=== PATIENT | male | born 1955 | race American Indian/Alaskan Native ===

== ENCOUNTER 2016-10-17 07:55 | Outpatient (CLI) | payer MEDICARE ==
[2016-10-17] MEDS ORDERED: XYLOCAINE TOPICAL 4% TP ONE ×2 (11:38→11:44)
== END 2016-10-17 07:56 | disposition home or self-care (01) ==
LOC: WOUND 07:55
PROVIDERS: ATTEND Orthopaedic Surgery
DX: E11.621 Type 2 diabetes mellitus with foot ulcer (principal); L97.521 Non-pressure chronic ulcer of other part of left foot limited to breakdown of skin; L97.511 Non-pressure chronic ulcer of other part of right foot limited to breakdown of skin; E11.52 Type 2 diabetes mellitus with diabetic peripheral angiopathy with gangrene; T81.31XS Disruption of external operation (surgical) wound, not elsewhere classified, sequela; T86.821 Skin graft (allograft) (autograft) failure; Z89.432 Acquired absence of left foot; Z99.2 Dependence on renal dialysis; I10 Essential (primary) hypertension; Z87.891 Personal history of nicotine dependence; Y83.2 Surgical operation with anastomosis, bypass or graft as the cause of abnormal reaction of the patient, or of later complication, without mention of misadventure at the time of the procedure
CPT/HCPCS: 11042; 82962; G0277; 99183

== ENCOUNTER 2016-10-18 07:41 | Outpatient (CLI) | payer MEDICARE | END 2016-10-18 07:42 | disposition home or self-care (01) | LOC: WOUND 07:41 | PROVIDERS: ATTEND Orthopaedic Surgery | DX: T86.821 Skin graft (allograft) (autograft) failure (principal); T81.31XS Disruption of external operation (surgical) wound, not elsewhere classified, sequela; E11.52 Type 2 diabetes mellitus with diabetic peripheral angiopathy with gangrene; I10 Essential (primary) hypertension; Z87.891 Personal history of nicotine dependence; Y83.2 Surgical operation with anastomosis, bypass or graft as the cause of abnormal reaction of the patient, or of later complication, without mention of misadventure at the time of the procedure | CPT/HCPCS: 82962; G0277; 99183 ==

== ENCOUNTER 2016-10-24 07:46 | Outpatient (CLI) | payer MEDICARE | END 2016-10-24 07:47 | disposition home or self-care (01) | LOC: WOUND 07:46 | PROVIDERS: ATTEND Orthopaedic Surgery | DX: E11.621 Type 2 diabetes mellitus with foot ulcer (principal); L97.521 Non-pressure chronic ulcer of other part of left foot limited to breakdown of skin; L97.511 Non-pressure chronic ulcer of other part of right foot limited to breakdown of skin; I10 Essential (primary) hypertension; Z87.891 Personal history of nicotine dependence | CPT/HCPCS: 11042; 82962; G0277; 99183 ==

== ENCOUNTER 2016-10-25 07:45 | Outpatient (CLI) | payer MEDICARE | END 2016-10-25 07:46 | disposition home or self-care (01) | LOC: WOUND 07:45 | PROVIDERS: ATTEND Orthopaedic Surgery | DX: T86.821 Skin graft (allograft) (autograft) failure (principal); T81.31XD Disruption of external operation (surgical) wound, not elsewhere classified, subsequent encounter; E11.52 Type 2 diabetes mellitus with diabetic peripheral angiopathy with gangrene; I10 Essential (primary) hypertension; Z87.891 Personal history of nicotine dependence; Y83.2 Surgical operation with anastomosis, bypass or graft as the cause of abnormal reaction of the patient, or of later complication, without mention of misadventure at the time of the procedure | CPT/HCPCS: 82962; G0277; 99183 ==

== ENCOUNTER 2016-10-30 07:48 | Outpatient (CLI) | payer MEDICARE | END 2016-10-30 07:49 | disposition home or self-care (01) | LOC: WOUND 07:48 | PROVIDERS: ATTEND Podiatrist | DX: T86.821 Skin graft (allograft) (autograft) failure (principal); T81.31XD Disruption of external operation (surgical) wound, not elsewhere classified, subsequent encounter; E11.52 Type 2 diabetes mellitus with diabetic peripheral angiopathy with gangrene; I10 Essential (primary) hypertension; E11.9 Type 2 diabetes mellitus without complications; Z87.891 Personal history of nicotine dependence; Y83.2 Surgical operation with anastomosis, bypass or graft as the cause of abnormal reaction of the patient, or of later complication, without mention of misadventure at the time of the procedure | CPT/HCPCS: 82962; G0277; 99183 ==

== ENCOUNTER 2016-10-31 07:57 | Outpatient (CLI) | payer MEDICARE | END 2016-10-31 07:58 | disposition home or self-care (01) | LOC: WOUND 07:57 | PROVIDERS: ATTEND Orthopaedic Surgery | DX: T86.821 Skin graft (allograft) (autograft) failure (principal); T81.31XD Disruption of external operation (surgical) wound, not elsewhere classified, subsequent encounter; E11.52 Type 2 diabetes mellitus with diabetic peripheral angiopathy with gangrene; E11.9 Type 2 diabetes mellitus without complications; I10 Essential (primary) hypertension; Z87.891 Personal history of nicotine dependence | CPT/HCPCS: 82962; G0277; 99183 ==

== ENCOUNTER 2016-11-01 08:06 | Outpatient (CLI) | payer MEDICARE | END 2016-11-01 08:07 | disposition home or self-care (01) | LOC: WOUND 08:06 | PROVIDERS: ATTEND Orthopaedic Surgery | DX: T86.821 Skin graft (allograft) (autograft) failure (principal); T81.31XD Disruption of external operation (surgical) wound, not elsewhere classified, subsequent encounter; E11.52 Type 2 diabetes mellitus with diabetic peripheral angiopathy with gangrene; I10 Essential (primary) hypertension; Z87.891 Personal history of nicotine dependence; Y83.2 Surgical operation with anastomosis, bypass or graft as the cause of abnormal reaction of the patient, or of later complication, without mention of misadventure at the time of the procedure | CPT/HCPCS: 82962; G0277; 99183 ==

== ENCOUNTER 2016-11-02 09:13 | Outpatient (CLI) | payer MEDICARE ==
[2016-11-02] MEDS ORDERED: XYLOCAINE TOPICAL 2% TP ONE ×2 (09:23→14:34)
== END 2016-11-02 09:14 | disposition home or self-care (01) ==
LOC: WOUND 09:13
PROVIDERS: ATTEND Podiatrist
DX: T86.821 Skin graft (allograft) (autograft) failure (principal); T81.31XD Disruption of external operation (surgical) wound, not elsewhere classified, subsequent encounter; E11.52 Type 2 diabetes mellitus with diabetic peripheral angiopathy with gangrene; I10 Essential (primary) hypertension; Z87.891 Personal history of nicotine dependence; Y83.2 Surgical operation with anastomosis, bypass or graft as the cause of abnormal reaction of the patient, or of later complication, without mention of misadventure at the time of the procedure

== ENCOUNTER 2016-11-07 08:33 | Outpatient (CLI) | payer MEDICARE ==
[2016-11-07] MEDS ORDERED: XYLOCAINE TOPICAL 2% TP ONE ×3 (08:36→13:27)
[2016-11-07] MEDS ORDERED: ePHEDrine SULFATE ONE (13:12)
[2016-11-07] MEDS ORDERED: NEO SYNEPHRINE ONE (13:30)
--- NOTE | 2016-11-08 03:07 | Physician Progress Note ---
DIAGNOSIS: Diabetic foot ulcers Howard 4. ASSESSMENT OF WOUNDS: Wound #2, left plantar wound measurements 3.3 x 3.3 x 1.2, an area of 10.89 sq cm. This wound has necrotic tissue and leading down to the plantar aspect of the metatarsal with the necrotic bone. Under 4% lidocaine solution topical analgesia using a sterile curette, excisional debridement down to the third metatarsal head was performed sequestered bony spicules removed. The wound packed after thorough excisional debridement at bony level and dressed with alginate rope. Total area of 10.89 sq cm. Wound #3, right lateral fifth toe, necrotic tissue noted in the wound. Under 4% lidocaine solution topical analgesia using forceps and scissors, necrotic tissue was cut out and removed. The subcutaneous level necrotic tissue was curetted out with sterile curette. Wound dressed with Alginate silver. Wound #7 and #8 were similarly treated over the right great toe. Wound #8 was lateral border of the left leg. These are at subcutaneous level. Excisional debridement of the slough. So, 3, 7 and 8 wounds together 8.73 sq cm. These were dressed with Alginate silver. Well tolerated. The patient had appointment with his doctor at [facility]. He was planning to have surgical debridement in November. He will continue his wound care here as scheduled on weekly debridements. Because of necrotic bone, I would ask for approval for continuation of HBO for another 40 Dives. JOB# [id number] ARI/TOMASA ELIAS
== END 2016-11-07 08:34 | disposition home or self-care (01) ==
LOC: WOUND 08:33
PROVIDERS: ATTEND Orthopaedic Surgery
DX: E11.621 Type 2 diabetes mellitus with foot ulcer (principal); L97.521 Non-pressure chronic ulcer of other part of left foot limited to breakdown of skin; L97.511 Non-pressure chronic ulcer of other part of right foot limited to breakdown of skin; S90.424D Blister (nonthermal), right lesser toe(s), subsequent encounter; T81.31XS Disruption of external operation (surgical) wound, not elsewhere classified, sequela; T86.821 Skin graft (allograft) (autograft) failure; E11.52 Type 2 diabetes mellitus with diabetic peripheral angiopathy with gangrene; I10 Essential (primary) hypertension; Z99.2 Dependence on renal dialysis; Z87.891 Personal history of nicotine dependence; X58.XXXD Exposure to other specified factors, subsequent encounter; Y83.2 Surgical operation with anastomosis, bypass or graft as the cause of abnormal reaction of the patient, or of later complication, without mention of misadventure at the time of the procedure
CPT/HCPCS: 11044; J2370

== ENCOUNTER 2016-11-09 10:52 | Outpatient (CLI) | payer MEDICARE | END 2016-11-09 10:53 | disposition home or self-care (01) | LOC: WOUND 10:52 | PROVIDERS: ATTEND Podiatrist | DX: T86.821 Skin graft (allograft) (autograft) failure (principal); T81.31XS Disruption of external operation (surgical) wound, not elsewhere classified, sequela; E11.52 Type 2 diabetes mellitus with diabetic peripheral angiopathy with gangrene; I10 Essential (primary) hypertension; Z87.891 Personal history of nicotine dependence; Y83.2 Surgical operation with anastomosis, bypass or graft as the cause of abnormal reaction of the patient, or of later complication, without mention of misadventure at the time of the procedure | CPT/HCPCS: 99212; G0463 ==

== ENCOUNTER 2016-11-09 12:57 | Emergency (ER) | payer MEDICARE ==
--- NOTE | 2016-11-09 14:43 | Emergency Department Report ---
Chief Complaint: Wound/Laceration Stated Complaint: WOUND CARE Time Seen by Provider: 11/09/16 15:05 - HPI History of Present Illness: Patient is a 61-year-old male who was sent from the wound care center stating he was sent over to be admitted to today's Wound infection on his left foot. Patient states he was seen at the wound care center today when he was supposed to come to the ED to be evaluated and possibly admitted due to wound infection of the left foot. Patient denies fevers/chills/nausea/vomiting/abdominal pain/chest pain or any other problems. Patient's states his leg was assessed today at the wound care was wrapped up until to come to ED. - ROS Review of Systems: As noted in HPI - Exam Vital Signs: Vital Signs 11/09/16 13:02 Temperature 99.1 F Pulse Rate 103 H Respiratory 20 Rate Blood Pressure 146/70 O2 Sat by Pulse 100 Oximetry Physical Exam: GENERAL: Alert and oriented x3, no apparent distress, Normal Gait, atraumatic. NECK: Supple. Non edematous, No carotid bruits. No lymphadenopathy or thyromegaly. LUNGS: Symetrical with respiration, No wheezing, no rales or crackles, CTAB. HEART: S1, S2 present, regular rate and rhythm without murmur, no rubs, no gallops. EXTREMITIES/MUSCULOSKELETAL: No cyanosis, clubbing, rash. Full ROM bilaterally. SKIN: Warm and dry, No lesions, No ulceration or induration present. lower leg warm and edematous 2+ pitting edema, no calf tenderness MSE screening note: Focused history and physical exam performed. Due to findings the following was ordered: ED Medical Decision Making - Medical Decision Making Basic labs ordered. Patient to be given IV antibiotics and possibly vancomycin and be admitted on the floor. Patient's to be seen by Ed physician. ED Disposition for MSE Condition: Stable
[2016-11-09 16:48] LABS: BUN/Creatinine Ratio 3.58; Calcium 8.7 mg/dL (8.4-10.2); Chloride 94.7 mmol/L (98-107); Potassium 4.7 mmol/L (3.6-5.0)
[2016-11-09 17:04] LABS: Basophils % (Auto) 0.9 % (0.0-1.8); Eosinophils % (Auto) 10.4 % (0.0-4.3); Hematocrit 33.4 % (35.5-45.6); Hemoglobin 10.7 gm/dl (11.8-15.2); Mean Corpuscular HGB Conc 32 % (32-34); Mean Corpuscular Hemoglobin 28 pg (28-32); Mean Corpuscular Volume 88 fl (84-94); Platelet Count 228 K/mm3 (140-440); Red Blood Count 3.81 M/mm3 (3.65-5.03); Red Cell Distribution Width 16.9 % (13.2-15.2); White Blood Count 10.5 K/mm3 (4.5-11.0)
--- NOTE | 2016-11-09 19:55 | Emergency Department Report ---
ED General Adult HPI - General Chief complaint: Wound/Laceration Stated complaint: WOUND CARE Time Seen by Provider: 11/09/16 19:39 Source: patient, RN notes reviewed Mode of arrival: Ambulatory Limitations: No Limitations - History of Present Illness Initial comments: This is a 61-year-old male, previously unknown to me. Has a past medical history of diabetes, diabetic ulcers, chronic wounds, end-stage renal disease on dialysis. Last dialysis session was yesterday, and it was of normal length and duration. Patient follows up with wound care here. He reports that he is sent here by the wound care nurse for evaluation. The patient denies fever, chills, chest pain, shortness of breath, abdominal pain. Denies discharge. He reports that he had a low-grade temperature of 99. Doesn't think he has any discharge. He is remaining compliant with his wound care therapy. No exacerbating or relieving factors. -: Gradual Severity scale (0 -10): 2 Improves with: none Worsens with: none Associated Symptoms: denies: confusion, chest pain, cough, diaphoresis, fever/ chills, headaches, loss of appetite, malaise, nausea/vomiting, rash, seizure, shortness of breath, syncope, weakness - Related Data Home Medications Medication Instructions Recorded Confirmed Last Taken Calcium Acetate 2 tab PO TIDWM 10/30/13 11/14/15 12/14/13 Metoprolol [Lopressor TAB] 50 mg PO BID 10/30/13 11/14/15 12/14/13 Omeprazole [PriLOSEC] 40 mg PO DAILY PRN 10/30/13 11/14/15 12/14/13 amLODIPine [Norvasc] 10 mg PO DAILY 10/30/13 11/14/15 12/14/13 Brimonidine Tartrate [Brimonidine 1 drop OU BID 12/12/14 11/14/15 Unknown Tartrate 0.2%] Dorzolamide HCl/Timolol Maleat 10 ml OP BID 12/12/14 11/14/15 Unknown [Dorzolamide-Timolol Eye Drops] Latanoprost 0.005% [Xalatan 0.005%] 1 drop OP QPM 12/12/14 11/14/15 Unknown Previous Rx's Medication Instructions Recorded Last Taken Type Brimonidine Tartrate [Brimonidine 1 drop OU BID 11/17/15 Unknown Rx Tartrate 0.2%] Calcium Acetate [Phoslo] 1,334 mg PO TIDWM capsule 11/17/15 Unknown Rx Dorzolamide/Timolol(Nf) 2-0.5% 1 drops OU BID bottle 11/17/15 Unknown Rx [Cosopt (Nf)] Insulin NPH/Regular [NovoLIN 70/30] 5 unit SUB-Q BIDDIAB units 11/17/15 Unknown Rx Latanoprost 0.005% [Xalatan 0.005%] 1 drops OU QPM bottle 11/17/15 Unknown Rx Pantoprazole [Protonix TAB] 40 mg PO DAILY tablet 11/17/15 Unknown Rx amLODIPine [Norvasc] 10 mg PO DAILY tablet 11/17/15 Unknown Rx Levofloxacin [Levaquin TAB] 500 mg PO Q48H #7 dose 03/10/16 Unknown Rx SILVER sulfADIAZINE 50 GRAM 1 applic TP QDAY #1 tube 03/10/16 Unknown Rx [Thermazene 50 Gram] Allergies Allergy/AdvReac Type Severity Reaction Status Date / Time IV CONTRAST DYE AdvReac Nausea Uncoded 03/05/16 12:34 ED Review of Systems ROS: Stated complaint: WOUND CARE Other details as noted in HPI Constitutional: no symptoms reported ENT: as per HPI Respiratory: no symptoms reported Cardiovascular: as per HPI Endocrine: no symptoms reported Gastrointestinal: as per HPI Genitourinary: as per HPI Musculoskeletal: as per HPI Skin: as per HPI Neurological: as per HPI Psychiatric: as per HPI Hematological/Lymphatic: as per HPI ED Past Medical Hx - Past Medical History Hx Hypertension: Yes Hx CVA: No Hx Heart Attack/AMI: No Hx Congestive Heart Failure: No Hx Diabetes: Yes Hx Deep Vein Thrombosis: No Hx Pulmonary Embolism: No Hx GERD: No Hx Liver Disease: No Hx Renal Disease: Yes Hx Sickle Cell Disease: No Hx Arthritis: No Hx Headaches / Migraines: No Hx Seizures: No Hx Kidney Stones: No Hx Psychiatric Treatment: No Hx Asthma: No Hx COPD: No Hx Tuberculosis: No Hx Dementia: No Hx HIV: No Additional medical history: diaylsis- tues, thurs, sat - Surgical History Hx Coronary Stent: No Hx Open Heart Surgery: No Hx Pacemaker: No Hx Internal Defibrillator: No Hx Cholecystectomy: No Hx Appendectomy: No Hx Breast Surgery: No Additional Surgical History: graft in right arm - Social History Smoking Status: Former Smoker Substance Use Type: None - Medications Home Medications: Home Medications Medication Instructions Recorded Confirmed Last Taken Type Calcium Acetate 2 tab PO TIDWM 10/30/13 11/14/15 12/14/13 History Metoprolol [Lopressor TAB] 50 mg PO BID 10/30/13 11/14/15 12/14/13 History Omeprazole [PriLOSEC] 40 mg PO DAILY PRN 10/30/13 11/14/15 12/14/13 History amLODIPine [Norvasc] 10 mg PO DAILY 10/30/13 11/14/15 12/14/13 History Brimonidine Tartrate [Brimonidine 1 drop OU BID 12/12/14 11/14/15 Unknown History Tartrate 0.2%] Dorzolamide HCl/Timolol Maleat 10 ml OP BID 12/12/14 11/14/15 Unknown History [Dorzolamide-Timolol Eye Drops] Latanoprost 0.005% [Xalatan 0.005%] 1 drop OP QPM 12/12/14 11/14/15 Unknown History Brimonidine Tartrate [Brimonidine 1 drop OU BID 11/17/15 Unknown Rx Tartrate 0.2%] Calcium Acetate [Phoslo] 1,334 mg PO TIDWM capsule 11/17/15 Unknown Rx Dorzolamide/Timolol(Nf) 2-0.5% 1 drops OU BID bottle 11/17/15 Unknown Rx [Cosopt (Nf)] Insulin NPH/Regular [NovoLIN 70/30] 5 unit SUB-Q BIDDIAB units 11/17/15 Unknown Rx Latanoprost 0.005% [Xalatan 0.005%] 1 drops OU QPM bottle 11/17/15 Unknown Rx Pantoprazole [Protonix TAB] 40 mg PO DAILY tablet 11/17/15 Unknown Rx amLODIPine [Norvasc] 10 mg PO DAILY tablet 11/17/15 Unknown Rx Levofloxacin [Levaquin TAB] 500 mg PO Q48H #7 dose 03/10/16 Unknown Rx SILVER sulfADIAZINE 50 GRAM 1 applic TP QDAY #1 tube 03/10/16 Unknown Rx [Thermazene 50 Gram] ED Physical Exam - General Limitations: No Limitations General appearance: alert, in no apparent distress - Head Head exam: Present: atraumatic, normocephalic - Eye Eye exam: Present: normal appearance, EOMI. Absent: nystagmus - ENT ENT exam: Present: normal exam, normal orophraynx, mucous membranes moist, normal external ear exam - Neck Neck exam: Present: normal inspection, full ROM. Absent: tenderness, meningismus - Respiratory Respiratory exam: Present: normal lung sounds bilaterally. Absent: respiratory distress, wheezes, rales, rhonchi, stridor, chest wall tenderness - Cardiovascular Cardiovascular Exam: Present: regular rate, normal rhythm, normal heart sounds. Absent: bradycardia, tachycardia, irregular rhythm, systolic murmur, diastolic murmur, rubs, gallop - GI/Abdominal GI/Abdominal exam: Present: soft, normal bowel sounds. Absent: distended, tenderness, guarding, rebound, rigid, pulsatile mass - Rectal Rectal exam: Present: deferred - Extremities Exam Extremities exam: Present: full ROM, normal capillary refill, other (there is a right upper extremity AV fistula with an appropriate throat. Numerous chronic wounds are noted in the bilateral lower extremities. In the left lower extremity, on the plantar aspect, there is a 3 x 4 cm chronic wound, with good granulation tissue, which is healing well, slightly discolored surrounding skin , with no redness, pus, streaking, or crepitus. There are 2+ pulses in the bilateral upper and lower extremities. There is a small chronic wound as well on the left superior/lateral aspect of the foot, which is also not appearing to be acutely infected. On the right lateral aspect of the fifth toe, there is a chronic healing wound with approximately 1 x 1 cm, which does not appear to be acutely infected.). Absent: tenderness, pedal edema, joint swelling, calf tenderness - Back Exam Back exam: Present: normal inspection, full ROM. Absent: tenderness, CVA tenderness (R), CVA tenderness (L), muscle spasm, paraspinal tenderness, vertebral tenderness - Neurological Exam Neurological exam: Present: alert, oriented X3, normal gait, other (Extraocular movements intact. Tongue midline. No facial droop. Facial sensation intact to light touch in the V1, V2, V3 distribution bilaterally. 5 and 5 strength in 4 extremities.. Sensation is intact to light touch in 4 extremities.). Absent : motor sensory deficit - Psychiatric Psychiatric exam: Present: normal affect, normal mood - Skin Skin exam: Present: warm, dry, intact, normal color. Absent: rash ED Course Vital Signs 11/09/16 11/09/16 11/09/16 13:02 19:53 21:23 Temperature 99.1 F 99.8 F H Pulse Rate 103 H 97 H 84 Respiratory 20 20 20 Rate Blood Pressure 146/70 Blood Pressure 124/84 [Left] O2 Sat by Pulse 100 97 98 Oximetry - Reevaluation(s) Reevaluation #1: 11/09/16 20:35 Differential diagnosis: Chronic wound, chronic renal insufficiency Assessment and plan: 61-year-old male with chronic wound. No fever by rectal temperature, wound appears to be healing well, laboratory studies demonstrate chronic renal insufficiency. He has good pulses, there is no evidence of obvious cellulitis or discharge, his compartments are soft, and he has appropriate strength and sensation. I do not believe he requires oral antibiotic therapy, and I certainly believe he does not require admission to the hospital at this time. He can continue his current outpatient medications, and follow up with his technical sales support specialist. ED Medical Decision Making - Lab Data Result diagrams: 11/09/16 16:15 11/09/16 16:15 Critical care attestation.: If time is entered above; I have spent that time in minutes in the direct care of this critically ill patient, excluding procedure time. ED Disposition Clinical Impression: Chronic wound of extremity Disposition: DISCHARGED TO HOME OR SELFCARE Is pt being admited?: No Does the pt Need Aspirin: No Condition: Stable Instructions: Wound Healing and Your Diet (ED), Pressure Ulcer (ED) Additional Instructions: Continue current outpatient medications. Follow-up with your technical sales support specialist within the next week. Return to the ER right away with fevers, chills, chest pain, shortness of breath, pain, redness, pus, streaking, intractable nausea or vomiting, inability to tolerate liquids. Referrals: GEORGES NOVA MD [Primary Care Provider] - 3-5 Days COLT VARGHESE MD [Staff Physician] - 3-5 Days
[2016-11-09 21:23] VITALS: BP 124/84
== END 2016-11-09 21:23 | disposition home or self-care (01) ==
LOC: ED 12:57
DX: S81.802D Unspecified open wound, left lower leg, subsequent encounter (principal); S81.801D Unspecified open wound, right lower leg, subsequent encounter; G89.29 Other chronic pain; R50.9 Fever, unspecified; I10 Essential (primary) hypertension; E11.9 Type 2 diabetes mellitus without complications; N28.9 Disorder of kidney and ureter, unspecified; Z79.4 Long term (current) use of insulin; Z87.891 Personal history of nicotine dependence; Z88.8 Allergy status to other drugs, medicaments and biological substances; X58.XXXD Exposure to other specified factors, subsequent encounter
CPT/HCPCS: 36415; 80048; 85025; 99212; 99283; G0463

== ENCOUNTER 2016-11-18 00:58 | Emergency (ER) | payer OTHER, MEDICARE ==
[2016-11-18] MEDS ORDERED: TYLENOL PO ONE (04:49)
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
[2016-11-18 06:47] VITALS: BP 111/66
== END 2016-11-18 06:31 | disposition home or self-care (01) ==
LOC: ED 00:58
DX: S39.012A Strain of muscle, fascia and tendon of lower back, initial encounter (principal); S00.03XA Contusion of scalp, initial encounter; I12.0 Hypertensive chronic kidney disease with stage 5 chronic kidney disease or end stage renal disease; N18.6 End stage renal disease; Z99.2 Dependence on renal dialysis; Z79.4 Long term (current) use of insulin; E11.9 Type 2 diabetes mellitus without complications; Z87.891 Personal history of nicotine dependence; Z91.041 Radiographic dye allergy status; V89.2XXA Person injured in unspecified motor-vehicle accident, traffic, initial encounter; Y93.89 Activity, other specified; Y99.8 Other external cause status; Y92.89 Other specified places as the place of occurrence of the external cause
CPT/HCPCS: 70450; 72125

== ENCOUNTER 2016-11-25 14:55 | Inpatient (IN) | payer MEDICARE, OTHER ==
[2016-11-25 16:10] LABS: Basophils % (Auto) 0.4 % (0.0-1.8); Eosinophils % (Auto) 0.9 % (0.0-4.3); Hematocrit 30.5 % (35.5-45.6); Hemoglobin 9.5 gm/dl (11.8-15.2); Mean Corpuscular HGB Conc 31 % (32-34); Mean Corpuscular Hemoglobin 27 pg (28-32); Mean Corpuscular Volume 86 fl (84-94); Platelet Count 259 K/mm3 (140-440); Red Blood Count 3.53 M/mm3 (3.65-5.03); Red Cell Distribution Width 17.1 % (13.2-15.2); White Blood Count 15.9 K/mm3 (4.5-11.0)
[2016-11-25 16:34] LABS: BUN/Creatinine Ratio 3.56; Calcium 9.5 mg/dL (8.4-10.2); Chloride 91.8 mmol/L (98-107)
[2016-11-25 20:18] LABS: INR 1.31 (0.87-1.13)
[2016-11-25] MEDS ORDERED: ZOFRAN IV ONE (23:17)
[2016-11-25] MEDS ORDERED: ZOSYN/NS 2.25 GM/50ML 2.25 GM/50 ML BAG IV ONE (23:17)
[2016-11-25] MEDS ORDERED: VANCOMYCIN/NS 1 GM/250 ML 1 GM/250 ML BAG IV ONE (23:17)
[2016-11-25] MEDS ORDERED: SUBLIMAZE IV ONE (23:17)
--- NOTE | 2016-11-25 23:23 | Emergency Department Report ---
HPI - General Chief Complaint: Chest Pain Time Seen by Provider: 11/25/16 23:05 - HPI HPI: Room 26 The patient is a 61-year-old male presenting with a chief complaint of nausea and vomiting. The patient states for the past 3 days he's had nausea and vomiting with occasional diarrhea. Patient states this prompted him to come to the emergency department. Patient denies any history of fever. The patient denies chest pain but states that he has occasional "heartburn." The patient has a very malodorous left foot and he states that has been that way for several months but worsening over the last month. Patient has a history of the left foot wound with an ulcer on the bottom since July 2016. Location: [see above] Duration: [see above] Quality: Vomiting Severity: Moderate Modifying factors: [see above] Context: [see above] Mode of transportation: [not driving] ED Past Medical Hx - Past Medical History Previous Medical History?: Yes Hx Hypertension: Yes Hx Diabetes: Yes Hx Renal Disease: Yes Additional medical history: diaylsis- tues, thurs, sat - Surgical History Past Surgical History?: Yes Additional Surgical History: 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 - Family History Family history: no significant - Social History Smoking Status: Former Smoker Substance Use Type: None - Medications Home Medications: Home Medications Medication Instructions Recorded Confirmed Last Taken Type Calcium Acetate 2 tab PO TIDWM 10/30/13 11/14/15 12/14/13 History Metoprolol [Lopressor TAB] 50 mg PO BID 10/30/13 11/14/15 12/14/13 History Omeprazole [PriLOSEC] 40 mg PO DAILY PRN 10/30/13 11/14/15 12/14/13 History amLODIPine [Norvasc] 10 mg PO DAILY 10/30/13 11/14/15 12/14/13 History Brimonidine Tartrate [Brimonidine 1 drop OU BID 12/12/14 11/14/15 Unknown History Tartrate 0.2%] Dorzolamide HCl/Timolol Maleat 10 ml OP BID 12/12/14 11/14/15 Unknown History [Dorzolamide-Timolol Eye Drops] Latanoprost 0.005% [Xalatan 0.005%] 1 drop OP QPM 12/12/14 11/14/15 Unknown History Brimonidine Tartrate [Brimonidine 1 drop OU BID 11/17/15 Unknown Rx Tartrate 0.2%] Calcium Acetate [Phoslo] 1,334 mg PO TIDWM capsule 11/17/15 Unknown Rx Dorzolamide/Timolol(Nf) 2-0.5% 1 drops OU BID bottle 11/17/15 Unknown Rx [Cosopt (Nf)] Insulin NPH/Regular [NovoLIN 70/30] 5 unit SUB-Q BIDDIAB units 11/17/15 Unknown Rx Latanoprost 0.005% [Xalatan 0.005%] 1 drops OU QPM bottle 11/17/15 Unknown Rx Pantoprazole [Protonix TAB] 40 mg PO DAILY tablet 11/17/15 Unknown Rx amLODIPine [Norvasc] 10 mg PO DAILY tablet 11/17/15 Unknown Rx Levofloxacin [Levaquin TAB] 500 mg PO Q48H #7 dose 03/10/16 Unknown Rx SILVER sulfADIAZINE 50 GRAM 1 applic TP QDAY #1 tube 03/10/16 Unknown Rx [Thermazene 50 Gram] Acetaminophen [Acetaminophen TAB] 500 mg PO Q6HR PRN #25 tablet 11/18/16 Unknown Rx ED Review of Systems ROS: Stated complaint: N/V HEARTBURN Other details as noted in HPI Comment: All other systems reviewed and negative Constitutional: denies: chills, fever Eyes: denies: eye pain, eye discharge, vision change ENT: denies: ear pain, throat pain Respiratory: denies: cough, shortness of breath, wheezing Cardiovascular: denies: chest pain, palpitations Endocrine: no symptoms reported Gastrointestinal: nausea, vomiting Genitourinary: denies: urgency, dysuria Musculoskeletal: myalgia Skin: lesions Neurological: denies: headache, weakness, paresthesias Psychiatric: denies: anxiety, depression Hematological/Lymphatic: denies: easy bleeding, easy bruising Physical Exam - Physical Exam Vital Signs: Vital Signs 11/25/16 11/25/16 11/25/16 15:21 20:32 20:36 Temperature 99.7 F H Pulse Rate 117 H 114 H Respiratory 18 18 18 Rate Blood Pressure 142/69 Blood Pressure 145/71 [Left] O2 Sat by Pulse 100 99 99 Oximetry Physical Exam: GENERAL: The patient is well-developed well-nourished male lying on stretcher not appearing to be in acute distress.. There is a very foul odor filling the room, apparently emanating from the patient's left foot HEENT: Normocephalic. Atraumatic. Extraocular motions are intact. Patient has moist mucous membranes. NECK: Supple. No meningitic signs are noted. There is no adenopathy noted. CHEST/LUNGS: Clear to auscultation. There is no respiratory distress noted. HEART/CARDIOVASCULAR: Regular. There is tachycardia. There is no gallop rub or murmur. ABDOMEN: Abdomen is soft, nontender. Patient has normal bowel sounds. There is no abdominal distention. SKIN: There is erythema and warmth of the entire left lower extremity below the knee. Ulcers present the sole of left foot. Evidence of greenish discharge present in the dressing. Foot is very foul smelling NEURO: The patient is awake, alert, and oriented. The patient is cooperative. The patient has normal speech MUSCULOSKELETAL: There is no evidence of acute injury. ED Course Vital Signs 11/25/16 11/25/16 11/25/16 15:21 20:32 20:36 Temperature 99.7 F H Pulse Rate 117 H 114 H Respiratory 18 18 18 Rate Blood Pressure 142/69 Blood Pressure 145/71 [Left] O2 Sat by Pulse 100 99 99 Oximetry - Consultations Consultation #1: 11/25/16 23:[address] Stallings. She requests a lipase be added and an abdominal x-ray be performed. These studies have been ordered by myself to be followed up by Dr. Stallings 11/25/16 23:51 ED Medical Decision Making - Lab Data Result diagrams: 11/25/16 15:45 11/25/16 15:45 Laboratory Tests 11/25/16 11/25/16 11/25/16 15:15 15:45 15:45 WBC 15.9 H RBC 3.53 L Hgb 9.5 L Hct 30.5 L MCV 86 MCH 27 L MCHC 31 L RDW 17.1 H Plt Count 259 Lymph % (Auto) 5.4 L Centre % (Auto) 8.4 H Eos % (Auto) 0.9 Baso % (Auto) 0.4 Lymph # 0.9 L Centre # 1.3 H Eos # 0.1 Baso # 0.1 Seg Neutrophils % 84.9 H Seg Neutrophils # 13.5 H PT INR VBG pH Sodium 134 L Potassium 4.0 Chloride 91.8 L Carbon Dioxide 22 Anion Gap 24 BUN 26 H Creatinine 7.3 H Estimated GFR 9 BUN/Creatinine Ratio 3.56 Glucose 214 H POC Glucose 237 H Lactic Acid Calcium 9.5 Troponin T 0.169 H* Triglycerides 87 Cholesterol 96 LDL Cholesterol Direct 59 HDL Cholesterol 20 L Cholesterol/HDL Ratio 4.80 11/25/16 11/25/16 11/25/16 19:50 19:50 19:50 WBC RBC Hgb Hct MCV MCH MCHC RDW Plt Count Lymph % (Auto) Centre % (Auto) Eos % (Auto) Baso % (Auto) Lymph # Centre # Eos # Baso # Seg Neutrophils % Seg Neutrophils # PT 16.2 H INR 1.31 H VBG pH Sodium Potassium Chloride Carbon Dioxide Anion Gap BUN Creatinine Estimated GFR BUN/Creatinine Ratio Glucose POC Glucose Lactic Acid 2.0 Calcium Troponin T 0.175 H* Triglycerides Cholesterol LDL Cholesterol Direct HDL Cholesterol Cholesterol/HDL Ratio 11/25/16 11/25/16 11/25/16 19:50 21:11 22:46 WBC RBC Hgb Hct MCV MCH MCHC RDW Plt Count Lymph % (Auto) Centre % (Auto) Eos % (Auto) Baso % (Auto) Lymph # Centre # Eos # Baso # Seg Neutrophils % Seg Neutrophils # PT INR VBG pH 7.353 Sodium Potassium Chloride Carbon Dioxide Anion Gap BUN Creatinine Estimated GFR BUN/Creatinine Ratio Glucose POC Glucose Lactic Acid 1.2 Calcium Troponin T 0.160 H* Triglycerides Cholesterol LDL Cholesterol Direct HDL Cholesterol Cholesterol/HDL Ratio - EKG Data -: EKG Interpreted by Co EKG shows normal: sinus rhythm Rate: tachycardia - EKG Data When compared to previous EKG there are: no significant change, previous EKG unavailable Interpretation: unchanged when compared t (01/10/2016 (except for tachycardia)) - Differential Diagnosis diabetic foot infection, osteomyelitis, Critical care attestation.: If time is entered above; I have spent that time in minutes in the direct care of this critically ill patient, excluding procedure time. ED Disposition Clinical Impression: Diabetic infection of left foot, ESRD (end stage renal disease), Leukocytosis, Tachycardia Disposition: OP ADMITTED IP TO THIS HOSP Is pt being admited?: Yes Does the pt Need Aspirin: Yes Condition: Fair Instructions: Diabetes Mellitus Type 2 in Adults (ED) Referrals: GEORGES NOVA MD [Primary Care Provider] - 3-5 Days Time of Disposition: 23:29 (hospitalist paged)
[2016-11-26] MEDS ORDERED: VANCOMYCIN VIAL IV ONE (01:01)
--- NOTE | 2016-11-26 01:08 | History and Physical Report ---
History of Present Illness Date of examination: 11/26/16 Date of admission: 11/25/16 23:52 Chief complaint: Nausea vomiting History of present illness: The patient is a 61-year-old male presenting with a chief complaint of nausea and vomiting for the past 3 days with occasional diarrhea. Patient denies any history of fever. The patient denies chest pain but states that he has occasional "heartburn." In the ER The noted to have a very malodorous left foot and he states that he had the left foot wound with an ulcer on the bottom since July 2016 but getting worse since last month. He also noted to have elevated white count, abdominal xry was normal. Left foot xry showed possible osteomyelitis, he is getting admitted for further management. Past medical History: h/o end-stage renal disease on dialysis, diabetes mellitus type 2, hypertension, chronic left foot ulcer Past surgical History: s/p left toes amputation on April 2016 at [place], right AV graft placement for dialysis Social History: Lives with family, denies any smoking, drinking and elicit drug abuse. Family History: Significant for diabetes in brother Review of System: Constitutional: no fever, no chills, no weight loss Ears, eyes, nose, mouth and throat: no nasal congestion, no nasal discharge, no sinus pressure, no vision change, no red eye. Neck: No neck pain or rigidity. Cardiovascular: No chest pain, no orthopnea, no palpitations, no leg swelling Respiratory: No shortness of breath, no cough, no congestion, no wheezing Gastrointestinal: + abdominal pain, + nausea, + vomiting Genitourinary : no dysuria, no hematuria Musculoskeletal: no joint swelling or muscle ache Integumentary: no rash, no pruritis, positive foot ulcers bilaterally Neurological: no parathesias, no numbness, no tingling Endocrine: no cold or heat intolerance, no polyuria or polydipsia Hematologic/Lymphatic: no easy bruising, no easy bleeding, no gland swelling Allergic/Immunologic: no urticaria, no angioedema. Medications and Allergies Allergies Allergy/AdvReac Type Severity Reaction Status Date / Time IV CONTRAST DYE AdvReac Nausea Uncoded 03/05/16 12:34 Home Medications Medication Instructions Recorded Confirmed Last Taken Type Calcium Acetate 2 tab PO TIDWM 10/30/13 11/26/16 12/14/13 History Metoprolol [Lopressor TAB] 50 mg PO BID 10/30/13 11/14/15 12/14/13 History Omeprazole [PriLOSEC] 40 mg PO DAILY PRN 10/30/13 11/14/15 12/14/13 History amLODIPine [Norvasc] 10 mg PO DAILY 10/30/13 11/14/15 12/14/13 History Brimonidine Tartrate [Brimonidine 1 drop OU BID 12/12/14 11/14/15 Unknown History Tartrate 0.2%] Dorzolamide HCl/Timolol Maleat 10 ml OP BID 12/12/14 11/26/16 Unknown History [Dorzolamide-Timolol Eye Drops] Latanoprost 0.005% [Xalatan 0.005%] 1 drop OP QPM 12/12/14 11/26/16 Unknown History Brimonidine Tartrate [Brimonidine 1 drop OU BID 11/17/15 Unknown Rx Tartrate 0.2%] Calcium Acetate [Phoslo] 1,334 mg PO TIDWM capsule 11/17/15 11/26/16 Unknown Rx Dorzolamide/Timolol(Nf) 2-0.5% 1 drops OU BID bottle 11/17/15 Unknown Rx [Cosopt (Nf)] Insulin NPH/Regular [NovoLIN 70/30] 5 unit SUB-Q BIDDIAB units 11/17/15 Unknown Rx Latanoprost 0.005% [Xalatan 0.005%] 1 drops OU QPM bottle 11/17/15 Unknown Rx Pantoprazole [Protonix TAB] 40 mg PO DAILY tablet 11/17/15 Unknown Rx amLODIPine [Norvasc] 10 mg PO DAILY tablet 11/17/15 11/26/16 Unknown Rx Levofloxacin [Levaquin TAB] 500 mg PO Q48H #7 dose 03/10/16 Unknown Rx SILVER sulfADIAZINE 50 GRAM 1 applic TP QDAY #1 tube 03/10/16 Unknown Rx [Thermazene 50 Gram] Acetaminophen [Acetaminophen TAB] 500 mg PO Q6HR PRN #25 tablet 11/18/16 Unknown Rx Active Meds: Active Medications Piperacillin Sod/Tazobactam Sod (Zosyn/Ns 4.5gm/100ml) 100 mls @ 200 mls/hr IV Q8HR LEE ANN PRN Reason: Protocol Vancomycin HCl (Vancomycin Pharmacy To Dose) 1 each IV PKCONSULT LEE ANN PRN Reason: Protocol Vancomycin HCl (Vancomycin Vial) 0 mg IV DAILY ONE PRN Reason: Protocol Stop: 11/26/16 01:02 Exam - Physical Exam Narrative exam: GENERAL: This is an elderly male lying on bed appeared to be in no discomfort. HEENT: Normocephalic. Atraumatic. Extraocular motions are intact. No conjunctival congestion or icterus. Patient has moist mucous membranes. External auditory canal and nares patent bilaterally. NECK: Supple. Trachea midline. No JVD, thyromagaly or lymphadenopathy. CHEST/LUNGS: Clear to auscultated bilaterally. There is no respiratory distress noted, breathing nonlabored. No wheezes crackles or rhonchi. HEART/CARDIOVASCULAR: Regular in rate and rhythm. PMI at the apex. There is no gallop rub or murmur. ABDOMEN: Abdomen is soft, nontender. Patient has normal bowel sounds. There is no abdominal distention. No organomagaly or rigidity. SKIN: There is no rash, no erythrema. There is no diaphoresis. Warm and dry. NEUROLOGY: The patient is awake, alert, and oriented. The patient is cooperative. The patient has normal speech. No focal motor deficit. MUSCULOSKELETAL: No joint effusion or tenderness. Muscle strength equal bilaterally. No muscle wasting. EXTRIMITY: There is erythema and warmth of the entire left lower extremity below the knee. Ulcers present the sole of left foot. Evidence of greenish discharge present in the dressing. Foot is very foul smelling. PSYCH: No depression or anxiety noted. Cooperative. - Constitutional Vitals: Temp Pulse Resp BP Pulse Ox 99.7 F H 114 H 18 145/71 99 11/25/16 15:21 11/25/16 20:36 11/25/16 20:36 11/25/16 20:36 11/25/16 20:36 Results - Labs CBC & Chem 7: 12/02/16 08:09 12/02/16 08:09 Labs: Laboratory Last Values WBC 15.9 K/mm3 (4.5-11.0) H 11/25/16 15:45 RBC 3.53 M/mm3 (3.65-5.03) L 11/25/16 15:45 Hgb 9.5 gm/dl (11.8-15.2) L 11/25/16 15:45 Hct 30.5 % (35.5-45.6) L 11/25/16 15:45 MCV 86 fl (84-94) 11/25/16 15:45 MCH 27 pg (28-32) L 11/25/16 15:45 MCHC 31 % (32-34) L 11/25/16 15:45 RDW 17.1 % (13.2-15.2) H 11/25/16 15:45 Plt Count 259 K/mm3 (140-440) 11/25/16 15:45 Lymph % (Auto) 5.4 % (13.4-35.0) L 11/25/16 15:45 Richardson % (Auto) 8.4 % (0.0-7.3) H 11/25/16 15:45 Eos % (Auto) 0.9 % (0.0-4.3) 11/25/16 15:45 Baso % (Auto) 0.4 % (0.0-1.8) 11/25/16 15:45 Lymph # 0.9 K/mm3 (1.2-5.4) L 11/25/16 15:45 Richardson # 1.3 K/mm3 (0.0-0.8) H 11/25/16 15:45 Eos # 0.1 K/mm3 (0.0-0.4) 11/25/16 15:45 Baso # 0.1 K/mm3 (0.0-0.1) 11/25/16 15:45 Seg Neutrophils % 84.9 % (40.0-70.0) H 11/25/16 15:45 Seg Neutrophils # 13.5 K/mm3 (1.8-7.7) H 11/25/16 15:45 ESR 90 mm/Hr (0-20) 11/25/16 23:00 PT 16.2 Sec. (12.2-14.9) H 11/25/16 19:50 INR 1.31 (0.87-1.13) H 11/25/16 19:50 VBG pH 7.353 (7.320-7.420) 11/25/16 19:50 Sodium 134 mmol/L (137-145) L 11/25/16 15:45 Potassium 4.0 mmol/L (3.6-5.0) 11/25/16 15:45 Chloride 91.8 mmol/L (98-107) L 11/25/16 15:45 Carbon Dioxide 22 mmol/L (22-30) 11/25/16 15:45 Anion Gap 24 mmol/L 11/25/16 15:45 BUN 26 mg/dL (9-20) H 11/25/16 15:45 Creatinine 7.3 mg/dL (0.8-1.5) H 11/25/16 15:45 Estimated GFR 9 ml/min 11/25/16 15:45 BUN/Creatinine Ratio 3.56 % 11/25/16 15:45 Glucose 214 mg/dL (75-100) H 11/25/16 15:45 POC Glucose 237 (70-105) H 11/25/16 15:15 Lactic Acid 1.2 mmol/L (0.7-2.0) 11/25/16 22:46 Calcium 9.5 mg/dL (8.4-10.2) 11/25/16 15:45 Troponin T 0.160 ng/mL (0.00-0.029) H* 11/25/16 21:11 C-Reactive Protein 31.70 mg/dL (0.00-1.30) H 11/25/16 21:11 Triglycerides 87 mg/dL (2-149) 11/25/16 15:45 Cholesterol 96 mg/dL (50-199) 11/25/16 15:45 LDL Cholesterol Direct 59 mg/dL (50-130) 11/25/16 15:45 HDL Cholesterol 20 mg/dL (40-59) L 11/25/16 15:45 Cholesterol/HDL Ratio 4.80 % 11/25/16 15:45 Lipase 22 units/L (13-60) 11/25/16 23:56 - Imaging and Cardiology Chest x-ray: report reviewed Abdominal x-ray: report reviewed Assessment and Plan Assessment and plan: Sepsis likely due to left foot cellulitis Left foot cellulitis with infected pressure sores, possible osteomyelitis Nausea vomiting likely due to gastroenteritis or due to sepsis Diabetes mellitus type 2 End stage renal disease on dialysis Hypertension, benign essential Plan: Admit to medicine Place on empiric antibiotics Wound Care consult, wound culture blood culture Patient might need MRI of the foot, will wait for wound care eval Nephrology consult for dialysis Resume home meds, renal diet, SSI Supportive care GI and DVT prophylaxis Advance Directives: Yes VTE prophylaxis?: Chemical Plan of care discussed with patient/family: Yes
[2016-11-26] MEDS ORDERED: VANCOMYCIN PHARMACY TO DOSE IV SCH (02:00)
[2016-11-26] MEDS ORDERED: VANCOMYCIN VIAL 1,500 MG in NACL 0.9% 500 ML 500 ML IV ONE (02:00)
[2016-11-26] MEDS ORDERED: ZOSYN/NS 4.5GM/100ML 100 ML IV SCH (06:00)
[2016-11-26] MEDS ORDERED: TYLENOL PO PRN (06:01)
--- NOTE | 2016-11-26 07:23 | XRay Report ---
ABDOMEN TWO VIEWS: History: Nausea and vomiting. There is no evidence of free air beneath the diaphragms. The gas pattern within the abdomen is unremarkable. There is no evidence of bowel dilatation, significant air-fluid levels, or masses. The psoas margins are adequately visualized. IMPRESSION: Unremarkable abdomen.
[2016-11-26] MEDS: ZOSYN/NS 2.25 GM/50ML 2.25 GM/50 ML BAG IV SCH ×3 (07:26→22:55)
--- NOTE | 2016-11-26 07:27 | Admit Criteria Form ---
Admission Criteria Documentation: SEPSIS and OTHER FEBRILE ILLNESS, W/O FOCAL INFECTION Clinical Indications for Admission to Inpatient Care ( Place 'X' for any and all applicable criteria): Admission is indicated for ANY ONE of the following (1)(2)(3)(4): [X] I. Bacteremia [X]II. Suspected or identified specific infection requiring hospitalization (eg, meningitis, endocarditis) [ ]III. Hemodynamic instability [ ]IV. Altered mental status [X]V. Failure or unavailability of outpatient antimicrobial treatment [ ]. Hypoxemia [ ]VII. Seizures [ ]VIII. High-risk febrile neutropenia [ ]IX. Need for parenteral antibiotic in patient who is likely to abuse vascular access device (eg, injection drug user) [A](7) [ ]X. Temperature greater than 104.9 degrees F (40.5 degrees C) (oral) [X]XI. Inpatient admission required rather than observation care because of ANY ONE of the following: [X]1) Specific infection identified that is too severe for outpatient treatment or observation care trial [X]2) Metabolic disorder (eg, hypoglycemia, hyperglycemia, metabolic acidosis) that is severe or persistent [ ]3) Temperature greater than 103.1 degrees F (39.5 degrees C) ( oral) that is not responsive to observation care treatment [ ]4) IV fluid to replace significant ongoing (eg, for over 24 hours) losses (> 3 L/m2 per day) [ ]5) Supplemental oxygen or respiratory treatments for over 24 hours that is performable only in acute inpatient setting [ ]6) Parenteral nutrition regimen need that must be implemented on inpatient basis [ ]7) Strict or protective (eg, laminar flow) isolation [X]8) Other condition, treatment or monitoring requiring inpatient admission Extended stay beyond goal length of stay may be needed for(1)(3) [ ]a) Sepsis or septic shock(22) [ ]b) Positive blood cultures [ ]c) Insufficient oral intake [ ]d) High-risk febrile neutropenia(29)(30) [ ]e) Continued fever and clinical instability [ ]f) Clinically active comorbid illness (e.g,heart failure, renal failure , diabetes) The original [facility] content created by Stephanie Holcomb has been revised. The portions of the content which have been revised are identified through the use of italic text or in bold, and [facility] has neither reviewed nor approved the modified material. All other unmodified content is copyright [facility]. Please see references footnoted in the original [facility] edition 2016 Admission Criteria Met: Yes
--- NOTE | 2016-11-26 08:12 | XRay Report ---
Chest 2 views. Findings: The heart and pulmonary vessels are normal. The lungs are clear. There is mild elevation of the right hemidiaphragm. There is no pleural fluid. The bony thorax is normal. Impression: No acute findings.
--- NOTE | 2016-11-26 08:46 | XRay Report ---
LEFT FOOT, 2 VIEWS: HISTORY: Left foot pain, diabetic foot infection. FINDINGS: Compared to 03/05/16. Amputation of the distal foot at the level of the mid metatarsals has been performed since 03/05/16. There is diffuse soft tissue swelling distally with areas of soft tissue gas and ulceration. Large ulcerations are suspected distal to the remaining first metatarsal. There is chronic heterotopic bone calcifications in the distal soft tissues which confuses this exam; however, there appears to be bone demineralization in the remaining first metatarsal. I cannot exclude an osteomyelitis. This could be best evaluated with MRI left foot with and without contrast if renal functional allows. Noncontrast MR or triple phase bone scan may also prove useful. Please correlate with the patient's clinical presentation. IMPRESSION: Cellulitis and possible osteomyelitis of the distal left foot, as outlined above.
[2016-11-26] MEDS: PHOSLO PO SCH ×3 (09:52→18:11)
[2016-11-26] MEDS: PROTONIX PO SCH (09:53)
[2016-11-26] MEDS ORDERED: NORVASC PO SCH (10:00)
--- NOTE | 2016-11-26 11:40 | Progress Note ---
Assessment and Plan 1. Left lower extremity cellulitis: On IV Vanc and zosyn and local wound care. F /u with wound culture result 2. DM-II: SSI, accuchek qac/hs. 3. ESRD on dialysis: Continue with dialysis. Shorts Sifter following. 4. HTN: Continue with antihypertensive meds. 5. DVT prophylaxis: Heparin 5000 units q8h. 6. GI prophylaxis: Protonix 40 mg qd. Subjective Date of service: 11/26/16 Principal diagnosis: Cellulitis left lower extremity Interval history: No overnight events. Objective - Constitutional Vitals: Vital Signs - 12hr 11/26/16 11/26/16 07:30 07:58 Temperature 98.0 F Pulse Rate [ 90 From Monitor] Respiratory 20 Rate Blood Pressure 101/50 [Left Arm] O2 Sat by Pulse 100 95 Oximetry General appearance: Present: no acute distress, well-nourished - EENT Eyes: PERRL, EOM intact ENT: hearing intact, clear oral mucosa Ears: bilateral: normal - Neck Neck: supple, normal ROM - Respiratory Respiratory effort: normal Respiratory: bilateral: CTA - Breasts Breasts: normal - Cardiovascular Rhythm: regular Heart Sounds: Present: S1 & S2. Absent: gallop, rub Extremities: pulses intact, No edema, normal color, Full ROM Extremity abnormal: other (wound dress left lower extremity) - Gastrointestinal General gastrointestinal: Present: soft, non-tender, non-distended, normal bowel sounds - Genitourinary Male genitourinary: normal - Integumentary Integumentary: clear, warm, dry - Musculoskeletal Musculoskeletal: 1, strength equal bilaterally - Neurologic Neurologic: moves all extremities - Psychiatric Psychiatric: memory intact, appropriate mood/affect, intact judgment & insight - Labs CBC & Chem 7: 11/25/16 15:45 11/25/16 15:45 Labs: Abnormal lab results 11/26/16 Range/Units 08:27 POC Glucose 150 H (70-105)
[2016-11-26] MEDS ORDERED: PNEUMOVAX 23 IM ONE (12:00)
[2016-11-26] MEDS ORDERED: FLUARIX QUAD 2016-2017(36 MOS+) IM ONE (12:00)
[2016-11-26] MEDS: THERMAZENE 50 GRAM TP SCH (13:00)
--- NOTE | 2016-11-26 13:18 | Consultation ---
History of Present Illness - History of Present Illness Thank you for consultation Patient was evaluated today Assessment and plan End-stage renal disease currently on maintenance hemodialysis patient is currently being dialyze on Saturday schedule no acute emergent indication for renal replacement therapy today we'll order dialysis related labs and continue to monitor while on hemodialysis. current dialysis time is about 4.15 hours every treatment,we'll increase it to 4-1/2 hours due to large BMI and patient with foot infection Discontinue Norvasc due to borderline low blood pressure and follow clinically Hypertension goal systolic blood pressure for dialysis patient in general predialysis under 160 normal days 140 or less Anemia in end-stage renal disease to monitor erythropoietin as needed goal hemoglobin between 10 and 12 Malnutrition risk is high in dialysis patient in general please consider high protein diet Secondary hyperparathyroidism to monitor phosphorus as well as PTH level Comorbidity discussion with patient was done at length will recommend that patient should be seen and followed by vascular surgery as well Foot once with foul smell, likely patient may require amputation pending other consultants input We'll continue to follow and make recommendations from renal standpoint Medications and Allergies Allergies Allergy/AdvReac Type Severity Reaction Status Date / Time IV CONTRAST DYE AdvReac Nausea Uncoded 03/05/16 12:34 Home Medications Medication Instructions Recorded Confirmed Last Taken Type Calcium Acetate 2 tab PO TIDWM 10/30/13 11/26/16 12/14/13 History Metoprolol [Lopressor TAB] 50 mg PO BID 10/30/13 11/14/15 12/14/13 History Omeprazole [PriLOSEC] 40 mg PO DAILY PRN 10/30/13 11/14/15 12/14/13 History amLODIPine [Norvasc] 10 mg PO DAILY 10/30/13 11/14/15 12/14/13 History Brimonidine Tartrate [Brimonidine 1 drop OU BID 12/12/14 11/14/15 Unknown History Tartrate 0.2%] Dorzolamide HCl/Timolol Maleat 10 ml OP BID 12/12/14 11/26/16 Unknown History [Dorzolamide-Timolol Eye Drops] Latanoprost 0.005% [Xalatan 0.005%] 1 drop OP QPM 12/12/14 11/26/16 Unknown History Brimonidine Tartrate [Brimonidine 1 drop OU BID 11/17/15 Unknown Rx Tartrate 0.2%] Calcium Acetate [Phoslo] 1,334 mg PO TIDWM capsule 11/17/15 11/26/16 Unknown Rx Dorzolamide/Timolol(Nf) 2-0.5% 1 drops OU BID bottle 11/17/15 Unknown Rx [Cosopt (Nf)] Insulin NPH/Regular [NovoLIN 70/30] 5 unit SUB-Q BIDDIAB units 11/17/15 Unknown Rx Latanoprost 0.005% [Xalatan 0.005%] 1 drops OU QPM bottle 11/17/15 Unknown Rx Pantoprazole [Protonix TAB] 40 mg PO DAILY tablet 11/17/15 Unknown Rx amLODIPine [Norvasc] 10 mg PO DAILY tablet 11/17/15 11/26/16 Unknown Rx Levofloxacin [Levaquin TAB] 500 mg PO Q48H #7 dose 03/10/16 Unknown Rx SILVER sulfADIAZINE 50 GRAM 1 applic TP QDAY #1 tube 03/10/16 Unknown Rx [Thermazene 50 Gram] Acetaminophen [Acetaminophen TAB] 500 mg PO Q6HR PRN #25 tablet 11/18/16 Unknown Rx Active Meds: Active Medications Acetaminophen (Tylenol) 500 mg PO Q6H PRN PRN Reason: Pain Amlodipine Besylate (Norvasc) 10 mg PO DAILY [facility] Calcium Acetate (Phoslo) 1,334 mg PO TIDWM [facility] Last Admin: 11/26/16 09:52 Dose: 1,334 mg Heparin Sodium (Porcine) (Heparin) 5,000 unit SUB-Q Q8HR [facility] Piperacillin Sod/Tazobactam Sod (Zosyn/Ns 2.25 Gm/50ml) 2.25 gm in 50 mls @ 100 mls/hr IV Q8HR [facility] Last Admin: 11/26/16 07:26 Dose: 100 mls/hr Insulin Human Isoph/Insulin Regular (Novolin 70/30) 5 unit SUB-Q BIDDIAB [facility] Last Admin: 11/26/16 09:49 Dose: 5 unit Insulin Human Regular (Novolin R) 0 units SUB-Q ACHS [facility] PRN Reason: Protocol Last Admin: 11/26/16 09:49 Dose: 2 units Metoprolol Tartrate (Lopressor) 50 mg PO BID [facility] Pantoprazole Sodium (Protonix) 40 mg PO DAILY [facility] Last Admin: 11/26/16 09:53 Dose: 40 mg Silver Sulfadiazine (Thermazene 50 Gram) 1 applic TP QDAY LEE ANN Vancomycin HCl (Vancomycin Pharmacy To Dose) 1 each IV PKCONSULT [facility] PRN Reason: Protocol Exam - Vital Signs Vital signs: Vital Signs Temp Pulse Resp BP Pulse Ox 99.7 F H 117 H 18 142/69 100 11/25/16 15:21 11/25/16 15:21 11/25/16 15:21 11/25/16 15:21 11/25/16 15:21 Results - Lab Results 11/25/16 15:45 11/25/16 15:45 Most recent lab results Calcium 9.5 mg/dL (8.4-10.2) 11/25/16 15:45
[2016-11-26] MEDS: HEPARIN SUB-Q SCH ×2 (14:10→23:00)
[2016-11-26] MEDS: LOPRESSOR PO SCH ×2 (18:08→23:00)
[2016-11-26] MEDS ORDERED: NACL 0.9% 1000 ML 100 ML IV PRN (18:38)
[2016-11-27] MEDS: ZOSYN/NS 2.25 GM/50ML 2.25 GM/50 ML BAG IV SCH ×4 (03:28→22:39)
[2016-11-27 06:35] LABS: BUN/Creatinine Ratio 4.15; Chloride 93.6 mmol/L (98-107); Potassium 4.4 mmol/L (3.6-5.0)
[2016-11-27] MEDS: HEPARIN SUB-Q SCH ×3 (06:44→22:41)
--- NOTE | 2016-11-27 08:38 | Progress Note ---
Assessment and Plan End-stage renal disease patient is currently on maintenance hemodialysis on Saturday schedule patient tolerated dialysis well yesterday and no issues Anemia and end-stage renal disease with current infection would not give any iron but patient will need to continue with erythropoietin therapy Infected foot patient has foul-smelling wound please consider vascular as well as infectious disease evaluation patient may require amputation depending on consultants input, patient still continues to have leukocytosis gram-negative gabo noted in blood culture; monitor for sepsis Diabetes mellitus type 2 Secondary hyperparathyroidism will continue to monitor phosphorus as well as PTH level periodically Overall prognosis guarded at this time,due to multiple comorbidities counseling education has been done at length Subjective Principal diagnosis: Cellulitis left lower extremity Interval history: Patient was seen today for follow-up on multiple renal related issues Events of 24 hours vitals labs intake output medications were reviewed Interdisciplinary Notes were also reviewed Patient denies any complaints of chest pain pressure or shortness of breath Objective - Vital Signs Vital signs: Vital Signs - 12hr 11/26/16 11/26/16 11/27/16 22:00 23:00 00:00 Temperature 99.1 F Pulse Rate 89 Pulse Rate [ 78 93 H From Monitor] Respiratory 18 Rate Blood Pressure 142/64 Blood Pressure 140/65 [Left Arm] O2 Sat by Pulse 98 100 Oximetry - General Appearance General appearance: appears stated age EENT: mucous membranes moist Neck: no JVD Respiratory: Present: Clear to Ascultation Cardiology: regular Gastrointestinal: normal (soft nontender) Integumentary: other (wound in both lower extremity foul-smelling) Neurologic: other (alert awake follows commands) - Lab 11/27/16 10:15 11/27/16 05:53 Most recent lab results Calcium 9.0 mg/dL (8.4-10.2) 11/27/16 05:53
[2016-11-27 10:29] LABS: Basophils % (Auto) 0.4 % (0.0-1.8); Eosinophils % (Auto) 2.5 % (0.0-4.3); Hemoglobin 10.1 gm/dl (11.8-15.2); Mean Corpuscular HGB Conc 32 % (32-34); Mean Corpuscular Hemoglobin 27 pg (28-32); Mean Corpuscular Volume 86 fl (84-94); Platelet Count 321 K/mm3 (140-440); Red Blood Count 3.74 M/mm3 (3.65-5.03); White Blood Count 17.4 K/mm3 (4.5-11.0)
[2016-11-27] MEDS: PHOSLO PO SCH ×3 (11:35→17:00)
[2016-11-27] MEDS: PROTONIX PO SCH (11:35)
[2016-11-27] MEDS: LOPRESSOR PO SCH ×2 (11:36→22:40)
[2016-11-27] MEDS: THERMAZENE 50 GRAM TP SCH (11:40)
--- NOTE | 2016-11-27 15:39 | Progress Note ---
Assessment and Plan Assessment and plan: Diabetic foot ulcers left foot,infected. Ulcer right toe. Continue Zosyn and Vancomycin. Patient has had chronic ulcer and has been going to the wound clinic. has had polymicrobial growth from previous wound cultures. Consult ID physician. Peripheral vascular disease lower ext. He has a history of angioplasty by vascular surgeon. Consult Dr. Shankar. End-stage renal disease on hemodialysis. Managed by Nephrology. Diabetes Mellitus type II Hypertension. On Metoprolol Leukocytosis due to infected ulcers. Hyponatremia. Sodium 130 today. Nausea and vomiting subsiding. History Interval history: nausea, vomiting, left foot ulcer, foul smelling Hospitalist Physical - Physical exam Narrative exam: Gen. appearance: not in acute distress HEENT: Normocephalic atraumatic Neck: supple no JVD Lungs: Clear to auscultation bilaterally, no crackles, or wheezes Heart: S1-S2 regular, no murmurs, rubs or gallop Abdomen:soft, non-tender, non-distended, normal bowel sounds Extremity: ulcers both feet, left worse than right, no cyanosis Neuro : Awake alert oriented 3, no focal neurologic signs Psychiatry: normal mood - Constitutional Vitals: Temp Pulse Resp BP Pulse Ox 98.6 F 80 16 163/67 96 11/27/16 14:00 11/27/16 15:15 11/27/16 14:00 11/27/16 15:15 11/27/16 08:00 General appearance: Present: no acute distress, well-nourished Results - Labs CBC & Chem 7: 11/27/16 10:15 11/27/16 05:53 Labs: Laboratory Last Values WBC 17.4 K/mm3 (4.5-11.0) H 11/27/16 10:15 RBC 3.74 M/mm3 (3.65-5.03) 11/27/16 10:15 Hgb 10.1 gm/dl (11.8-15.2) L 11/27/16 10:15 Hct 32.0 % (35.5-45.6) L 11/27/16 10:15 MCV 86 fl (84-94) 11/27/16 10:15 MCH 27 pg (28-32) L 11/27/16 10:15 MCHC 32 % (32-34) 11/27/16 10:15 RDW 18.0 % (13.2-15.2) H 11/27/16 10:15 Plt Count 321 K/mm3 (140-440) 11/27/16 10:15 Lymph % (Auto) 6.8 % (13.4-35.0) L 11/27/16 10:15 [place] % (Auto) 7.2 % (0.0-7.3) 11/27/16 10:15 Eos % (Auto) 2.5 % (0.0-4.3) 11/27/16 10:15 Baso % (Auto) 0.4 % (0.0-1.8) 11/27/16 10:15 Lymph # 1.2 K/mm3 (1.2-5.4) 11/27/16 10:15 [place] # 1.2 K/mm3 (0.0-0.8) H 11/27/16 10:15 Eos # 0.4 K/mm3 (0.0-0.4) 11/27/16 10:15 Baso # 0.1 K/mm3 (0.0-0.1) 11/27/16 10:15 Seg Neutrophils % 83.1 % (40.0-70.0) H 11/27/16 10:15 Seg Neutrophils # 14.4 K/mm3 (1.8-7.7) H 11/27/16 10:15 ESR 90 mm/Hr (0-20) 11/25/16 23:00 PT 16.2 Sec. (12.2-14.9) H 11/25/16 19:50 INR 1.31 (0.87-1.13) H 11/25/16 19:50 VBG pH 7.353 (7.320-7.420) 11/25/16 19:50 Sodium 130 mmol/L (137-145) L 11/27/16 05:53 Potassium 4.4 mmol/L (3.6-5.0) 11/27/16 05:53 Chloride 93.6 mmol/L (98-107) L 11/27/16 05:53 Carbon Dioxide 21 mmol/L (22-30) L 11/27/16 05:53 Anion Gap 20 mmol/L 11/27/16 05:53 BUN 47 mg/dL (9-20) H 11/27/16 05:53 Creatinine 11.3 mg/dL (0.8-1.5) H D 11/27/16 05:53 Estimated GFR 6 ml/min 11/27/16 05:53 BUN/Creatinine Ratio 4.15 % 11/27/16 05:53 Glucose 138 mg/dL (75-100) H 11/27/16 05:53 POC Glucose 296 (70-105) H 11/27/16 13:10 Lactic Acid 1.2 mmol/L (0.7-2.0) 11/25/16 22:46 Calcium 9.0 mg/dL (8.4-10.2) 11/27/16 05:53 Troponin T 0.160 ng/mL (0.00-0.029) H* 11/25/16 21:11 C-Reactive Protein 31.70 mg/dL (0.00-1.30) H 11/25/16 21:11 Triglycerides 87 mg/dL (2-149) 11/25/16 15:45 Cholesterol 96 mg/dL (50-199) 11/25/16 15:45 LDL Cholesterol Direct 59 mg/dL (50-130) 11/25/16 15:45 HDL Cholesterol 20 mg/dL (40-59) L 11/25/16 15:45 Cholesterol/HDL Ratio 4.80 % 11/25/16 15:45 Lipase 22 units/L (13-60) 11/26/16 06:40
[2016-11-27] MEDS ORDERED: VANCOMYCIN/NS 1 GM/250 ML 1 GM/250 ML BAG IV ONE (18:00)
[2016-11-28] MEDS: ZOSYN/NS 2.25 GM/50ML 2.25 GM/50 ML BAG IV SCH ×3 (06:37→22:11)
[2016-11-28] MEDS: HEPARIN SUB-Q SCH ×3 (06:38→22:12)
[2016-11-28 06:50] LABS: Hematocrit 30.6 % (35.5-45.6); Hemoglobin 9.7 gm/dl (11.8-15.2); Mean Corpuscular HGB Conc 32 % (32-34); Mean Corpuscular Hemoglobin 27 pg (28-32); Mean Corpuscular Volume 84 fl (84-94); Platelet Count 312 K/mm3 (140-440); Red Blood Count 3.65 M/mm3 (3.65-5.03); Red Cell Distribution Width 17.7 % (13.2-15.2); White Blood Count 17.8 K/mm3 (4.5-11.0)
[2016-11-28 06:54] LABS: BUN/Creatinine Ratio 3.88; Calcium 8.6 mg/dL (8.4-10.2); Chloride 88.6 mmol/L (98-107); Potassium 3.5 mmol/L (3.6-5.0)
[2016-11-28] MEDS: PROTONIX PO SCH (09:29)
[2016-11-28] MEDS: PHOSLO PO SCH ×3 (09:29→18:16)
[2016-11-28] MEDS: LOPRESSOR PO SCH ×2 (10:00→22:06)
--- NOTE | 2016-11-28 10:00 | Progress Note ---
Subjective Principal diagnosis: Cellulitis left lower extremity Objective - Vital Signs Vital signs: Vital Signs - 12hr 11/27/16 11/28/16 22:40 08:00 Temperature 98.7 F Pulse Rate [ 92 H From Monitor] Respiratory 20 Rate Blood Pressure 90/60 Blood Pressure 90/46 [Left Arm] O2 Sat by Pulse 98 Oximetry - Lab 11/28/16 05:25 11/28/16 05:25 Most recent lab results Calcium 8.6 mg/dL (8.4-10.2) 11/28/16 05:25
--- NOTE | 2016-11-28 10:10 | Progress Note ---
Assessment and Plan Assessment and plan: Diabetic foot ulcers left foot,infected. Continue Zosyn and Vancomycin. Blood cultures growing Luiza singletonii. Patient has had chronic ulcer and has been going to the wound clinic. has had polymicrobial growth from previous wound cultures. Discussed patient with ID physician. For MRI of the foot to rule out osteomyelitis. Sepsis with positive blood cultures for Luiza King. He is on Zosyn and vancomycin. Peripheral vascular disease lower ext. He has a history of angioplasty by vascular surgeon. Consulted Dr. Shankar. Discussed with him today End-stage renal disease on hemodialysis. Managed by Nephrology. Diabetes Mellitus type II. Fingerstick glucose before every meal and at bedtime Hypertension. On Metoprolol Leukocytosis due to infected ulcers. Hyponatremia. Sodium 129 today. Nausea and vomiting subsiding. History Interval history: nausea, vomiting, left foot ulcer, foul smelling Hospitalist Physical - Physical exam Narrative exam: Gen. appearance: not in acute distress HEENT: Normocephalic atraumatic Neck: supple no JVD Lungs: Clear to auscultation bilaterally, no crackles, or wheezes Heart: S1-S2 regular, no murmurs, rubs or gallop Abdomen:soft, non-tender, non-distended, normal bowel sounds Extremity: ulcers both feet, left worse than right, no cyanosis Neuro : Awake alert oriented 3, no focal neurologic signs Psychiatry: normal mood - Constitutional Vitals: Temp Pulse Resp BP Pulse Ox 98.7 F 92 H 20 90/46 98 11/28/16 08:00 11/28/16 08:00 11/28/16 08:00 11/28/16 08:00 11/28/16 08:00 General appearance: Present: no acute distress, well-nourished Results - Labs CBC & Chem 7: 11/28/16 05:25 11/28/16 05:25 Labs: Laboratory Last Values WBC 17.8 K/mm3 (4.5-11.0) H 11/28/16 05:25 RBC 3.65 M/mm3 (3.65-5.03) 11/28/16 05:25 Hgb 9.7 gm/dl (11.8-15.2) L 11/28/16 05:25 Hct 30.6 % (35.5-45.6) L 11/28/16 05:25 MCV 84 fl (84-94) 11/28/16 05:25 MCH 27 pg (28-32) L 11/28/16 05:25 MCHC 32 % (32-34) 11/28/16 05:25 RDW 17.7 % (13.2-15.2) H 11/28/16 05:25 Plt Count 312 K/mm3 (140-440) 11/28/16 05:25 Lymph % (Auto) 6.8 % (13.4-35.0) L 11/27/16 10:15 Carlton % (Auto) 7.2 % (0.0-7.3) 11/27/16 10:15 Eos % (Auto) 2.5 % (0.0-4.3) 11/27/16 10:15 Baso % (Auto) 0.4 % (0.0-1.8) 11/27/16 10:15 Lymph # 1.2 K/mm3 (1.2-5.4) 11/27/16 10:15 Carlton # 1.2 K/mm3 (0.0-0.8) H 11/27/16 10:15 Eos # 0.4 K/mm3 (0.0-0.4) 11/27/16 10:15 Baso # 0.1 K/mm3 (0.0-0.1) 11/27/16 10:15 Seg Neutrophils % 83.1 % (40.0-70.0) H 11/27/16 10:15 Seg Neutrophils # 14.4 K/mm3 (1.8-7.7) H 11/27/16 10:15 ESR 90 mm/Hr (0-20) 11/25/16 23:00 PT 16.2 Sec. (12.2-14.9) H 11/25/16 19:50 INR 1.31 (0.87-1.13) H 11/25/16 19:50 VBG pH 7.353 (7.320-7.420) 11/25/16 19:50 Sodium 129 mmol/L (137-145) L 11/28/16 05:25 Potassium 3.5 mmol/L (3.6-5.0) L D 11/28/16 05:25 Chloride 88.6 mmol/L (98-107) L 11/28/16 05:25 Carbon Dioxide 25 mmol/L (22-30) 11/28/16 05:25 Anion Gap 19 mmol/L 11/28/16 05:25 BUN 26 mg/dL (9-20) H 11/28/16 05:25 Creatinine 6.7 mg/dL (0.8-1.5) H 11/28/16 05:25 Estimated GFR 10 ml/min 11/28/16 05:25 BUN/Creatinine Ratio 3.88 % 11/28/16 05:25 Glucose 222 mg/dL (75-100) H 11/28/16 05:25 POC Glucose 296 (70-105) H 11/27/16 13:10 Lactic Acid 1.2 mmol/L (0.7-2.0) 11/25/16 22:46 Calcium 8.6 mg/dL (8.4-10.2) 11/28/16 05:25 Troponin T 0.160 ng/mL (0.00-0.029) H* 11/25/16 21:11 C-Reactive Protein 31.70 mg/dL (0.00-1.30) H 11/25/16 21:11 Triglycerides 87 mg/dL (2-149) 11/25/16 15:45 Cholesterol 96 mg/dL (50-199) 11/25/16 15:45 LDL Cholesterol Direct 59 mg/dL (50-130) 11/25/16 15:45 HDL Cholesterol 20 mg/dL (40-59) L 11/25/16 15:45 Cholesterol/HDL Ratio 4.80 % 11/25/16 15:45 Lipase 22 units/L (13-60) 11/26/16 06:40
[2016-11-28] MEDS ORDERED: NACL 0.9% 1000 ML 100 ML IV PRN (11:45)
--- NOTE | 2016-11-28 11:45 | Consultation ---
History of Present Illness - Reason for Consult Consult date: 11/28/16 Diabetic foot infection Requesting physician: WESLY TAMAYO - History of Present Illness Jomar Osman is a 61 y/o male with type 2 diabetes mellitus with peripheral neuropathy and end-stage renal failure on maintenance hemodialysis who was admitted to [facility] on 11/26/16 with nausea, vomiting and occasional diarrhea. He is status post transmetatarsal amputation of the left foot at [facility] on 05/09/16 and has developed some new ulcerations of the left foot over the last month or so. He was put on oral Bactrim at the wound care center and it seems as though the nausea and vomiting started after he began that antibiotic. He is unaware of any fever or chills. He states that his blood sugars have been "good." Otherwise he has no other complaints at present. Nausea and vomiting have abated. Review of systems General: No fevers or chills, no change in appetite, no weight change HEENT: no odynophagia, no dysphagia, no oral lesions, no vision changes CV: no chest pain, no palpitations Chest: no dyspnea, no cough GI: HPI : no change in urinary frequency, no dysuria, no hematuria. Some minimal urine. Skin: See HPI Ext: HPI Neuro: no headaches, no tremors. Decreased sensation of the lower extremities with diabetic neuropathy. Endocrine: Diabetes as per HPI. Psych: no anxiety, no depression Infectious diseases: No HIV risk factors, No history of STDs, No significant travel or animal contact history. Medications and Allergies Allergies Allergy/AdvReac Type Severity Reaction Status Date / Time IV CONTRAST DYE AdvReac Nausea Uncoded 03/05/16 12:34 Home Medications Medication Instructions Recorded Confirmed Last Taken Type Calcium Acetate 2 tab PO TIDWM 10/30/13 11/26/16 12/14/13 History Metoprolol [Lopressor TAB] 50 mg PO BID 10/30/13 11/14/15 12/14/13 History Omeprazole [PriLOSEC] 40 mg PO DAILY PRN 10/30/13 11/14/15 12/14/13 History amLODIPine [Norvasc] 10 mg PO DAILY 10/30/13 11/14/15 12/14/13 History Brimonidine Tartrate [Brimonidine 1 drop OU BID 12/12/14 11/14/15 Unknown History Tartrate 0.2%] Dorzolamide HCl/Timolol Maleat 10 ml OP BID 12/12/14 11/26/16 Unknown History [Dorzolamide-Timolol Eye Drops] Latanoprost 0.005% [Xalatan 0.005%] 1 drop OP QPM 12/12/14 11/26/16 Unknown History Brimonidine Tartrate [Brimonidine 1 drop OU BID 11/17/15 Unknown Rx Tartrate 0.2%] Calcium Acetate [Phoslo] 1,334 mg PO TIDWM capsule 11/17/15 11/26/16 Unknown Rx Dorzolamide/Timolol(Nf) 2-0.5% 1 drops OU BID bottle 11/17/15 Unknown Rx [Cosopt (Nf)] Insulin NPH/Regular [NovoLIN 70/30] 5 unit SUB-Q BIDDIAB units 11/17/15 Unknown Rx Latanoprost 0.005% [Xalatan 0.005%] 1 drops OU QPM bottle 11/17/15 Unknown Rx Pantoprazole [Protonix TAB] 40 mg PO DAILY tablet 11/17/15 Unknown Rx amLODIPine [Norvasc] 10 mg PO DAILY tablet 11/17/15 11/26/16 Unknown Rx Levofloxacin [Levaquin TAB] 500 mg PO Q48H #7 dose 03/10/16 Unknown Rx SILVER sulfADIAZINE 50 GRAM 1 applic TP QDAY #1 tube 03/10/16 Unknown Rx [Thermazene 50 Gram] Acetaminophen [Acetaminophen TAB] 500 mg PO Q6HR PRN #25 tablet 11/18/16 Unknown Rx Active Meds: Active Medications Acetaminophen (Tylenol) 500 mg PO Q6H PRN PRN Reason: Pain Calcium Acetate (Phoslo) 1,334 mg PO TIDWM [facility] Last Admin: 11/28/16 09:29 Dose: 1,334 mg Heparin Sodium (Porcine) (Heparin) 5,000 unit SUB-Q Q8HR [facility] Last Admin: 11/28/16 06:38 Dose: Not Given Piperacillin Sod/Tazobactam Sod (Zosyn/Ns 2.25 Gm/50ml) 2.25 gm in 50 mls @ 100 mls/hr IV Q8HR [facility] Last Admin: 11/28/16 06:37 Dose: 100 mls/hr Sodium Chloride (Nacl 0.9% 1000 Ml) 100 mls @ 999 mls/hr IV OBED PRN PRN Reason: Hypotension Insulin Human Isoph/Insulin Regular (Novolin 70/30) 5 unit SUB-Q BIDDIAB [facility] Last Admin: 11/28/16 09:28 Dose: 5 unit Insulin Human Regular (Novolin R) 0 units SUB-Q ACHS LEE ANN PRN Reason: Protocol Last Admin: 11/28/16 09:25 Dose: 3 units Metoprolol Tartrate (Lopressor) 50 mg PO BID [facility] Last Admin: 11/27/16 22:40 Dose: Not Given Pantoprazole Sodium (Protonix) 40 mg PO DAILY [facility] Last Admin: 11/28/16 09:29 Dose: 40 mg Vancomycin HCl (Vancomycin Pharmacy To Dose) 1 each IV PKCONSULT LEE ANN PRN Reason: Protocol Physical Examination - Physical Exam Narrative exam: General Appearance: Well-developed, obese male who is A&Ox3 and in no distress Head: Normocephalic, without obvious abnormality, atraumatic Neck: Supple. No jugular venous distention at 30. Eyes: PERRL, conjunctiva/corneas clear, EOMI Throat: Lips, mucosa, and tongue normal; teeth with gold caps present; oropharynx clear Lungs: CTA bilaterally in anterior and posterior reyes, no egophany, no rales nor rhonchi Heart: Regular rate, S1, S2 normal, 3/6 systolic murmur heard throughout but loudest at the left upper sternal border. Abdomen: Soft, nontender, nondistended, normoactive bowel sounds throughout Extremities: RUE AV graft site c/d/i with no tenderness to palpation and with palpable thrill present; L foot with previous transmetatarsal amputation with the stump well healed with no signs of ischemia or infection. There is a plantar ulcer at the level of the first metatarsal that is draining a purulosanguinous material that is somewhat malodorous. There are 2 superficial ulcers on the plantar surface: 1 laterally just proximal to the left heel and another at the level of the fourth metatarsal neither of which appear to be secondarily infected at this point. Peripheral pulses are somewhat decreased but palpable. Skin: No rashes; L foot wounds as noted above; R foot with no signs of infection. 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 Decreased sensation to pinprick in a stocking distribution. Psych: normal affect - Constitutional Vitals: Vital Signs Temp Pulse Resp BP Pulse Ox 98.7 F 92 H 20 90/46 98 11/28/16 08:00 11/28/16 08:00 11/28/16 08:00 11/28/16 08:00 11/28/16 08:00 Temperature -Last 24 Hours Temperature 98.7 F Temperature 98.1 F Temperature 98.6 F Results - Labs CBC & Chem 7: 11/28/16 05:25 11/28/16 05:25 Labs: Laboratory Tests 11/25/16 11/25/16 21:11 23:00 ESR 90 C-Reactive Protein 31.70 H Microbiology 11/25/16 19:58 Peripheral/Venous Blood Culture - 1/2 bottles with GPC in pairs 11/25/16 20:00 Peripheral/Venous Blood Culture - Preliminary Morganella Morganii in both bottles 1 bottle also with GPC in pairs 03/05/16 Unknown Foot - Left Wound Culture - Final Morganella Morganii Pseudomonas Aeruginosa Proteus Vulgaris Imagin11/25/16: Left foot x-ray: Diffuse soft tissue swelling distally with area of soft tissue gas and ulceration. 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 He is status post transmetatarsal amputation of the left foot at [facility] on 05/09/16 and has developed some new ulcerations of the left foot over the last month or so. Admitting blood cultures are positive. Problem list: 1. Polymicrobial bacteremia -Blood cultures 11/25 with 3/4 bottles growing GPC in pairs (ID pending) and 2/4 bottles growing Morganella morganii. -Left foot source 2. Left foot diabetic ulcer -Suspect underlying abscess +/- osteomyelitis -Likely polymicrobial pathogens including both aerobes and anaerobes 3. Type 2 diabetes mellitus -Peripheral neuropathy 4. End-stage renal failure -Maintenance hemodialysis 5. Leukocytosis -Secondary to #1 and #2 6. Peripheral vascular disease -Status post left transmetatarsal amputation 05/09/16 PLAN: 1. Will continue Zosyn and vancomycin pending further microbiologic data 2. Will obtain MRI of the foot to look for evidence of abscess and/or osteomyelitis 3. Depending upon MRI findings patient may require surgical debridement 4. Repeat blood cultures to document clearance of the bacteremia 5. Baseline liver tests 6. Glycemic control as per the hospitalist team 7. Local wound care Thank you for this consultation. We will follow with you. Dave Michaels MD [facility] Office: [phone]
[2016-11-28] MEDS ORDERED: PROCRIT IV PRN (12:30)
--- NOTE | 2016-11-28 13:50 | Consultation ---
History of Present Illness - Reason for Consult Consult date: 11/28/16 Left foot wound Requesting physician: WESLY TAMAYO - History of Present Illness This patient is a 61-year-old male that was admitted on 11/25/2016 due to nausea and vomiting. These symptoms apparently had been going on for approximately 3 days. During his exam he was noted to have a malodorous left foot wound. With concerns of underlying vascular disease, a vascular surgery consult has been requested to further evaluate. The Patient is known to us from previous hospitalizations. He was treated for SVC syndrome with venous angioplasty. He subsequently was taken for an arteriogram due to a nonhealing wound to the left lower extremity. This revealed scattered areas of 30% non-flow limiting stenosis within the anterior tibial artery which was not felt to warrant intervention at that point. He's been followed by podiatry as well as the outpatient wound care clinic at [facility]. He complains of cloudy drainage emanating from his wound since August, but increasing drainage over the last few days. Past History Past Medical History: diabetes ( Type 2), dialysis, ESRD, hypertension Past Surgical History: Other (left transmetatarsal amputation in April 2016 at [facility], right upper arm elevated basilic AV fistula with multiple subsequent fistulograms, right eye laser cataract surgery, Central venous venography with angioplasty of the right brachiocephalic vein, superior vena cava with a 6 mm cutting balloon and subsequently a 12 mm balloon, venous angioplasty of the left brachial cephalic vein with a 4 mm and subsequently an 8 mm balloon) Social history: lives with family. denies: smoking, alcohol abuse, IV drug use Family history: diabetes, hypertension Medications and Allergies Allergies Allergy/AdvReac Type Severity Reaction Status Date / Time IV CONTRAST DYE AdvReac Nausea Uncoded 03/05/16 12:34 Home Medications Medication Instructions Recorded Confirmed Last Taken Type Calcium Acetate 2 tab PO TIDWM 10/30/13 11/26/16 12/14/13 History Metoprolol [Lopressor TAB] 50 mg PO BID 10/30/13 11/14/15 12/14/13 History Omeprazole [PriLOSEC] 40 mg PO DAILY PRN 10/30/13 11/14/15 12/14/13 History amLODIPine [Norvasc] 10 mg PO DAILY 10/30/13 11/14/15 12/14/13 History Brimonidine Tartrate [Brimonidine 1 drop OU BID 12/12/14 11/14/15 Unknown History Tartrate 0.2%] Dorzolamide HCl/Timolol Maleat 10 ml OP BID 12/12/14 11/26/16 Unknown History [Dorzolamide-Timolol Eye Drops] Latanoprost 0.005% [Xalatan 0.005%] 1 drop OP QPM 12/12/14 11/26/16 Unknown History Brimonidine Tartrate [Brimonidine 1 drop OU BID 11/17/15 Unknown Rx Tartrate 0.2%] Calcium Acetate [Phoslo] 1,334 mg PO TIDWM capsule 11/17/15 11/26/16 Unknown Rx Dorzolamide/Timolol(Nf) 2-0.5% 1 drops OU BID bottle 11/17/15 Unknown Rx [Cosopt (Nf)] Insulin NPH/Regular [NovoLIN 70/30] 5 unit SUB-Q BIDDIAB units 11/17/15 Unknown Rx Latanoprost 0.005% [Xalatan 0.005%] 1 drops OU QPM bottle 11/17/15 Unknown Rx Pantoprazole [Protonix TAB] 40 mg PO DAILY tablet 11/17/15 Unknown Rx amLODIPine [Norvasc] 10 mg PO DAILY tablet 11/17/15 11/26/16 Unknown Rx Levofloxacin [Levaquin TAB] 500 mg PO Q48H #7 dose 03/10/16 Unknown Rx SILVER sulfADIAZINE 50 GRAM 1 applic TP QDAY #1 tube 03/10/16 Unknown Rx [Thermazene 50 Gram] Acetaminophen [Acetaminophen TAB] 500 mg PO Q6HR PRN #25 tablet 11/18/16 Unknown Rx Active Meds: Active Medications Acetaminophen (Tylenol) 500 mg PO Q6H PRN PRN Reason: Pain Calcium Acetate (Phoslo) 1,334 mg PO TIDWM [facility] Last Admin: 11/28/16 09:29 Dose: 1,334 mg Epoetin Shadi (Procrit) 10,000 unit IV OBED PRN PRN Reason: hemodialysis Heparin Sodium (Porcine) (Heparin) 5,000 unit SUB-Q Q8HR [facility] Last Admin: 11/28/16 06:38 Dose: Not Given Piperacillin Sod/Tazobactam Sod (Zosyn/Ns 2.25 Gm/50ml) 2.25 gm in 50 mls @ 100 mls/hr IV Q8HR [facility] Last Admin: 11/28/16 06:37 Dose: 100 mls/hr Sodium Chloride (Nacl 0.9% 1000 Ml) 100 mls @ 999 mls/hr IV OBED PRN PRN Reason: Hypotension Insulin Human Isoph/Insulin Regular (Novolin 70/30) 5 unit SUB-Q BIDDIAB [facility] Last Admin: 11/28/16 09:28 Dose: 5 unit Insulin Human Regular (Novolin R) 0 units SUB-Q ACHS [facility] PRN Reason: Protocol Last Admin: 11/28/16 09:25 Dose: 3 units Metoprolol Tartrate (Lopressor) 50 mg PO BID [facility] Last Admin: 11/27/16 22:40 Dose: Not Given Pantoprazole Sodium (Protonix) 40 mg PO DAILY [facility] Last Admin: 11/28/16 09:29 Dose: 40 mg Vancomycin HCl (Vancomycin Pharmacy To Dose) 1 each IV PKCONSULT [facility] PRN Reason: Protocol Review of Systems All systems: negative Exam - Constitutional Vitals: Temp Pulse Resp BP Pulse Ox 98.7 F 92 H 20 90/46 98 11/28/16 08:00 11/28/16 08:00 11/28/16 08:00 11/28/16 08:00 11/28/16 08:00 General appearance: Present: no acute distress - EENT Eyes: Present: EOM intact ENT: hearing intact - Neck Neck: Present: supple - Respiratory Respiratory effort: normal - Extremities Extremities: normal temperature, abnormal (functioning right upper arm AV fistula) Extremity abnormal: ulceration (the left transmetatarsal amputation with a half dollar sized ulceration to the distal dorsal first metatarsal region, this is full-thickness with a wound that tracks up through the mid foot. The wound was packed with Iodosorb gauze. This was removed purulence was expressed. ( Pictures taken). He has a dry ulceration right first and fifth toes) - Psychiatric Psychiatric: appropriate mood/affect, cooperative - Neurologic Neurologic: no focal deficits Results - Labs CBC & Chem 7: 11/28/16 05:25 11/28/16 05:25 Labs: Abnormal lab results 11/28/16 11/28/16 11/28/16 Range/Units 05:25 05:25 08:27 WBC 17.8 H (4.5-11.0) K/mm3 Hgb 9.7 L (11.8-15.2) gm/dl Hct 30.6 L (35.5-45.6) % MCH 27 L (28-32) pg RDW 17.7 H (13.2-15.2) % Sodium 129 L (137-145) mmol/L Potassium 3.5 L D (3.6-5.0) mmol/L Chloride 88.6 L (98-107) mmol/L BUN 26 H (9-20) mg/dL Creatinine 6.7 H (0.8-1.5) mg/dL Glucose 222 H (75-100) mg/dL POC Glucose 234 H (70-105) 11/28/16 Range/Units 12:12 WBC (4.5-11.0) K/mm3 Hgb (11.8-15.2) gm/dl Hct (35.5-45.6) % MCH (28-32) pg RDW (13.2-15.2) % Sodium (137-145) mmol/L Potassium (3.6-5.0) mmol/L Chloride (98-107) mmol/L BUN (9-20) mg/dL Creatinine (0.8-1.5) mg/dL Glucose (75-100) mg/dL POC Glucose 288 H (70-105) Assessment and Plan Noninvasive arterial duplex examinations including ankle-brachial indices have been ordered to evaluate for deterioration of the blood flow to his left leg ( which may compromise his ability to heal distal wounds). Based upon these results, he may require repeat angiography. - Patient Problems (1) Diabetic infection of left foot Current Visit: Yes Status: Acute (2) ESRD (end stage renal disease) Current Visit: Yes Status: Chronic (3) Hypertension Current Visit: No Status: Chronic Qualifiers: Qualified Code(s): I10 - Essential (primary) hypertension (4) Type 2 diabetes mellitus Current Visit: No Status: Chronic
[2016-11-28 14:40] LABS: Albumin 2.6 g/dL (3.9-5); Albumin/Globulin Ratio 0.5 %; Bilirubin,Direct 0.4 mg/dL (0-0.2); Bilirubin,Indirect 0.4 mg/dL; Bilirubin,Total 0.8 mg/dL (0.1-1.2); Total Protein 7.6 g/dL (6.3-8.2)
--- NOTE | 2016-11-28 18:32 | Magnetic Resonance Report ---
FINAL REPORT PROCEDURE: MR LE JOINT LT WO CON TECHNIQUE: Magnetic resonance imaging of the LEFT foot was performed using standard pulse sequences. CPT 05557 HISTORY: L foot ulcer; rule out abscess osteomyelitis COMPARISON: No prior studies are available for comparison. FINDINGS: There has been prior transmetatarsal amputation. There is limited evaluation for abscess due to lack of IV contrast. However at the medial distal plantar foot there is somewhat circumscribed high T2 and low T1 signal with internal focus of rounded low signal, which is low signal on all sequences, compatible with air. Findings are compatible with a fluid collection, measuring 1.7 centimeters craniocaudal x 1.8 centimeters AP x 1.7 centimeters transverse. There is a similar collection at the dorsal aspect of the distal medial foot, which measures 1.5 centimeters AP x 1.7 centimeters transverse x 1.1 centimeters craniocaudal. Findings are compatible with loculated fluid collections, which may be related to infected abscesses. There is diffuse high T2 and low T1 signal involving of the proximal metatarsals as well as the medial, middle, and lateral cuneiform. There is also mild abnormal signal in the plantar aspect of the cuboid as well as the lateral aspect of the navicular bone. Findings are compatible with marrow edema, which can be seen with osteomyelitis. No evidence of tibiotalar joint effusion. IMPRESSION: Circumscribed areas in the medial soft tissues as described above are likely related to loculated fluid collections, which may be infected abscesses. This would be better assessed with post IV contrast images if clinically indicated. There is also marrow edema involving the bases of the metatarsals and the tarsal bones as described above, which can be seen with osteomyelitis.
[2016-11-29] MEDS: ZOSYN/NS 2.25 GM/50ML 2.25 GM/50 ML BAG IV SCH ×3 (07:20→22:55)
--- NOTE | 2016-11-29 07:45 | Progress Note ---
Assessment and Plan End-stage renal disease patient is currently on maintenance hemodialysis on Saturday schedule, we'll continue the current dialysis schedule Current dialysis access has been working well patient has been tolerating dialysis treatment well patient tolerated dialysis well yesterday and no issues blood pressure is stable and well-controlled Nutrition consultation for high-protein diet Anemia and end-stage renal disease with current infection would not give any iron but patient will need to continue with erythropoietin therapy foot wound infectious disease and vascular surgery currently following, gram-negative gabo noted in blood culture; monitor for sepsis clinically stable at this time Diabetes mellitus type 2 appropriate glycemic controls will help Secondary hyperparathyroidism will continue to monitor phosphorus as well as PTH level periodically Overall prognosis guarded at this time,due to multiple comorbidities counseling education has been done at length Subjective Principal diagnosis: Cellulitis left lower extremity Interval history: Patient was seen today for follow-up Denies any complaints of chest pain pressure or shortness of breath Interdisciplinary notes are also reviewed, status post vascular and infectious disease consultation Vitals labs intake output medications were reviewed Objective - Vital Signs Vital signs: Vital Signs - 12hr 11/28/16 11/28/16 11/29/16 22:06 22:52 03:00 Temperature 98.8 F Pulse Rate 89 Pulse Rate [ 89 From Monitor] Respiratory 20 18 Rate Blood Pressure 100/52 Blood Pressure 112/53 [Left Arm] O2 Sat by Pulse 94 Oximetry - General Appearance General appearance: appears stated age EENT: mucous membranes moist Neck: no JVD Respiratory: Present: Clear to Ascultation Cardiology: regular Gastrointestinal: normal Integumentary: no rash Neurologic: no focal deficit - Lab 11/28/16 05:25 11/28/16 05:25 Most recent lab results Calcium 8.6 mg/dL (8.4-10.2) 11/28/16 05:25
[2016-11-29] MEDS: PHOSLO PO SCH ×3 (08:00→18:54)
[2016-11-29 08:26] LABS: Hematocrit 29.6 % (35.5-45.6); Hemoglobin 9.4 gm/dl (11.8-15.2); Mean Corpuscular HGB Conc 32 % (32-34); Mean Corpuscular Hemoglobin 27 pg (28-32); Mean Corpuscular Volume 85 fl (84-94); Platelet Count 319 K/mm3 (140-440); Red Cell Distribution Width 17.4 % (13.2-15.2); White Blood Count 19.1 K/mm3 (4.5-11.0)
[2016-11-29] MEDS: HEPARIN SUB-Q SCH ×3 (08:30→22:58)
[2016-11-29 08:33] LABS: BUN/Creatinine Ratio 4.57; Calcium 8.7 mg/dL (8.4-10.2); Chloride 93.3 mmol/L (98-107); Potassium 3.6 mmol/L (3.6-5.0)
[2016-11-29] MEDS: LOPRESSOR PO SCH ×2 (10:00→22:58)
[2016-11-29] MEDS: PROTONIX PO SCH (10:00)
--- NOTE | 2016-11-29 10:38 | Progress Note ---
Assessment and Plan Current antibiotics: Vancomycin (pulse dosed) 11/25 --> Zosyn 2.25 grams IV q8h 11/25 --> Previous antibiotics: PO Bactrim [place] ATTENDANT ASSESSMENT: Jomar Osman is a 61 y/o male with type 2 diabetes mellitus with peripheral neuropathy and end-stage renal failure on maintenance hemodialysis who was admitted to [facility] on 11/26/16 with nausea, vomiting and occasional diarrhea. He is status post transmetatarsal amputation of the left foot at [facility] on 05/09/16 and has developed some new ulcerations of the left foot over the last month or so. Admitting blood cultures are positive. Problem list: 1. Polymicrobial bacteremia -Blood cultures 11/25 with 3/4 bottles growing GPC in pairs (ID pending) and 2/4 bottles growing Morganella morganii. -Left foot source 2. Left foot diabetic ulcer -MRI suggestive of abscesses +/- osteomyelitis -Likely polymicrobial pathogens including both aerobes and anaerobes 3. Type 2 diabetes mellitus -Peripheral neuropathy 4. End-stage renal failure -Maintenance hemodialysis 5. Leukocytosis -Secondary to #1 and #2 6. Peripheral vascular disease -Status post left transmetatarsal amputation 05/09/16 PLAN: 1. Continue Zosyn and vancomycin pending further microbiologic data 2. Will discuss with vascular. Patient will require at least debridement and possibly amputation 4. Follow up on repeat blood cultures to document clearance of the bacteremia 5. Glycemic control as per the hospitalist team 6. Local wound care Dave Michaels MD [facility] Office: [phone] Subjective Date of service: 11/29/16 Principal diagnosis: Cellulitis left lower extremity Interval history: No complaints at present. No subjective fever or chills. No foot pain. Tolerating antibiotics well to date. Objective - Exam Narrative Exam: General Appearance: Well-developed, obese male who is A&Ox3 and in no distress Head: Normocephalic, without obvious abnormality, atraumatic Neck: Supple. No jugular venous distention at 30. Eyes: PERRL, conjunctiva/corneas clear, EOMI Throat: Lips, mucosa, and tongue normal; teeth with gold caps present; oropharynx clear Lungs: CTA bilaterally in anterior and posterior reyes, no egophany, no rales nor rhonchi Heart: Regular rate, S1, S2 normal, 3/6 systolic murmur heard throughout but loudest at the left upper sternal border. Abdomen: Soft, nontender, nondistended, normoactive bowel sounds throughout Extremities: RUE AV graft site c/d/i with no tenderness to palpation and with palpable thrill present; L foot with previous transmetatarsal amputation with the stump well healed with no signs of ischemia or infection. There is a plantar ulcer at the level of the first metatarsal that is draining a purulosanguinous material that is somewhat malodorous. There are 2 superficial ulcers on the plantar surface: 1 laterally just proximal to the left heel and another at the level of the fourth metatarsal neither of which appear to be secondarily infected at this point. Peripheral pulses are somewhat decreased but palpable. Skin: No rashes; L foot wounds as noted above; R foot with no signs of infection. Neurologic: supervisor buffing and pasting 2-12 grossly intact. Decreased sensation to pinprick in a stocking distribution. Psych: normal affect - Constitutional Vitals: Vital Signs Temp Pulse Resp BP Pulse Ox 98.8 F 89 18 112/53 94 11/28/16 22:52 11/28/16 22:52 11/29/16 03:00 11/28/16 22:52 11/28/16 22:52 Temperature -Last 24 Hours Temperature 98.8 F Temperature 98.5 F - Labs CBC & Chem 7: 11/29/16 07:57 11/29/16 07:57 Labs: Abnormal lab results Laboratory Tests 11/25/16 11/25/16 21:11 23:00 ESR 90 C-Reactive Protein 31.70 H Microbiology 11/28/16 13:54 Peripheral/Venous Blood Culture - Preliminary Culture in Progress 11/28/16 13:36 Peripheral/Venous Blood Culture - Preliminary Culture in Progress 11/25/16 19:58 Peripheral/Venous Blood Culture - 1/2 bottles with GPC in pairs 11/25/16 20:00 Peripheral/Venous Blood Culture - Preliminary Morganella Morganii in both bottles 1 bottle also with GPC in pairs 03/05/16 Unknown Foot - Left Wound Culture - Final Morganella Morganii Pseudomonas Aeruginosa Proteus Vulgaris Imagin/15: MRI left foot: Circumscribed areas in the medial soft tissues just a of abscesses in also probable osteomyelitis with changes compatible with marrow edema. 11/25/16: Left foot x-ray: Diffuse soft tissue swelling distally with area of soft tissue gas and ulceration.
--- NOTE | 2016-11-29 11:24 | Consultation ---
REQUESTING PHYSICIAN: Nicholas Hawkins MD. REASON FOR CONSULTATION: Management of end stage renal disease in a patient who has been admitted with possible cellulitis of his lower extremity. HISTORY OF PRESENT ILLNESS: The patient is a pleasant 61-year-old -[place] gentleman who has been known to us due to his end-stage renal disease. The patient is currently doing dialysis 3 times a week, approximately 4.15 hours and for the last 3-4 days prior to admission, he was having spells of nausea, vomiting, and occasional diarrhea. The patient came to the ER. The patient also states that he does have some heartburn, but also has been having very foul smelling discharge from his left foot. The patient states that he has seen a needle loom tender and has also been known to have ulcer in the foot since 07/2016. The patient denies any complaints of shortness of breath or chest pain. He is in no acute distress today. PAST MEDICAL HISTORY: Significant for; 1. End-stage renal disease. 2. Anemia in end-stage renal disease. 3. Secondary hyperparathyroidism. 4. Diabetes mellitus type 2. 5. Hypertension. 6. Chronic foot ulcer. PAST SURGICAL HISTORY: Significant for left toe amputation in [place] 04/2016, AV graft placement. ALLERGIES: IV contrast. HOME MEDICATION: Included PhosLo, metoprolol, omeprazole, amlodipine, brimonidine eyedrops, dorzolamide eyedrops, latanoprost eyedrops, insulin, levofloxacin, silver sulfadiazine, and Tylenol. SOCIAL HISTORY: The patient lives with his family. No history of alcohol, drug, or tobacco abuse. FAMILY HISTORY: Essentially positive for diabetes in brother. REVIEW OF SYSTEMS: Positive for nausea, vomiting, abdominal pain, poor appetite with foul smelling discharge coming from the left foot. No history of any spiking fever or chills. Review of other systems essentially negative. PHYSICAL EXAMINATION: GENERAL: The patient is a pleasant 61-year-old -[place] gentleman who is lying comfortably in bed, does not appear in acute distress. He is very pleasant. VITAL SIGNS: Reviewed from this admission. Upon arrival, the patient was mildly tachycardic with a pulse rate around 117, blood pressure was 142/69, and temperature was around 99.7 degree. HEENT: Normocephalic, atraumatic. Extraocular movements are intact. NECK: Supple. No thyromegaly or JVD. CHEST: Essentially clear to auscultation anteriorly and posteriorly. HEART: Regular rate. Normal S1, S2. No . ABDOMEN: Soft, obese, nontender. No voluntary guarding, rebound, organomegaly, or masses. EXTREMITIES: Reveal the patient does have less than 1+ pretibial ankle edema. Peripheral pulses palpable. No acute discoloration or cyanosis. ENDOCRINE: Thyroid not enlarged. PSYCHIATRIC: The patient is very pleasant. FOOT EXAMINATION: The left foot is dressed, but does have some foul smelling drainage. Dressings are somewhat soaked. The patient does not want me to open the dressing. LABORATORY DATA: Labs and x-rays were reviewed from this admission. Upon arrival, he was noted to have a white cell count of 15,900, hemoglobin 9.5, hematocrit 30.5, platelet count is around 259,000. His INR is 1.31. Sodium 134, potassium 4.0, chloride 91, bicarbonate 22, BUN 26, creatinine 7.6. Troponin is 0.160. ASSESSMENT AND PLAN: 1. End-stage renal disease. The patient is currently on maintenance hemodialysis. The patient will need to continue to dialyze 3 times a week. There is no acute emergent renal placement therapy today. 2. Anemia in end-stage renal disease. We will continue to monitor. Current hemoglobin is around 9.5. He will require erythropoietin. Given that he has active foot infection, we would not give him any form of iron therapy at this time. 3. Mild hyponatremia, to follow. 4. Metabolic acidosis, to follow. 5. Foot infection. The patient with diabetic, renal failure, likely. He will require Vascular Surgery evaluation as well as Infectious Disease consultation, may require further imaging of the foot to make sure he does not have any osteomyelitis. Depending on Vascular Surgery's input, further recommendations can be made. Plan of care discussed with the patient. We will arrange for dialysis. Monitor dialysis related medication. Please consider dietitian evaluation, high protein diet. Please consider Vascular Surgery as well as Infectious Disease evaluation. The patient may require amputation, which is not clear at this time. He does have a history of prior peripheral artery disease and amputation done in the past. Leukocytosis is quite significant, so please consider blood culture, urine culture, wound care. Plan of care discussed with the patient. All questions were answered. JOB# [id number] [place]
[2016-11-29] MEDS ORDERED: BENADRYL ONE (13:16)
[2016-11-29] MEDS ORDERED: NACL 0.9% 500 ML 500 ML ONE (13:36)
[2016-11-29] MEDS: VERSED ONE ×3 (13:41→14:35)
[2016-11-29] MEDS: SUBLIMAZE ONE ×3 (13:41→14:33)
[2016-11-29] MEDS: XYLOCAINE 1%/ EPI 1:100,000 INFILTRATI ONE ×2 (13:42→14:21)
[2016-11-29] MEDS: HEPARIN 10,000 UNITS/10 ML ONE ×2 (13:43→14:40)
[2016-11-29] MEDS: ANCEF/STERILE WATER 2 GM/20 ML 2 GM/20 ML SYRINGE IV ONE ×2 (13:43→14:05)
[2016-11-29] MEDS: HEPARIN/NS 5000 UNIT/500ML(CATH LAB) 1,000 ML IR ONE ×2 (13:44→14:00)
[2016-11-29] MEDS: NACL 0.9% 500 ML 500 ML ONE ×2 (13:44→14:00)
--- NOTE | 2016-11-29 14:16 | Progress Note ---
Assessment and Plan Assessment and plan: Diabetic foot ulcers left foot,infected. Continue Zosyn and Vancomycin. Blood cultures growing Morganelli morganii. Patient has had chronic ulcer and has been going to the wound clinic. has had polymicrobial growth from previous wound cultures. MRI of the foot shows abscess and possible osteomyeltis. Sepsis with positive blood cultures for Luiza Gainesni. He is on Zosyn and vancomycin. Peripheral vascular disease lower ext. He has a history of angioplasty by vascular surgeon. Consulted Dr. Shankar. Arteriogram today. End-stage renal disease on hemodialysis. Managed by Nephrology. Diabetes Mellitus type II. Fingerstick glucose before every meal and at bedtime Hypertension. On Metoprolol Leukocytosis due to infected ulcers. Hyponatremia. Now resolved. Sodium 139 today Nausea and vomiting subsiding. History Interval history: nausea, vomiting, left foot ulcer, foul smelling patient seen in [facility] Hospitalist Physical - Physical exam Narrative exam: Gen: appearance: not in acute distress HEENT: Normocephalic, atraumatic Neck: supple no JVD Lungs: Clear to auscultation bilaterally, no crackles, or wheezes Heart: S1-S2 regular, no murmurs, rubs or gallop Abdomen:soft, non-tender, non-distended, normal bowel sounds Extremity: ulcers both feet, left worse than right, no cyanosis Neuro : Awake alert oriented 3, no focal neurologic signs Psychiatry: normal mood - Constitutional Vitals: Temp Pulse Resp BP Pulse Ox 98.1 F 80 20 130/52 97 11/29/16 12:40 11/29/16 12:40 11/29/16 12:40 11/29/16 12:40 11/29/16 07:30 General appearance: Present: no acute distress, well-nourished Results - Labs CBC & Chem 7: 11/29/16 07:57 11/29/16 07:57 Labs: Laboratory Last Values WBC 19.1 K/mm3 (4.5-11.0) H 11/29/16 07:57 RBC 3.50 M/mm3 (3.65-5.03) L 11/29/16 07:57 Hgb 9.4 gm/dl (11.8-15.2) L 11/29/16 07:57 Hct 29.6 % (35.5-45.6) L 11/29/16 07:57 MCV 85 fl (84-94) 11/29/16 07:57 MCH 27 pg (28-32) L 11/29/16 07:57 MCHC 32 % (32-34) 11/29/16 07:57 RDW 17.4 % (13.2-15.2) H 11/29/16 07:57 Plt Count 319 K/mm3 (140-440) 11/29/16 07:57 Lymph % (Auto) 6.8 % (13.4-35.0) L 11/27/16 10:15 [place] % (Auto) 7.2 % (0.0-7.3) 11/27/16 10:15 Eos % (Auto) 2.5 % (0.0-4.3) 11/27/16 10:15 Baso % (Auto) 0.4 % (0.0-1.8) 11/27/16 10:15 Lymph # 1.2 K/mm3 (1.2-5.4) 11/27/16 10:15 [place] # 1.2 K/mm3 (0.0-0.8) H 11/27/16 10:15 Eos # 0.4 K/mm3 (0.0-0.4) 11/27/16 10:15 Baso # 0.1 K/mm3 (0.0-0.1) 11/27/16 10:15 Seg Neutrophils % 83.1 % (40.0-70.0) H 11/27/16 10:15 Seg Neutrophils # 14.4 K/mm3 (1.8-7.7) H 11/27/16 10:15 ESR 90 mm/Hr (0-20) 11/25/16 23:00 PT 16.2 Sec. (12.2-14.9) H 11/25/16 19:50 INR 1.31 (0.87-1.13) H 11/25/16 19:50 VBG pH 7.353 (7.320-7.420) 11/25/16 19:50 Sodium 139 mmol/L (137-145) D 11/29/16 07:57 Potassium 3.6 mmol/L (3.6-5.0) 11/29/16 07:57 Chloride 93.3 mmol/L (98-107) L 11/29/16 07:57 Carbon Dioxide 28 mmol/L (22-30) 11/29/16 07:57 Anion Gap 21 mmol/L 11/29/16 07:57 BUN 43 mg/dL (9-20) H 11/29/16 07:57 Creatinine 9.4 mg/dL (0.8-1.5) H 11/29/16 07:57 Estimated GFR 7 ml/min 11/29/16 07:57 BUN/Creatinine Ratio 4.57 % 11/29/16 07:57 Glucose 145 mg/dL (75-100) H 11/29/16 07:57 POC Glucose 172 (70-105) H 11/29/16 08:34 Lactic Acid 1.2 mmol/L (0.7-2.0) 11/25/16 22:46 Calcium 8.7 mg/dL (8.4-10.2) 11/29/16 07:57 Total Bilirubin 0.8 mg/dL (0.1-1.2) 11/28/16 13:36 Direct Bilirubin 0.4 mg/dL (0-0.2) H 11/28/16 13:36 Indirect Bilirubin 0.4 mg/dL 11/28/16 13:36 AST 31 units/L (5-40) 11/28/16 13:36 ALT 21 units/L (7-56) 11/28/16 13:36 Alkaline Phosphatase 121 units/L (35-129) 11/28/16 13:36 Troponin T 0.160 ng/mL (0.00-0.029) H* 11/25/16 21:11 C-Reactive Protein 31.70 mg/dL (0.00-1.30) H 11/25/16 21:11 Total Protein 7.6 g/dL (6.3-8.2) 11/28/16 13:36 Albumin 2.6 g/dL (3.9-5) L 11/28/16 13:36 Albumin/Globulin Ratio 0.5 % 11/28/16 13:36 Triglycerides 87 mg/dL (2-149) 11/25/16 15:45 Cholesterol 96 mg/dL (50-199) 11/25/16 15:45 LDL Cholesterol Direct 59 mg/dL (50-130) 11/25/16 15:45 HDL Cholesterol 20 mg/dL (40-59) L 11/25/16 15:45 Cholesterol/HDL Ratio 4.80 % 11/25/16 15:45 Lipase 22 units/L (13-60) 11/26/16 06:40
[2016-11-29] MEDS ORDERED: TRIDIL DRIP 50MG/250ML 50 MG/250 ML BOTTLE ONE (14:40)
[2016-11-29] MEDS ORDERED: NACL 0.9% 1000 ML 1,000 ML ONE (14:40)
[2016-11-29] MEDS ORDERED: CALAN ONE (14:40)
[2016-11-29] MEDS ORDERED: SUBLIMAZE ONE (14:52)
[2016-11-29] MEDS ORDERED: VERSED ONE (14:52)
[2016-11-29] MEDS ORDERED: HEPARIN/NS 5000 UNIT/500ML(CATH LAB) 500 ML IR ONE (15:11)
--- NOTE | 2016-11-29 15:57 | Operative Report ---
Operative Report Operative Report: EXAM: 1. Ultrasound-guided access of the right common femoral artery 2. Angiography of the right lower extremity (clinical change) 3. Selection of the abdominal aorta with angiography (clinical change) 4. Selection of the left external iliac with angiography (clinical change) 5. Selection of the left superficial femoral artery and popliteal artery with angiography of the left lower extremity (clinical change) 6. Selection of the left anterior tibial artery with angiography (clinical change) 7. Injection of 1000 micrograms of nitroglycerin into the left anterior tibial artery 8. 1.25 micro CSI atherectomy of the left anterior tibial artery 9. 3 mm angioplasty of the left anterior tibial artery 10. 3.5 mm angioplasty of the mid left anterior tibial artery 11. Closure of the arteriotomy of the 6 Fr angioseal device DATE: 11/29/16 CARDIOPULMONARY TECHNICIAN AND EEG TECH: TOM CALLES MD INDICATION: ESRD with left foot infection and abnormal arterial ultrasound and small eschars on the right foot. MEDICATIONS: Please see nursing report for full details. DEVICES: 1.25 micro CSI atherectomy device 3 mm angioplasty balloon 3.5 mm angioplasty balloon CONTRAST: Please see laborer cement gun placing report for full details. PROCEDURE: The risks, benefits, and alternatives were discussed with the patient; written informed consent was obtained. Right common femoral artery is visualized under ultrasound was patent. Under direct ultrasound guidance, the right common femoral artery was accessed with a 21-gauge micropuncture needle. 0.018 inch wire was passed into the aorta. It was exchanged for transitional dilator. Wire was exchanged for 0.035 inch Triplett wire. Transitional dilator was exchanged for a 5 Italian sheath. Digital subtraction angiography was performed demonstrating an appropriate puncture, below the inferior epigastric artery and above the bifurcation. The right common femoral artery, external iliac artery, proximal superficial femoral artery, and profunda femoral artery were patent. Omni flush catheter was advanced over the wire and position in the infrarenal abdominal aorta. Digital subtraction angiography was performed and ensuring patency of the bilateral common iliac arteries and abdominal aorta. The bilateral external iliac arteries were patent. Catheter was then advanced into the left external iliac artery and digital subtraction angiography was performed demonstrating patency of the left external iliac artery, common femoral artery, proximal superficial femoral artery, and the left profunda femoral artery. Catheter was exchanged for vertebral catheter positioned in the proximal superficial femoral artery. Digital subtraction angiography was performed and ensuring patency of the left superficial femoral artery and popliteal artery. Catheter was then positioned in the left popliteal artery and digital subtraction angiography was performed demonstrating patency of the tibioperoneal trunk, and posterior tibial artery which was the dominant flow into the foot, and the peroneal artery. The anterior tibial artery had multifocal areas of moderate and severe narrowing in the midportion of the vessel. The left dorsalis pedis was small in size, likely partially secondary to postsurgical changes from prior TMA. Patient was fully heparinized. Sheath was exchanged for 6 Italian 90 cm [place] destination positioned in the left popliteal artery. Catheter was advanced into the left anterior tibial artery and the the V18 wire was then passed into the anterior tibial artery. Catheter was exchanged for a 0.018 inch Trailblazer. Digital subtraction angiography was performed after crossing the lesion confirming intraluminal positioning and the dorsal pedis was visualized. I then attempted with the use of the V18 and a choice PT floppy to cannulate the dorsalis pedis. I was successful cannulating the dorsalis pedis with the choice PT, but then was unable to aspirate blood. I slowly withdrew the catheter and was able to aspirate blood once I exited the dorsalis pedis. Digital subtraction angiography demonstrated severe spasm of the vessel. 1000 units of nitroglycerin was slowly administered with intermittent digital subtraction angiography until the spasm partially resolved. I decided to not treat the dorsalis pedis due to the spastic nature of the vessel. Viperwire was passed into the distal left anterior tibial artery. 1.25 micro CSI atherectomy device was used to perform atherectomy of the left anterior tibial artery. 3 mm angioplasty balloon was advanced over the wire and use to perform angioplasty throughout the anterior tibial artery. Digital subtraction angiography was performed demonstrating mild residual narrowing at the midportion of the anterior tibial artery. 3.5 mm angioplasty balloon was advanced over the wire and used to perform angioplasty of the midportion of the anterior tibial artery. Digital subtraction angiography was performed demonstrating excellent caliber throughout the length of the anterior tibial artery with resolution of the prior spasm within the the dorsalis pedis which was small. This was unchanged from the pre-intervention angiogram. Sheath was then retracted to the right external iliac artery and digital suspect angiography was performed in order to visualize the entirety of the right lower extremity. The right superficial femoral artery, profunda femoral artery, and popliteal artery were patent. Posterior tibial artery and the peroneal artery were patent. The anterior tibial artery appeared to have some multifocal narrowing although the exact severity is difficult to determine. The sheath was then removed over wire and a 6 Italian Angio-Seal was successfully deployed with near immediate hemostasis was achieved. The patient tolerated the procedure well. No immediate post procedural complication. FINDINGS: Please see procedure note above IMPRESSION: Successful revascularization of the left anterior tibial artery of the left lower extremity
[2016-11-29] MEDS ORDERED: VANCOMYCIN/NS 1 GM/250 ML 1 GM/250 ML BAG IV ONE (16:00)
[2016-11-29] MEDS ORDERED: PLAVIX PO ONE (17:40)
[2016-11-30] MEDS: ZOSYN/NS 2.25 GM/50ML 2.25 GM/50 ML BAG IV SCH ×3 (06:43→22:00)
[2016-11-30] MEDS: HEPARIN SUB-Q SCH ×2 (06:44→14:00)
--- NOTE | 2016-11-30 07:59 | Vascular Lab Report ---
LOWER EXTREMITY ARTERIAL PHYSIOLOGIC STUDY: REASON FOR EXAM: Peripheral arterial disease. COMMENTS ON THE RIGHT: Ankle brachial index is 1.16. This value is normal. Toe brachial index is not obtained due to calcified vessels. This value is abnormal. Wound healing is inconclusive. Pulse volume recording at the level of the ankle is normal. Exercise testing was not done. COMMENTS ON THE LEFT: Ankle brachial index is 1.16. This value is normal. Toe brachial index is not obtained due to calcified vessels. This value is abnormal. Wound healing is inconclusive. Pulse volume recording at the level of the ankle is normal. Exercise testing was not done. IMPRESSION: RIGHT: No hemodynamically significant arterial disease. Possible small vessel disease in the foot LEFT:No hemodynamically significant arterial disease. Possible small vessel disease in the foot Clinical correlation recommended.
[2016-11-30] MEDS: PHOSLO PO SCH ×3 (08:00→18:00)
--- NOTE | 2016-11-30 08:01 | Vascular Lab Report ---
LOWER EXTREMITY ARTERIAL DUPLEX: REASON FOR EXAM: Peripheral arterial disease. COMMENTS ON THE RIGHT: Triphasic waveforms are seen proximally. Triphasic waveforms are seen distally. No significant velocity gradients are identified. No focal significant plaque is identified. Findings are consistent with a. Findings are consistent with the ability to heal distal wounds. COMMENTS ON THE LEFT: Triphasic waveforms are seen proximally. Monophasic waveforms are seen distally. No significant velocity gradients are identified. No focal significant plaque is identified. Findings are consistent with abnormal perfusion. Findings are inconsistent with the ability to heal distal wounds. IMPRESSION: RIGHT: Essentially normal arterial flow. LEFT:Abnormal waveforms distally without identifiable stenosis. Clinical correlation is recommended.
--- NOTE | 2016-11-30 08:08 | Vascular Lab Report ---
MISCELLANEOUS VESSEL IDENTIFICATION: COMMENTS ON THE SCAN: The right common femoral artery was identified and under real-time ultrasound guidance was cannulated. IMPRESSION: Successful ultrasound guided arterial cannulation.
[2016-11-30] MEDS: LOPRESSOR PO SCH ×2 (10:00→22:00)
--- NOTE | 2016-11-30 10:20 | Progress Note ---
Assessment and Plan Current antibiotics: Vancomycin (pulse dosed) 11/25 --> Zosyn 2.25 grams IV q8h 11/25 --> Previous antibiotics: PO Bactrim TECHNICAL ADVISOR ASSESSMENT: Jomar Osman is a 61 y/o male with type 2 diabetes mellitus with peripheral neuropathy and end-stage renal failure on maintenance hemodialysis who was admitted to [facility] on 11/26/16 with nausea, vomiting and occasional diarrhea. He is status post transmetatarsal amputation of the left foot at [facility] on 05/09/16 and has developed some new ulcerations of the left foot over the last month or so. Admitting blood cultures are positive. Problem list: 1. Polymicrobial bacteremia -Blood cultures 11/25 with 3/4 bottles growing GPC in pairs (ID pending but likely an anaerobe) and 2/4 bottles growing Morganella morganii. -Left foot source 2. Left foot diabetic ulcer -MRI suggestive of abscesses +/- osteomyelitis -Likely polymicrobial pathogens including both aerobes and anaerobes 3. Type 2 diabetes mellitus -Peripheral neuropathy 4. End-stage renal failure -Maintenance hemodialysis 5. Leukocytosis -Secondary to #1 and #2 6. Peripheral vascular disease -Status post left transmetatarsal amputation 05/09/16 -Status post revascularization of the left anterior tibial artery of the left lower extremity 11/29 PLAN: 1. Continue Zosyn and vancomycin pending further microbiologic data 2. Will discuss with vascular. Patient will require at least debridement and possibly amputation 4. Follow up on repeat blood which are NGTD to document clearance of the bacteremia 5. Glycemic control as per the hospitalist team 6. Local wound care Dave Michaels MD [facility] Office: [phone] Subjective Date of service: 11/30/16 Principal diagnosis: Cellulitis left lower extremity Interval history: Seen in dialysis. No complaints at present except he felt "something pop" over the dorsum of his left foot earlier today. No subjective fever or chills. No foot pain. Tolerating antibiotics well to date. Status post revascularization of the left anterior tibial artery of the left lower extremity 11/29. Objective - Exam Narrative Exam: General Appearance: Well-developed, obese male who is A&Ox3 and in no distress on HD. Head: Normocephalic, without obvious abnormality, atraumatic Neck: Supple. No jugular venous distention at 30. Eyes: PERRL, conjunctiva/corneas clear, EOMI Throat: Lips, mucosa, and tongue normal; teeth with gold caps present; oropharynx clear Lungs: CTA bilaterally in anterior and posterior reyes, no egophany, no rales nor rhonchi Heart: Regular rate, S1, S2 normal, 3/6 systolic murmur heard throughout but loudest at the left upper sternal border. Abdomen: Soft, nontender, nondistended, normoactive bowel sounds throughout Extremities: RUE AV graft site c/d/i with no tenderness to palpation and with palpable thrill present; L foot with previous transmetatarsal amputation with the stump well healed with no signs of ischemia or infection. The plantar ulcer at the level of the first metatarsal is still draining a purulosanguinous material that is malodorous. There are 2 superficial ulcers on the plantar surface: 1 laterally just proximal to the left heel and another at the level of the fourth metatarsal neither of which appear to be secondarily infected at this point. Peripheral pulses are somewhat decreased but palpable. There are no objective abnormalities seen in the area where he felt a "pop." Left foot is warm. Skin: No rashes; L foot wounds as noted above; R foot with no signs of infection. Neurologic: diplomatic courier 2-12 grossly intact. Decreased sensation to pinprick in a stocking distribution. Psych: normal affect - Constitutional Vitals: Vital Signs Temp Pulse Resp BP Pulse Ox 98.7 F 68 16 124/62 95 11/30/16 09:30 11/30/16 09:40 11/30/16 09:30 11/30/16 09:40 11/30/16 08:00 Temperature -Last 24 Hours Temperature 98.7 F Temperature 98.8 F Temperature 98.2 F Temperature 98.2 F Temperature 98.1 F - Labs CBC & Chem 7: 11/29/16 07:57 11/29/16 07:57 Labs: Abnormal lab results Microbiology 11/28/16 13:54 Peripheral/Venous Blood Culture - NGTD Culture in Progress 11/28/16 13:36 Peripheral/Venous Blood Culture - NGTD Culture in Progress 11/25/16 19:58 Peripheral/Venous Blood Culture - 1/2 bottles with GPC in pairs (anaerobic bottle) 11/25/16 20:00 Peripheral/Venous Blood Culture - Preliminary Morganella Morganii in both bottles 1 bottle (anaerobic) also with GPC in pairs 03/05/16 Unknown Foot - Left Wound Culture - Final Morganella Morganii Pseudomonas Aeruginosa Proteus Vulgaris Imagin/15: MRI left foot: Circumscribed areas in the medial soft tissues just a of abscesses in also probable osteomyelitis with changes compatible with marrow edema. 11/25/16: Left foot x-ray: Diffuse soft tissue swelling distally with area of soft tissue gas and ulceration.
--- NOTE | 2016-11-30 11:23 | Progress Note ---
Assessment and Plan End-stage renal disease patient is currently on maintenance hemodialysis He is currently being dialyze on Saturday vested Saturday schedule for 4/2 hours Worsening leukocytosis in a patient who has infected foot currently being followed by vascular surgery as well as infectious disease Polymicrobial bacteremia/MRI suggestive of abscess with osteomyelitis possible Patient may require amputation he has had prior history of left transmetatarsal amputation in April 2016 Diabetes mellitus type II requires better sugar control Anemia and end-stage renal disease currently on erythropoietin partly worsened by acute infection Malnutrition risk is high please consider high protein diet Current dialysis access has been working well during dialysis no issues reported by the dialysis nurse Deconditioning will require physical therapy Subjective Principal diagnosis: Cellulitis left lower extremity Interval history: Seen today for follow-up tolerating dialysis treatment well no acute issues blood pressure is stable labs were reviewed interdisciplinary Notes were also reviewed Objective - Vital Signs Vital signs: Vital Signs - 12hr 11/29/16 11/30/16 11/30/16 23:33 08:00 09:30 Temperature 98.2 F 98.8 F 98.7 F Pulse Rate 68 Pulse Rate [ 70 80 From Monitor] Respiratory 20 18 16 Rate Blood Pressure 120/59 Blood Pressure 134/63 135/63 [Left Arm] O2 Sat by Pulse 94 95 Oximetry 11/30/16 11/30/16 11/30/16 09:40 09:45 10:00 Temperature Pulse Rate 68 68 66 Pulse Rate [ From Monitor] Respiratory Rate Blood Pressure 124/62 135/63 103/58 Blood Pressure [Left Arm] O2 Sat by Pulse Oximetry 11/30/16 11/30/16 11/30/16 10:15 10:30 10:45 Temperature Pulse Rate 67 67 65 Pulse Rate [ From Monitor] Respiratory Rate Blood Pressure 118/56 163/79 134/64 Blood Pressure [Left Arm] O2 Sat by Pulse Oximetry 11/30/16 11:00 Temperature Pulse Rate 64 Pulse Rate [ From Monitor] Respiratory Rate Blood Pressure 161/67 Blood Pressure [Left Arm] O2 Sat by Pulse Oximetry - General Appearance General appearance: appears stated age EENT: mucous membranes moist Neck: no JVD Respiratory: Present: Clear to Ascultation Cardiology: regular (S1 and S2 normal no S3-S4) Gastrointestinal: normal (soft nontender abdomen) - Lab 11/29/16 07:57 11/29/16 07:57 Most recent lab results Calcium 8.7 mg/dL (8.4-10.2) 11/29/16 07:57
[2016-11-30] MEDS ORDERED: NACL 0.9% 1000 ML 100 ML IV PRN (12:39)
--- NOTE | 2016-11-30 13:15 | Progress Note ---
Assessment and Plan Assessment and plan: Diabetic foot ulcers left foot,infected. Continue Zosyn and Vancomycin. Blood cultures growing Morganelli morganii. Patient has had chronic ulcer and has been going to the wound clinic. has had polymicrobial growth from previous wound cultures. MRI of the foot shows abscess and possible osteomyeltis. I discussed case with Dr. Shankar. Crate Maker consulted or possible surgical intervention Sepsis with positive blood cultures for Luiza Gainesni. Continue Zosyn and vancomycin. Peripheral vascular disease lower ext. He has a history of angioplasty by vascular surgeon. Consulted Dr. Shankar. Yesterday had angiography, atherectomy and angioplasty to left lower extremity by Dr. Shankar. I discussed patient with him. End-stage renal disease on hemodialysis. Managed by Nephrology. Seen in dialysis today. Diabetes Mellitus type II. Fingerstick glucose before every meal and at bedtime. Glucose uncontrolled. Will increase Novolin 70/30 to 18 units twice a day Hypertension. On Metoprolol Leukocytosis due to infected ulcers. Hyponatremia. Now resolved. Nausea and vomiting subsiding. History Interval history: nausea,vomiting,subsided left foot ulcer, foul smelling patient again seen in [facility] Hospitalist Physical - Physical exam Narrative exam: Gen: appearance: not in acute distress HEENT: Normocephalic, atraumatic Neck: supple no JVD Lungs: Clear to auscultation bilaterally, no crackles, or wheezes Heart: S1-S2 regular, no murmurs, rubs or gallop Abdomen:soft, non-tender, non-distended, normal bowel sounds Extremity: left foot ulcer, s/p left forefoot amputated Neuro : Awake alert oriented 3, no focal neurologic signs Psychiatry: normal mood - Constitutional Vitals: Temp Pulse Resp BP Pulse Ox 98.7 F 61 16 140/70 95 11/30/16 09:30 11/30/16 13:00 11/30/16 09:30 11/30/16 13:00 11/30/16 08:00 General appearance: Present: no acute distress, well-nourished Results - Labs CBC & Chem 7: 11/29/16 07:57 11/29/16 07:57 Labs: Laboratory Last Values WBC 19.1 K/mm3 (4.5-11.0) H 11/29/16 07:57 RBC 3.50 M/mm3 (3.65-5.03) L 11/29/16 07:57 Hgb 9.4 gm/dl (11.8-15.2) L 11/29/16 07:57 Hct 29.6 % (35.5-45.6) L 11/29/16 07:57 MCV 85 fl (84-94) 11/29/16 07:57 MCH 27 pg (28-32) L 11/29/16 07:57 MCHC 32 % (32-34) 11/29/16 07:57 RDW 17.4 % (13.2-15.2) H 11/29/16 07:57 Plt Count 319 K/mm3 (140-440) 11/29/16 07:57 Lymph % (Auto) 6.8 % (13.4-35.0) L 11/27/16 10:15 Bath % (Auto) 7.2 % (0.0-7.3) 11/27/16 10:15 Eos % (Auto) 2.5 % (0.0-4.3) 11/27/16 10:15 Baso % (Auto) 0.4 % (0.0-1.8) 11/27/16 10:15 Lymph # 1.2 K/mm3 (1.2-5.4) 11/27/16 10:15 Bath # 1.2 K/mm3 (0.0-0.8) H 11/27/16 10:15 Eos # 0.4 K/mm3 (0.0-0.4) 11/27/16 10:15 Baso # 0.1 K/mm3 (0.0-0.1) 11/27/16 10:15 Seg Neutrophils % 83.1 % (40.0-70.0) H 11/27/16 10:15 Seg Neutrophils # 14.4 K/mm3 (1.8-7.7) H 11/27/16 10:15 ESR 90 mm/Hr (0-20) 11/25/16 23:00 PT 16.2 Sec. (12.2-14.9) H 11/25/16 19:50 INR 1.31 (0.87-1.13) H 11/25/16 19:50 VBG pH 7.353 (7.320-7.420) 11/25/16 19:50 Sodium 139 mmol/L (137-145) D 11/29/16 07:57 Potassium 3.6 mmol/L (3.6-5.0) 11/29/16 07:57 Chloride 93.3 mmol/L (98-107) L 11/29/16 07:57 Carbon Dioxide 28 mmol/L (22-30) 11/29/16 07:57 Anion Gap 21 mmol/L 11/29/16 07:57 BUN 43 mg/dL (9-20) H 11/29/16 07:57 Creatinine 9.4 mg/dL (0.8-1.5) H 11/29/16 07:57 Estimated GFR 7 ml/min 11/29/16 07:57 BUN/Creatinine Ratio 4.57 % 11/29/16 07:57 Glucose 145 mg/dL (75-100) H 11/29/16 07:57 POC Glucose 405 (70-105) H 11/29/16 22:30 Lactic Acid 1.2 mmol/L (0.7-2.0) 11/25/16 22:46 Calcium 8.7 mg/dL (8.4-10.2) 11/29/16 07:57 Total Bilirubin 0.8 mg/dL (0.1-1.2) 11/28/16 13:36 Direct Bilirubin 0.4 mg/dL (0-0.2) H 11/28/16 13:36 Indirect Bilirubin 0.4 mg/dL 11/28/16 13:36 AST 31 units/L (5-40) 11/28/16 13:36 ALT 21 units/L (7-56) 11/28/16 13:36 Alkaline Phosphatase 121 units/L (35-129) 11/28/16 13:36 Troponin T 0.160 ng/mL (0.00-0.029) H* 11/25/16 21:11 C-Reactive Protein 31.70 mg/dL (0.00-1.30) H 11/25/16 21:11 Total Protein 7.6 g/dL (6.3-8.2) 11/28/16 13:36 Albumin 2.6 g/dL (3.9-5) L 11/28/16 13:36 Albumin/Globulin Ratio 0.5 % 11/28/16 13:36 Triglycerides 87 mg/dL (2-149) 11/25/16 15:45 Cholesterol 96 mg/dL (50-199) 11/25/16 15:45 LDL Cholesterol Direct 59 mg/dL (50-130) 11/25/16 15:45 HDL Cholesterol 20 mg/dL (40-59) L 11/25/16 15:45 Cholesterol/HDL Ratio 4.80 % 11/25/16 15:45 Lipase 22 units/L (13-60) 11/26/16 06:40
[2016-11-30] MEDS: PROTONIX PO SCH (13:30)
--- NOTE | 2016-11-30 16:52 | Event Note ---
Date: 11/30/16 61 year old male with some PVD and left midfoot infection status post left LUKASZ revascularization. Consulted podiatry for operative debridement as they will provide the patient with the best chance for limb salvage of his left foot given the extent of infection.
--- NOTE | 2016-11-30 19:55 | Cat Scan Report ---
FINAL REPORT PROCEDURE: CT LOWER EXTREMITY LT WO CON TECHNIQUE: Unenhanced CT of the left ankle is performed with sagittal and coronal reconstructions. HISTORY: Cellulitis, osteomyelitis COMPARISON: MRI dated November 28, 2016 FINDINGS: Prominent soft tissue swelling is seen in the ankle and foot with soft tissue emphysema in the forefoot. Gas gangrene is not excluded. There is partial destruction of the remaining proximal heads of the 1st through 3rd metatarsals. Findings may represent acute osteomyelitis. Remaining proximal aspects of the fourth and 5th metatarsals have mild hypertrophic bone formation. Likely the proximal 1st metatarsal head is displaced inferiorly and directed towards the plantar surface. Suspected fluid collection seen on MRI adjacent to displaced 1st metatarsal head likely persist with air-fluid level. A well-formed abscess cannot be confirmed by ultrasound, though. Skin ulceration is seen medially near this region. IMPRESSION: Prominent changes of cellulitis and skin ulceration are seen in the foot with possible gas gangrene. Air may be from the ulceration, though. Likely changes of osteomyelitis are seen in the 1st through 3rd metatarsals which appear at least partially destroyed. The 1st metatarsal is displaced posterior inferiorly. Fluid and air is seen associated with the 1st tarsal -metatarsal joint region and this could be an abscess, but a well-formed abscess cannot be confirmed by CT.
[2016-11-30] MEDS: PLAVIX PO SCH (19:58)
[2016-12-01] MEDS: HEPARIN SUB-Q SCH ×4 (04:32→22:00)
[2016-12-01] MEDS: ZOSYN/NS 2.25 GM/50ML 2.25 GM/50 ML BAG IV SCH ×3 (07:00→23:12)
[2016-12-01] MEDS: PHOSLO PO SCH ×3 (09:40→17:50)
[2016-12-01] MEDS: PROTONIX PO SCH (09:40)
[2016-12-01] MEDS: PLAVIX PO SCH (09:40)
--- NOTE | 2016-12-01 11:18 | Progress Note ---
Assessment and Plan Assessment and plan: Diabetic foot ulcers left foot,infected. Continue Zosyn and Vancomycin. Blood cultures growing Morganelli morganii. Patient has had chronic ulcer and has been going to the wound clinic. has had polymicrobial growth from previous wound cultures. MRI of the foot shows abscess and possible osteomyeltis. I discussed case with Dr. Shankar. Filling Mixer consulted for possible surgical intervention. Sepsis with positive blood cultures for Luiza Gainesni. Continue Zosyn and vancomycin. Peripheral vascular disease lower ext. He has a history of angioplasty by vascular surgeon. Consulted Dr. Shankar. On 11/29/15, had angiography, atherectomy and angioplasty to left lower extremity by Dr. Shankar. I discussed patient with him. End-stage renal disease on hemodialysis. Managed by Nephrology. Seen in dialysis today. Diabetes Mellitus type II. Fingerstick glucose before every meal and at bedtime. Glucose improved after increasing dose of Novolin 70/30 to 18 units twice a day. Hypertension. On Metoprolol Leukocytosis due to infected ulcers. Hyponatremia. Now resolved. Nausea and vomiting subsiding. History Interval history: nausea,vomiting,subsided left foot ulcer, foul smelling Hospitalist Physical - Physical exam Narrative exam: Gen: appearance: not in acute distress HEENT: Normocephalic, atraumatic Neck: supple no JVD Lungs: Clear to auscultation bilaterally, no crackles, or wheezes Heart: S1-S2 regular, no murmurs, rubs or gallop Abdomen:soft, non-tender, non-distended, normal bowel sounds Extremity: left foot ulcer, s/p left forefoot amputated Neuro : Awake alert oriented 3, no focal neurologic signs Psychiatry: normal mood - Constitutional Vitals: Temp Pulse Resp BP Pulse Ox 97.9 F 64 20 129/69 99 12/01/16 07:25 12/01/16 07:25 12/01/16 07:25 12/01/16 07:25 12/01/16 07:25 General appearance: Present: no acute distress, well-nourished Results - Labs CBC & Chem 7: 11/29/16 07:57 11/29/16 07:57 Labs: Laboratory Last Values WBC 19.1 K/mm3 (4.5-11.0) H 11/29/16 07:57 RBC 3.50 M/mm3 (3.65-5.03) L 11/29/16 07:57 Hgb 9.4 gm/dl (11.8-15.2) L 11/29/16 07:57 Hct 29.6 % (35.5-45.6) L 11/29/16 07:57 MCV 85 fl (84-94) 11/29/16 07:57 MCH 27 pg (28-32) L 11/29/16 07:57 MCHC 32 % (32-34) 11/29/16 07:57 RDW 17.4 % (13.2-15.2) H 11/29/16 07:57 Plt Count 319 K/mm3 (140-440) 11/29/16 07:57 Lymph % (Auto) 6.8 % (13.4-35.0) L 11/27/16 10:15 Irion % (Auto) 7.2 % (0.0-7.3) 11/27/16 10:15 Eos % (Auto) 2.5 % (0.0-4.3) 11/27/16 10:15 Baso % (Auto) 0.4 % (0.0-1.8) 11/27/16 10:15 Lymph # 1.2 K/mm3 (1.2-5.4) 11/27/16 10:15 Irion # 1.2 K/mm3 (0.0-0.8) H 11/27/16 10:15 Eos # 0.4 K/mm3 (0.0-0.4) 11/27/16 10:15 Baso # 0.1 K/mm3 (0.0-0.1) 11/27/16 10:15 Seg Neutrophils % 83.1 % (40.0-70.0) H 11/27/16 10:15 Seg Neutrophils # 14.4 K/mm3 (1.8-7.7) H 11/27/16 10:15 ESR 90 mm/Hr (0-20) 11/25/16 23:00 PT 16.2 Sec. (12.2-14.9) H 11/25/16 19:50 INR 1.31 (0.87-1.13) H 11/25/16 19:50 VBG pH 7.353 (7.320-7.420) 11/25/16 19:50 Sodium 139 mmol/L (137-145) D 11/29/16 07:57 Potassium 3.6 mmol/L (3.6-5.0) 11/29/16 07:57 Chloride 93.3 mmol/L (98-107) L 11/29/16 07:57 Carbon Dioxide 28 mmol/L (22-30) 11/29/16 07:57 Anion Gap 21 mmol/L 11/29/16 07:57 BUN 43 mg/dL (9-20) H 11/29/16 07:57 Creatinine 9.4 mg/dL (0.8-1.5) H 11/29/16 07:57 Estimated GFR 7 ml/min 11/29/16 07:57 BUN/Creatinine Ratio 4.57 % 11/29/16 07:57 Glucose 145 mg/dL (75-100) H 11/29/16 07:57 POC Glucose 102 (70-105) 12/01/16 07:44 Lactic Acid 1.2 mmol/L (0.7-2.0) 11/25/16 22:46 Calcium 8.7 mg/dL (8.4-10.2) 11/29/16 07:57 Total Bilirubin 0.8 mg/dL (0.1-1.2) 11/28/16 13:36 Direct Bilirubin 0.4 mg/dL (0-0.2) H 11/28/16 13:36 Indirect Bilirubin 0.4 mg/dL 11/28/16 13:36 AST 31 units/L (5-40) 11/28/16 13:36 ALT 21 units/L (7-56) 11/28/16 13:36 Alkaline Phosphatase 121 units/L (35-129) 11/28/16 13:36 Troponin T 0.160 ng/mL (0.00-0.029) H* 11/25/16 21:11 C-Reactive Protein 31.70 mg/dL (0.00-1.30) H 11/25/16 21:11 Total Protein 7.6 g/dL (6.3-8.2) 11/28/16 13:36 Albumin 2.6 g/dL (3.9-5) L 11/28/16 13:36 Albumin/Globulin Ratio 0.5 % 11/28/16 13:36 Triglycerides 87 mg/dL (2-149) 11/25/16 15:45 Cholesterol 96 mg/dL (50-199) 11/25/16 15:45 LDL Cholesterol Direct 59 mg/dL (50-130) 11/25/16 15:45 HDL Cholesterol 20 mg/dL (40-59) L 11/25/16 15:45 Cholesterol/HDL Ratio 4.80 % 11/25/16 15:45 Lipase 22 units/L (13-60) 11/26/16 06:40 Random Vancomycin 11.2 ug/mL (0-40.0) 12/01/16 07:59
--- NOTE | 2016-12-01 11:26 | Progress Note ---
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 He is status post transmetatarsal amputation of the left foot at [facility] on 05/09/16 and has developed some new ulcerations of the left foot over the last month or so. Admitting blood cultures are positive. Problem list: 1. Polymicrobial bacteremia -Blood cultures 11/25 with 3/4 bottles growing GPC in pairs (ID pending but likely an anaerobe) and 2/4 bottles growing Morganella morganii. -Left foot source 2. Left foot diabetic ulcer -MRI suggestive of abscesses +/- osteomyelitis -Likely polymicrobial pathogens including both aerobes and anaerobes 3. Type 2 diabetes mellitus -Peripheral neuropathy -With hyperglycemia 4. End-stage renal failure -Maintenance hemodialysis 5. Leukocytosis -Secondary to #1 and #2 6. Peripheral vascular disease -Status post left transmetatarsal amputation 05/09/16 -Status post revascularization of the left anterior tibial artery of the left lower extremity 11/29 PLAN: 1. Continue Zosyn and vancomycin pending further microbiologic data 2. Patient pending podiatry evaluation. Patient will require at least debridement and possibly amputation 4. Follow up on repeat blood which are NGTD to document clearance of the bacteremia 5. Glycemic control as per the hospitalist team 6. Local wound care Dave Michaels MD [facility] Office: [phone] Subjective Date of service: 12/01/16 Principal diagnosis: Cellulitis left lower extremity Interval history: Patient is awake and interactive. Patient's requesting water to finish taking his pain medications morning. Tolerating antibiotics well to date. Status post revascularization of the left anterior tibial artery of the left lower extremity 11/29. Patient states that podiatry is to come and see him soon. Review of systems:No subjective fever or chills, chest pain chest congestion, nausea or vomiting. No foot pain. Patient is afebrile Objective - Exam Narrative Exam: General Appearance: Well-developed, obese male who is A&Ox3 Head: Normocephalic, without obvious abnormality, atraumatic Neck: Supple. No jugular venous distention at 60. Eyes: PERRL, conjunctiva/corneas clear Throat: Lips, mucosa, and tongue normal; teeth with gold caps present; oropharynx clear Lungs: CTA bilaterally in anterior and posterior reyes, no rales nor rhonchi Heart: Regular rate, S1, S2 normal, 3/6 systolic murmur heard throughout but loudest at the left upper sternal border. Abdomen: Soft, nontender, nondistended, normoactive bowel sounds throughout Extremities: RUE AV graft site c/d/i with no tenderness to palpation and with palpable thrill present; left foot currently with a dressing in place slightly soiled this is not removed today. However, previous exam of the L foot with previous transmetatarsal amputation with the stump well healed with no signs of ischemia or infection. The plantar ulcer at the level of the first metatarsal is still draining a purulosanguinous material that is malodorous. There are 2 superficial ulcers on the plantar surface: 1 laterally just proximal to the left heel and another at the level of the fourth metatarsal neither of which appear to be secondarily infected at this point. Skin: No rashes; L foot wounds as noted above; R foot with no signs of infection. Neurologic: geropsychologist 2-12 grossly intact. Decreased sensation to pinprick in a stocking distribution. Psych: normal affect - Constitutional Vitals: Vital Signs Temp Pulse Resp BP Pulse Ox 97.9 F 64 20 129/69 99 12/01/16 07:25 12/01/16 07:25 12/01/16 07:25 12/01/16 07:25 12/01/16 07:25 Temperature -Last 24 Hours Temperature 97.9 F Temperature 98.4 F Temperature 97.9 F Temperature 97.8 F - Labs CBC & Chem 7: 11/29/16 07:57 11/29/16 07:57 Labs: Abnormal lab results Microbiology 11/28/16 13:54 Peripheral/Venous Blood Culture - NGTD Culture in Progress 11/28/16 13:36 Peripheral/Venous Blood Culture - NGTD Culture in Progress 11/25/16 19:58 Peripheral/Venous Blood Culture - 1/2 bottles with GPC in pairs (anaerobic bottle) 11/25/16 20:00 Peripheral/Venous Blood Culture - Preliminary Morganella Morganii in both bottles 1 bottle (anaerobic) also with GPC in pairs (ID still pending) 03/05/16 Unknown Foot - Left Wound Culture - Final Morganella Morganii Pseudomonas Aeruginosa Proteus Vulgaris Imagin/15: MRI left foot: Circumscribed areas in the medial soft tissues just a of abscesses in also probable osteomyelitis with changes compatible with marrow edema. 11/25/16: Left foot x-ray: Diffuse soft tissue swelling distally with area of soft tissue gas and ulceration.
[2016-12-01] MEDS ORDERED: VANCOMYCIN VIAL 1,500 MG in NACL 0.9% 500 ML 500 ML IV ONE (12:00)
--- NOTE | 2016-12-01 12:26 | Progress Note ---
Assessment and Plan Assessment: End-stage renal disease patient is currently on maintenance hemodialysis Polymicrobial bacteremia Abscess with osteomyelitis Type II DM Hypertension Anemia secondary to ESRD Secondary hyperparathyroidism Plan: Continue hemodialysis MWF schedule Continue antiHTN medications Needs tight glycemic control Renal diet Binders with meals Subjective Date of service: 12/01/16 Principal diagnosis: Cellulitis left lower extremity Interval history: Patient has no complaints. Objective - Vital Signs Vital signs: Vital Signs - 12hr 12/01/16 07:25 Temperature 97.9 F Pulse Rate [ 64 From Monitor] Respiratory 20 Rate Blood Pressure 129/69 [Left Arm] O2 Sat by Pulse 99 Oximetry - General Appearance General appearance: well-developed, well-nourished EENT: ATNC Respiratory: Present: Clear to Ascultation Cardiology: regular, S1S2 Gastrointestinal: normal, no tenderness, no distended Integumentary: no rash Neurologic: no focal deficit - Lab 12/02/16 08:09 12/02/16 08:09 Most recent lab results Calcium 8.7 mg/dL (8.4-10.2) 11/29/16 07:57
[2016-12-01] MEDS: LOPRESSOR PO SCH ×2 (16:00→23:09)
[2016-12-02] MEDS: HEPARIN SUB-Q SCH ×3 (06:00→22:48)
[2016-12-02] MEDS: ZOSYN/NS 2.25 GM/50ML 2.25 GM/50 ML BAG IV SCH ×3 (06:19→21:59)
[2016-12-02] MEDS: PLAVIX PO SCH ×2 (08:19→10:00)
[2016-12-02] MEDS: PROTONIX PO SCH ×2 (08:19→10:00)
[2016-12-02] MEDS: LOPRESSOR PO SCH ×3 (08:20→22:07)
[2016-12-02] MEDS: PHOSLO PO SCH ×3 (08:20→17:22)
--- NOTE | 2016-12-02 08:22 | Anesthesia Consultation ---
Anesthesia Consult and Med Hx Date of service: 12/03/16 - Airway Anesthetic Teeth Evaluation: Poor ROM Head & Neck: Inadequate Mental/Hyoid Distance: Adequate Mallampati Class: Class III Intubation Access Assessment: Possibly Difficult - Pulmonary Exam CTA: Yes - Cardiac Exam Cardiac Exam: RRR - Pre-Operative Health Status ASA Pre-Surgery Classification: ASA3 Proposed Anesthetic Plan: General, MAC Nerve Block: Ank - Pre-Anesthesia Comment Pre-Anesthesia Comments: cellulitis Left Foot - Pulmonary Hx Smoking: No Hx Asthma: No COPD: No Hx Pneumonia: No Hx Sleep Apnea: Yes - Cardiovascular System Hx Hypertension: Yes Hx Heart Attack/AMI: No Hx Pacemaker: No Hx Internal Defibrillator: No - Central Nervous System Hx Seizures: No Hx Psychiatric Problems: No - Endocrine Hx Renal Disease: Yes Hx End Stage Renal Disease: Yes (MWF dialysis) Hx Liver Disease: No Hx Insulin Dependent Diabetes: Yes - Hematic Hx Anemia: Yes Hx Sickle Cell Disease: No - Other Systems Hx Cancer: No
[2016-12-02 08:56] LABS: Hematocrit 31.1 % (35.5-45.6); Hemoglobin 9.9 gm/dl (11.8-15.2); Mean Corpuscular HGB Conc 32 % (32-34); Mean Corpuscular Hemoglobin 27 pg (28-32); Mean Corpuscular Volume 85 fl (84-94); Platelet Count 373 K/mm3 (140-440); Red Blood Count 3.68 M/mm3 (3.65-5.03); Red Cell Distribution Width 17.5 % (13.2-15.2); White Blood Count 14.4 K/mm3 (4.5-11.0)
[2016-12-02 09:26] LABS: BUN/Creatinine Ratio 6.07; Calcium 8.4 mg/dL (8.4-10.2); Potassium 3.8 mmol/L (3.6-5.0)
[2016-12-02] MEDS ORDERED: MIRALAX 3350 PO PRN (09:27)
--- NOTE | 2016-12-02 09:27 | Progress Note ---
Assessment and Plan Assessment and plan: Diabetic foot ulcers left foot,infected. Continue Zosyn and Vancomycin. Blood cultures growing Morganelli morganii. Patient has had chronic ulcer and has been going to the wound clinic. MRI of the foot revealed abscess and possible osteomyeltis. Gas Fitter Apprentice consulted for possible surgical intervention. Sepsis with positive blood cultures for Luiza Gainesni. Continue Zosyn and vancomycin. Peripheral vascular disease lower ext. He has a history of angioplasty by vascular surgeon. 11/29/15, had angiography, atherectomy and angioplasty to left lower extremity by Dr. Shankar. End-stage renal disease on hemodialysis. Managed by Nephrology. Diabetes Mellitus type II. Fingerstick glucose before every meal and at bedtime. Patient had episode of hypoglycemia this morning. Decrease Novolin 70/ 30 to 12 units subcut twice a day. Hypertension. On Metoprolol Leukocytosis due to infected ulcers. Hyponatremia. Now resolved. Nausea and vomiting resolved. DVT prophylaxis. heparin subcut History Interval history: nausea,vomiting, resolved less pain left foot ulcer, constipated Hospitalist Physical - Physical exam Narrative exam: Gen: appearance: not in acute distress HEENT: Normocephalic, atraumatic Neck: supple no JVD Lungs: Clear to auscultation bilaterally, no crackles, or wheezes Heart: S1-S2 regular, no murmurs, rubs or gallop Abdomen:soft, non-tender, non-distended, normal bowel sounds Extremity: left foot ulcer covered with dressing, s/p left forefoot amputated Neuro : Awake alert oriented 3, no focal neurologic signs Psychiatry: normal mood - Constitutional Vitals: Temp Pulse Resp BP Pulse Ox 98.3 F 77 20 115/57 97 12/02/16 00:00 12/02/16 00:00 12/02/16 00:00 12/02/16 00:00 12/02/16 00:00 General appearance: Present: no acute distress, well-nourished Results - Labs CBC & Chem 7: 12/02/16 08:09 12/02/16 08:09 Labs: Laboratory Last Values WBC 14.4 K/mm3 (4.5-11.0) H 12/02/16 08:09 RBC 3.68 M/mm3 (3.65-5.03) 12/02/16 08:09 Hgb 9.9 gm/dl (11.8-15.2) L 12/02/16 08:09 Hct 31.1 % (35.5-45.6) L 12/02/16 08:09 MCV 85 fl (84-94) 12/02/16 08:09 MCH 27 pg (28-32) L 12/02/16 08:09 MCHC 32 % (32-34) 12/02/16 08:09 RDW 17.5 % (13.2-15.2) H 12/02/16 08:09 Plt Count 373 K/mm3 (140-440) 12/02/16 08:09 Lymph % (Auto) 6.8 % (13.4-35.0) L 11/27/16 10:15 Glynn % (Auto) 7.2 % (0.0-7.3) 11/27/16 10:15 Eos % (Auto) 2.5 % (0.0-4.3) 11/27/16 10:15 Baso % (Auto) 0.4 % (0.0-1.8) 11/27/16 10:15 Lymph # 1.2 K/mm3 (1.2-5.4) 11/27/16 10:15 Glynn # 1.2 K/mm3 (0.0-0.8) H 11/27/16 10:15 Eos # 0.4 K/mm3 (0.0-0.4) 11/27/16 10:15 Baso # 0.1 K/mm3 (0.0-0.1) 11/27/16 10:15 Seg Neutrophils % 83.1 % (40.0-70.0) H 11/27/16 10:15 Seg Neutrophils # 14.4 K/mm3 (1.8-7.7) H 11/27/16 10:15 ESR 90 mm/Hr (0-20) 11/25/16 23:00 PT 16.2 Sec. (12.2-14.9) H 11/25/16 19:50 INR 1.31 (0.87-1.13) H 11/25/16 19:50 VBG pH 7.353 (7.320-7.420) 11/25/16 19:50 Sodium 137 mmol/L (137-145) 12/02/16 08:09 Potassium 3.8 mmol/L (3.6-5.0) 12/02/16 08:09 Chloride 95.0 mmol/L (98-107) L 12/02/16 08:09 Carbon Dioxide 27 mmol/L (22-30) 12/02/16 08:09 Anion Gap 19 mmol/L 12/02/16 08:09 BUN 51 mg/dL (9-20) H 12/02/16 08:09 Creatinine 8.4 mg/dL (0.8-1.5) H 12/02/16 08:09 Estimated GFR 8 ml/min 12/02/16 08:09 BUN/Creatinine Ratio 6.07 % 12/02/16 08:09 Glucose 48 mg/dL (75-100) L 12/02/16 08:09 POC Glucose 50 (70-105) L 12/02/16 08:24 Lactic Acid 1.2 mmol/L (0.7-2.0) 11/25/16 22:46 Calcium 8.4 mg/dL (8.4-10.2) 12/02/16 08:09 Total Bilirubin 0.8 mg/dL (0.1-1.2) 11/28/16 13:36 Direct Bilirubin 0.4 mg/dL (0-0.2) H 11/28/16 13:36 Indirect Bilirubin 0.4 mg/dL 11/28/16 13:36 AST 31 units/L (5-40) 11/28/16 13:36 ALT 21 units/L (7-56) 11/28/16 13:36 Alkaline Phosphatase 121 units/L (35-129) 11/28/16 13:36 Troponin T 0.160 ng/mL (0.00-0.029) H* 11/25/16 21:11 C-Reactive Protein 31.70 mg/dL (0.00-1.30) H 11/25/16 21:11 Total Protein 7.6 g/dL (6.3-8.2) 11/28/16 13:36 Albumin 2.6 g/dL (3.9-5) L 11/28/16 13:36 Albumin/Globulin Ratio 0.5 % 11/28/16 13:36 Triglycerides 87 mg/dL (2-149) 11/25/16 15:45 Cholesterol 96 mg/dL (50-199) 11/25/16 15:45 LDL Cholesterol Direct 59 mg/dL (50-130) 11/25/16 15:45 HDL Cholesterol 20 mg/dL (40-59) L 11/25/16 15:45 Cholesterol/HDL Ratio 4.80 % 11/25/16 15:45 Lipase 22 units/L (13-60) 11/26/16 06:40 Random Vancomycin 11.2 ug/mL (0-40.0) 12/01/16 07:59
--- NOTE | 2016-12-02 14:18 | Progress Note ---
Assessment and Plan Assessment: End-stage renal disease patient is currently on maintenance hemodialysis Polymicrobial bacteremia Abscess with osteomyelitis Type II DM Hypertension Anemia secondary to ESRD Secondary hyperparathyroidism Plan: Continue hemodialysis MWF schedule Continue antiHTN medications Needs tight glycemic control Renal diet Binders with meals Subjective Date of service: 12/02/16 Principal diagnosis: Cellulitis left lower extremity Objective - Vital Signs Vital signs: Vital Signs - 12hr 12/02/16 12/02/16 08:00 10:00 Temperature 96.8 F L Pulse Rate [ 65 65 From Monitor] Respiratory 20 Rate Blood Pressure 111/56 [Left Arm] O2 Sat by Pulse 99 Oximetry - Lab 12/02/16 08:09 12/02/16 08:09 Most recent lab results Calcium 8.4 mg/dL (8.4-10.2) 12/02/16 08:09
[2016-12-03] MEDS: PHOSLO PO SCH ×3 (08:00→17:00)
[2016-12-03] MEDS: LOPRESSOR PO SCH (10:00)
[2016-12-03] MEDS: PLAVIX PO SCH (10:00)
[2016-12-03] MEDS: PROTONIX PO SCH (10:00)
--- NOTE | 2016-12-03 10:35 | Progress Note ---
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 He is status post transmetatarsal amputation of the left foot at [facility] on 05/09/16 and has developed some new ulcerations of the left foot over the last month or so. Admitting blood cultures are positive. Problem list: 1. Polymicrobial bacteremia -Blood cultures 11/25 with 3/4 bottles growing GPC in pairs (ID pending but likely an anaerobe) and 2/4 bottles growing Morganella morganii. -Left foot source -Discussed again with micro and the GPC in pairs is not growing well and felt to be a probable contaminant although it was in 3/4 bottles 2. Left foot diabetic ulcer -MRI suggestive of abscesses +/- osteomyelitis -Likely polymicrobial pathogens including both aerobes and anaerobes 3. Type 2 diabetes mellitus -Peripheral neuropathy -With hyperglycemia 4. End-stage renal failure -Maintenance hemodialysis 5. Leukocytosis -Secondary to #1 and #2 6. Peripheral vascular disease -Status post left transmetatarsal amputation 05/09/16 -Status post revascularization of the left anterior tibial artery of the left lower extremity 11/29 PLAN: 1. Continue Zosyn and vancomycin 2. For surgery today: Patient will require at least debridement and possibly amputation 3. Follow up on repeat blood which are NGTD to document clearance of the bacteremia 4. Glycemic control as per the hospitalist team 5. Local wound care Dave Michaels MD [facility] Office: [phone] Subjective Date of service: 12/03/16 Principal diagnosis: Cellulitis left lower extremity Interval history: No complaints. Awaits surgery today. Review of systems:No subjective fever or chills, chest pain chest congestion, nausea or vomiting. No foot pain. Objective - Exam Narrative Exam: General Appearance: Well-developed, obese male who is A&Ox3 and in NAD Head: Normocephalic, without obvious abnormality, atraumatic Neck: Supple. No jugular venous distention at 30. Eyes: PERRL, conjunctiva/corneas clear Throat: Lips, mucosa, and tongue normal; teeth with gold caps present; oropharynx clear Lungs: CTA bilaterally in anterior and posterior reyes, no rales nor rhonchi Heart: Regular rate, S1, S2 normal, 3/6 systolic murmur heard throughout but loudest at the left upper sternal border. Abdomen: Soft, nontender, nondistended, normoactive bowel sounds throughout Extremities: RUE AV graft site c/d/i with no tenderness to palpation and with palpable thrill present; left foot currently with a dressing in place slightly soiled this is not removed today. However, previous exam of the L foot with previous transmetatarsal amputation with the stump well healed with no signs of ischemia or infection. The plantar ulcer at the level of the first metatarsal is still draining a purulosanguinous material that is malodorous. There are 2 superficial ulcers on the plantar surface: 1 laterally just proximal to the left heel and another at the level of the fourth metatarsal neither of which appear to be secondarily infected at this point. Skin: No rashes; L foot wounds as noted above; R foot with no signs of infection. 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 Decreased sensation to pinprick in a stocking distribution. Psych: normal affect - Constitutional Vitals: Vital Signs Temp Pulse Resp BP Pulse Ox 97.5 F L 63 16 116/57 98 12/03/16 07:30 12/03/16 07:30 12/03/16 07:30 12/03/16 07:30 12/03/16 07:30 Temperature -Last 24 Hours Temperature 97.5 F Temperature 98.5 F Temperature 98.0 F Temperature 98.2 F - Labs CBC & Chem 7: 12/02/16 08:09 12/02/16 08:09 Labs: Abnormal lab results Microbiology 11/28/16 13:54 Peripheral/Venous Blood Culture - N0 growth 11/28/16 13:36 Peripheral/Venous Blood Culture - No growth 11/25/16 19:58 Peripheral/Venous Blood Culture - 2/2 bottles with GPC in pairs (anaerobic bottle) 11/25/16 20:00 Peripheral/Venous Blood Culture - Preliminary Morganella Morganii in both bottles 1 bottle (anaerobic) also with GPC in pairs (ID still pending) 03/05/16 Unknown Foot - Left Wound Culture - Final Morganella Morganii Pseudomonas Aeruginosa Proteus Vulgaris Imagin/15: MRI left foot: Circumscribed areas in the medial soft tissues just a of abscesses in also probable osteomyelitis with changes compatible with marrow edema. 11/25/16: Left foot x-ray: Diffuse soft tissue swelling distally with area of soft tissue gas and ulceration.
--- NOTE | 2016-12-03 10:39 | Progress Note ---
Assessment and Plan Assessment and plan: Diabetic foot ulcers left foot,infected. Continue Zosyn and Vancomycin. Blood cultures growing Morganelli morganii. Patient has had chronic ulcer and has been going to the wound clinic. MRI of the foot revealed abscess and possible osteomyeltis. Review Nurse consulted. For surgery today. Sepsis with positive blood cultures for Luiza Gainesni. Continue Zosyn and vancomycin. Peripheral vascular disease lower ext. He has a history of angioplasty by vascular surgeon. 11/29/15, had angiography, atherectomy and angioplasty to left lower extremity by Dr. Shankar. End-stage renal disease on hemodialysis. Managed by Nephrology. Diabetes Mellitus type II. Fingerstick glucose before every meal and at bedtime. Continue Novolin 70/30. Hypertension. On Metoprolol Leukocytosis due to infected ulcers. Hyponatremia. Now resolved. Nausea and vomiting resolved. DVT prophylaxis. heparin subcut History Interval history: less pain left foot ulcer, constipated Hospitalist Physical - Physical exam Narrative exam: Gen: appearance: not in acute distress HEENT: Normocephalic, atraumatic Neck: supple no JVD Lungs: Clear to auscultation bilaterally, no crackles, or wheezes Heart: S1-S2 regular, no murmurs, rubs or gallop Abdomen:soft, non-tender, non-distended, normal bowel sounds Extremity: left foot ulcer covered with dressing, s/p left forefoot amputated previously Neuro : Awake alert oriented 3, no focal neurologic signs Psychiatry: normal mood - Constitutional Vitals: Temp Pulse Resp BP Pulse Ox 97.5 F L 63 16 116/57 98 12/03/16 07:30 12/03/16 07:30 12/03/16 07:30 12/03/16 07:30 12/03/16 07:30 General appearance: Present: no acute distress, well-nourished Results - Labs CBC & Chem 7: 12/02/16 08:09 12/02/16 08:09 Labs: Laboratory Last Values WBC 14.4 K/mm3 (4.5-11.0) H 12/02/16 08:09 RBC 3.68 M/mm3 (3.65-5.03) 12/02/16 08:09 Hgb 9.9 gm/dl (11.8-15.2) L 12/02/16 08:09 Hct 31.1 % (35.5-45.6) L 12/02/16 08:09 MCV 85 fl (84-94) 12/02/16 08:09 MCH 27 pg (28-32) L 12/02/16 08:09 MCHC 32 % (32-34) 12/02/16 08:09 RDW 17.5 % (13.2-15.2) H 12/02/16 08:09 Plt Count 373 K/mm3 (140-440) 12/02/16 08:09 Lymph % (Auto) 6.8 % (13.4-35.0) L 11/27/16 10:15 Ida % (Auto) 7.2 % (0.0-7.3) 11/27/16 10:15 Eos % (Auto) 2.5 % (0.0-4.3) 11/27/16 10:15 Baso % (Auto) 0.4 % (0.0-1.8) 11/27/16 10:15 Lymph # 1.2 K/mm3 (1.2-5.4) 11/27/16 10:15 Ida # 1.2 K/mm3 (0.0-0.8) H 11/27/16 10:15 Eos # 0.4 K/mm3 (0.0-0.4) 11/27/16 10:15 Baso # 0.1 K/mm3 (0.0-0.1) 11/27/16 10:15 Seg Neutrophils % 83.1 % (40.0-70.0) H 11/27/16 10:15 Seg Neutrophils # 14.4 K/mm3 (1.8-7.7) H 11/27/16 10:15 ESR 90 mm/Hr (0-20) 11/25/16 23:00 PT 16.2 Sec. (12.2-14.9) H 11/25/16 19:50 INR 1.31 (0.87-1.13) H 11/25/16 19:50 VBG pH 7.353 (7.320-7.420) 11/25/16 19:50 Sodium 137 mmol/L (137-145) 12/02/16 08:09 Potassium 3.8 mmol/L (3.6-5.0) 12/02/16 08:09 Chloride 95.0 mmol/L (98-107) L 12/02/16 08:09 Carbon Dioxide 27 mmol/L (22-30) 12/02/16 08:09 Anion Gap 19 mmol/L 12/02/16 08:09 BUN 51 mg/dL (9-20) H 12/02/16 08:09 Creatinine 8.4 mg/dL (0.8-1.5) H 12/02/16 08:09 Estimated GFR 8 ml/min 12/02/16 08:09 BUN/Creatinine Ratio 6.07 % 12/02/16 08:09 Glucose 48 mg/dL (75-100) L 12/02/16 08:09 POC Glucose 175 (70-105) H 12/02/16 21:53 Lactic Acid 1.2 mmol/L (0.7-2.0) 11/25/16 22:46 Calcium 8.4 mg/dL (8.4-10.2) 12/02/16 08:09 Total Bilirubin 0.8 mg/dL (0.1-1.2) 11/28/16 13:36 Direct Bilirubin 0.4 mg/dL (0-0.2) H 11/28/16 13:36 Indirect Bilirubin 0.4 mg/dL 11/28/16 13:36 AST 31 units/L (5-40) 11/28/16 13:36 ALT 21 units/L (7-56) 11/28/16 13:36 Alkaline Phosphatase 121 units/L (35-129) 11/28/16 13:36 Troponin T 0.160 ng/mL (0.00-0.029) H* 11/25/16 21:11 C-Reactive Protein 31.70 mg/dL (0.00-1.30) H 11/25/16 21:11 Total Protein 7.6 g/dL (6.3-8.2) 11/28/16 13:36 Albumin 2.6 g/dL (3.9-5) L 11/28/16 13:36 Albumin/Globulin Ratio 0.5 % 11/28/16 13:36 Triglycerides 87 mg/dL (2-149) 11/25/16 15:45 Cholesterol 96 mg/dL (50-199) 11/25/16 15:45 LDL Cholesterol Direct 59 mg/dL (50-130) 11/25/16 15:45 HDL Cholesterol 20 mg/dL (40-59) L 11/25/16 15:45 Cholesterol/HDL Ratio 4.80 % 11/25/16 15:45 Lipase 22 units/L (13-60) 11/26/16 06:40 Random Vancomycin 21.9 ug/mL (0-40.0) 12/03/16 03:07
[2016-12-03] MEDS ORDERED: NACL 0.9% 1000 ML 100 ML IV PRN (11:05)
[2016-12-03] MEDS ORDERED: DILAUDID IV PRN ×2 (12:44→17:37)
[2016-12-03] MEDS ORDERED: ZOFRAN IV PRN (12:44)
[2016-12-03] MEDS ORDERED: VERSED IV NR (13:00)
[2016-12-03] MEDS ORDERED: PEPCID PO NR (13:00)
[2016-12-03] MEDS: HEPARIN SUB-Q SCH (14:00)
[2016-12-03] MEDS ORDERED: DILAUDID ONE (14:19)
[2016-12-03] MEDS ORDERED: DIPRIVAN 10 MG/ML IV ONE (14:19)
[2016-12-03] MEDS ORDERED: XYLOCAINE MPF 2% ONE (14:20)
[2016-12-03] MEDS: NACL 0.9% 1000 ML 1,000 ML IV SCH (14:56)
[2016-12-03] MEDS ORDERED: ANCEF/STERILE WATER 2 GM/20 ML IV NR (16:00)
[2016-12-03] MEDS ORDERED: NACL 0.9% IR ONE ×2 (16:37→16:40)
[2016-12-03] MEDS ORDERED: DECADRON ONE (16:51)
[2016-12-03] MEDS ORDERED: ZOFRAN ONE (16:51)
--- NOTE | 2016-12-03 17:35 | Operative Report ---
Operative Report Operative Report: Date of procedure: 12/03/2016 Pre-operative diagnosis: Infected left transmetatarsal amputation wound Post-operative diagnosis: Same Procedure name(s): Incision, drainage, debridement of the left foot wound including skin, soft tissue, muscle, bone. The resulting wound measures 4 inches long and 2 inches deep and an inch wide. Surgeon: Marques Sparrow MD, RPVI Dress Finisher: None Anesthesia: Gen. Findings 1. Extensive necrosis of the plantar portion of the left foot. 2. Abscess of the left foot. 3. Broken necrotic bone in the bottom of the left foot. Specimens: Left foot deep cultures. Tissue cultures. Bone culture. EBL: 50 mL IV fluids: 300 mL Disposition: The recovery Indications: Chronic infected left foot status post transmetatarsal amputation Procedure: Patient was brought to the operating room laid on the table in supine position. The left foot was prepped and draped usual sterile fashion. The incision on the plantar aspect of the foot was made using #15 blade. The necrotic tissue from the wound was removed during sharp dissection using #10 blade. The purulent looking fluid was seen and cultured. The deep tissues were sent for cultures. Op 1 further debridement a necrotic broken bone was noted. It was dissected free and removed. It was sent for cultures. The wound was irrigated was copious amount of saline using Pulsavac. It was packed with using 50% Betadine soaked Curlex. Patient tolerated procedure well. At the end of the case all sponge and needle counts were correct.
--- NOTE | 2016-12-03 18:42 | Anesthesia Day of Surgery ---
Anesthesia Day of Surgery - Day of Surgery Patient Examined: Yes Patient H&P Reviewed: Yes Patient is NPO: Yes
--- NOTE | 2016-12-03 18:42 | Post Anesthesia Evaluation ---
- Post Anesthesia Evaluation Patient Participated: Yes Airway Patent: Yes Stable Respiratory Function: Yes Nausea/Vomiting: No Temp > 96.8F: Yes Pain Manageable: Yes Adequeate Hydration: Yes Anesthesia Complications: No Block Receding Appropriately: Not Applicable Patient on Ventilator: No
[2016-12-03 19:52] LABS: Hematocrit 32.2 % (35.5-45.6); Hemoglobin 10.2 gm/dl (11.8-15.2); Mean Corpuscular HGB Conc 32 % (32-34); Mean Corpuscular Hemoglobin 27 pg (28-32); Mean Corpuscular Volume 84 fl (84-94); Platelet Count 406 K/mm3 (140-440); Red Blood Count 3.81 M/mm3 (3.65-5.03); Red Cell Distribution Width 17.9 % (13.2-15.2); White Blood Count 14.2 K/mm3 (4.5-11.0)
[2016-12-03 21:01] LABS: Basophils % (Manual) 0 % (0.0-1.8); Blastocytes % (Manual) 0 %
[2016-12-03 21:02] LABS: Hypochromasia 1+; Polychromasia Few; Target Cells Few
[2016-12-03 21:03] LABS: Diff Status Complete; Platelet Estimate Consistent w Auto; Poikilocytosis Few
[2016-12-04] MEDS: HEPARIN SUB-Q SCH ×4 (02:34→21:25)
[2016-12-04] MEDS: LOPRESSOR PO SCH ×3 (02:37→21:06)
[2016-12-04] MEDS: PHOSLO PO SCH ×3 (08:00→19:02)
--- NOTE | 2016-12-04 08:27 | Progress Note ---
Assessment and Plan Assessment: End-stage renal disease patient is currently on maintenance hemodialysis Infected left transmetatarsal amputation wound s/p I&D, debridement Polymicrobial bacteremia Abscess with osteomyelitis Type II DM Hypertension Anemia secondary to ESRD Secondary hyperparathyroidism Plan: Hemodialysis today - patient did not receive HD due to surgery schedule Continue MWF schedule Continue antiHTN medications Needs tight glycemic control Renal diet Binders with meals Subjective Date of service: 12/04/16 Principal diagnosis: Cellulitis left lower extremity Interval history: Patient has no complaints. Objective - Vital Signs Vital signs: Vital Signs - 12hr 12/04/16 12/04/16 12/04/16 00:00 04:00 07:30 Temperature 97.6 F 97.4 F L 97 F L Pulse Rate [ 79 62 70 From Monitor] Respiratory 18 18 18 Rate Blood Pressure 121/62 115/63 112/59 [Left Arm] O2 Sat by Pulse 98 96 98 Oximetry - General Appearance General appearance: well-developed, well-nourished EENT: ATNC Respiratory: Present: Clear to Ascultation Cardiology: regular, S1S2 Gastrointestinal: normal, no tenderness, no distended Integumentary: no rash Psychiatric: cooperative - Lab 12/04/16 08:00 12/02/16 08:09 Most recent lab results Calcium 8.4 mg/dL (8.4-10.2) 12/02/16 08:09
--- NOTE | 2016-12-04 08:40 | Progress Note ---
Assessment and Plan Assessment and plan: Infected Diabetic foot ulcers left foot * Continue Zosyn and Vancomycin. * Blood cultures growing Morganelli morganii. * MRI of the foot revealed abscess and possible osteomyeltis. * s/p amputation on 12/03/16 * follow wound culture from surgery Sepsis with bacteremia and osteomylitis * with positive blood cultures for Morganholly Gainesni. * Continue Zosyn and vancomycin. * ID following Peripheral vascular disease lower extremity. * He has a history of angioplasty by vascular surgeon. * on 11/29/15, had angiography, atherectomy and angioplasty to left lower extremity by Dr. Shankar. End-stage renal disease on hemodialysis. * Managed by Nephrology. Diabetes Mellitus type II. * Fingerstick glucose before every meal and at bedtime. * Continue Novolin 70/30. Hypertension. On Metoprolol Leukocytosis due to infected ulcers and sepsis. Hyponatremia. Now resolved. Nausea and vomiting resolved. DVT prophylaxis. heparin subcut History Interval history: Patient seen and examined. Medical records and medication list reviewed. No acute event overnight noted by the RN. Patient denies any chest pain or difficulty breathing. Patient is tolerating diet. Complaints of left foot pain and nausea Discussed plan of care at bedside with patient. Hospitalist Physical - Physical exam Narrative exam: Gen: appearance: not in acute distress HEENT: Normocephalic, atraumatic Neck: supple no JVD Lungs: Clear to auscultation bilaterally, no crackles, or wheezes Heart: S1-S2 regular, no murmurs, rubs or gallop Abdomen:soft, non-tender, non-distended, normal bowel sounds Extremity: left foot ulcer covered with dressing, s/p left forefoot amputated previously Neuro : Awake alert oriented 3, no focal neurologic signs Psychiatry: normal mood - Constitutional Vitals: Temp Pulse Resp BP Pulse Ox 97 F L 70 18 112/59 98 12/04/16 07:30 12/04/16 07:30 12/04/16 07:30 12/04/16 07:30 12/04/16 07:30 General appearance: Present: no acute distress, well-nourished Results - Labs CBC & Chem 7: 12/04/16 08:00 12/02/16 08:09 Labs: Laboratory Last Values WBC 14.2 K/mm3 (4.5-11.0) H 12/03/16 19:02 RBC 3.81 M/mm3 (3.65-5.03) 12/03/16 19:02 Hgb 10.2 gm/dl (11.8-15.2) L 12/03/16 19:02 Hct 32.2 % (35.5-45.6) L 12/03/16 19:02 MCV 84 fl (84-94) 12/03/16 19:02 MCH 27 pg (28-32) L 12/03/16 19:02 MCHC 32 % (32-34) 12/03/16 19:02 RDW 17.9 % (13.2-15.2) H 12/03/16 19:02 Plt Count 406 K/mm3 (140-440) 12/03/16 19:02 Lymph % (Auto) 6.8 % (13.4-35.0) L 11/27/16 10:15 Hunt % (Auto) 7.2 % (0.0-7.3) 11/27/16 10:15 Eos % (Auto) 2.5 % (0.0-4.3) 11/27/16 10:15 Baso % (Auto) 0.4 % (0.0-1.8) 11/27/16 10:15 Lymph # 1.2 K/mm3 (1.2-5.4) 11/27/16 10:15 Hunt # 1.2 K/mm3 (0.0-0.8) H 11/27/16 10:15 Eos # 0.4 K/mm3 (0.0-0.4) 11/27/16 10:15 Baso # 0.1 K/mm3 (0.0-0.1) 11/27/16 10:15 Add Manual Diff Complete 12/03/16 19:02 Total Counted 100 12/03/16 19:02 Seg Neutrophils % 83.1 % (40.0-70.0) H 11/27/16 10:15 Seg Neuts % (Manual) 85.0 % (40.0-70.0) H 12/03/16 19:02 Band Neutrophils % 2.0 % 12/03/16 19:02 Lymphocytes % (Manual) 4.0 % (13.4-35.0) L 12/03/16 19:02 Reactive Lymphs % (Man) 0 % 12/03/16 19:02 Monocytes % (Manual) 4.0 % (0.0-7.3) 12/03/16 19:02 Eosinophils % (Manual) 4.0 % (0.0-4.3) 12/03/16 19:02 Basophils % (Manual) 0 % (0.0-1.8) 12/03/16 19:02 Metamyelocytes % 1.0 % 12/03/16 19:02 Myelocytes % 0 % 12/03/16 19:02 Promyelocytes % 0 % 12/03/16 19:02 Blast Cells % 0 % 12/03/16 19:02 Nucleated RBC % 1.0 % (0.0-0.9) H 12/03/16 19:02 Seg Neutrophils # 14.4 K/mm3 (1.8-7.7) H 11/27/16 10:15 Seg Neutrophils # Man 12.1 K/mm3 (1.8-7.7) H 12/03/16 19:02 Band Neutrophils # 0.3 K/mm3 12/03/16 19:02 Lymphocytes # (Manual) 0.6 K/mm3 (1.2-5.4) L 12/03/16 19:02 Abs React Lymphs (Man) 0.0 K/mm3 12/03/16 19:02 Monocytes # (Manual) 0.6 K/mm3 (0.0-0.8) 12/03/16 19:02 Eosinophils # (Manual) 0.6 K/mm3 (0.0-0.4) H 12/03/16 19:02 Basophils # (Manual) 0.0 K/mm3 (0.0-0.1) 12/03/16 19:02 Metamyelocytes # 0.1 K/mm3 12/03/16 19:02 Myelocytes # 0.0 K/mm3 12/03/16 19:02 Promyelocytes # 0.0 K/mm3 12/03/16 19:02 Blast Cells # 0.0 K/mm3 12/03/16 19:02 WBC Morphology Not Reportable 12/03/16 19:02 Hypersegmented Neuts Not Reportable 12/03/16 19:02 Hyposegmented Neuts Not Reportable 12/03/16 19:02 Hypogranular Neuts Not Reportable 12/03/16 19:02 Smudge Cells Not Reportable 12/03/16 19:02 Toxic Granulation Not Reportable 12/03/16 19:02 Toxic Vacuolation Not Reportable 12/03/16 19:02 Dohle Bodies Not Reportable 12/03/16 19:02 Pelger-Huet Anomaly Not Reportable 12/03/16 19:02 Vignesh Rods Not Reportable 12/03/16 19:02 Platelet Estimate Consistent w auto 12/03/16 19:02 Clumped Platelets Not Reportable 12/03/16 19:02 Plt Clumps, EDTA Not Reportable 12/03/16 19:02 Large Platelets Not Reportable 12/03/16 19:02 Giant Platelets Not Reportable 12/03/16 19:02 Platelet Satelliting Not Reportable 12/03/16 19:02 Plt Morphology Comment Not Reportable 12/03/16 19:02 RBC Morphology Not Reportable 12/03/16 19:02 Dimorphic RBCs Not Reportable 12/03/16 19:02 Polychromasia Few 12/03/16 19:02 Hypochromasia 1+ 12/03/16 19:02 Poikilocytosis Few 12/03/16 19:02 Anisocytosis Not Reportable 12/03/16 19:02 Microcytosis Not Reportable 12/03/16 19:02 Macrocytosis Not Reportable 12/03/16 19:02 Spherocytes Not Reportable 12/03/16 19:02 Pappenheimer Bodies Not Reportable 12/03/16 19:02 Sickle Cells Not Reportable 12/03/16 19:02 Target Cells Few 12/03/16 19:02 Tear Drop Cells Not Reportable 12/03/16 19:02 Ovalocytes Not Reportable 12/03/16 19:02 Helmet Cells Not Reportable 12/03/16 19:02 Stewart-Toco Bodies Not Reportable 12/03/16 19:02 Ewing Rings Not Reportable 12/03/16 19:02 [place] Cells Not Reportable 12/03/16 19:02 Bite Cells Not Reportable 12/03/16 19:02 Crenated Cell Not Reportable 12/03/16 19:02 Elliptocytes Not Reportable 12/03/16 19:02 Acanthocytes (Spur) Not Reportable 12/03/16 19:02 Rouleaux Not Reportable 12/03/16 19:02 Hemoglobin C Crystals Not Reportable 12/03/16 19:02 Schistocytes Not Reportable 12/03/16 19:02 Malaria parasites Not Reportable 12/03/16 19:02 ESR 90 mm/Hr (0-20) 11/25/16 23:00 Seth Bodies Not Reportable 12/03/16 19:02 Hem Pathologist Commnt No 12/03/16 19:02 PT 16.2 Sec. (12.2-14.9) H 11/25/16 19:50 INR 1.31 (0.87-1.13) H 11/25/16 19:50 VBG pH 7.353 (7.320-7.420) 11/25/16 19:50 Sodium 137 mmol/L (137-145) 12/02/16 08:09 Potassium 3.8 mmol/L (3.6-5.0) 12/02/16 08:09 Chloride 95.0 mmol/L (98-107) L 12/02/16 08:09 Carbon Dioxide 27 mmol/L (22-30) 12/02/16 08:09 Anion Gap 19 mmol/L 12/02/16 08:09 BUN 51 mg/dL (9-20) H 12/02/16 08:09 Creatinine 8.4 mg/dL (0.8-1.5) H 12/02/16 08:09 Estimated GFR 8 ml/min 12/02/16 08:09 BUN/Creatinine Ratio 6.07 % 12/02/16 08:09 Glucose 48 mg/dL (75-100) L 12/02/16 08:09 POC Glucose 269 (70-105) H 12/03/16 22:28 Lactic Acid 1.2 mmol/L (0.7-2.0) 11/25/16 22:46 Calcium 8.4 mg/dL (8.4-10.2) 12/02/16 08:09 Total Bilirubin 0.8 mg/dL (0.1-1.2) 11/28/16 13:36 Direct Bilirubin 0.4 mg/dL (0-0.2) H 11/28/16 13:36 Indirect Bilirubin 0.4 mg/dL 11/28/16 13:36 AST 31 units/L (5-40) 11/28/16 13:36 ALT 21 units/L (7-56) 11/28/16 13:36 Alkaline Phosphatase 121 units/L (35-129) 11/28/16 13:36 Troponin T 0.160 ng/mL (0.00-0.029) H* 11/25/16 21:11 C-Reactive Protein 31.70 mg/dL (0.00-1.30) H 11/25/16 21:11 Total Protein 7.6 g/dL (6.3-8.2) 11/28/16 13:36 Albumin 2.6 g/dL (3.9-5) L 11/28/16 13:36 Albumin/Globulin Ratio 0.5 % 11/28/16 13:36 Triglycerides 87 mg/dL (2-149) 11/25/16 15:45 Cholesterol 96 mg/dL (50-199) 11/25/16 15:45 LDL Cholesterol Direct 59 mg/dL (50-130) 11/25/16 15:45 HDL Cholesterol 20 mg/dL (40-59) L 11/25/16 15:45 Cholesterol/HDL Ratio 4.80 % 11/25/16 15:45 Lipase 22 units/L (13-60) 11/26/16 06:40 Random Vancomycin 21.9 ug/mL (0-40.0) 12/03/16 03:07
[2016-12-04] MEDS: PROTONIX PO SCH (09:00)
[2016-12-04] MEDS: PLAVIX PO SCH (09:04)
[2016-12-04] MEDS ORDERED: VANCOMYCIN VIAL 1,000 MG in NACL 0.9% 250ML 250 ML IV SCH (10:00)
[2016-12-04 10:08] LABS: Basophils % (Auto) 0.5 % (0.0-1.8); Eosinophils % (Auto) 3.1 % (0.0-4.3); Hematocrit 28.1 % (35.5-45.6); Mean Corpuscular HGB Conc 32 % (32-34); Mean Corpuscular Hemoglobin 27 pg (28-32); Mean Corpuscular Volume 83 fl (84-94); Platelet Count 408 K/mm3 (140-440); Red Blood Count 3.38 M/mm3 (3.65-5.03); Red Cell Distribution Width 17.6 % (13.2-15.2); White Blood Count 15.7 K/mm3 (4.5-11.0)
--- NOTE | 2016-12-04 10:41 | Progress Note ---
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 He is status post transmetatarsal amputation of the left foot at on 05/09/16 and has developed some new ulcerations of the left foot over the last month or so. Admitting blood cultures are positive. Problem list: 1. Polymicrobial bacteremia -Blood cultures 11/25 with 3/4 bottles growing GPC in pairs (ID pending but likely an anaerobe) and 2/4 bottles growing Morganella morganii. -Left foot source -Discussed again with micro and the GPC in pairs is not growing well and felt to be a probable contaminant although it was in 3/4 bottles 2. Left foot diabetic ulcer -MRI suggestive of abscesses +/- osteomyelitis -Likely polymicrobial pathogens including both aerobes and anaerobes -s/p 12/03 I&D with finding of abscess and necrotic bone 3. Type 2 diabetes mellitus -Peripheral neuropathy -With hyperglycemia 4. End-stage renal failure -Maintenance hemodialysis 5. Leukocytosis -Secondary to #1 and #2 6. Peripheral vascular disease -Status post left transmetatarsal amputation 05/09/16 -Status post revascularization of the left anterior tibial artery of the left lower extremity 11/29/16 PLAN: 1. Continue Zosyn and vancomycin 2. Await culture findings from deep surgical specimens to allow for de- escalation of therapy. 3. Follow up on repeat blood which are NGTD to document clearance of the bacteremia 4. Glycemic control as per the hospitalist team 5. Local wound care Subjective Date of service: 12/04/16 Principal diagnosis: Cellulitis left lower extremity Interval history: Patient seen in hemodialysis. No specific complaints. Surgical findings 12/03 noted. Now P.O.D#1 Objective - Exam Narrative Exam: Well-developed well-nourished. No distress. Seen in hemodialysis. HEENT: Pupils are equal reactive to light and accommodation. Conjunctiva clear. Oropharynx is normal with no evidence of oral candidiasis or pharyngitis. NECK: Supple. No enlargement of the thyroid gland. No significant cervical lymphadenopathy. No jugular venous distention at 30. LUNGS: Clear with no adventitious sounds. HEART: Regular rate. S1 and S2 are normal. There are no murmurs, gallops, clicks or rubs heard. ABDOMEN: Soft and nontender. Liver and spleen are not palpably enlarged or tender. No palpable masses. Bowel sounds are normoactive. EXTREMITIES: Left foot stump wraps clean. SKIN: No other rash, ulcers or wounds. NEUROLOGIC: No focal findings. - Constitutional Vitals: Vital Signs Temp Pulse Resp BP Pulse Ox 97.7 F 63 18 133/67 98 12/04/16 09:35 12/04/16 10:00 12/04/16 09:35 12/04/16 10:00 12/04/16 07:30 Temperature -Last 24 Hours Temperature 97.7 F Temperature 97 F Temperature 97.4 F Temperature 97.6 F Temperature 97.4 F Temperature 97.5 F Temperature 98.6 F Temperature 98.6 F - Labs CBC & Chem 7: 12/04/16 08:00 12/02/16 08:09 Labs: Abnormal lab results 12/02/16 12/03/16 12/03/16 Range/Units 09:33 11:10 15:04 WBC (4.5-11.0) K/mm3 RBC (3.65-5.03) M/mm3 Hgb (11.8-15.2) gm/dl Hct (35.5-45.6) % MCV (84-94) fl MCH (28-32) pg RDW (13.2-15.2) % Lymph % (Auto) (13.4-35.0) % Eos # (0.0-0.4) K/mm3 Seg Neutrophils % (40.0-70.0) % Seg Neuts % (Manual) (40.0-70.0) % Lymphocytes % (Manual) (13.4-35.0) % Nucleated RBC % (0.0-0.9) % Seg Neutrophils # (1.8-7.7) K/mm3 Seg Neutrophils # Man (1.8-7.7) K/mm3 Lymphocytes # (Manual) (1.2-5.4) K/mm3 Eosinophils # (Manual) (0.0-0.4) K/mm3 POC Glucose 119 H 139 H 132 H (70-105) 12/03/16 12/03/16 12/04/16 Range/Units 19:02 22:28 08:00 WBC 14.2 H 15.7 H (4.5-11.0) K/mm3 RBC 3.38 L (3.65-5.03) M/mm3 Hgb 10.2 L 9.0 L (11.8-15.2) gm/dl Hct 32.2 L 28.1 L (35.5-45.6) % MCV 83 L (84-94) fl MCH 27 L 27 L (28-32) pg RDW 17.9 H 17.6 H (13.2-15.2) % Lymph % (Auto) 8.7 L (13.4-35.0) % Eos # 0.5 H (0.0-0.4) K/mm3 Seg Neutrophils % 83.0 H (40.0-70.0) % Seg Neuts % (Manual) 85.0 H (40.0-70.0) % Lymphocytes % (Manual) 4.0 L (13.4-35.0) % Nucleated RBC % 1.0 H (0.0-0.9) % Seg Neutrophils # 13.0 H (1.8-7.7) K/mm3 Seg Neutrophils # Man 12.1 H (1.8-7.7) K/mm3 Lymphocytes # (Manual) 0.6 L (1.2-5.4) K/mm3 Eosinophils # (Manual) 0.6 H (0.0-0.4) K/mm3 POC Glucose 269 H (70-105)
[2016-12-04] MEDS: PROCRIT IV PRN (14:03)
[2016-12-04] MEDS ORDERED: PERCOCET 5/325 PO PRN (16:11)
[2016-12-04] MEDS: ZOSYN/NS 2.25 GM/50ML 2.25 GM/50 ML BAG IV SCH ×5 (16:41→21:50)
[2016-12-04] MEDS: NORCO 5/325 PO PRN (18:00)
[2016-12-04] MEDS ORDERED: VANCOMYCIN/NS 1 GM/250 ML 1 GM/250 ML BAG IV ONE (18:00)
--- NOTE | 2016-12-04 18:19 | Progress Note ---
Assessment and Plan Discharge planning and progress. Antibiotics per the infectious disease service. A wound VAC is to be placed tomorrow by the wound care nurse. - Patient Problems (1) Diabetic infection of left foot Current Visit: Yes Status: Acute (2) ESRD (end stage renal disease) Current Visit: Yes Status: Chronic (3) Hypertension Current Visit: No Status: Chronic Qualifiers: Hypertension type: essential hypertension Qualified Code(s): I10 - Essential (primary) hypertension (4) Type 2 diabetes mellitus Current Visit: No Status: Chronic Qualifiers: Diabetes mellitus complication status: D Diabetes mellitus complication detail: D Diabetic retinopathy severity: D Proliferative retinopathy type: P Diabetes mellitus macular edema: D Diabetes mellitus chcf insulin use : D Laterality: L Chronic kidney disease stage: C Subjective Date of service: 12/04/16 Principal diagnosis: Cellulitis left lower extremity Interval history: She was awake and alert. He complains of mild to moderate discomfort at the surgical site. Objective - Constitutional Vitals: Vital Signs - 12hr 12/04/16 12/04/16 12/04/16 07:30 09:35 09:45 Temperature 97 F L 97.7 F Pulse Rate 66 69 Pulse Rate [ 70 From Monitor] Respiratory 18 18 Rate Respiratory Rate [Left Foot ] Blood Pressure 118/59 112/63 Blood Pressure 112/59 [Left Arm] O2 Sat by Pulse 98 Oximetry 12/04/16 12/04/16 12/04/16 10:00 10:15 10:30 Temperature Pulse Rate 63 64 65 Pulse Rate [ From Monitor] Respiratory Rate Respiratory Rate [Left Foot ] Blood Pressure 133/67 112/54 125/54 Blood Pressure [Left Arm] O2 Sat by Pulse Oximetry 12/04/16 12/04/16 12/04/16 10:45 11:00 11:15 Temperature Pulse Rate 68 71 70 Pulse Rate [ From Monitor] Respiratory Rate Respiratory Rate [Left Foot ] Blood Pressure 119/51 98/56 85/44 Blood Pressure [Left Arm] O2 Sat by Pulse Oximetry 12/04/16 12/04/16 12/04/16 11:30 11:45 12:00 Temperature Pulse Rate 64 79 74 Pulse Rate [ From Monitor] Respiratory Rate Respiratory Rate [Left Foot ] Blood Pressure 80/59 82/66 102/53 Blood Pressure [Left Arm] O2 Sat by Pulse Oximetry 12/04/16 12/04/16 12/04/16 12:15 12:20 12:21 Temperature Pulse Rate 70 Pulse Rate [ From Monitor] Respiratory 20 Rate Respiratory 20 Rate [Left Foot ] Blood Pressure 98/39 Blood Pressure [Left Arm] O2 Sat by Pulse Oximetry 12/04/16 12/04/16 12/04/16 12:30 12:45 13:10 Temperature Pulse Rate 71 70 67 Pulse Rate [ From Monitor] Respiratory Rate Respiratory Rate [Left Foot ] Blood Pressure 102/49 113/47 102/49 Blood Pressure [Left Arm] O2 Sat by Pulse Oximetry 12/04/16 12/04/16 12/04/16 13:15 13:30 13:45 Temperature Pulse Rate 63 63 58 L Pulse Rate [ From Monitor] Respiratory Rate Respiratory Rate [Left Foot ] Blood Pressure 115/60 127/56 116/66 Blood Pressure [Left Arm] O2 Sat by Pulse Oximetry 12/04/16 12/04/16 12/04/16 14:00 14:10 14:25 Temperature 97.6 F Pulse Rate 62 63 63 Pulse Rate [ From Monitor] Respiratory 18 Rate Respiratory Rate [Left Foot ] Blood Pressure 121/56 133/66 133/66 Blood Pressure [Left Arm] O2 Sat by Pulse Oximetry 12/04/16 16:30 Temperature 98.3 F Pulse Rate Pulse Rate [ 77 From Monitor] Respiratory 18 Rate Respiratory Rate [Left Foot ] Blood Pressure Blood Pressure 147/63 [Left Arm] O2 Sat by Pulse Oximetry General appearance: Present: no acute distress - EENT Eyes: EOM intact ENT: hearing intact - Neck Neck: supple - Respiratory Respiratory effort: normal (unlabored at rest on room air) Extremities: abnormal (his left foot is bandaged. The Yasmany wrap is clean and dry.) - Neurologic Neurologic: no focal deficits - Psychiatric Psychiatric: appropriate mood/affect, intact judgment & insight, cooperative - Labs CBC & Chem 7: 12/04/16 08:00 12/02/16 08:09 Labs: Abnormal lab results 12/02/16 12/03/16 12/03/16 Range/Units 09:33 11:10 17:48 WBC (4.5-11.0) K/mm3 RBC (3.65-5.03) M/mm3 Hgb (11.8-15.2) gm/dl Hct (35.5-45.6) % MCV (84-94) fl MCH (28-32) pg RDW (13.2-15.2) % Lymph % (Auto) (13.4-35.0) % Eos # (0.0-0.4) K/mm3 Seg Neutrophils % (40.0-70.0) % Seg Neuts % (Manual) (40.0-70.0) % Lymphocytes % (Manual) (13.4-35.0) % Nucleated RBC % (0.0-0.9) % Seg Neutrophils # (1.8-7.7) K/mm3 Seg Neutrophils # Man (1.8-7.7) K/mm3 Lymphocytes # (Manual) (1.2-5.4) K/mm3 Eosinophils # (Manual) (0.0-0.4) K/mm3 POC Glucose 119 H 139 H 138 H (70-105) 12/03/16 12/03/16 12/04/16 Range/Units 19:02 22:28 07:50 WBC 14.2 H (4.5-11.0) K/mm3 RBC (3.65-5.03) M/mm3 Hgb 10.2 L (11.8-15.2) gm/dl Hct 32.2 L (35.5-45.6) % MCV (84-94) fl MCH 27 L (28-32) pg RDW 17.9 H (13.2-15.2) % Lymph % (Auto) (13.4-35.0) % Eos # (0.0-0.4) K/mm3 Seg Neutrophils % (40.0-70.0) % Seg Neuts % (Manual) 85.0 H (40.0-70.0) % Lymphocytes % (Manual) 4.0 L (13.4-35.0) % Nucleated RBC % 1.0 H (0.0-0.9) % Seg Neutrophils # (1.8-7.7) K/mm3 Seg Neutrophils # Man 12.1 H (1.8-7.7) K/mm3 Lymphocytes # (Manual) 0.6 L (1.2-5.4) K/mm3 Eosinophils # (Manual) 0.6 H (0.0-0.4) K/mm3 POC Glucose 269 H 155 H (70-105) 12/04/16 12/04/16 Range/Units 08:00 16:39 WBC 15.7 H (4.5-11.0) K/mm3 RBC 3.38 L (3.65-5.03) M/mm3 Hgb 9.0 L (11.8-15.2) gm/dl Hct 28.1 L (35.5-45.6) % MCV 83 L (84-94) fl MCH 27 L (28-32) pg RDW 17.6 H (13.2-15.2) % Lymph % (Auto) 8.7 L (13.4-35.0) % Eos # 0.5 H (0.0-0.4) K/mm3 Seg Neutrophils % 83.0 H (40.0-70.0) % Seg Neuts % (Manual) (40.0-70.0) % Lymphocytes % (Manual) (13.4-35.0) % Nucleated RBC % (0.0-0.9) % Seg Neutrophils # 13.0 H (1.8-7.7) K/mm3 Seg Neutrophils # Man (1.8-7.7) K/mm3 Lymphocytes # (Manual) (1.2-5.4) K/mm3 Eosinophils # (Manual) (0.0-0.4) K/mm3 POC Glucose 227 H (70-105)
[2016-12-04] MEDS: MORPHINE IV PRN (21:20)
[2016-12-05] MEDS: HEPARIN SUB-Q SCH ×5 (06:31→23:23)
[2016-12-05] MEDS: ZOSYN/NS 2.25 GM/50ML 2.25 GM/50 ML BAG IV SCH ×3 (06:32→22:39)
[2016-12-05] MEDS: PHOSLO PO SCH ×3 (08:31→19:05)
[2016-12-05] MEDS: NACL 0.9% 1000 ML 1,000 ML IV SCH (08:34)
--- NOTE | 2016-12-05 09:15 | Progress Note ---
Assessment and Plan Assessment: End-stage renal disease patient is currently on maintenance hemodialysis Infected left transmetatarsal amputation wound s/p I&D, debridement Polymicrobial bacteremia Abscess with osteomyelitis Type II DM Hypertension Anemia secondary to ESRD Secondary hyperparathyroidism Plan: Continue HD MWF schedule Continue antiHTN medications Needs tight glycemic control Abx per ID/primary team Vascular surgery following Renal diet Binders with meals Subjective Date of service: 12/05/16 Principal diagnosis: Cellulitis left lower extremity Interval history: Patient seen without complaint Objective - Vital Signs Vital signs: Vital Signs - 12hr 12/04/16 21:40 Temperature 98.1 F Pulse Rate [ 82 From Monitor] Respiratory 20 Rate Blood Pressure 109/52 [Left Arm] O2 Sat by Pulse 97 Oximetry - General Appearance General appearance: well-developed, well-nourished EENT: ATNC Respiratory: Present: Clear to Ascultation Cardiology: regular, S1S2 Gastrointestinal: normal, no tenderness, no distended Neurologic: no focal deficit Psychiatric: mood/affect appropriate, cooperative - Lab 12/04/16 08:00 12/02/16 08:09 Most recent lab results Calcium 8.4 mg/dL (8.4-10.2) 12/02/16 08:09
--- NOTE | 2016-12-05 09:20 | Progress Note ---
Assessment and Plan Assessment: End-stage renal disease patient is currently on maintenance hemodialysis Infected left transmetatarsal amputation Polymicrobial bacteremia Abscess with osteomyelitis Type II DM Hypertension Anemia secondary to ESRD Secondary hyperparathyroidism Plan: Hemodialysis MWF schedule Continue antiHTN medications Needs tight glycemic control Abx per ID Renal diet Binders with meals Subjective Date of service: 12/03/16 Principal diagnosis: Cellulitis left lower extremity Interval history: Late entry. Patient to go to OR today. He has no complaints. Objective - Vital Signs Vital signs: Vital Signs - 12hr 12/04/16 21:40 Temperature 98.1 F Pulse Rate [ 82 From Monitor] Respiratory 20 Rate Blood Pressure 109/52 [Left Arm] O2 Sat by Pulse 97 Oximetry - General Appearance General appearance: well-developed, well-nourished EENT: ATNC Respiratory: Present: Clear to Ascultation Cardiology: regular, S1S2 Gastrointestinal: normal, no tenderness, no distended Neurologic: no focal deficit, alert and oriented x3 Psychiatric: mood/affect appropriate, cooperative - Lab 12/04/16 08:00 12/02/16 08:09 Most recent lab results Calcium 8.4 mg/dL (8.4-10.2) 12/02/16 08:09
[2016-12-05] MEDS: PLAVIX PO SCH (09:38)
[2016-12-05] MEDS: PROTONIX PO SCH (09:38)
[2016-12-05 09:41] LABS: Basophils % (Auto) 0.8 % (0.0-1.8); Hematocrit 27.6 % (35.5-45.6); Hemoglobin 8.9 gm/dl (11.8-15.2); Mean Corpuscular HGB Conc 32 % (32-34); Mean Corpuscular Hemoglobin 27 pg (28-32); Mean Corpuscular Volume 85 fl (84-94); Platelet Count 347 K/mm3 (140-440); Red Blood Count 3.26 M/mm3 (3.65-5.03); White Blood Count 10.6 K/mm3 (4.5-11.0)
[2016-12-05 09:52] LABS: BUN/Creatinine Ratio 4.35; Calcium 7.9 mg/dL (8.4-10.2); Potassium 3.9 mmol/L (3.6-5.0)
--- NOTE | 2016-12-05 10:20 | Progress Note ---
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 He is status post transmetatarsal amputation of the left foot at [facility] on 05/09/16 and has developed some new ulcerations of the left foot over the last month or so. Admitting blood cultures are positive. Problem list: 1. Polymicrobial bacteremia -Blood cultures 11/25 with 3/4 bottles growing GPC in pairs (ID pending but likely an anaerobe) and 2/4 bottles growing Morganella morganii. -Left foot source -Discussed again with micro and the GPC in pairs is not growing well and felt to be a probable contaminant although it was in 3/4 bottles 2. Left foot diabetic ulcer -MRI suggestive of abscesses +/- osteomyelitis -Likely polymicrobial pathogens including both aerobes and anaerobes -s/p 12/03 I&D with finding of abscess and necrotic bone 3. Type 2 diabetes mellitus -Peripheral neuropathy -With hyperglycemia 4. End-stage renal failure -Maintenance hemodialysis 5. Leukocytosis -Secondary to #1 and #2 6. Peripheral vascular disease -Status post left transmetatarsal amputation 05/09/16 -Status post revascularization of the left anterior tibial artery of the left lower extremity 11/29/16 PLAN: 1. Continue Zosyn and vancomycin 2. Await final culture findings from deep surgical specimens to allow for de- escalation of therapy. 3. Follow up on repeat blood which are NGTD to document clearance of the bacteremia 4. If there are no further findings would consider MWF dialysis dosing of ceftazidime (2g/2g/3g ) along with 3 times a day oral metronidazole for anaerobic coverage. Will require 6 week course of postoperative antibiotics. 5. Glycemic control as per the hospitalist team 6. Continue local wound care Subjective Date of service: 12/05/16 Principal diagnosis: Cellulitis left lower extremity Objective - Exam Narrative Exam: Well-developed well-nourished. No distress. HEENT: Pupils are equal reactive to light and accommodation. Conjunctiva clear. Oropharynx is normal with no evidence of oral candidiasis or pharyngitis. NECK: Supple. No enlargement of the thyroid gland. No significant cervical lymphadenopathy. No jugular venous distention at 30. LUNGS: Clear with no adventitious sounds. HEART: Regular rate. S1 and S2 are normal. There are no murmurs, gallops, clicks or rubs heard. ABDOMEN: Soft and nontender. Liver and spleen are not palpably enlarged or tender. No palpable masses. Bowel sounds are normoactive. EXTREMITIES: Left foot stump wraps clean. Dry, superficial necrosis over right foot toe surfaces. SKIN: No other rash, ulcers or wounds. NEUROLOGIC: No focal findings. - Constitutional Vitals: Vital Signs Temp Pulse Resp BP Pulse Ox 98.1 F 82 20 109/52 97 12/04/16 21:40 12/04/16 21:40 12/04/16 21:40 12/04/16 21:40 12/04/16 21:40 Temperature -Last 24 Hours Temperature 98.1 F Temperature 98.3 F Temperature 97.6 F - Labs CBC & Chem 7: 12/05/16 08:57 12/05/16 08:57 Labs: Abnormal lab results 12/03/16 12/04/16 12/04/16 Range/Units 17:48 07:50 16:39 RBC (3.65-5.03) M/mm3 Hgb (11.8-15.2) gm/dl Hct (35.5-45.6) % MCH (28-32) pg RDW (13.2-15.2) % [place] % (Auto) (0.0-7.3) % Eos % (Auto) (0.0-4.3) % [place] # (0.0-0.8) K/mm3 Eos # (0.0-0.4) K/mm3 Sodium (137-145) mmol/L Chloride (98-107) mmol/L BUN (9-20) mg/dL Creatinine (0.8-1.5) mg/dL Glucose (75-100) mg/dL POC Glucose 138 H 155 H 227 H (70-105) Calcium (8.4-10.2) mg/dL 12/04/16 12/05/16 12/05/16 Range/Units 22:06 08:57 08:57 RBC 3.26 L (3.65-5.03) M/mm3 Hgb 8.9 L (11.8-15.2) gm/dl Hct 27.6 L (35.5-45.6) % MCH 27 L (28-32) pg RDW 18.0 H (13.2-15.2) % [place] % (Auto) 8.3 H (0.0-7.3) % Eos % (Auto) 8.0 H (0.0-4.3) % [place] # 0.9 H (0.0-0.8) K/mm3 Eos # 0.9 H (0.0-0.4) K/mm3 Sodium 132 L (137-145) mmol/L Chloride 90.0 L (98-107) mmol/L BUN 34 H (9-20) mg/dL Creatinine 7.8 H (0.8-1.5) mg/dL Glucose 103 H (75-100) mg/dL POC Glucose 189 H (70-105) Calcium 7.9 L (8.4-10.2) mg/dL
[2016-12-05] MEDS ORDERED: NACL 0.9% 500 ML 500 ML IV ONE (10:30)
--- NOTE | 2016-12-05 12:02 | Progress Note ---
Assessment and Plan Assessment and plan: Infected Diabetic foot ulcers left foot * Continue Zosyn, Vancomycin discontinued. * Blood cultures growing Morganelli morganii. * MRI of the foot revealed abscess and possible osteomyeltis. * s/p amputation on 12/03/16 * follow wound culture from surgery, growing gm + cocci in pairs Sepsis with bacteremia and osteomylitis * with positive blood cultures for Morganholly Gainesni. * Continue Zosyn for now * ID following Peripheral vascular disease lower extremity. * He has a history of angioplasty by vascular surgeon. * on 11/29/15, had angiography, atherectomy and angioplasty to left lower extremity by Dr. Shankar. End-stage renal disease on hemodialysis. * Managed by Nephrology. Diabetes Mellitus type II. * Fingerstick glucose before every meal and at bedtime. * Continue Novolin 70/30. Increase to 18 unit BID Hypertension. hold Metoprolol, as was hypotensive this am Leukocytosis due to infected ulcers and sepsis, resolved Hyponatremia. improved. Nausea and vomiting resolved. DVT prophylaxis. heparin subcut Microbiology 12/03/16 Unknown Foot - Left Surgical Biopsy Culture - Preliminary 12/03/16 Unknown Foot - Left Surgical Biopsy Culture - Preliminary 12/03/16 Unknown Foot - Left Anaerobic Culture - Preliminary 11/25/16 19:58 Peripheral/Venous Blood Culture - Final Diphtheroids 11/25/16 20:00 Peripheral/Venous Blood Culture - Final Morganella Morganii 12/03/16 Unknown Foot - Left Surgical Culture - Preliminary 11/28/16 13:36 Peripheral/Venous Blood Culture - Final NO GROWTH AFTER 5 DAYS 11/28/16 13:54 Peripheral/Venous Blood Culture - Final NO GROWTH AFTER 5 DAYS History Interval history: Patient seen and examined. Medical records and medication list reviewed. No acute event overnight noted by the RN. Patient denies any chest pain or difficulty breathing. Patient is tolerating diet. Complaints of left foot pain, but improved BP was low this morning, given 500ml of bolus, BP improved now Discussed plan of care at bedside with patient. Hospitalist Physical - Physical exam Narrative exam: Gen: appearance: not in acute distress HEENT: Normocephalic, atraumatic Neck: supple no JVD Lungs: Clear to auscultation bilaterally, no crackles, or wheezes Heart: S1-S2 regular, no murmurs, rubs or gallop Abdomen:soft, non-tender, non-distended, normal bowel sounds Extremity: left foot covered with dressing, s/p left forefoot amputation Neuro : Awake alert oriented 3, no focal neurologic signs Psychiatry: normal mood - Constitutional Vitals: Temp Pulse Resp BP Pulse Ox 97.5 F L 79 18 80/54 95 12/05/16 08:00 12/05/16 08:00 12/05/16 08:00 12/05/16 08:00 12/05/16 08:00 General appearance: Present: no acute distress, well-nourished Results - Labs CBC & Chem 7: 12/05/16 08:57 12/05/16 08:57 Labs: Laboratory Last Values WBC 10.6 K/mm3 (4.5-11.0) 12/05/16 08:57 RBC 3.26 M/mm3 (3.65-5.03) L 12/05/16 08:57 Hgb 8.9 gm/dl (11.8-15.2) L 12/05/16 08:57 Hct 27.6 % (35.5-45.6) L 12/05/16 08:57 MCV 85 fl (84-94) 12/05/16 08:57 MCH 27 pg (28-32) L 12/05/16 08:57 MCHC 32 % (32-34) 12/05/16 08:57 RDW 18.0 % (13.2-15.2) H 12/05/16 08:57 Plt Count 347 K/mm3 (140-440) 12/05/16 08:57 Lymph % (Auto) 19.2 % (13.4-35.0) 12/05/16 08:57 [place] % (Auto) 8.3 % (0.0-7.3) H 12/05/16 08:57 Eos % (Auto) 8.0 % (0.0-4.3) H 12/05/16 08:57 Baso % (Auto) 0.8 % (0.0-1.8) 12/05/16 08:57 Lymph # 2.0 K/mm3 (1.2-5.4) 12/05/16 08:57 Sharp # 0.9 K/mm3 (0.0-0.8) H 12/05/16 08:57 Eos # 0.9 K/mm3 (0.0-0.4) H 12/05/16 08:57 Baso # 0.1 K/mm3 (0.0-0.1) 12/05/16 08:57 Add Manual Diff Complete 12/03/16 19:02 Total Counted 100 12/03/16 19:02 Seg Neutrophils % 63.7 % (40.0-70.0) 12/05/16 08:57 Seg Neuts % (Manual) 85.0 % (40.0-70.0) H 12/03/16 19:02 Band Neutrophils % 2.0 % 12/03/16 19:02 Lymphocytes % (Manual) 4.0 % (13.4-35.0) L 12/03/16 19:02 Reactive Lymphs % (Man) 0 % 12/03/16 19:02 Monocytes % (Manual) 4.0 % (0.0-7.3) 12/03/16 19:02 Eosinophils % (Manual) 4.0 % (0.0-4.3) 12/03/16 19:02 Basophils % (Manual) 0 % (0.0-1.8) 12/03/16 19:02 Metamyelocytes % 1.0 % 12/03/16 19:02 Myelocytes % 0 % 12/03/16 19:02 Promyelocytes % 0 % 12/03/16 19:02 Blast Cells % 0 % 12/03/16 19:02 Nucleated RBC % 1.0 % (0.0-0.9) H 12/03/16 19:02 Seg Neutrophils # 6.7 K/mm3 (1.8-7.7) 12/05/16 08:57 Seg Neutrophils # Man 12.1 K/mm3 (1.8-7.7) H 12/03/16 19:02 Band Neutrophils # 0.3 K/mm3 12/03/16 19:02 Lymphocytes # (Manual) 0.6 K/mm3 (1.2-5.4) L 12/03/16 19:02 Abs React Lymphs (Man) 0.0 K/mm3 12/03/16 19:02 Monocytes # (Manual) 0.6 K/mm3 (0.0-0.8) 12/03/16 19:02 Eosinophils # (Manual) 0.6 K/mm3 (0.0-0.4) H 12/03/16 19:02 Basophils # (Manual) 0.0 K/mm3 (0.0-0.1) 12/03/16 19:02 Metamyelocytes # 0.1 K/mm3 12/03/16 19:02 Myelocytes # 0.0 K/mm3 12/03/16 19:02 Promyelocytes # 0.0 K/mm3 12/03/16 19:02 Blast Cells # 0.0 K/mm3 12/03/16 19:02 WBC Morphology Not Reportable 12/03/16 19:02 Hypersegmented Neuts Not Reportable 12/03/16 19:02 Hyposegmented Neuts Not Reportable 12/03/16 19:02 Hypogranular Neuts Not Reportable 12/03/16 19:02 Smudge Cells Not Reportable 12/03/16 19:02 Toxic Granulation Not Reportable 12/03/16 19:02 Toxic Vacuolation Not Reportable 12/03/16 19:02 Dohle Bodies Not Reportable 12/03/16 19:02 Pelger-Huet Anomaly Not Reportable 12/03/16 19:02 Vignesh Rods Not Reportable 12/03/16 19:02 Platelet Estimate Consistent w auto 12/03/16 19:02 Clumped Platelets Not Reportable 12/03/16 19:02 Plt Clumps, EDTA Not Reportable 12/03/16 19:02 Large Platelets Not Reportable 12/03/16 19:02 Giant Platelets Not Reportable 12/03/16 19:02 Platelet Satelliting Not Reportable 12/03/16 19:02 Plt Morphology Comment Not Reportable 12/03/16 19:02 RBC Morphology Not Reportable 12/03/16 19:02 Dimorphic RBCs Not Reportable 12/03/16 19:02 Polychromasia Few 12/03/16 19:02 Hypochromasia 1+ 12/03/16 19:02 Poikilocytosis Few 12/03/16 19:02 Anisocytosis Not Reportable 12/03/16 19:02 Microcytosis Not Reportable 12/03/16 19:02 Macrocytosis Not Reportable 12/03/16 19:02 Spherocytes Not Reportable 12/03/16 19:02 Pappenheimer Bodies Not Reportable 12/03/16 19:02 Sickle Cells Not Reportable 12/03/16 19:02 Target Cells Few 12/03/16 19:02 Tear Drop Cells Not Reportable 12/03/16 19:02 Ovalocytes Not Reportable 12/03/16 19:02 Helmet Cells Not Reportable 12/03/16 19:02 [place] Bodies Not Reportable 12/03/16 19:02 [place] Rings Not Reportable 12/03/16 19:02 [place] Cells Not Reportable 12/03/16 19:02 Bite Cells Not Reportable 12/03/16 19:02 Crenated Cell Not Reportable 12/03/16 19:02 Elliptocytes Not Reportable 12/03/16 19:02 Acanthocytes (Spur) Not Reportable 12/03/16 19:02 Rouleaux Not Reportable 12/03/16 19:02 Hemoglobin C Crystals Not Reportable 12/03/16 19:02 Schistocytes Not Reportable 12/03/16 19:02 Malaria parasites Not Reportable 12/03/16 19:02 ESR 90 mm/Hr (0-20) 11/25/16 23:00 Seth Bodies Not Reportable 12/03/16 19:02 Hem Pathologist Commnt No 12/03/16 19:02 PT 16.2 Sec. (12.2-14.9) H 11/25/16 19:50 INR 1.31 (0.87-1.13) H 11/25/16 19:50 VBG pH 7.353 (7.320-7.420) 11/25/16 19:50 Sodium 132 mmol/L (137-145) L 12/05/16 08:57 Potassium 3.9 mmol/L (3.6-5.0) 12/05/16 08:57 Chloride 90.0 mmol/L (98-107) L 12/05/16 08:57 Carbon Dioxide 28 mmol/L (22-30) 12/05/16 08:57 Anion Gap 18 mmol/L 12/05/16 08:57 BUN 34 mg/dL (9-20) H 12/05/16 08:57 Creatinine 7.8 mg/dL (0.8-1.5) H 12/05/16 08:57 Estimated GFR 9 ml/min 12/05/16 08:57 BUN/Creatinine Ratio 4.35 % 12/05/16 08:57 Glucose 103 mg/dL (75-100) H 12/05/16 08:57 POC Glucose 221 (70-105) H 12/05/16 11:33 Lactic Acid 1.2 mmol/L (0.7-2.0) 11/25/16 22:46 Calcium 7.9 mg/dL (8.4-10.2) L 12/05/16 08:57 Total Bilirubin 0.8 mg/dL (0.1-1.2) 11/28/16 13:36 Direct Bilirubin 0.4 mg/dL (0-0.2) H 11/28/16 13:36 Indirect Bilirubin 0.4 mg/dL 11/28/16 13:36 AST 31 units/L (5-40) 11/28/16 13:36 ALT 21 units/L (7-56) 11/28/16 13:36 Alkaline Phosphatase 121 units/L (35-129) 11/28/16 13:36 Troponin T 0.160 ng/mL (0.00-0.029) H* 11/25/16 21:11 C-Reactive Protein 31.70 mg/dL (0.00-1.30) H 11/25/16 21:11 Total Protein 7.6 g/dL (6.3-8.2) 11/28/16 13:36 Albumin 2.6 g/dL (3.9-5) L 11/28/16 13:36 Albumin/Globulin Ratio 0.5 % 11/28/16 13:36 Triglycerides 87 mg/dL (2-149) 11/25/16 15:45 Cholesterol 96 mg/dL (50-199) 11/25/16 15:45 LDL Cholesterol Direct 59 mg/dL (50-130) 11/25/16 15:45 HDL Cholesterol 20 mg/dL (40-59) L 11/25/16 15:45 Cholesterol/HDL Ratio 4.80 % 11/25/16 15:45 Lipase 22 units/L (13-60) 11/26/16 06:40 Random Vancomycin 21.9 ug/mL (0-40.0) 12/03/16 03:07
--- NOTE | 2016-12-05 15:11 | Progress Note ---
Assessment and Plan For wound vac placement later today. Abx per ID, pending cx sensitivity. Outpt f/u with podiatry for further evaluation. - Patient Problems (1) Diabetic infection of left foot Current Visit: Yes Status: Acute (2) ESRD (end stage renal disease) Current Visit: Yes Status: Chronic (3) Hypertension Current Visit: No Status: Chronic Qualifiers: Hypertension type: essential hypertension Qualified Code(s): I10 - Essential (primary) hypertension (4) Type 2 diabetes mellitus Current Visit: No Status: Chronic Qualifiers: Diabetes mellitus complication status: D Diabetes mellitus complication detail: D Diabetic retinopathy severity: D Proliferative retinopathy type: P Diabetes mellitus macular edema: D Diabetes mellitus lobsterman insulin use : D Laterality: L Chronic kidney disease stage: C Subjective Date of service: 12/05/16 Principal diagnosis: Cellulitis left lower extremity Interval history: Pt is awake and alert, without complaint. He is presently on HD. Objective - Constitutional Vitals: Vital Signs - 12hr 12/05/16 12/05/16 12/05/16 08:00 09:40 10:00 Temperature 97.5 F L Pulse Rate Pulse Rate [ 79 71 From Monitor] Respiratory 18 18 Rate Blood Pressure Blood Pressure 80/54 122/58 [Left Arm] O2 Sat by Pulse 95 95 96 Oximetry 12/05/16 12/05/16 12/05/16 13:10 13:20 13:30 Temperature 98.2 F Pulse Rate 71 70 68 Pulse Rate [ From Monitor] Respiratory 20 Rate Blood Pressure 133/66 137/68 126/60 Blood Pressure [Left Arm] O2 Sat by Pulse Oximetry 12/05/16 12/05/16 12/05/16 13:45 14:00 14:15 Temperature Pulse Rate 68 71 75 Pulse Rate [ From Monitor] Respiratory Rate Blood Pressure 116/60 123/55 132/62 Blood Pressure [Left Arm] O2 Sat by Pulse Oximetry 12/05/16 12/05/16 14:30 14:45 Temperature Pulse Rate 76 74 Pulse Rate [ From Monitor] Respiratory Rate Blood Pressure 140/56 128/63 Blood Pressure [Left Arm] O2 Sat by Pulse Oximetry General appearance: Present: no acute distress - EENT Eyes: EOM intact ENT: hearing intact - Neck Neck: supple - Respiratory Respiratory effort: normal Extremities: abnormal (Left foot is bandaged) - Neurologic Neurologic: no focal deficits - Psychiatric Psychiatric: appropriate mood/affect, intact judgment & insight, cooperative - Labs CBC & Chem 7: 12/05/16 08:57 12/05/16 08:57 Labs: Abnormal lab results 12/04/16 12/04/16 12/05/16 Range/Units 16:39 22:06 08:13 RBC (3.65-5.03) M/mm3 Hgb (11.8-15.2) gm/dl Hct (35.5-45.6) % MCH (28-32) pg RDW (13.2-15.2) % [place] % (Auto) (0.0-7.3) % Eos % (Auto) (0.0-4.3) % [place] # (0.0-0.8) K/mm3 Eos # (0.0-0.4) K/mm3 Sodium (137-145) mmol/L Chloride (98-107) mmol/L BUN (9-20) mg/dL Creatinine (0.8-1.5) mg/dL Glucose (75-100) mg/dL POC Glucose 227 H 189 H 124 H (70-105) Calcium (8.4-10.2) mg/dL 12/05/16 12/05/16 12/05/16 Range/Units 08:57 08:57 11:33 RBC 3.26 L (3.65-5.03) M/mm3 Hgb 8.9 L (11.8-15.2) gm/dl Hct 27.6 L (35.5-45.6) % MCH 27 L (28-32) pg RDW 18.0 H (13.2-15.2) % [place] % (Auto) 8.3 H (0.0-7.3) % Eos % (Auto) 8.0 H (0.0-4.3) % [place] # 0.9 H (0.0-0.8) K/mm3 Eos # 0.9 H (0.0-0.4) K/mm3 Sodium 132 L (137-145) mmol/L Chloride 90.0 L (98-107) mmol/L BUN 34 H (9-20) mg/dL Creatinine 7.8 H (0.8-1.5) mg/dL Glucose 103 H (75-100) mg/dL POC Glucose 221 H (70-105) Calcium 7.9 L (8.4-10.2) mg/dL
[2016-12-05] MEDS: PROCRIT IV PRN (17:19)
[2016-12-05] MEDS: LOPRESSOR PO SCH ×2 (22:55→23:22)
[2016-12-06] MEDS: ZOSYN/NS 2.25 GM/50ML 2.25 GM/50 ML BAG IV SCH ×3 (06:39→23:00)
[2016-12-06] MEDS: HEPARIN SUB-Q SCH ×3 (06:40→23:00)
[2016-12-06 08:36] LABS: Hemoglobin 8.5 gm/dl (11.8-15.2); Mean Corpuscular HGB Conc 32 % (32-34); Mean Corpuscular Hemoglobin 27 pg (28-32); Mean Corpuscular Volume 85 fl (84-94); Platelet Count 341 K/mm3 (140-440); Red Blood Count 3.19 M/mm3 (3.65-5.03); Red Cell Distribution Width 17.7 % (13.2-15.2); White Blood Count 11.4 K/mm3 (4.5-11.0)
[2016-12-06 09:21] LABS: Basophils % (Manual) 0 % (0.0-1.8); Blastocytes % (Manual) 0 %
[2016-12-06 09:24] LABS: Anisocytosis 1+; Diff Status Complete; Hypochromasia 1+; Large Platelets Few
[2016-12-06 09:25] LABS: Platelet Estimate Cons; Target Cells Rare
--- NOTE | 2016-12-06 09:43 | Progress Note ---
Assessment and Plan Assessment: End-stage renal disease patient is currently on maintenance hemodialysis Infected left transmetatarsal amputation - s/p I&d; wound cx enterococcus and GNR Polymicrobial bacteremia Abscess with osteomyelitis Type II DM Hypertension Anemia secondary to ESRD Secondary hyperparathyroidism Plan: Hemodialysis MWF schedule Continue antiHTN medications Needs tight glycemic control Abx per ID - Zosyn Renal diet Binders with meals Subjective Date of service: 12/06/16 Principal diagnosis: Cellulitis left lower extremity Interval history: Patient seen without complaint. Objective - Vital Signs Vital signs: Vital Signs - 12hr 12/05/16 12/05/16 12/05/16 22:00 22:55 23:22 Temperature Pulse Rate 83 83 Pulse Rate [ From Monitor] Respiratory Rate Blood Pressure 114/55 114/55 Blood Pressure [Left Arm] O2 Sat by Pulse 97 Oximetry 12/05/16 23:30 Temperature 99.4 F Pulse Rate Pulse Rate [ 83 From Monitor] Respiratory 20 Rate Blood Pressure Blood Pressure 114/55 [Left Arm] O2 Sat by Pulse 96 Oximetry - General Appearance General appearance: well-developed, well-nourished EENT: ATNC Respiratory: Present: Clear to Ascultation Cardiology: regular, S1S2 Gastrointestinal: normal, no tenderness, no distended Neurologic: no focal deficit, alert and oriented x3 Musculoskeletal: other (left TMA - bandaged) Psychiatric: mood/affect appropriate, cooperative - Lab 12/06/16 08:12 12/05/16 08:57 Most recent lab results Calcium 7.9 mg/dL (8.4-10.2) L 12/05/16 08:57
[2016-12-06] MEDS: PLAVIX PO SCH (10:16)
[2016-12-06] MEDS: PROTONIX PO SCH (10:16)
[2016-12-06] MEDS: PHOSLO PO SCH ×3 (10:16→17:44)
[2016-12-06] MEDS: LOPRESSOR PO SCH ×3 (10:20→23:21)
[2016-12-06] MEDS: MORPHINE IV PRN (11:36)
--- NOTE | 2016-12-06 14:40 | Progress Note ---
Assessment and Plan Assessment and plan: Infected Diabetic foot ulcers left foot * Continue Zosyn, Vancomycin discontinued. * Blood cultures growing Morganelli morganii. * MRI of the foot revealed abscess and possible osteomyeltis. * s/p amputation on 12/03/16 * follow wound culture from surgery, growing gm + cocci in pairs Sepsis with bacteremia and osteomylitis * with positive blood cultures for Luiza Gainesni. * Continue Zosyn for now * ID following Peripheral vascular disease lower extremity. * He has a history of angioplasty by vascular surgeon. * on 11/29/15, had angiography, atherectomy and angioplasty to left lower extremity by Dr. Shankar. End-stage renal disease on hemodialysis. * Managed by Nephrology. Diabetes Mellitus type II. * Fingerstick glucose before every meal and at bedtime. * Continue Novolin 70/30. Increased to 18 unit BID Hypertension. hold Metoprolol, as was hypotensive this am Leukocytosis due to infected ulcers and sepsis, resolved Hyponatremia. improved. Nausea and vomiting resolved. DVT prophylaxis. heparin subcut Disposition: Patient stated that he'll be unable to take care of himself at home as he lives alone. CM notified. Microbiology 12/03/16 Unknown Foot - Left Surgical Biopsy Culture - Preliminary Enterococcus Faecalis Escherichia Coli 12/03/16 Unknown Foot - Left Surgical Biopsy Culture - Preliminary Enterococcus Faecalis Coag Negative Staphylococcus Gram Negative Edward#2 12/03/16 Unknown Foot - Left Surgical Culture - Preliminary 12/03/16 Unknown Foot - Left Anaerobic Culture - Preliminary 11/25/16 19:58 Peripheral/Venous Blood Culture - Final Diphtheroids 11/25/16 20:00 Peripheral/Venous Blood Culture - Final Morganella Morganii 11/28/16 13:36 Peripheral/Venous Blood Culture - Final NO GROWTH AFTER 5 DAYS 11/28/16 13:54 Peripheral/Venous Blood Culture - Final NO GROWTH AFTER 5 DAYS History Interval history: Patient seen and examined. Medical records and medication list reviewed. No acute event overnight noted by the RN. Patient c/o generalized weakness, could not do well with PT Hospitalist Physical - Physical exam Narrative exam: Gen: appearance: not in acute distress HEENT: Normocephalic, atraumatic Neck: supple no JVD Lungs: Clear to auscultation bilaterally, no crackles, or wheezes Heart: S1-S2 regular, no murmurs, rubs or gallop Abdomen:soft, non-tender, non-distended, normal bowel sounds Extremity: left foot covered with dressing, s/p left forefoot amputation Neuro : Awake alert oriented 3, no focal neurologic signs Psychiatry: normal mood - Constitutional Vitals: Temp Pulse Resp BP Pulse Ox 99.4 F 77 20 136/63 96 12/05/16 23:30 12/06/16 10:20 12/05/16 23:30 12/06/16 10:20 12/05/16 23:30 General appearance: Present: no acute distress, well-nourished Results - Labs CBC & Chem 7: 12/06/16 08:12 12/05/16 08:57 Labs: Laboratory Last Values WBC 11.4 K/mm3 (4.5-11.0) H 12/06/16 08:12 RBC 3.19 M/mm3 (3.65-5.03) L 12/06/16 08:12 Hgb 8.5 gm/dl (11.8-15.2) L 12/06/16 08:12 Hct 27.0 % (35.5-45.6) L 12/06/16 08:12 MCV 85 fl (84-94) 12/06/16 08:12 MCH 27 pg (28-32) L 12/06/16 08:12 MCHC 32 % (32-34) 12/06/16 08:12 RDW 17.7 % (13.2-15.2) H 12/06/16 08:12 Plt Count 341 K/mm3 (140-440) 12/06/16 08:12 Lymph % (Auto) 19.2 % (13.4-35.0) 12/05/16 08:57 Bee % (Auto) 8.3 % (0.0-7.3) H 12/05/16 08:57 Eos % (Auto) 8.0 % (0.0-4.3) H 12/05/16 08:57 Baso % (Auto) 0.8 % (0.0-1.8) 12/05/16 08:57 Lymph # 2.0 K/mm3 (1.2-5.4) 12/05/16 08:57 Bee # 0.9 K/mm3 (0.0-0.8) H 12/05/16 08:57 Eos # 0.9 K/mm3 (0.0-0.4) H 12/05/16 08:57 Baso # 0.1 K/mm3 (0.0-0.1) 12/05/16 08:57 Add Manual Diff Complete 12/06/16 08:12 Total Counted 100 12/06/16 08:12 Seg Neutrophils % 63.7 % (40.0-70.0) 12/05/16 08:57 Seg Neuts % (Manual) 75.0 % (40.0-70.0) H 12/06/16 08:12 Band Neutrophils % 1.0 % 12/06/16 08:12 Lymphocytes % (Manual) 16.0 % (13.4-35.0) 12/06/16 08:12 Reactive Lymphs % (Man) 0 % 12/06/16 08:12 Monocytes % (Manual) 2.0 % (0.0-7.3) 12/06/16 08:12 Eosinophils % (Manual) 6.0 % (0.0-4.3) H 12/06/16 08:12 Basophils % (Manual) 0 % (0.0-1.8) 12/06/16 08:12 Metamyelocytes % 0 % 12/06/16 08:12 Myelocytes % 0 % 12/06/16 08:12 Promyelocytes % 0 % 12/06/16 08:12 Blast Cells % 0 % 12/06/16 08:12 Nucleated RBC % Not Reportable 12/06/16 08:12 Seg Neutrophils # 6.7 K/mm3 (1.8-7.7) 12/05/16 08:57 Seg Neutrophils # Man 8.6 K/mm3 (1.8-7.7) H 12/06/16 08:12 Band Neutrophils # 0.1 K/mm3 12/06/16 08:12 Lymphocytes # (Manual) 1.8 K/mm3 (1.2-5.4) 12/06/16 08:12 Abs React Lymphs (Man) 0.0 K/mm3 12/06/16 08:12 Monocytes # (Manual) 0.2 K/mm3 (0.0-0.8) 12/06/16 08:12 Eosinophils # (Manual) 0.7 K/mm3 (0.0-0.4) H 12/06/16 08:12 Basophils # (Manual) 0.0 K/mm3 (0.0-0.1) 12/06/16 08:12 Metamyelocytes # 0.0 K/mm3 12/06/16 08:12 Myelocytes # 0.0 K/mm3 12/06/16 08:12 Promyelocytes # 0.0 K/mm3 12/06/16 08:12 Blast Cells # 0.0 K/mm3 12/06/16 08:12 WBC Morphology Not Reportable 12/06/16 08:12 Hypersegmented Neuts Not Reportable 12/06/16 08:12 Hyposegmented Neuts Not Reportable 12/06/16 08:12 Hypogranular Neuts Not Reportable 12/06/16 08:12 Smudge Cells Not Reportable 12/06/16 08:12 Toxic Granulation Not Reportable 12/06/16 08:12 Toxic Vacuolation Not Reportable 12/06/16 08:12 Dohle Bodies Not Reportable 12/06/16 08:12 Pelger-Huet Anomaly Not Reportable 12/06/16 08:12 Vignesh Rods Not Reportable 12/06/16 08:12 Platelet Estimate Cons 12/06/16 08:12 Clumped Platelets Not Reportable 12/06/16 08:12 Plt Clumps, EDTA Not Reportable 12/06/16 08:12 Large Platelets Few 12/06/16 08:12 Giant Platelets Not Reportable 12/06/16 08:12 Platelet Satelliting Not Reportable 12/06/16 08:12 Plt Morphology Comment Not Reportable 12/06/16 08:12 RBC Morphology Not Reportable 12/06/16 08:12 Dimorphic RBCs Not Reportable 12/06/16 08:12 Polychromasia Not Reportable 12/06/16 08:12 Hypochromasia 1+ 12/06/16 08:12 Poikilocytosis Not Reportable 12/06/16 08:12 Anisocytosis 1+ 12/06/16 08:12 Microcytosis Not Reportable 12/06/16 08:12 Macrocytosis Not Reportable 12/06/16 08:12 Spherocytes Not Reportable 12/06/16 08:12 Pappenheimer Bodies Not Reportable 12/06/16 08:12 Sickle Cells Not Reportable 12/06/16 08:12 Target Cells Rare 12/06/16 08:12 Tear Drop Cells Not Reportable 12/06/16 08:12 Ovalocytes Not Reportable 12/06/16 08:12 Helmet Cells Not Reportable 12/06/16 08:12 [place] Bodies Not Reportable 12/06/16 08:12 [place] Rings Not Reportable 12/06/16 08:12 [place] Cells Not Reportable 12/06/16 08:12 Bite Cells Not Reportable 12/06/16 08:12 Crenated Cell Not Reportable 12/06/16 08:12 Elliptocytes Not Reportable 12/06/16 08:12 Acanthocytes (Spur) Not Reportable 12/06/16 08:12 Rouleaux Not Reportable 12/06/16 08:12 Hemoglobin C Crystals Not Reportable 12/06/16 08:12 Schistocytes Not Reportable 12/06/16 08:12 Malaria parasites Not Reportable 12/06/16 08:12 ESR 90 mm/Hr (0-20) 11/25/16 23:00 Seth Bodies Not Reportable 12/06/16 08:12 Hem Pathologist Commnt No 12/06/16 08:12 PT 16.2 Sec. (12.2-14.9) H 11/25/16 19:50 INR 1.31 (0.87-1.13) H 11/25/16 19:50 VBG pH 7.353 (7.320-7.420) 11/25/16 19:50 Sodium 132 mmol/L (137-145) L 12/05/16 08:57 Potassium 3.9 mmol/L (3.6-5.0) 12/05/16 08:57 Chloride 90.0 mmol/L (98-107) L 12/05/16 08:57 Carbon Dioxide 28 mmol/L (22-30) 12/05/16 08:57 Anion Gap 18 mmol/L 12/05/16 08:57 BUN 34 mg/dL (9-20) H 12/05/16 08:57 Creatinine 7.8 mg/dL (0.8-1.5) H 12/05/16 08:57 Estimated GFR 9 ml/min 12/05/16 08:57 BUN/Creatinine Ratio 4.35 % 12/05/16 08:57 Glucose 103 mg/dL (75-100) H 12/05/16 08:57 POC Glucose 177 (70-105) H 12/06/16 12:03 Lactic Acid 1.2 mmol/L (0.7-2.0) 11/25/16 22:46 Calcium 7.9 mg/dL (8.4-10.2) L 12/05/16 08:57 Total Bilirubin 0.8 mg/dL (0.1-1.2) 11/28/16 13:36 Direct Bilirubin 0.4 mg/dL (0-0.2) H 11/28/16 13:36 Indirect Bilirubin 0.4 mg/dL 11/28/16 13:36 AST 31 units/L (5-40) 11/28/16 13:36 ALT 21 units/L (7-56) 11/28/16 13:36 Alkaline Phosphatase 121 units/L (35-129) 11/28/16 13:36 Troponin T 0.160 ng/mL (0.00-0.029) H* 11/25/16 21:11 C-Reactive Protein 31.70 mg/dL (0.00-1.30) H 11/25/16 21:11 Total Protein 7.6 g/dL (6.3-8.2) 11/28/16 13:36 Albumin 2.6 g/dL (3.9-5) L 11/28/16 13:36 Albumin/Globulin Ratio 0.5 % 11/28/16 13:36 Triglycerides 87 mg/dL (2-149) 11/25/16 15:45 Cholesterol 96 mg/dL (50-199) 11/25/16 15:45 LDL Cholesterol Direct 59 mg/dL (50-130) 11/25/16 15:45 HDL Cholesterol 20 mg/dL (40-59) L 11/25/16 15:45 Cholesterol/HDL Ratio 4.80 % 11/25/16 15:45 Lipase 22 units/L (13-60) 11/26/16 06:40 Random Vancomycin 21.9 ug/mL (0-40.0) 12/03/16 03:07
--- NOTE | 2016-12-06 15:13 | Progress Note ---
Assessment and Plan Pt s/p revasc to the LLE and subsquent drainage of abscess and excision of bone of Left tma. D/c planning for Home vac. Abx per ID Pt should f/u in our office to further evaluate for his lower ext arterial supply. He should f/u with his Director Business Systems as an outpt for definitive wound care management. - Patient Problems (1) Diabetic infection of left foot Current Visit: Yes Status: Acute (2) ESRD (end stage renal disease) Current Visit: Yes Status: Chronic (3) Hypertension Current Visit: No Status: Chronic Qualifiers: Hypertension type: essential hypertension Qualified Code(s): I10 - Essential (primary) hypertension (4) Type 2 diabetes mellitus Current Visit: No Status: Chronic Qualifiers: Diabetes mellitus complication status: D Diabetes mellitus complication detail: D Diabetic retinopathy severity: D Proliferative retinopathy type: P Diabetes mellitus macular edema: D Diabetes mellitus terminal system operator insulin use : D Laterality: L Chronic kidney disease stage: C Subjective Date of service: 12/06/16 Principal diagnosis: Cellulitis left lower extremity Interval history: Pt awake without specific complaint at present. Objective - Constitutional Vitals: Vital Signs - 12hr 12/06/16 10:20 Pulse Rate 77 Blood Pressure 136/63 General appearance: Present: no acute distress - EENT Eyes: EOM intact ENT: hearing intact - Respiratory Respiratory effort: normal Extremities: abnormal (Left foot, bandaged and wound vac applied earlier today by ET nurse) - Neurologic Neurologic: no focal deficits - Psychiatric Psychiatric: appropriate mood/affect, intact judgment & insight, cooperative - Labs CBC & Chem 7: 12/06/16 08:12 12/05/16 08:57 Labs: Abnormal lab results 12/05/16 12/06/16 12/06/16 Range/Units 21:09 08:12 12:03 WBC 11.4 H (4.5-11.0) K/mm3 RBC 3.19 L (3.65-5.03) M/mm3 Hgb 8.5 L (11.8-15.2) gm/dl Hct 27.0 L (35.5-45.6) % MCH 27 L (28-32) pg RDW 17.7 H (13.2-15.2) % Seg Neuts % (Manual) 75.0 H (40.0-70.0) % Eosinophils % (Manual) 6.0 H (0.0-4.3) % Seg Neutrophils # Man 8.6 H (1.8-7.7) K/mm3 Eosinophils # (Manual) 0.7 H (0.0-0.4) K/mm3 POC Glucose 294 H 177 H (70-105)
[2016-12-07] MEDS: ZOSYN/NS 2.25 GM/50ML 2.25 GM/50 ML BAG IV SCH ×3 (06:26→21:49)
[2016-12-07] MEDS: HEPARIN SUB-Q SCH ×3 (06:27→22:00)
--- NOTE | 2016-12-07 07:29 | Progress Note ---
Assessment and Plan Assessment: End-stage renal disease patient is currently on maintenance hemodialysis Infected left transmetatarsal amputation - s/p I&d; Wound cx - enterococcus, ecoli and GNR#2 Polymicrobial bacteremia Abscess with osteomyelitis Type II DM Hypertension Anemia secondary to ESRD Secondary hyperparathyroidism Plan: Hemodialysis MWF schedule Continue antiHTN medications Needs tight glycemic control Abx per ID - case discussed w/ Dr. Galindo who recommends 6week course of Vanco/ Fortaz; will arrange at outpatient HD clinic Renal diet Binders with meals Subjective Date of service: 12/07/16 Principal diagnosis: Cellulitis left lower extremity Interval history: Patient seen without complaint. Objective - Vital Signs Vital signs: Vital Signs - 12hr 12/06/16 12/06/16 12/06/16 22:00 23:21 23:40 Temperature 98.7 F Pulse Rate 78 Pulse Rate [ 78 74 From Monitor] Respiratory 19 20 Rate Blood Pressure 121/57 Blood Pressure 121/51 [Left Arm] O2 Sat by Pulse 94 Oximetry - General Appearance General appearance: well-developed, well-nourished EENT: ATNC, mucous membranes moist Neck: supple Respiratory: Present: Clear to Ascultation Cardiology: regular, normal heart rate, S1S2 Gastrointestinal: normal, no tenderness, no distended Integumentary: warm and dry Neurologic: no focal deficit, alert and oriented x3 Musculoskeletal: no deformities, no erythema, no cyanosis, no clubbing Psychiatric: mood/affect appropriate, cooperative - Lab 12/06/16 08:12 12/05/16 08:57 Most recent lab results Calcium 7.9 mg/dL (8.4-10.2) L 12/05/16 08:57
[2016-12-07] MEDS: PHOSLO PO SCH ×3 (08:00→17:25)
[2016-12-07] MEDS: LOPRESSOR PO SCH ×2 (08:00→21:50)
--- NOTE | 2016-12-07 08:48 | Progress Note ---
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 He is status post transmetatarsal amputation of the left foot at [facility] on 05/09/16 and has developed some new ulcerations of the left foot over the last month or so. Admitting blood cultures are positive. Problem list: 1. Polymicrobial bacteremia -Blood cultures 11/25 with 3/4 bottles growing GPC in pairs (ID pending but likely an anaerobe) and 2/4 bottles growing Morganella morganii. -Left foot source -Discussed again with micro and the GPC in pairs is not growing well and felt to be a probable contaminant although it was in 3/4 bottles 2. Left foot diabetic ulcer -MRI suggestive of abscesses +/- osteomyelitis -Likely polymicrobial pathogens including both aerobes and anaerobes -s/p 12/03 I&D with finding of abscess and necrotic bone. Pathology reports osteomyelitis. - Deep cultures with sensitive Enterococcus faecalis, Escherichia coli, PLANT TECHNICIAN and a questionable second gram-negative gabo. 3. Type 2 diabetes mellitus -Peripheral neuropathy -With hyperglycemia 4. End-stage renal failure -Maintenance hemodialysis 5. Leukocytosis -Secondary to #1 and #2 6. Peripheral vascular disease -Status post left transmetatarsal amputation 05/09/16 -Status post revascularization of the left anterior tibial artery of the left lower extremity 11/29/16 PLAN: 1. Continue Zosyn and vancomycin while hospitalized. 2. Suggest outpatient antibiotics to be given in dialysis - vancomycin 1 g 3 times weekly, and IV Ceptazidime 2gr/2gr/3gr (MWF dialysis). Spoke with Dr. Edwards on arrangements for antibiotics and dialysis 3. Follow up on repeat blood 11/28 are NGTD to document clearance of the bacteremia 4. Continue local wound care 5. We can follow-up in our office if you so desire. Subjective Date of service: 12/07/16 Principal diagnosis: Cellulitis left lower extremity Interval history: No specific complaints. Discussed outpatient antibiotics with dosing in dialysis. Objective - Exam Narrative Exam: Well-developed well-nourished. No distress. HEENT: Pupils are equal reactive to light and accommodation. Conjunctiva clear. Oropharynx is normal with no evidence of oral candidiasis or pharyngitis. NECK: Supple. No enlargement of the thyroid gland. No significant cervical lymphadenopathy. No jugular venous distention at 30. LUNGS: Clear with no adventitious sounds. HEART: Regular rate. S1 and S2 are normal. There are no murmurs, gallops, clicks or rubs heard. ABDOMEN: Soft and nontender. Liver and spleen are not palpably enlarged or tender. No palpable masses. Bowel sounds are normoactive. EXTREMITIES: Left foot stump wraps clean. Wound VAC in place. Dry, superficial necrosis over right foot toe surfaces. SKIN: No other rash, ulcers or wounds. NEUROLOGIC: No focal findings. - Constitutional Vitals: Vital Signs Temp Pulse Resp BP Pulse Ox 98.7 F 74 20 121/51 94 12/06/16 23:40 12/06/16 23:40 12/06/16 23:40 12/06/16 23:40 12/06/16 23:40 Temperature -Last 24 Hours Temperature 98.7 F - Labs CBC & Chem 7: 12/06/16 08:12 12/05/16 08:57 Labs: Abnormal lab results 12/06/16 12/06/16 12/06/16 Range/Units 08:12 12:03 17:30 Seg Neuts % (Manual) 75.0 H (40.0-70.0) % Eosinophils % (Manual) 6.0 H (0.0-4.3) % Seg Neutrophils # Man 8.6 H (1.8-7.7) K/mm3 Eosinophils # (Manual) 0.7 H (0.0-0.4) K/mm3 POC Glucose 177 H 122 H (70-105) 12/06/16 Range/Units 22:34 Seg Neuts % (Manual) (40.0-70.0) % Eosinophils % (Manual) (0.0-4.3) % Seg Neutrophils # Man (1.8-7.7) K/mm3 Eosinophils # (Manual) (0.0-0.4) K/mm3 POC Glucose 149 H (70-105)
[2016-12-07] MEDS: PROTONIX PO SCH (10:00)
[2016-12-07] MEDS: PLAVIX PO SCH (10:00)
--- NOTE | 2016-12-07 10:34 | Discharge Summary ---
Providers - Providers Date of Admission: 11/25/16 23:52 Date of discharge: 12/10/16 Attending physician: MEIR DISLA 11/26/16 01:00 Consult to Physician [CONS] Routine Consulting Provider: KELLY RUBIO Reason For Exam: esrd Place consult to:: media relations associate renal Notified:: yes Phone number called:: [phone] Was contact made?: Yes If yes, spoke with:: [place] Time called:: 10:50 11/27/16 15:58 Consult to Physician [CONS] Routine Consulting Provider: AVTAR DOWELL Reason For Exam: Diabetic foot infection,ulcers Place consult to:: Office Notified:: yes Phone number called:: [phone] Was contact made?: Yes If yes, spoke with:: Luda(answering service) Time called:: 19:20 11/27/16 15:59 Consult to Physician [CONS] Routine Consulting Provider: TOM CALLES Reason For Exam: Bilat leg ulcers, PVD s/p angioplasty Place consult to:: Office Notified:: yes Phone number called:: [phone] Was contact made?: Yes If yes, spoke with:: Time called:: 19:23 11/30/16 08:00 Consult to Physician [CONS] Routine Consulting Provider: JAYY VENTURA Reason For Exam: left midfoot infection Place consult to:: LORENZO Notified:: YES Phone number called:: [phone] If yes, spoke with:: HANSA Time called:: 08:35 12/03/16 17:34 Consult to Case Management [CONS] Routine Services Needed at Discharge: Wound Vac Notified:: cm notified Comment:: d/c planning for home wound vac Consult to Wound/ET Nurse [CONS] Routine Reason For Exam: wound eval for wound vac 12/03/16 17:35 Physical Therapy Evaluation and Treat [CONS] Routine Comment: S/p previous tma, with new wound debridement Reason For Exam: gait training Weight bearing status?: Nonwt bearing Primary care physician: GEORGES NOVA Hospitalization Condition: Fair Hospital course: Discharge diagnosis: Infected Diabetic foot ulcers left foot * Continue ceftazidime, Vancomycin and flagyl for additional 6 weeks * Blood cultures growing Morganelli morganii. * MRI of the foot revealed abscess and possible osteomyeltis. * s/p amputation on 12/03/16 * wound culture from surgery growing gm + cocci in pairs Sepsis with bacteremia and osteomylitis * with positive blood cultures for Luiza King. Peripheral vascular disease lower extremity. * He has a history of angioplasty by vascular surgeon. * on 11/29/15, had angiography, atherectomy and angioplasty to left lower extremity by Dr. Calles. End-stage renal disease on hemodialysis. * cont HD by Nephrology. Diabetes Mellitus type II. * Fingerstick glucose before every meal and at bedtime. * Continue Novolin 70/30 18 unit BID Hypertension. cont BP meds Leukocytosis due to infected ulcers and sepsis, resolved Hyponatremia. improved. Nausea and vomiting due to sepsis resolved Disposition: DC/TX HOME UNDER HOME HEALTH Time spent for discharge: 38 minutes Core Measure Documentation - Palliative Care Palliative Care/ Comfort Measures: Not Applicable - Core Measures Any of the following diagnoses?: none Exam - Physical Exam Narrative exam: Gen: appearance: not in acute distress HEENT: Normocephalic, atraumatic Neck: supple no JVD Lungs: Clear to auscultation bilaterally, no crackles, or wheezes Heart: S1-S2 regular, no murmurs, rubs or gallop Abdomen:soft, non-tender, non-distended, normal bowel sounds Extremity: left foot covered with dressing, s/p left forefoot amputation Neuro : Awake alert oriented 3, no focal neurologic signs Psychiatry: normal mood - Constitutional Vitals: Temp Pulse Resp BP Pulse Ox 98.7 F 74 20 121/51 94 12/06/16 23:40 12/06/16 23:40 12/06/16 23:40 12/06/16 23:40 12/06/16 23:40 Plan Activity: advance as tolerated Weight Bearing Status: Non-Weight Bearing Diet: renal Wound: per your surgeon's advice, per wound nurse instructions Durable Medical Equipment Needed Upon Discharge: Wheelchair Follow up with: GEORGES NOVA MD [Primary Care Provider] - 3-5 Days Prescriptions: Clopidogrel [Plavix] 75 mg PO QDAY #30 tablet Insulin NPH/Regular [NovoLIN 70/30] 18 unit SUB-Q BIDDIAB 30 Days metroNIDAZOLE [Flagyl] 500 mg PO Q8HR 42 Days oxyCODONE /ACETAMINOPHEN [Percocet 5/325 mg] 2 tab PO Q6H PRN #20 tablet PRN Reason: Pain, Moderate (4-6)
[2016-12-07 11:13] LABS: Basophils % (Auto) 1.1 % (0.0-1.8); Eosinophils % (Auto) 9.6 % (0.0-4.3); Hematocrit 29.7 % (35.5-45.6); Hemoglobin 9.4 gm/dl (11.8-15.2); Mean Corpuscular HGB Conc 32 % (32-34); Mean Corpuscular Hemoglobin 27 pg (28-32); Mean Corpuscular Volume 86 fl (84-94); Platelet Count 298 K/mm3 (140-440); Red Blood Count 3.46 M/mm3 (3.65-5.03); Red Cell Distribution Width 18.2 % (13.2-15.2); White Blood Count 7.8 K/mm3 (4.5-11.0)
[2016-12-07] MEDS: PROCRIT IV PRN (13:05)
--- NOTE | 2016-12-07 14:54 | Progress Note ---
Assessment and Plan Assessment and plan: Infected Diabetic foot ulcers left foot * Continue Zosyn and vancomycin while hospitalized per ID * ID recommended to Continue ceftazidime, Vancomycin and flagyl for additional 6 weeks after d/c * Blood cultures growing Morganelli morganii. * MRI of the foot revealed abscess and possible osteomyeltis. * s/p amputation on 12/03/16 Sepsis with bacteremia and osteomylitis * with positive blood cultures for Luiza King. Peripheral vascular disease lower extremity. * He has a history of angioplasty by vascular surgeon. * on 11/29/15, had angiography, atherectomy and angioplasty to left lower extremity by Dr. Shankar. End-stage renal disease on hemodialysis. * cont HD by Nephrology. Diabetes Mellitus type II. * Fingerstick glucose before every meal and at bedtime. * Continue Novolin 70/30 18 unit BID Hypertension. cont BP meds Leukocytosis due to infected ulcers and sepsis, resolved Hyponatremia. improved. Nausea and vomiting due to sepsis resolved DVT prophylaxis. heparin subcut Disposition: Patient stated that he'll be unable to take care of himself at home as he lives alone. CM notified. Microbiology 12/03/16 Unknown Foot - Left Surgical Biopsy Culture - Preliminary Enterococcus Faecalis Escherichia Coli 12/03/16 Unknown Foot - Left Surgical Biopsy Culture - Preliminary Enterococcus Faecalis Coag Negative Staphylococcus Gram Negative Edward#2 12/03/16 Unknown Foot - Left Surgical Culture - Preliminary 12/03/16 Unknown Foot - Left Anaerobic Culture - Preliminary 11/25/16 19:58 Peripheral/Venous Blood Culture - Final Diphtheroids 11/25/16 20:00 Peripheral/Venous Blood Culture - Final Morganella Morganii 11/28/16 13:36 Peripheral/Venous Blood Culture - Final NO GROWTH AFTER 5 DAYS 11/28/16 13:54 Peripheral/Venous Blood Culture - Final NO GROWTH AFTER 5 DAYS History Interval history: Patient seen and examined. Medical records and medication list reviewed. No acute event overnight noted by the RN. Patient c/o generalized weakness, does not want to go home he requested application for medicare extension Hospitalist Physical - Physical exam Narrative exam: Gen: appearance: not in acute distress HEENT: Normocephalic, atraumatic Neck: supple no JVD Lungs: Clear to auscultation bilaterally, no crackles, or wheezes Heart: S1-S2 regular, no murmurs, rubs or gallop Abdomen:soft, non-tender, non-distended, normal bowel sounds Extremity: left foot covered with dressing, s/p left forefoot amputation Neuro : Awake alert oriented 3, no focal neurologic signs Psychiatry: normal mood - Constitutional Vitals: Temp Pulse Resp BP Pulse Ox 98.1 F 83 16 127/52 99 12/07/16 10:30 12/07/16 14:45 12/07/16 10:30 12/07/16 14:45 12/07/16 08:00 General appearance: Present: no acute distress, well-nourished Results - Labs CBC & Chem 7: 12/07/16 10:50 12/05/16 08:57 Labs: Laboratory Last Values WBC 7.8 K/mm3 (4.5-11.0) 12/07/16 10:50 RBC 3.46 M/mm3 (3.65-5.03) L 12/07/16 10:50 Hgb 9.4 gm/dl (11.8-15.2) L 12/07/16 10:50 Hct 29.7 % (35.5-45.6) L 12/07/16 10:50 MCV 86 fl (84-94) 12/07/16 10:50 MCH 27 pg (28-32) L 12/07/16 10:50 MCHC 32 % (32-34) 12/07/16 10:50 RDW 18.2 % (13.2-15.2) H 12/07/16 10:50 Plt Count 298 K/mm3 (140-440) 12/07/16 10:50 Lymph % (Auto) 17.1 % (13.4-35.0) 12/07/16 10:50 [place] % (Auto) 8.9 % (0.0-7.3) H 12/07/16 10:50 Eos % (Auto) 9.6 % (0.0-4.3) H 12/07/16 10:50 Baso % (Auto) 1.1 % (0.0-1.8) 12/07/16 10:50 Lymph # 1.3 K/mm3 (1.2-5.4) 12/07/16 10:50 [place] # 0.7 K/mm3 (0.0-0.8) 12/07/16 10:50 Eos # 0.8 K/mm3 (0.0-0.4) H 12/07/16 10:50 Baso # 0.1 K/mm3 (0.0-0.1) 12/07/16 10:50 Add Manual Diff Complete 12/06/16 08:12 Total Counted 100 12/06/16 08:12 Seg Neutrophils % 63.3 % (40.0-70.0) 12/07/16 10:50 Seg Neuts % (Manual) 75.0 % (40.0-70.0) H 12/06/16 08:12 Band Neutrophils % 1.0 % 12/06/16 08:12 Lymphocytes % (Manual) 16.0 % (13.4-35.0) 12/06/16 08:12 Reactive Lymphs % (Man) 0 % 12/06/16 08:12 Monocytes % (Manual) 2.0 % (0.0-7.3) 12/06/16 08:12 Eosinophils % (Manual) 6.0 % (0.0-4.3) H 12/06/16 08:12 Basophils % (Manual) 0 % (0.0-1.8) 12/06/16 08:12 Metamyelocytes % 0 % 12/06/16 08:12 Myelocytes % 0 % 12/06/16 08:12 Promyelocytes % 0 % 12/06/16 08:12 Blast Cells % 0 % 12/06/16 08:12 Nucleated RBC % Not Reportable 12/06/16 08:12 Seg Neutrophils # 4.9 K/mm3 (1.8-7.7) 12/07/16 10:50 Seg Neutrophils # Man 8.6 K/mm3 (1.8-7.7) H 12/06/16 08:12 Band Neutrophils # 0.1 K/mm3 12/06/16 08:12 Lymphocytes # (Manual) 1.8 K/mm3 (1.2-5.4) 12/06/16 08:12 Abs React Lymphs (Man) 0.0 K/mm3 12/06/16 08:12 Monocytes # (Manual) 0.2 K/mm3 (0.0-0.8) 12/06/16 08:12 Eosinophils # (Manual) 0.7 K/mm3 (0.0-0.4) H 12/06/16 08:12 Basophils # (Manual) 0.0 K/mm3 (0.0-0.1) 12/06/16 08:12 Metamyelocytes # 0.0 K/mm3 12/06/16 08:12 Myelocytes # 0.0 K/mm3 12/06/16 08:12 Promyelocytes # 0.0 K/mm3 12/06/16 08:12 Blast Cells # 0.0 K/mm3 12/06/16 08:12 WBC Morphology Not Reportable 12/06/16 08:12 Hypersegmented Neuts Not Reportable 12/06/16 08:12 Hyposegmented Neuts Not Reportable 12/06/16 08:12 Hypogranular Neuts Not Reportable 12/06/16 08:12 Smudge Cells Not Reportable 12/06/16 08:12 Toxic Granulation Not Reportable 12/06/16 08:12 Toxic Vacuolation Not Reportable 12/06/16 08:12 Dohle Bodies Not Reportable 12/06/16 08:12 Pelger-Huet Anomaly Not Reportable 12/06/16 08:12 Vignesh Rods Not Reportable 12/06/16 08:12 Platelet Estimate Cons 12/06/16 08:12 Clumped Platelets Not Reportable 12/06/16 08:12 Plt Clumps, EDTA Not Reportable 12/06/16 08:12 Large Platelets Few 12/06/16 08:12 Giant Platelets Not Reportable 12/06/16 08:12 Platelet Satelliting Not Reportable 12/06/16 08:12 Plt Morphology Comment Not Reportable 12/06/16 08:12 RBC Morphology Not Reportable 12/06/16 08:12 Dimorphic RBCs Not Reportable 12/06/16 08:12 Polychromasia Not Reportable 12/06/16 08:12 Hypochromasia 1+ 12/06/16 08:12 Poikilocytosis Not Reportable 12/06/16 08:12 Anisocytosis 1+ 12/06/16 08:12 Microcytosis Not Reportable 12/06/16 08:12 Macrocytosis Not Reportable 12/06/16 08:12 Spherocytes Not Reportable 12/06/16 08:12 Pappenheimer Bodies Not Reportable 12/06/16 08:12 Sickle Cells Not Reportable 12/06/16 08:12 Target Cells Rare 12/06/16 08:12 Tear Drop Cells Not Reportable 12/06/16 08:12 Ovalocytes Not Reportable 12/06/16 08:12 Helmet Cells Not Reportable 12/06/16 08:12 Stewart-Marvin Bodies Not Reportable 12/06/16 08:12 [place] Rings Not Reportable 12/06/16 08:12 Daisha Cells Not Reportable 12/06/16 08:12 Bite Cells Not Reportable 12/06/16 08:12 Crenated Cell Not Reportable 12/06/16 08:12 Elliptocytes Not Reportable 12/06/16 08:12 Acanthocytes (Spur) Not Reportable 12/06/16 08:12 Rouleaux Not Reportable 12/06/16 08:12 Hemoglobin C Crystals Not Reportable 12/06/16 08:12 Schistocytes Not Reportable 12/06/16 08:12 Malaria parasites Not Reportable 12/06/16 08:12 ESR 90 mm/Hr (0-20) 11/25/16 23:00 Seth Bodies Not Reportable 12/06/16 08:12 Hem Pathologist Commnt No 12/06/16 08:12 PT 16.2 Sec. (12.2-14.9) H 11/25/16 19:50 INR 1.31 (0.87-1.13) H 11/25/16 19:50 VBG pH 7.353 (7.320-7.420) 11/25/16 19:50 Sodium 132 mmol/L (137-145) L 12/05/16 08:57 Potassium 3.9 mmol/L (3.6-5.0) 12/05/16 08:57 Chloride 90.0 mmol/L (98-107) L 12/05/16 08:57 Carbon Dioxide 28 mmol/L (22-30) 12/05/16 08:57 Anion Gap 18 mmol/L 12/05/16 08:57 BUN 34 mg/dL (9-20) H 12/05/16 08:57 Creatinine 7.8 mg/dL (0.8-1.5) H 12/05/16 08:57 Estimated GFR 9 ml/min 12/05/16 08:57 BUN/Creatinine Ratio 4.35 % 12/05/16 08:57 Glucose 103 mg/dL (75-100) H 12/05/16 08:57 POC Glucose 149 (70-105) H 12/06/16 22:34 Lactic Acid 1.2 mmol/L (0.7-2.0) 11/25/16 22:46 Calcium 7.9 mg/dL (8.4-10.2) L 12/05/16 08:57 Total Bilirubin 0.8 mg/dL (0.1-1.2) 11/28/16 13:36 Direct Bilirubin 0.4 mg/dL (0-0.2) H 11/28/16 13:36 Indirect Bilirubin 0.4 mg/dL 11/28/16 13:36 AST 31 units/L (5-40) 11/28/16 13:36 ALT 21 units/L (7-56) 11/28/16 13:36 Alkaline Phosphatase 121 units/L (35-129) 11/28/16 13:36 Troponin T 0.160 ng/mL (0.00-0.029) H* 11/25/16 21:11 C-Reactive Protein 31.70 mg/dL (0.00-1.30) H 11/25/16 21:11 Total Protein 7.6 g/dL (6.3-8.2) 11/28/16 13:36 Albumin 2.6 g/dL (3.9-5) L 11/28/16 13:36 Albumin/Globulin Ratio 0.5 % 11/28/16 13:36 Triglycerides 87 mg/dL (2-149) 11/25/16 15:45 Cholesterol 96 mg/dL (50-199) 11/25/16 15:45 LDL Cholesterol Direct 59 mg/dL (50-130) 11/25/16 15:45 HDL Cholesterol 20 mg/dL (40-59) L 11/25/16 15:45 Cholesterol/HDL Ratio 4.80 % 11/25/16 15:45 Lipase 22 units/L (13-60) 11/26/16 06:40 Random Vancomycin 16.8 ug/mL (0-40.0) 12/07/16 05:12
[2016-12-07] MEDS ORDERED: VANCOMYCIN/NS 1 GM/250 ML 1 GM/250 ML BAG IV ONE (16:00)
[2016-12-08] MEDS: ZOSYN/NS 2.25 GM/50ML 2.25 GM/50 ML BAG IV SCH ×3 (06:15→22:05)
[2016-12-08] MEDS: HEPARIN SUB-Q SCH ×2 (06:16→14:31)
[2016-12-08] MEDS: PHOSLO PO SCH ×3 (09:02→17:47)
[2016-12-08] MEDS: PLAVIX PO SCH (09:04)
[2016-12-08] MEDS: LOPRESSOR PO SCH ×2 (09:04→23:20)
[2016-12-08] MEDS: PROTONIX PO SCH (09:05)
[2016-12-08 09:54] LABS: Basophils % (Auto) 0.9 % (0.0-1.8); Eosinophils % (Auto) 10.2 % (0.0-4.3); Hematocrit 26.6 % (35.5-45.6); Hemoglobin 8.4 gm/dl (11.8-15.2); Mean Corpuscular HGB Conc 32 % (32-34); Mean Corpuscular Hemoglobin 28 pg (28-32); Mean Corpuscular Volume 87 fl (84-94); Platelet Count 333 K/mm3 (140-440); Red Blood Count 3.05 M/mm3 (3.65-5.03); Red Cell Distribution Width 18.2 % (13.2-15.2); White Blood Count 8.7 K/mm3 (4.5-11.0)
--- NOTE | 2016-12-08 13:10 | Progress Note ---
Assessment and Plan Assessment: End-stage renal disease patient is currently on maintenance hemodialysis Infected left transmetatarsal amputation - s/p I&d; Wound cx - enterococcus, ecoli and GNR#2 Polymicrobial bacteremia Abscess with osteomyelitis Type II DM Hypertension Anemia secondary to ESRD Secondary hyperparathyroidism Plan: Hemodialysis MWF schedule Continue antiHTN medications Needs tight glycemic control Abx per ID - recommends 6week course of Vanco/Fortaz; Renal diet Binders with meals Subjective Date of service: 12/08/16 Principal diagnosis: Cellulitis left lower extremity Interval history: Patient is comfortable today. Denies any shortness of breath. No nausea vomiting or diarrhea. Objective - Vital Signs Vital signs: Vital Signs - 12hr 12/08/16 12/08/16 07:30 09:04 Temperature 98.4 F Pulse Rate 77 Pulse Rate [ 77 From Monitor] Respiratory 18 Rate Blood Pressure 149/70 Blood Pressure 149/70 [Left Arm] O2 Sat by Pulse 97 Oximetry - General Appearance General appearance: well-developed, well-nourished, appears stated age EENT: PERRL, mucous membranes moist Neck: no JVD, no thyromegaly, no carotid bruit, supple Respiratory: Present: Clear to Ascultation Cardiology: regular, normal heart rate, S1S2, no murmurs Gastrointestinal: normal, normoactive bowel sounds Integumentary: other (patient has left transmetatarsal amputation. Left foot wrapped with a bandage. Wound VAC in place. AV fistula in his right upper arm. Good bruit and thrill) - Lab 12/08/16 09:18 12/05/16 08:57 Most recent lab results Calcium 7.9 mg/dL (8.4-10.2) L 12/05/16 08:57
--- NOTE | 2016-12-08 18:13 | Progress Note ---
Assessment and Plan Assessment and plan: Infected Diabetic foot ulcers left foot * Continue Zosyn and vancomycin while hospitalized per ID * ID recommended to Continue ceftazidime, Vancomycin and flagyl for additional 6 weeks after d/c * Blood cultures growing Morganelli morganii. * MRI of the foot revealed abscess and possible osteomyeltis. * s/p amputation on 12/03/16 Sepsis with bacteremia and osteomylitis * with positive blood cultures for Luiza King. Peripheral vascular disease lower extremity. * He has a history of angioplasty by vascular surgeon. End-stage renal disease on hemodialysis. * cont HD by Nephrology. Diabetes Mellitus type II. * Fingerstick glucose before every meal and at bedtime. * Continue Novolin 70/30 18 unit BID Hypertension. cont BP meds Leukocytosis due to infected ulcers and sepsis, resolved Hyponatremia. improved. Nausea and vomiting due to sepsis resolved DVT prophylaxis. heparin subcut Disposition: Patient stated that he'll be unable to take care of himself at home as he lives alone. CM notified. Applied for medicare extension. Microbiology 12/03/16 Unknown Foot - Left Surgical Biopsy Culture - Preliminary Enterococcus Faecalis Escherichia Coli 12/03/16 Unknown Foot - Left Surgical Biopsy Culture - Preliminary Enterococcus Faecalis Coag Negative Staphylococcus Gram Negative Edward#2 12/03/16 Unknown Foot - Left Surgical Culture - Preliminary 12/03/16 Unknown Foot - Left Anaerobic Culture - Preliminary 11/25/16 19:58 Peripheral/Venous Blood Culture - Final Diphtheroids 11/25/16 20:00 Peripheral/Venous Blood Culture - Final Morganella Morganii 11/28/16 13:36 Peripheral/Venous Blood Culture - Final NO GROWTH AFTER 5 DAYS 11/28/16 13:54 Peripheral/Venous Blood Culture - Final NO GROWTH AFTER 5 DAYS History Interval history: Patient seen and examined. Medical records and medication list reviewed. No acute event overnight noted by the RN. Patient seen where he is getting HD Hospitalist Physical - Physical exam Narrative exam: Gen: appearance: not in acute distress HEENT: Normocephalic, atraumatic Neck: supple no JVD Lungs: Clear to auscultation bilaterally, no crackles, or wheezes Heart: S1-S2 regular, no murmurs, rubs or gallop Abdomen:soft, non-tender, non-distended, normal bowel sounds Extremity: left foot covered with dressing, s/p left forefoot amputation Neuro : Awake alert oriented 3, no focal neurologic signs Psychiatry: normal mood - Constitutional Vitals: Temp Pulse Resp BP Pulse Ox 98.4 F 77 18 149/70 97 12/08/16 07:30 12/08/16 09:04 12/08/16 07:30 12/08/16 09:04 12/08/16 07:30 General appearance: Present: no acute distress, well-nourished Results - Labs CBC & Chem 7: 12/08/16 09:18 12/05/16 08:57 Labs: Laboratory Last Values WBC 8.7 K/mm3 (4.5-11.0) 12/08/16 09:18 RBC 3.05 M/mm3 (3.65-5.03) L 12/08/16 09:18 Hgb 8.4 gm/dl (11.8-15.2) L 12/08/16 09:18 Hct 26.6 % (35.5-45.6) L 12/08/16 09:18 MCV 87 fl (84-94) 12/08/16 09:18 MCH 28 pg (28-32) 12/08/16 09:18 MCHC 32 % (32-34) 12/08/16 09:18 RDW 18.2 % (13.2-15.2) H 12/08/16 09:18 Plt Count 333 K/mm3 (140-440) 12/08/16 09:18 Lymph % (Auto) 18.6 % (13.4-35.0) 12/08/16 09:18 [place] % (Auto) 10.5 % (0.0-7.3) H 12/08/16 09:18 Eos % (Auto) 10.2 % (0.0-4.3) H 12/08/16 09:18 Baso % (Auto) 0.9 % (0.0-1.8) 12/08/16 09:18 Lymph # 1.6 K/mm3 (1.2-5.4) 12/08/16 09:18 [place] # 0.9 K/mm3 (0.0-0.8) H 12/08/16 09:18 Eos # 0.9 K/mm3 (0.0-0.4) H 12/08/16 09:18 Baso # 0.1 K/mm3 (0.0-0.1) 12/08/16 09:18 Add Manual Diff Complete 12/06/16 08:12 Total Counted 100 12/06/16 08:12 Seg Neutrophils % 59.8 % (40.0-70.0) 12/08/16 09:18 Seg Neuts % (Manual) 75.0 % (40.0-70.0) H 12/06/16 08:12 Band Neutrophils % 1.0 % 12/06/16 08:12 Lymphocytes % (Manual) 16.0 % (13.4-35.0) 12/06/16 08:12 Reactive Lymphs % (Man) 0 % 12/06/16 08:12 Monocytes % (Manual) 2.0 % (0.0-7.3) 12/06/16 08:12 Eosinophils % (Manual) 6.0 % (0.0-4.3) H 12/06/16 08:12 Basophils % (Manual) 0 % (0.0-1.8) 12/06/16 08:12 Metamyelocytes % 0 % 12/06/16 08:12 Myelocytes % 0 % 12/06/16 08:12 Promyelocytes % 0 % 12/06/16 08:12 Blast Cells % 0 % 12/06/16 08:12 Nucleated RBC % Not Reportable 12/06/16 08:12 Seg Neutrophils # 5.2 K/mm3 (1.8-7.7) 12/08/16 09:18 Seg Neutrophils # Man 8.6 K/mm3 (1.8-7.7) H 12/06/16 08:12 Band Neutrophils # 0.1 K/mm3 12/06/16 08:12 Lymphocytes # (Manual) 1.8 K/mm3 (1.2-5.4) 12/06/16 08:12 Abs React Lymphs (Man) 0.0 K/mm3 12/06/16 08:12 Monocytes # (Manual) 0.2 K/mm3 (0.0-0.8) 12/06/16 08:12 Eosinophils # (Manual) 0.7 K/mm3 (0.0-0.4) H 12/06/16 08:12 Basophils # (Manual) 0.0 K/mm3 (0.0-0.1) 12/06/16 08:12 Metamyelocytes # 0.0 K/mm3 12/06/16 08:12 Myelocytes # 0.0 K/mm3 12/06/16 08:12 Promyelocytes # 0.0 K/mm3 12/06/16 08:12 Blast Cells # 0.0 K/mm3 12/06/16 08:12 WBC Morphology Not Reportable 12/06/16 08:12 Hypersegmented Neuts Not Reportable 12/06/16 08:12 Hyposegmented Neuts Not Reportable 12/06/16 08:12 Hypogranular Neuts Not Reportable 12/06/16 08:12 Smudge Cells Not Reportable 12/06/16 08:12 Toxic Granulation Not Reportable 12/06/16 08:12 Toxic Vacuolation Not Reportable 12/06/16 08:12 Dohle Bodies Not Reportable 12/06/16 08:12 Pelger-Huet Anomaly Not Reportable 12/06/16 08:12 Vignesh Rods Not Reportable 12/06/16 08:12 Platelet Estimate Cons 12/06/16 08:12 Clumped Platelets Not Reportable 12/06/16 08:12 Plt Clumps, EDTA Not Reportable 12/06/16 08:12 Large Platelets Few 12/06/16 08:12 Giant Platelets Not Reportable 12/06/16 08:12 Platelet Satelliting Not Reportable 12/06/16 08:12 Plt Morphology Comment Not Reportable 12/06/16 08:12 RBC Morphology Not Reportable 12/06/16 08:12 Dimorphic RBCs Not Reportable 12/06/16 08:12 Polychromasia Not Reportable 12/06/16 08:12 Hypochromasia 1+ 12/06/16 08:12 Poikilocytosis Not Reportable 12/06/16 08:12 Anisocytosis 1+ 12/06/16 08:12 Microcytosis Not Reportable 12/06/16 08:12 Macrocytosis Not Reportable 12/06/16 08:12 Spherocytes Not Reportable 12/06/16 08:12 Pappenheimer Bodies Not Reportable 12/06/16 08:12 Sickle Cells Not Reportable 12/06/16 08:12 Target Cells Rare 12/06/16 08:12 Tear Drop Cells Not Reportable 12/06/16 08:12 Ovalocytes Not Reportable 12/06/16 08:12 Helmet Cells Not Reportable 12/06/16 08:12 [place] Bodies Not Reportable 12/06/16 08:12 [place] Rings Not Reportable 12/06/16 08:12 Pierce Cells Not Reportable 12/06/16 08:12 Bite Cells Not Reportable 12/06/16 08:12 Crenated Cell Not Reportable 12/06/16 08:12 Elliptocytes Not Reportable 12/06/16 08:12 Acanthocytes (Spur) Not Reportable 12/06/16 08:12 Rouleaux Not Reportable 12/06/16 08:12 Hemoglobin C Crystals Not Reportable 12/06/16 08:12 Schistocytes Not Reportable 12/06/16 08:12 Malaria parasites Not Reportable 12/06/16 08:12 ESR 90 mm/Hr (0-20) 11/25/16 23:00 Seth Bodies Not Reportable 12/06/16 08:12 Hem Pathologist Commnt No 12/06/16 08:12 PT 16.2 Sec. (12.2-14.9) H 11/25/16 19:50 INR 1.31 (0.87-1.13) H 11/25/16 19:50 VBG pH 7.353 (7.320-7.420) 11/25/16 19:50 Sodium 132 mmol/L (137-145) L 12/05/16 08:57 Potassium 3.9 mmol/L (3.6-5.0) 12/05/16 08:57 Chloride 90.0 mmol/L (98-107) L 12/05/16 08:57 Carbon Dioxide 28 mmol/L (22-30) 12/05/16 08:57 Anion Gap 18 mmol/L 12/05/16 08:57 BUN 34 mg/dL (9-20) H 12/05/16 08:57 Creatinine 7.8 mg/dL (0.8-1.5) H 12/05/16 08:57 Estimated GFR 9 ml/min 12/05/16 08:57 BUN/Creatinine Ratio 4.35 % 12/05/16 08:57 Glucose 103 mg/dL (75-100) H 12/05/16 08:57 POC Glucose 165 (70-105) H 12/08/16 16:28 Lactic Acid 1.2 mmol/L (0.7-2.0) 11/25/16 22:46 Calcium 7.9 mg/dL (8.4-10.2) L 12/05/16 08:57 Total Bilirubin 0.8 mg/dL (0.1-1.2) 11/28/16 13:36 Direct Bilirubin 0.4 mg/dL (0-0.2) H 11/28/16 13:36 Indirect Bilirubin 0.4 mg/dL 11/28/16 13:36 AST 31 units/L (5-40) 11/28/16 13:36 ALT 21 units/L (7-56) 11/28/16 13:36 Alkaline Phosphatase 121 units/L (35-129) 11/28/16 13:36 Troponin T 0.160 ng/mL (0.00-0.029) H* 11/25/16 21:11 C-Reactive Protein 31.70 mg/dL (0.00-1.30) H 11/25/16 21:11 Total Protein 7.6 g/dL (6.3-8.2) 11/28/16 13:36 Albumin 2.6 g/dL (3.9-5) L 11/28/16 13:36 Albumin/Globulin Ratio 0.5 % 11/28/16 13:36 Triglycerides 87 mg/dL (2-149) 11/25/16 15:45 Cholesterol 96 mg/dL (50-199) 11/25/16 15:45 LDL Cholesterol Direct 59 mg/dL (50-130) 11/25/16 15:45 HDL Cholesterol 20 mg/dL (40-59) L 11/25/16 15:45 Cholesterol/HDL Ratio 4.80 % 11/25/16 15:45 Lipase 22 units/L (13-60) 11/26/16 06:40 Random Vancomycin 16.8 ug/mL (0-40.0) 12/07/16 05:12
[2016-12-09] MEDS: ZOSYN/NS 2.25 GM/50ML 2.25 GM/50 ML BAG IV SCH ×3 (06:11→22:27)
[2016-12-09] MEDS: HEPARIN SUB-Q SCH ×3 (06:12→22:29)
[2016-12-09] MEDS: NORCO 5/325 PO PRN (06:44)
--- NOTE | 2016-12-09 08:33 | Progress Note ---
Assessment and Plan Assessment and plan: Infected Diabetic foot ulcers left foot * Continue Zosyn and vancomycin while hospitalized per ID * ID recommended to Continue ceftazidime, Vancomycin and flagyl for additional 6 weeks after d/c * Blood cultures growing Morganelli morganii. * MRI of the foot revealed abscess and possible osteomyeltis. * s/p amputation on 12/03/16 Sepsis with bacteremia and osteomylitis * with positive blood cultures for Luiza King. Peripheral vascular disease lower extremity. * He has a history of angioplasty by vascular surgeon. End-stage renal disease on hemodialysis. * cont HD by Nephrology. Diabetes Mellitus type II. * Fingerstick glucose before every meal and at bedtime. * Continue Novolin 70/30 18 unit BID Hypertension. cont BP meds Leukocytosis due to infected ulcers and sepsis, resolved Hyponatremia. improved. Nausea and vomiting due to sepsis resolved DVT prophylaxis. heparin subcut Disposition: Patient stated that he'll be unable to take care of himself at home as he lives alone. CM notified. Applied for medicare extension. Microbiology 12/03/16 Unknown Foot - Left Surgical Biopsy Culture - Preliminary Enterococcus Faecalis Escherichia Coli 12/03/16 Unknown Foot - Left Surgical Biopsy Culture - Preliminary Enterococcus Faecalis Coag Negative Staphylococcus Gram Negative Edward#2 12/03/16 Unknown Foot - Left Surgical Culture - Preliminary 12/03/16 Unknown Foot - Left Anaerobic Culture - Preliminary 11/25/16 19:58 Peripheral/Venous Blood Culture - Final Diphtheroids 11/25/16 20:00 Peripheral/Venous Blood Culture - Final Morganella Morganii 11/28/16 13:36 Peripheral/Venous Blood Culture - Final NO GROWTH AFTER 5 DAYS 11/28/16 13:54 Peripheral/Venous Blood Culture - Final NO GROWTH AFTER 5 DAYS History Interval history: Patient seen and examined. Medical records and medication list reviewed. No acute event overnight noted by the RN. Hospitalist Physical - Physical exam Narrative exam: Gen: appearance: not in acute distress HEENT: Normocephalic, atraumatic Neck: supple no JVD Lungs: Clear to auscultation bilaterally, no crackles, or wheezes Heart: S1-S2 regular, no murmurs, rubs or gallop Abdomen:soft, non-tender, non-distended, normal bowel sounds Extremity: left foot with wound vac, s/p left forefoot amputation Neuro : Awake alert oriented 3, no focal neurologic signs Psychiatry: normal mood - Constitutional Vitals: Temp Pulse Resp BP Pulse Ox 98.2 F 81 18 151/73 100 12/09/16 00:00 12/09/16 00:00 12/09/16 00:00 12/09/16 00:00 12/09/16 00:00 General appearance: Present: no acute distress, well-nourished Results - Labs CBC & Chem 7: 12/08/16 09:18 12/05/16 08:57 Labs: Laboratory Last Values WBC 8.7 K/mm3 (4.5-11.0) 12/08/16 09:18 RBC 3.05 M/mm3 (3.65-5.03) L 12/08/16 09:18 Hgb 8.4 gm/dl (11.8-15.2) L 12/08/16 09:18 Hct 26.6 % (35.5-45.6) L 12/08/16 09:18 MCV 87 fl (84-94) 12/08/16 09:18 MCH 28 pg (28-32) 12/08/16 09:18 MCHC 32 % (32-34) 12/08/16 09:18 RDW 18.2 % (13.2-15.2) H 12/08/16 09:18 Plt Count 333 K/mm3 (140-440) 12/08/16 09:18 Lymph % (Auto) 18.6 % (13.4-35.0) 12/08/16 09:18 [place] % (Auto) 10.5 % (0.0-7.3) H 12/08/16 09:18 Eos % (Auto) 10.2 % (0.0-4.3) H 12/08/16 09:18 Baso % (Auto) 0.9 % (0.0-1.8) 12/08/16 09:18 Lymph # 1.6 K/mm3 (1.2-5.4) 12/08/16 09:18 [place] # 0.9 K/mm3 (0.0-0.8) H 12/08/16 09:18 Eos # 0.9 K/mm3 (0.0-0.4) H 12/08/16 09:18 Baso # 0.1 K/mm3 (0.0-0.1) 12/08/16 09:18 Add Manual Diff Complete 12/06/16 08:12 Total Counted 100 12/06/16 08:12 Seg Neutrophils % 59.8 % (40.0-70.0) 12/08/16 09:18 Seg Neuts % (Manual) 75.0 % (40.0-70.0) H 12/06/16 08:12 Band Neutrophils % 1.0 % 12/06/16 08:12 Lymphocytes % (Manual) 16.0 % (13.4-35.0) 12/06/16 08:12 Reactive Lymphs % (Man) 0 % 12/06/16 08:12 Monocytes % (Manual) 2.0 % (0.0-7.3) 12/06/16 08:12 Eosinophils % (Manual) 6.0 % (0.0-4.3) H 12/06/16 08:12 Basophils % (Manual) 0 % (0.0-1.8) 12/06/16 08:12 Metamyelocytes % 0 % 12/06/16 08:12 Myelocytes % 0 % 12/06/16 08:12 Promyelocytes % 0 % 12/06/16 08:12 Blast Cells % 0 % 12/06/16 08:12 Nucleated RBC % Not Reportable 12/06/16 08:12 Seg Neutrophils # 5.2 K/mm3 (1.8-7.7) 12/08/16 09:18 Seg Neutrophils # Man 8.6 K/mm3 (1.8-7.7) H 12/06/16 08:12 Band Neutrophils # 0.1 K/mm3 12/06/16 08:12 Lymphocytes # (Manual) 1.8 K/mm3 (1.2-5.4) 12/06/16 08:12 Abs React Lymphs (Man) 0.0 K/mm3 12/06/16 08:12 Monocytes # (Manual) 0.2 K/mm3 (0.0-0.8) 12/06/16 08:12 Eosinophils # (Manual) 0.7 K/mm3 (0.0-0.4) H 12/06/16 08:12 Basophils # (Manual) 0.0 K/mm3 (0.0-0.1) 12/06/16 08:12 Metamyelocytes # 0.0 K/mm3 12/06/16 08:12 Myelocytes # 0.0 K/mm3 12/06/16 08:12 Promyelocytes # 0.0 K/mm3 12/06/16 08:12 Blast Cells # 0.0 K/mm3 12/06/16 08:12 WBC Morphology Not Reportable 12/06/16 08:12 Hypersegmented Neuts Not Reportable 12/06/16 08:12 Hyposegmented Neuts Not Reportable 12/06/16 08:12 Hypogranular Neuts Not Reportable 12/06/16 08:12 Smudge Cells Not Reportable 12/06/16 08:12 Toxic Granulation Not Reportable 12/06/16 08:12 Toxic Vacuolation Not Reportable 12/06/16 08:12 Dohle Bodies Not Reportable 12/06/16 08:12 Pelger-Huet Anomaly Not Reportable 12/06/16 08:12 Vignesh Rods Not Reportable 12/06/16 08:12 Platelet Estimate Cons 12/06/16 08:12 Clumped Platelets Not Reportable 12/06/16 08:12 Plt Clumps, EDTA Not Reportable 12/06/16 08:12 Large Platelets Few 12/06/16 08:12 Giant Platelets Not Reportable 12/06/16 08:12 Platelet Satelliting Not Reportable 12/06/16 08:12 Plt Morphology Comment Not Reportable 12/06/16 08:12 RBC Morphology Not Reportable 12/06/16 08:12 Dimorphic RBCs Not Reportable 12/06/16 08:12 Polychromasia Not Reportable 12/06/16 08:12 Hypochromasia 1+ 12/06/16 08:12 Poikilocytosis Not Reportable 12/06/16 08:12 Anisocytosis 1+ 12/06/16 08:12 Microcytosis Not Reportable 12/06/16 08:12 Macrocytosis Not Reportable 12/06/16 08:12 Spherocytes Not Reportable 12/06/16 08:12 Pappenheimer Bodies Not Reportable 12/06/16 08:12 Sickle Cells Not Reportable 12/06/16 08:12 Target Cells Rare 12/06/16 08:12 Tear Drop Cells Not Reportable 12/06/16 08:12 Ovalocytes Not Reportable 12/06/16 08:12 Helmet Cells Not Reportable 12/06/16 08:12 [place] Bodies Not Reportable 12/06/16 08:12 [place] Rings Not Reportable 12/06/16 08:12 [place] Cells Not Reportable 12/06/16 08:12 Bite Cells Not Reportable 12/06/16 08:12 Crenated Cell Not Reportable 12/06/16 08:12 Elliptocytes Not Reportable 12/06/16 08:12 Acanthocytes (Spur) Not Reportable 12/06/16 08:12 Rouleaux Not Reportable 12/06/16 08:12 Hemoglobin C Crystals Not Reportable 12/06/16 08:12 Schistocytes Not Reportable 12/06/16 08:12 Malaria parasites Not Reportable 12/06/16 08:12 ESR 90 mm/Hr (0-20) 11/25/16 23:00 Seth Bodies Not Reportable 12/06/16 08:12 Hem Pathologist Commnt No 12/06/16 08:12 PT 16.2 Sec. (12.2-14.9) H 11/25/16 19:50 INR 1.31 (0.87-1.13) H 11/25/16 19:50 VBG pH 7.353 (7.320-7.420) 11/25/16 19:50 Sodium 132 mmol/L (137-145) L 12/05/16 08:57 Potassium 3.9 mmol/L (3.6-5.0) 12/05/16 08:57 Chloride 90.0 mmol/L (98-107) L 12/05/16 08:57 Carbon Dioxide 28 mmol/L (22-30) 12/05/16 08:57 Anion Gap 18 mmol/L 12/05/16 08:57 BUN 34 mg/dL (9-20) H 12/05/16 08:57 Creatinine 7.8 mg/dL (0.8-1.5) H 12/05/16 08:57 Estimated GFR 9 ml/min 12/05/16 08:57 BUN/Creatinine Ratio 4.35 % 12/05/16 08:57 Glucose 103 mg/dL (75-100) H 12/05/16 08:57 POC Glucose 143 (70-105) H 12/09/16 07:50 Lactic Acid 1.2 mmol/L (0.7-2.0) 11/25/16 22:46 Calcium 7.9 mg/dL (8.4-10.2) L 12/05/16 08:57 Total Bilirubin 0.8 mg/dL (0.1-1.2) 11/28/16 13:36 Direct Bilirubin 0.4 mg/dL (0-0.2) H 11/28/16 13:36 Indirect Bilirubin 0.4 mg/dL 11/28/16 13:36 AST 31 units/L (5-40) 11/28/16 13:36 ALT 21 units/L (7-56) 11/28/16 13:36 Alkaline Phosphatase 121 units/L (35-129) 11/28/16 13:36 Troponin T 0.160 ng/mL (0.00-0.029) H* 11/25/16 21:11 C-Reactive Protein 31.70 mg/dL (0.00-1.30) H 11/25/16 21:11 Total Protein 7.6 g/dL (6.3-8.2) 11/28/16 13:36 Albumin 2.6 g/dL (3.9-5) L 11/28/16 13:36 Albumin/Globulin Ratio 0.5 % 11/28/16 13:36 Triglycerides 87 mg/dL (2-149) 11/25/16 15:45 Cholesterol 96 mg/dL (50-199) 11/25/16 15:45 LDL Cholesterol Direct 59 mg/dL (50-130) 11/25/16 15:45 HDL Cholesterol 20 mg/dL (40-59) L 11/25/16 15:45 Cholesterol/HDL Ratio 4.80 % 11/25/16 15:45 Lipase 22 units/L (13-60) 11/26/16 06:40 Random Vancomycin 16.8 ug/mL (0-40.0) 12/07/16 05:12
[2016-12-09] MEDS: PHOSLO PO SCH ×3 (09:03→16:35)
[2016-12-09] MEDS: PROTONIX PO SCH (09:59)
[2016-12-09] MEDS: LOPRESSOR PO SCH ×2 (09:59→22:27)
[2016-12-09] MEDS: PLAVIX PO SCH (09:59)
--- NOTE | 2016-12-09 11:28 | Progress Note ---
Assessment and Plan Assessment: End-stage renal disease patient is currently on maintenance hemodialysis Infected left transmetatarsal amputation - s/p I&d; Wound cx - enterococcus, ecoli and GNR#2 Polymicrobial bacteremia Abscess with osteomyelitis Type II DM Hypertension Anemia secondary to ESRD Secondary hyperparathyroidism Plan: Hemodialysis MWF schedule Continue antiHTN medications Needs tight glycemic control Abx per ID - recommends 6week course of Vanco/Fortaz; Renal diet Binders with meals Subjective Date of service: 12/09/16 Principal diagnosis: Cellulitis left lower extremity Interval history: Patient feels well this morning. Denies any shortness of breath. Objective - Vital Signs Vital signs: Vital Signs - 12hr 12/09/16 12/09/16 12/09/16 00:00 07:30 10:00 Temperature 98.2 F 97.3 F L Pulse Rate [ 81 74 From Monitor] Respiratory 18 18 Rate Respiratory 16 Rate [Abdomen] Blood Pressure 151/73 135/58 [Left Arm] O2 Sat by Pulse 100 98 Oximetry - General Appearance General appearance: well-developed, well-nourished, appears stated age EENT: PERRL, mucous membranes moist Neck: no JVD, no thyromegaly, no carotid bruit, supple Respiratory: Present: Clear to Ascultation Cardiology: regular, normal heart rate Gastrointestinal: normal, normoactive bowel sounds Integumentary: other (AV fistula in his right upper arm. Good bruit and thrill. Patient has left transmetatarsal amputation. Wound VAC is in place) - Lab 12/08/16 09:18 12/05/16 08:57 Most recent lab results Calcium 7.9 mg/dL (8.4-10.2) L 12/05/16 08:57
[2016-12-10] MEDS: HEPARIN SUB-Q SCH ×2 (06:42→15:10)
[2016-12-10] MEDS: ZOSYN/NS 2.25 GM/50ML 2.25 GM/50 ML BAG IV SCH ×2 (06:42→15:09)
[2016-12-10] MEDS: PHOSLO PO SCH ×3 (08:40→19:56)
--- NOTE | 2016-12-10 08:57 | Progress Note ---
Assessment and Plan Assessment: End-stage renal disease patient is currently on maintenance hemodialysis Infected left transmetatarsal amputation - s/p I&d; Wound cx - enterococcus, ecoli and GNR#2 Polymicrobial bacteremia Abscess with osteomyelitis Type II DM Hypertension Anemia secondary to ESRD Secondary hyperparathyroidism Plan: Hemodialysis MWF schedule Continue antiHTN medications Needs tight glycemic control Abx per ID - recommends 6week course of Vanco/Fortaz; Renal diet Binders with meals Subjective Date of service: 12/10/16 Principal diagnosis: Cellulitis left lower extremity Interval history: Patient is comfortable this morning. Denies any shortness of breath. No nausea or vomiting Objective - Vital Signs Vital signs: Vital Signs - 12hr 12/09/16 12/10/16 21:09 07:30 Temperature 98.7 F 97.7 F Pulse Rate [ 77 79 From Monitor] Respiratory 20 20 Rate Blood Pressure 155/75 158/77 [Left Arm] O2 Sat by Pulse 98 100 Oximetry - General Appearance General appearance: well-developed, well-nourished, appears stated age EENT: PERRL, mucous membranes moist Neck: no JVD, no thyromegaly, no carotid bruit, supple Respiratory: Present: Clear to Ascultation Cardiology: regular, normal heart rate, S1S2, no murmurs Gastrointestinal: normal, normoactive bowel sounds Integumentary: other (AV fistula in his right upper arm. Good bruit and thrill. Patient has left transmetatarsal amputation. Wound VAC in place) - Lab 12/08/16 09:18 12/05/16 08:57 Most recent lab results Calcium 7.9 mg/dL (8.4-10.2) L 12/05/16 08:57
[2016-12-10] MEDS: PROTONIX PO SCH (09:08)
[2016-12-10] MEDS: PLAVIX PO SCH (09:08)
[2016-12-10] MEDS: PROCRIT IV PRN (13:41)
[2016-12-10] MEDS: LOPRESSOR PO SCH (14:53)
[2016-12-10 15:44] VITALS: BP 143/44
[2016-12-10] MEDS ORDERED: VANCOMYCIN/NS 1 GM/250 ML 1 GM/250 ML BAG IV SCH (16:00)
== END 2016-12-10 20:30 | disposition home health service (06) | DRG 853 ==
LOC: ED 14:55 → 2B-SURG 23:52
PROVIDERS: ADMIT Internal Medicine; ATTEND Internal Medicine
PROC: 5A1D60Z (ICD-10-PCS; 2016-11-27)
PROC: B41J1ZZ Fluoroscopy of Other Lower Arteries using Low Osmolar Contrast (ICD-10-PCS; principal; 2016-11-29)
PROC: 04CQ3ZZ Extirpation of Matter from Left Anterior Tibial Artery, Percutaneous Approach (ICD-10-PCS; principal; 2016-11-29)
PROC: B4101ZZ Fluoroscopy of Abdominal Aorta using Low Osmolar Contrast (ICD-10-PCS; principal; 2016-11-29)
PROC: 047Q3ZZ Dilation of Left Anterior Tibial Artery, Percutaneous Approach (ICD-10-PCS; principal; 2016-11-29)
PROC: 0QBP0ZZ Excision of Left Metatarsal, Open Approach (ICD-10-PCS; 2016-12-03)
PROC: 0Y9N0ZZ Drainage of Left Foot, Open Approach (ICD-10-PCS; 2016-12-03)
DX: A41.9 Sepsis, unspecified organism (principal); N18.6 End stage renal disease; L03.116 Cellulitis of left lower limb; I12.0 Hypertensive chronic kidney disease with stage 5 chronic kidney disease or end stage renal disease; E87.1 Hypo-osmolality and hyponatremia; M86.8X8 Other osteomyelitis, other site; D63.1 Anemia in chronic kidney disease; E11.621 Type 2 diabetes mellitus with foot ulcer; L97.529 Non-pressure chronic ulcer of other part of left foot with unspecified severity; E11.51 Type 2 diabetes mellitus with diabetic peripheral angiopathy without gangrene; E11.42 Type 2 diabetes mellitus with diabetic polyneuropathy; B96.4 Proteus (mirabilis) (morganii) as the cause of diseases classified elsewhere; G47.30 Sleep apnea, unspecified; E11.65 Type 2 diabetes mellitus with hyperglycemia; B96.20 Unspecified Escherichia coli [E. coli] as the cause of diseases classified elsewhere; B95.2 Enterococcus as the cause of diseases classified elsewhere; B95.7 Other staphylococcus as the cause of diseases classified elsewhere; B96.89 Other specified bacterial agents as the cause of diseases classified elsewhere; Z82.49 Family history of ischemic heart disease and other diseases of the circulatory system; Z83.3 Family history of diabetes mellitus; Z99.2 Dependence on renal dialysis; Z89.422 Acquired absence of other left toe(s); Z87.891 Personal history of nicotine dependence; Z91.041 Radiographic dye allergy status; Z79.4 Long term (current) use of insulin
CPT/HCPCS: 36415; 37229; 71020; 73721; 74020; 75625; 75716; 76937; 80048; 80061; 80074; 80202; 82140; 82805; 82962; 83690; 84484; 85007; 85025; 85027; 85610; 85652; 86140; 87040; 87075; 87076; 87116; 87186; 88304; 88305; 88311; 90686; 90732; 93005; 93010; 93922; 93925; 96365; 96375; A4217; C1724; C1725; C1760; C1769; C1887; J0690; J0885; J1100; J1170; J1200; J1644; J1815; J2250; J2270; J2405; J2543; J2704; J2930; J3010; J3370; J7030; J7040; Q9967

== ENCOUNTER 2016-12-19 10:36 | Outpatient (CLI) | payer MEDICARE ==
[2016-12-19] MEDS ORDERED: XYLOCAINE TOPICAL 4% TP ONE ×2 (10:53→11:26)
== END 2016-12-19 10:37 | disposition home or self-care (01) ==
LOC: WOUND 10:36
PROVIDERS: ATTEND Internal Medicine
DX: T86.821 Skin graft (allograft) (autograft) failure (principal); E11.621 Type 2 diabetes mellitus with foot ulcer; L97.521 Non-pressure chronic ulcer of other part of left foot limited to breakdown of skin; E11.622 Type 2 diabetes mellitus with other skin ulcer; L97.321 Non-pressure chronic ulcer of left ankle limited to breakdown of skin; E11.52 Type 2 diabetes mellitus with diabetic peripheral angiopathy with gangrene; E11.22 Type 2 diabetes mellitus with diabetic chronic kidney disease; I12.0 Hypertensive chronic kidney disease with stage 5 chronic kidney disease or end stage renal disease; N18.6 End stage renal disease; Z99.2 Dependence on renal dialysis; E66.01 Morbid (severe) obesity due to excess calories; E11.40 Type 2 diabetes mellitus with diabetic neuropathy, unspecified; E11.69 Type 2 diabetes mellitus with other specified complication; M86.8X7 Other osteomyelitis, ankle and foot; Y83.2 Surgical operation with anastomosis, bypass or graft as the cause of abnormal reaction of the patient, or of later complication, without mention of misadventure at the time of the procedure
CPT/HCPCS: 97605

== ENCOUNTER 2016-12-24 11:06 | Outpatient (CLI) | payer MEDICARE ==
[2016-12-24] MEDS ORDERED: NACL 0.9% 500 ML IR ONE (11:26)
[2016-12-24] MEDS ORDERED: XYLOCAINE TOPICAL 4% TP ONE ×2 (11:27→12:09)
[2016-12-24] MEDS ORDERED: NACL 0.9% IR ONE (12:09)
== END 2016-12-24 11:07 | disposition home or self-care (01) ==
LOC: WOUND 11:06
PROVIDERS: ATTEND Internal Medicine
DX: T86.821 Skin graft (allograft) (autograft) failure (principal); E11.621 Type 2 diabetes mellitus with foot ulcer; L97.521 Non-pressure chronic ulcer of other part of left foot limited to breakdown of skin; E11.40 Type 2 diabetes mellitus with diabetic neuropathy, unspecified; E11.52 Type 2 diabetes mellitus with diabetic peripheral angiopathy with gangrene; E11.22 Type 2 diabetes mellitus with diabetic chronic kidney disease; I12.0 Hypertensive chronic kidney disease with stage 5 chronic kidney disease or end stage renal disease; N18.6 End stage renal disease; Z99.2 Dependence on renal dialysis; E11.69 Type 2 diabetes mellitus with other specified complication; M86.8X8 Other osteomyelitis, other site; E66.01 Morbid (severe) obesity due to excess calories; Z87.891 Personal history of nicotine dependence; Y83.2 Surgical operation with anastomosis, bypass or graft as the cause of abnormal reaction of the patient, or of later complication, without mention of misadventure at the time of the procedure
CPT/HCPCS: 82962; 97605

== ENCOUNTER 2016-12-26 14:06 | Outpatient (CLI) | payer MEDICARE | END 2016-12-26 14:07 | disposition home or self-care (01) | LOC: WOUND 14:06 | PROVIDERS: ATTEND Internal Medicine | DX: T86.821 Skin graft (allograft) (autograft) failure (principal); E11.622 Type 2 diabetes mellitus with other skin ulcer; L97.321 Non-pressure chronic ulcer of left ankle limited to breakdown of skin; E11.621 Type 2 diabetes mellitus with foot ulcer; L97.521 Non-pressure chronic ulcer of other part of left foot limited to breakdown of skin; E11.51 Type 2 diabetes mellitus with diabetic peripheral angiopathy without gangrene; E11.40 Type 2 diabetes mellitus with diabetic neuropathy, unspecified; I10 Essential (primary) hypertension; E11.69 Type 2 diabetes mellitus with other specified complication; M86.8X8 Other osteomyelitis, other site; E66.01 Morbid (severe) obesity due to excess calories; Z99.2 Dependence on renal dialysis; Z87.891 Personal history of nicotine dependence; Y83.2 Surgical operation with anastomosis, bypass or graft as the cause of abnormal reaction of the patient, or of later complication, without mention of misadventure at the time of the procedure | CPT/HCPCS: 97605 ==

== ENCOUNTER 2016-12-28 11:53 | Outpatient (CLI) | payer MEDICARE | END 2016-12-28 11:54 | disposition home or self-care (01) | LOC: WOUND 11:53 | PROVIDERS: ATTEND Podiatrist | DX: T86.821 Skin graft (allograft) (autograft) failure (principal); E11.52 Type 2 diabetes mellitus with diabetic peripheral angiopathy with gangrene; E11.40 Type 2 diabetes mellitus with diabetic neuropathy, unspecified; I10 Essential (primary) hypertension; E11.69 Type 2 diabetes mellitus with other specified complication; M86.8X8 Other osteomyelitis, other site; E66.01 Morbid (severe) obesity due to excess calories; Z99.2 Dependence on renal dialysis; Z87.891 Personal history of nicotine dependence; Y83.2 Surgical operation with anastomosis, bypass or graft as the cause of abnormal reaction of the patient, or of later complication, without mention of misadventure at the time of the procedure | CPT/HCPCS: 97605 ==

== ENCOUNTER 2016-12-31 10:11 | Outpatient (CLI) | payer MEDICARE ==
[2016-12-31] MEDS ORDERED: XYLOCAINE TOPICAL 4% TP ONE ×2 (10:45→11:25)
[2016-12-31] MEDS ORDERED: SILVER NITRATE TP ONE (12:44)
== END 2016-12-31 10:12 | disposition home or self-care (01) ==
LOC: WOUND 10:11
PROVIDERS: ATTEND Internal Medicine
DX: T86.821 Skin graft (allograft) (autograft) failure (principal); E11.621 Type 2 diabetes mellitus with foot ulcer; L97.521 Non-pressure chronic ulcer of other part of left foot limited to breakdown of skin; E11.622 Type 2 diabetes mellitus with other skin ulcer; L97.321 Non-pressure chronic ulcer of left ankle limited to breakdown of skin; E11.52 Type 2 diabetes mellitus with diabetic peripheral angiopathy with gangrene; E11.40 Type 2 diabetes mellitus with diabetic neuropathy, unspecified; E66.01 Morbid (severe) obesity due to excess calories; E11.22 Type 2 diabetes mellitus with diabetic chronic kidney disease; I12.0 Hypertensive chronic kidney disease with stage 5 chronic kidney disease or end stage renal disease; N18.6 End stage renal disease; Z99.2 Dependence on renal dialysis; E11.69 Type 2 diabetes mellitus with other specified complication; M86.8X8 Other osteomyelitis, other site; Z87.891 Personal history of nicotine dependence; Y83.2 Surgical operation with anastomosis, bypass or graft as the cause of abnormal reaction of the patient, or of later complication, without mention of misadventure at the time of the procedure
CPT/HCPCS: 97605

== ENCOUNTER 2017-01-02 12:57 | Outpatient (CLI) | payer MEDICARE | END 2017-01-02 12:58 | disposition home or self-care (01) | LOC: WOUND 12:57 | PROVIDERS: ATTEND Internal Medicine | DX: T86.821 Skin graft (allograft) (autograft) failure (principal); E11.621 Type 2 diabetes mellitus with foot ulcer; L97.521 Non-pressure chronic ulcer of other part of left foot limited to breakdown of skin; E11.622 Type 2 diabetes mellitus with other skin ulcer; L97.321 Non-pressure chronic ulcer of left ankle limited to breakdown of skin; E11.52 Type 2 diabetes mellitus with diabetic peripheral angiopathy with gangrene; E11.69 Type 2 diabetes mellitus with other specified complication; M86.672 Other chronic osteomyelitis, left ankle and foot; E11.40 Type 2 diabetes mellitus with diabetic neuropathy, unspecified; E66.01 Morbid (severe) obesity due to excess calories; I10 Essential (primary) hypertension; Z87.891 Personal history of nicotine dependence; Z99.2 Dependence on renal dialysis; Y83.2 Surgical operation with anastomosis, bypass or graft as the cause of abnormal reaction of the patient, or of later complication, without mention of misadventure at the time of the procedure | CPT/HCPCS: 97605 ==

== ENCOUNTER 2017-01-07 14:45 | Outpatient (CLI) | payer MEDICARE ==
[2017-01-07] MEDS ORDERED: XYLOCAINE TOPICAL 4% TP ONE ×2 (14:51→15:33)
[2017-01-07] MEDS ORDERED: SILVER NITRATE TP ONE ×2 (15:57→16:52)
== END 2017-01-07 14:46 | disposition home or self-care (01) ==
LOC: WOUND 14:45
PROVIDERS: ATTEND Internal Medicine
DX: T81.31XD Disruption of external operation (surgical) wound, not elsewhere classified, subsequent encounter (principal); E11.621 Type 2 diabetes mellitus with foot ulcer; L97.521 Non-pressure chronic ulcer of other part of left foot limited to breakdown of skin; E11.622 Type 2 diabetes mellitus with other skin ulcer; L97.821 Non-pressure chronic ulcer of other part of left lower leg limited to breakdown of skin; T86.821 Skin graft (allograft) (autograft) failure; E11.52 Type 2 diabetes mellitus with diabetic peripheral angiopathy with gangrene; L03.116 Cellulitis of left lower limb; I10 Essential (primary) hypertension; E11.69 Type 2 diabetes mellitus with other specified complication; M86.68 Other chronic osteomyelitis, other site; E11.51 Type 2 diabetes mellitus with diabetic peripheral angiopathy without gangrene; E66.01 Morbid (severe) obesity due to excess calories; Z87.891 Personal history of nicotine dependence; Y83.8 Other surgical procedures as the cause of abnormal reaction of the patient, or of later complication, without mention of misadventure at the time of the procedure
CPT/HCPCS: 97597; 97605

== ENCOUNTER 2017-01-09 13:14 | Outpatient (CLI) | payer MEDICARE | END 2017-01-09 13:15 | disposition home or self-care (01) | LOC: WOUND 13:14 | PROVIDERS: ATTEND Podiatrist | DX: E11.621 Type 2 diabetes mellitus with foot ulcer (principal); L97.521 Non-pressure chronic ulcer of other part of left foot limited to breakdown of skin; E11.40 Type 2 diabetes mellitus with diabetic neuropathy, unspecified; E11.69 Type 2 diabetes mellitus with other specified complication; M86.8X8 Other osteomyelitis, other site; E11.51 Type 2 diabetes mellitus with diabetic peripheral angiopathy without gangrene; E66.01 Morbid (severe) obesity due to excess calories; I10 Essential (primary) hypertension; Z99.2 Dependence on renal dialysis; Z87.891 Personal history of nicotine dependence | CPT/HCPCS: 97605; G0463; 99213 ==

== ENCOUNTER 2017-01-14 13:31 | Outpatient (CLI) | payer MEDICARE ==
[2017-01-14] MEDS ORDERED: XYLOCAINE TOPICAL 2% TP ONE ×2 (14:12→15:24)
[2017-01-14] MEDS ORDERED: SILVER NITRATE TP ONE ×2 (14:34→15:26)
== END 2017-01-14 13:32 | disposition home or self-care (01) ==
LOC: WOUND 13:31
PROVIDERS: ATTEND Internal Medicine
DX: T86.821 Skin graft (allograft) (autograft) failure (principal); E11.621 Type 2 diabetes mellitus with foot ulcer; L97.521 Non-pressure chronic ulcer of other part of left foot limited to breakdown of skin; L97.321 Non-pressure chronic ulcer of left ankle limited to breakdown of skin; E11.52 Type 2 diabetes mellitus with diabetic peripheral angiopathy with gangrene; E11.22 Type 2 diabetes mellitus with diabetic chronic kidney disease; I12.0 Hypertensive chronic kidney disease with stage 5 chronic kidney disease or end stage renal disease; N18.6 End stage renal disease; Z99.2 Dependence on renal dialysis; E11.40 Type 2 diabetes mellitus with diabetic neuropathy, unspecified; E11.69 Type 2 diabetes mellitus with other specified complication; M86.8X7 Other osteomyelitis, ankle and foot; E66.01 Morbid (severe) obesity due to excess calories; Z87.891 Personal history of nicotine dependence; Y83.2 Surgical operation with anastomosis, bypass or graft as the cause of abnormal reaction of the patient, or of later complication, without mention of misadventure at the time of the procedure
CPT/HCPCS: 97605

== ENCOUNTER 2017-01-18 14:24 | Outpatient (CLI) | payer MEDICARE | END 2017-01-18 14:25 | disposition home or self-care (01) | LOC: WOUND 14:24 | PROVIDERS: ATTEND Podiatrist | DX: T86.821 Skin graft (allograft) (autograft) failure (principal); T81.31XS Disruption of external operation (surgical) wound, not elsewhere classified, sequela; E11.622 Type 2 diabetes mellitus with other skin ulcer; L97.321 Non-pressure chronic ulcer of left ankle limited to breakdown of skin; E11.52 Type 2 diabetes mellitus with diabetic peripheral angiopathy with gangrene; L03.116 Cellulitis of left lower limb; I10 Essential (primary) hypertension; E11.69 Type 2 diabetes mellitus with other specified complication; M86.8X8 Other osteomyelitis, other site; E66.01 Morbid (severe) obesity due to excess calories; Z87.891 Personal history of nicotine dependence; Y83.2 Surgical operation with anastomosis, bypass or graft as the cause of abnormal reaction of the patient, or of later complication, without mention of misadventure at the time of the procedure | CPT/HCPCS: 97605 ==

== ENCOUNTER 2017-01-23 10:25 | Outpatient (CLI) | payer MEDICARE | END 2017-01-23 10:26 | disposition home or self-care (01) | LOC: WOUND 10:25 | PROVIDERS: ATTEND Internal Medicine | DX: T86.821 Skin graft (allograft) (autograft) failure (principal); E11.622 Type 2 diabetes mellitus with other skin ulcer; L97.321 Non-pressure chronic ulcer of left ankle limited to breakdown of skin; E11.621 Type 2 diabetes mellitus with foot ulcer; L97.521 Non-pressure chronic ulcer of other part of left foot limited to breakdown of skin; E11.52 Type 2 diabetes mellitus with diabetic peripheral angiopathy with gangrene; I10 Essential (primary) hypertension; E11.40 Type 2 diabetes mellitus with diabetic neuropathy, unspecified; E11.69 Type 2 diabetes mellitus with other specified complication; M86.9 Osteomyelitis, unspecified; E66.01 Morbid (severe) obesity due to excess calories; Z99.2 Dependence on renal dialysis; Z87.891 Personal history of nicotine dependence; Y83.2 Surgical operation with anastomosis, bypass or graft as the cause of abnormal reaction of the patient, or of later complication, without mention of misadventure at the time of the procedure | CPT/HCPCS: 97605 ==

== ENCOUNTER 2017-01-25 13:58 | Outpatient (CLI) | payer MEDICARE | END 2017-01-25 13:59 | disposition home or self-care (01) | LOC: WOUND 13:58 | PROVIDERS: ATTEND Internal Medicine | DX: T86.821 Skin graft (allograft) (autograft) failure (principal); E11.622 Type 2 diabetes mellitus with other skin ulcer; L97.321 Non-pressure chronic ulcer of left ankle limited to breakdown of skin; E11.52 Type 2 diabetes mellitus with diabetic peripheral angiopathy with gangrene; E11.40 Type 2 diabetes mellitus with diabetic neuropathy, unspecified; E11.69 Type 2 diabetes mellitus with other specified complication; M86.8X7 Other osteomyelitis, ankle and foot; E66.01 Morbid (severe) obesity due to excess calories; I10 Essential (primary) hypertension; Z99.2 Dependence on renal dialysis; Z87.891 Personal history of nicotine dependence; Y83.2 Surgical operation with anastomosis, bypass or graft as the cause of abnormal reaction of the patient, or of later complication, without mention of misadventure at the time of the procedure | CPT/HCPCS: 97605 ==

== ENCOUNTER 2017-01-28 14:39 | Outpatient (CLI) | payer MEDICARE ==
[2017-01-28] MEDS ORDERED: XYLOCAINE TOPICAL 4% TP ONE ×2 (14:41→15:13)
[2017-01-28] MEDS ORDERED: SILVER NITRATE TP ONE (15:13)
== END 2017-01-28 14:40 | disposition home or self-care (01) ==
LOC: WOUND 14:39
PROVIDERS: ATTEND Internal Medicine
DX: T86.821 Skin graft (allograft) (autograft) failure (principal); T81.31XS Disruption of external operation (surgical) wound, not elsewhere classified, sequela; E11.622 Type 2 diabetes mellitus with other skin ulcer; L97.321 Non-pressure chronic ulcer of left ankle limited to breakdown of skin; E11.52 Type 2 diabetes mellitus with diabetic peripheral angiopathy with gangrene; L03.116 Cellulitis of left lower limb; E66.01 Morbid (severe) obesity due to excess calories; E11.69 Type 2 diabetes mellitus with other specified complication; M86.8X7 Other osteomyelitis, ankle and foot; E11.22 Type 2 diabetes mellitus with diabetic chronic kidney disease; I12.0 Hypertensive chronic kidney disease with stage 5 chronic kidney disease or end stage renal disease; N18.6 End stage renal disease; E11.40 Type 2 diabetes mellitus with diabetic neuropathy, unspecified; Z87.891 Personal history of nicotine dependence; Y83.2 Surgical operation with anastomosis, bypass or graft as the cause of abnormal reaction of the patient, or of later complication, without mention of misadventure at the time of the procedure
CPT/HCPCS: 97605

== ENCOUNTER 2017-01-30 13:42 | Outpatient (CLI) | payer MEDICARE | END 2017-01-30 13:43 | disposition home or self-care (01) | LOC: WOUND 13:42 | PROVIDERS: ATTEND Internal Medicine | DX: T86.821 Skin graft (allograft) (autograft) failure (principal); E11.622 Type 2 diabetes mellitus with other skin ulcer; L97.321 Non-pressure chronic ulcer of left ankle limited to breakdown of skin; E11.52 Type 2 diabetes mellitus with diabetic peripheral angiopathy with gangrene; I10 Essential (primary) hypertension; E11.40 Type 2 diabetes mellitus with diabetic neuropathy, unspecified; E11.69 Type 2 diabetes mellitus with other specified complication; M86.8X8 Other osteomyelitis, other site; E66.01 Morbid (severe) obesity due to excess calories; Z99.2 Dependence on renal dialysis; Z68.33 Body mass index [BMI] 33.0-33.9, adult; Z87.891 Personal history of nicotine dependence; Y83.2 Surgical operation with anastomosis, bypass or graft as the cause of abnormal reaction of the patient, or of later complication, without mention of misadventure at the time of the procedure | CPT/HCPCS: 97605 ==

== ENCOUNTER 2017-02-04 13:10 | Outpatient (CLI) | payer MEDICARE ==
[2017-02-04] MEDS ORDERED: XYLOCAINE TOPICAL 4% TP ONE ×2 (13:34→13:46)
[2017-02-04] MEDS ORDERED: DAKIN'S FULL STRENGTH ONE (14:40)
[2017-02-04] MEDS ORDERED: DAKIN'S FULL STRENGTH IR ONE (18:00)
[2017-02-04] MEDS ORDERED: DAKIN'S HALF STRENGTH TP SCH (22:00)
== END 2017-02-04 13:11 | disposition home or self-care (01) ==
LOC: WOUND 13:10
PROVIDERS: ATTEND Surgery
DX: T86.821 Skin graft (allograft) (autograft) failure (principal); E11.622 Type 2 diabetes mellitus with other skin ulcer; E11.52 Type 2 diabetes mellitus with diabetic peripheral angiopathy with gangrene; L97.511 Non-pressure chronic ulcer of other part of right foot limited to breakdown of skin; L97.521 Non-pressure chronic ulcer of other part of left foot limited to breakdown of skin; I10 Essential (primary) hypertension; E66.01 Morbid (severe) obesity due to excess calories; E11.69 Type 2 diabetes mellitus with other specified complication; M86.8X8 Other osteomyelitis, other site; Z87.891 Personal history of nicotine dependence; Z99.2 Dependence on renal dialysis; Y83.2 Surgical operation with anastomosis, bypass or graft as the cause of abnormal reaction of the patient, or of later complication, without mention of misadventure at the time of the procedure
CPT/HCPCS: A6260

== ENCOUNTER 2017-02-06 13:40 | Outpatient (CLI) | payer MEDICARE ==
[2017-02-06] MEDS ORDERED: XYLOCAINE TOPICAL 4% TP ONE ×2 (14:22→16:00)
== END 2017-02-06 13:41 | disposition home or self-care (01) ==
LOC: WOUND 13:40
PROVIDERS: ATTEND Surgery
DX: T86.821 Skin graft (allograft) (autograft) failure (principal); E11.621 Type 2 diabetes mellitus with foot ulcer; L97.521 Non-pressure chronic ulcer of other part of left foot limited to breakdown of skin; E11.40 Type 2 diabetes mellitus with diabetic neuropathy, unspecified; E11.622 Type 2 diabetes mellitus with other skin ulcer; L97.321 Non-pressure chronic ulcer of left ankle limited to breakdown of skin; E11.52 Type 2 diabetes mellitus with diabetic peripheral angiopathy with gangrene; I10 Essential (primary) hypertension; E11.69 Type 2 diabetes mellitus with other specified complication; M86.8X7 Other osteomyelitis, ankle and foot; E66.01 Morbid (severe) obesity due to excess calories; Z87.891 Personal history of nicotine dependence; Y83.2 Surgical operation with anastomosis, bypass or graft as the cause of abnormal reaction of the patient, or of later complication, without mention of misadventure at the time of the procedure
CPT/HCPCS: 87075; 87116; G0463; 87076; 87186; 99215

== ENCOUNTER 2017-02-08 13:54 | Outpatient (CLI) | payer MEDICARE | END 2017-02-08 13:55 | disposition home or self-care (01) | LOC: WOUND 13:54 | PROVIDERS: ATTEND Podiatrist | DX: T86.821 Skin graft (allograft) (autograft) failure (principal); E11.622 Type 2 diabetes mellitus with other skin ulcer; L97.321 Non-pressure chronic ulcer of left ankle limited to breakdown of skin; E11.52 Type 2 diabetes mellitus with diabetic peripheral angiopathy with gangrene; E11.40 Type 2 diabetes mellitus with diabetic neuropathy, unspecified; E11.69 Type 2 diabetes mellitus with other specified complication; M86.8X8 Other osteomyelitis, other site; I10 Essential (primary) hypertension; E66.01 Morbid (severe) obesity due to excess calories; Z99.2 Dependence on renal dialysis; Z68.33 Body mass index [BMI] 33.0-33.9, adult; Z87.891 Personal history of nicotine dependence; Y83.2 Surgical operation with anastomosis, bypass or graft as the cause of abnormal reaction of the patient, or of later complication, without mention of misadventure at the time of the procedure | CPT/HCPCS: 99214; G0463 ==

== ENCOUNTER 2017-02-11 13:28 | Outpatient (CLI) | payer MEDICARE | END 2017-02-11 13:29 | disposition home or self-care (01) | LOC: WOUND 13:28 | PROVIDERS: ATTEND Internal Medicine | DX: T86.821 Skin graft (allograft) (autograft) failure (principal); E11.622 Type 2 diabetes mellitus with other skin ulcer; L97.321 Non-pressure chronic ulcer of left ankle limited to breakdown of skin; E11.52 Type 2 diabetes mellitus with diabetic peripheral angiopathy with gangrene; E11.40 Type 2 diabetes mellitus with diabetic neuropathy, unspecified; E11.69 Type 2 diabetes mellitus with other specified complication; M86.8X8 Other osteomyelitis, other site; I10 Essential (primary) hypertension; E66.01 Morbid (severe) obesity due to excess calories; Z99.2 Dependence on renal dialysis; Z68.33 Body mass index [BMI] 33.0-33.9, adult; Z87.891 Personal history of nicotine dependence; Y83.2 Surgical operation with anastomosis, bypass or graft as the cause of abnormal reaction of the patient, or of later complication, without mention of misadventure at the time of the procedure | CPT/HCPCS: 99214; G0463 ==

== ENCOUNTER 2017-02-13 10:47 | Outpatient (CLI) | payer MEDICARE ==
--- NOTE | 2017-02-13 13:14 | Magnetic Resonance Report ---
MRI of the left foot without contrast. History: Diabetic wound infection. Procedure: A multiplanar multisequence study was performed without contrast. Findings: Comparison is made to previous study performed on November 28, 2016. Post-surgical" changes are again noted. There is abnormal hypointense T1 and hyperintense T2 signal in the remaining portions of the proximal metatarsal bones with little interval change. There is also similar abnormal signal in the cuneiforms, cuboid, and minimally within the navicular bone. The calcaneus and talus are not affected. There is generalized subcutaneous soft tissue edema. Impression: Osteomyelitis involving the above described osseous structures with little interval change since the previous study. Diffuse subcutaneous edema is also present.
[2017-02-14] MEDS ORDERED: XYLOCAINE TOPICAL 4% TP ONE (13:59)
== END 2017-02-13 10:48 | disposition home or self-care (01) ==
LOC: MRI 10:47
PROVIDERS: ATTEND Surgery
DX: S91.302A Unspecified open wound, left foot, initial encounter (principal); E11.9 Type 2 diabetes mellitus without complications; I10 Essential (primary) hypertension; N17.9 Acute kidney failure, unspecified; M86.8X7 Other osteomyelitis, ankle and foot
CPT/HCPCS: 73721

== ENCOUNTER 2017-02-13 13:57 | Outpatient (CLI) | payer MEDICARE ==
[2017-02-13] MEDS ORDERED: XYLOCAINE TOPICAL 4% TP ONE (14:07)
[2017-02-15] MEDS ORDERED: XYLOCAINE TOPICAL 4% TP ONE (15:47)
== END 2017-02-13 13:58 | disposition home or self-care (01) ==
LOC: WOUND 13:57
PROVIDERS: ATTEND Surgery
DX: T86.821 Skin graft (allograft) (autograft) failure (principal); T81.31XS Disruption of external operation (surgical) wound, not elsewhere classified, sequela; E11.621 Type 2 diabetes mellitus with foot ulcer; L97.321 Non-pressure chronic ulcer of left ankle limited to breakdown of skin; L03.116 Cellulitis of left lower limb; E11.69 Type 2 diabetes mellitus with other specified complication; M86.68 Other chronic osteomyelitis, other site; E11.51 Type 2 diabetes mellitus with diabetic peripheral angiopathy without gangrene; E66.01 Morbid (severe) obesity due to excess calories; Z87.891 Personal history of nicotine dependence; Y83.2 Surgical operation with anastomosis, bypass or graft as the cause of abnormal reaction of the patient, or of later complication, without mention of misadventure at the time of the procedure

== ENCOUNTER 2017-02-15 12:52 | Outpatient (CLI) | payer MEDICARE | END 2017-02-15 12:53 | disposition home or self-care (01) | LOC: WOUND 12:52 | PROVIDERS: ATTEND Podiatrist | DX: T86.821 Skin graft (allograft) (autograft) failure (principal); E11.622 Type 2 diabetes mellitus with other skin ulcer; L97.321 Non-pressure chronic ulcer of left ankle limited to breakdown of skin; E11.52 Type 2 diabetes mellitus with diabetic peripheral angiopathy with gangrene; E11.69 Type 2 diabetes mellitus with other specified complication; M86.8X8 Other osteomyelitis, other site; E66.01 Morbid (severe) obesity due to excess calories; E11.40 Type 2 diabetes mellitus with diabetic neuropathy, unspecified; I10 Essential (primary) hypertension; Z87.891 Personal history of nicotine dependence; Z99.2 Dependence on renal dialysis; Y83.2 Surgical operation with anastomosis, bypass or graft as the cause of abnormal reaction of the patient, or of later complication, without mention of misadventure at the time of the procedure | CPT/HCPCS: 99214; G0463 ==

== ENCOUNTER 2017-02-18 13:24 | Outpatient (CLI) | payer MEDICARE | END 2017-02-18 13:25 | disposition home or self-care (01) | LOC: WOUND 13:24 | PROVIDERS: ATTEND Internal Medicine | DX: T86.821 Skin graft (allograft) (autograft) failure (principal); E11.622 Type 2 diabetes mellitus with other skin ulcer; L97.321 Non-pressure chronic ulcer of left ankle limited to breakdown of skin; E11.69 Type 2 diabetes mellitus with other specified complication; M86.8X8 Other osteomyelitis, other site; E66.01 Morbid (severe) obesity due to excess calories; E11.52 Type 2 diabetes mellitus with diabetic peripheral angiopathy with gangrene; E11.40 Type 2 diabetes mellitus with diabetic neuropathy, unspecified; I10 Essential (primary) hypertension; Z99.2 Dependence on renal dialysis; Z87.891 Personal history of nicotine dependence; Y83.2 Surgical operation with anastomosis, bypass or graft as the cause of abnormal reaction of the patient, or of later complication, without mention of misadventure at the time of the procedure | CPT/HCPCS: 29581; G0463; 99214 ==

== ENCOUNTER 2017-02-20 13:23 | Outpatient (CLI) | payer MEDICARE ==
[2017-02-20] MEDS ORDERED: DAKIN'S FULL STRENGTH TP ONE (15:00)
[2017-02-20] MEDS ORDERED: XYLOCAINE TOPICAL 4% TP ONE (15:00)
== END 2017-02-20 13:24 | disposition home or self-care (01) ==
LOC: WOUND 13:23
PROVIDERS: ATTEND Internal Medicine
DX: T86.821 Skin graft (allograft) (autograft) failure (principal); E11.621 Type 2 diabetes mellitus with foot ulcer; L97.521 Non-pressure chronic ulcer of other part of left foot limited to breakdown of skin; E11.40 Type 2 diabetes mellitus with diabetic neuropathy, unspecified; E66.01 Morbid (severe) obesity due to excess calories; E11.22 Type 2 diabetes mellitus with diabetic chronic kidney disease; I12.0 Hypertensive chronic kidney disease with stage 5 chronic kidney disease or end stage renal disease; N18.6 End stage renal disease; E11.51 Type 2 diabetes mellitus with diabetic peripheral angiopathy without gangrene; E11.69 Type 2 diabetes mellitus with other specified complication; M86.9 Osteomyelitis, unspecified; Z68.33 Body mass index [BMI] 33.0-33.9, adult; Z99.2 Dependence on renal dialysis; Y83.2 Surgical operation with anastomosis, bypass or graft as the cause of abnormal reaction of the patient, or of later complication, without mention of misadventure at the time of the procedure

== ENCOUNTER 2017-02-22 13:48 | Outpatient (CLI) | payer MEDICARE ==
[2017-02-22] MEDS ORDERED: DAKIN'S FULL STRENGTH ONE (14:12)
[2017-02-23] MEDS ORDERED: DAKIN'S HALF STRENGTH TP SCH (10:00)
== END 2017-02-22 13:49 | disposition home or self-care (01) ==
LOC: WOUND 13:48
PROVIDERS: ATTEND Podiatrist
DX: T86.821 Skin graft (allograft) (autograft) failure (principal); E11.621 Type 2 diabetes mellitus with foot ulcer; L97.521 Non-pressure chronic ulcer of other part of left foot limited to breakdown of skin; E11.52 Type 2 diabetes mellitus with diabetic peripheral angiopathy with gangrene; L03.116 Cellulitis of left lower limb; E66.01 Morbid (severe) obesity due to excess calories; E11.40 Type 2 diabetes mellitus with diabetic neuropathy, unspecified; I10 Essential (primary) hypertension; E11.69 Type 2 diabetes mellitus with other specified complication; M86.8X7 Other osteomyelitis, ankle and foot; Z87.891 Personal history of nicotine dependence; Z99.2 Dependence on renal dialysis; Y83.2 Surgical operation with anastomosis, bypass or graft as the cause of abnormal reaction of the patient, or of later complication, without mention of misadventure at the time of the procedure
CPT/HCPCS: 99213; A6260; G0463

== ENCOUNTER 2017-02-27 08:04 | Outpatient (CLI) | payer MEDICARE | END 2017-02-27 08:05 | disposition home or self-care (01) | LOC: WOUND 08:04 | PROVIDERS: ATTEND Surgery | DX: T86.821 Skin graft (allograft) (autograft) failure (principal); E11.52 Type 2 diabetes mellitus with diabetic peripheral angiopathy with gangrene; E11.22 Type 2 diabetes mellitus with diabetic chronic kidney disease; I12.0 Hypertensive chronic kidney disease with stage 5 chronic kidney disease or end stage renal disease; N18.6 End stage renal disease; E11.40 Type 2 diabetes mellitus with diabetic neuropathy, unspecified; E66.01 Morbid (severe) obesity due to excess calories; E11.69 Type 2 diabetes mellitus with other specified complication; M86.9 Osteomyelitis, unspecified; Z99.2 Dependence on renal dialysis; Z68.33 Body mass index [BMI] 33.0-33.9, adult; Z87.891 Personal history of nicotine dependence; Y83.2 Surgical operation with anastomosis, bypass or graft as the cause of abnormal reaction of the patient, or of later complication, without mention of misadventure at the time of the procedure | CPT/HCPCS: 82962; G0277; 99183 ==

== ENCOUNTER 2017-02-28 08:35 | Outpatient (CLI) | payer MEDICARE | END 2017-02-28 08:36 | disposition home or self-care (01) | LOC: WOUND 08:35 | PROVIDERS: ATTEND Internal Medicine | DX: T86.821 Skin graft (allograft) (autograft) failure (principal); E11.621 Type 2 diabetes mellitus with foot ulcer; L97.521 Non-pressure chronic ulcer of other part of left foot limited to breakdown of skin; E11.52 Type 2 diabetes mellitus with diabetic peripheral angiopathy with gangrene; E11.22 Type 2 diabetes mellitus with diabetic chronic kidney disease; I12.0 Hypertensive chronic kidney disease with stage 5 chronic kidney disease or end stage renal disease; N18.6 End stage renal disease; E66.01 Morbid (severe) obesity due to excess calories; E11.40 Type 2 diabetes mellitus with diabetic neuropathy, unspecified; E11.69 Type 2 diabetes mellitus with other specified complication; M86.9 Osteomyelitis, unspecified; Z99.2 Dependence on renal dialysis; Z68.33 Body mass index [BMI] 33.0-33.9, adult; Z87.891 Personal history of nicotine dependence; Y83.2 Surgical operation with anastomosis, bypass or graft as the cause of abnormal reaction of the patient, or of later complication, without mention of misadventure at the time of the procedure | CPT/HCPCS: 29581; 82962; G0277; G0463; 99183; 99214 ==

== ENCOUNTER 2017-03-01 08:00 | Outpatient (CLI) | payer MEDICARE | END 2017-03-01 08:01 | disposition home or self-care (01) | LOC: WOUND 08:00 | PROVIDERS: ATTEND Podiatrist | DX: T86.821 Skin graft (allograft) (autograft) failure (principal); E11.52 Type 2 diabetes mellitus with diabetic peripheral angiopathy with gangrene; E11.22 Type 2 diabetes mellitus with diabetic chronic kidney disease; I12.0 Hypertensive chronic kidney disease with stage 5 chronic kidney disease or end stage renal disease; N18.6 End stage renal disease; Z99.2 Dependence on renal dialysis; E11.69 Type 2 diabetes mellitus with other specified complication; M86.9 Osteomyelitis, unspecified; E11.40 Type 2 diabetes mellitus with diabetic neuropathy, unspecified; E66.01 Morbid (severe) obesity due to excess calories; Z68.33 Body mass index [BMI] 33.0-33.9, adult; Z87.891 Personal history of nicotine dependence; Y83.2 Surgical operation with anastomosis, bypass or graft as the cause of abnormal reaction of the patient, or of later complication, without mention of misadventure at the time of the procedure | CPT/HCPCS: 82962; G0277; 99183 ==

== ENCOUNTER 2017-03-04 13:00 | Outpatient (CLI) | payer MEDICARE | END 2017-03-04 13:01 | disposition home or self-care (01) | LOC: WOUND 13:00 | PROVIDERS: ATTEND Surgery | DX: T86.821 Skin graft (allograft) (autograft) failure (principal); E11.621 Type 2 diabetes mellitus with foot ulcer; L97.521 Non-pressure chronic ulcer of other part of left foot limited to breakdown of skin; E11.52 Type 2 diabetes mellitus with diabetic peripheral angiopathy with gangrene; E11.22 Type 2 diabetes mellitus with diabetic chronic kidney disease; I12.0 Hypertensive chronic kidney disease with stage 5 chronic kidney disease or end stage renal disease; N18.6 End stage renal disease; E11.40 Type 2 diabetes mellitus with diabetic neuropathy, unspecified; E66.01 Morbid (severe) obesity due to excess calories; E11.69 Type 2 diabetes mellitus with other specified complication; M86.8X8 Other osteomyelitis, other site; Z68.33 Body mass index [BMI] 33.0-33.9, adult; Z99.2 Dependence on renal dialysis; Z87.891 Personal history of nicotine dependence; Y83.2 Surgical operation with anastomosis, bypass or graft as the cause of abnormal reaction of the patient, or of later complication, without mention of misadventure at the time of the procedure | CPT/HCPCS: G0277 ×2; 99183 ==

== ENCOUNTER 2017-03-05 08:03 | Outpatient (CLI) | payer MEDICARE | END 2017-03-05 08:04 | disposition home or self-care (01) | LOC: WOUND 08:03 | PROVIDERS: ATTEND Surgery | DX: T86.821 Skin graft (allograft) (autograft) failure (principal); E11.621 Type 2 diabetes mellitus with foot ulcer; L97.521 Non-pressure chronic ulcer of other part of left foot limited to breakdown of skin; E11.52 Type 2 diabetes mellitus with diabetic peripheral angiopathy with gangrene; E11.40 Type 2 diabetes mellitus with diabetic neuropathy, unspecified; E11.22 Type 2 diabetes mellitus with diabetic chronic kidney disease; I12.0 Hypertensive chronic kidney disease with stage 5 chronic kidney disease or end stage renal disease; N18.6 End stage renal disease; E66.01 Morbid (severe) obesity due to excess calories; E11.69 Type 2 diabetes mellitus with other specified complication; M86.8X8 Other osteomyelitis, other site; Z68.33 Body mass index [BMI] 33.0-33.9, adult; Z99.2 Dependence on renal dialysis; Z87.891 Personal history of nicotine dependence; Y83.2 Surgical operation with anastomosis, bypass or graft as the cause of abnormal reaction of the patient, or of later complication, without mention of misadventure at the time of the procedure | CPT/HCPCS: 82962; G0277; G0463; 99183; 99213 ==

== ENCOUNTER 2017-03-06 08:14 | Outpatient (CLI) | payer MEDICARE ==
[2017-03-06] MEDS ORDERED: XYLOCAINE TOPICAL 4% TP ONE ×2 (10:27→11:00)
== END 2017-03-06 08:15 | disposition home or self-care (01) ==
LOC: WOUND 08:14
PROVIDERS: ATTEND Surgery
DX: T86.821 Skin graft (allograft) (autograft) failure (principal); E11.621 Type 2 diabetes mellitus with foot ulcer; L97.521 Non-pressure chronic ulcer of other part of left foot limited to breakdown of skin; E11.52 Type 2 diabetes mellitus with diabetic peripheral angiopathy with gangrene; E11.40 Type 2 diabetes mellitus with diabetic neuropathy, unspecified; E66.01 Morbid (severe) obesity due to excess calories; E11.22 Type 2 diabetes mellitus with diabetic chronic kidney disease; I12.0 Hypertensive chronic kidney disease with stage 5 chronic kidney disease or end stage renal disease; N18.6 End stage renal disease; E11.69 Type 2 diabetes mellitus with other specified complication; M86.8X8 Other osteomyelitis, other site; Z99.2 Dependence on renal dialysis; Z68.33 Body mass index [BMI] 33.0-33.9, adult; Z87.891 Personal history of nicotine dependence; Y83.2 Surgical operation with anastomosis, bypass or graft as the cause of abnormal reaction of the patient, or of later complication, without mention of misadventure at the time of the procedure
CPT/HCPCS: 11042; 11045; 82962; 97605; G0277; 99183

== ENCOUNTER 2017-03-07 07:53 | Outpatient (CLI) | payer MEDICARE ==
[~2017-03-07 07:53] MED LIST: XYLOCAINE TOPICAL 4% TP ONE
== END 2017-03-07 07:54 | disposition home or self-care (01) ==
LOC: WOUND 07:53
PROVIDERS: ATTEND Nurse Practitioner
DX: T86.821 Skin graft (allograft) (autograft) failure (principal); E11.621 Type 2 diabetes mellitus with foot ulcer; L97.521 Non-pressure chronic ulcer of other part of left foot limited to breakdown of skin; E11.52 Type 2 diabetes mellitus with diabetic peripheral angiopathy with gangrene; E11.40 Type 2 diabetes mellitus with diabetic neuropathy, unspecified; E66.01 Morbid (severe) obesity due to excess calories; E11.22 Type 2 diabetes mellitus with diabetic chronic kidney disease; I12.0 Hypertensive chronic kidney disease with stage 5 chronic kidney disease or end stage renal disease; N18.6 End stage renal disease; E11.69 Type 2 diabetes mellitus with other specified complication; M86.8X8 Other osteomyelitis, other site; Z99.2 Dependence on renal dialysis; Z68.33 Body mass index [BMI] 33.0-33.9, adult; Z87.891 Personal history of nicotine dependence; Y83.2 Surgical operation with anastomosis, bypass or graft as the cause of abnormal reaction of the patient, or of later complication, without mention of misadventure at the time of the procedure
CPT/HCPCS: 82962; G0277; 99183

== ENCOUNTER 2017-03-08 07:55 | Outpatient (CLI) | payer MEDICARE | END 2017-03-08 07:56 | disposition home or self-care (01) | LOC: WOUND 07:55 | PROVIDERS: ATTEND Podiatrist | DX: T86.821 Skin graft (allograft) (autograft) failure (principal); E11.621 Type 2 diabetes mellitus with foot ulcer; L97.521 Non-pressure chronic ulcer of other part of left foot limited to breakdown of skin; E11.52 Type 2 diabetes mellitus with diabetic peripheral angiopathy with gangrene; E11.40 Type 2 diabetes mellitus with diabetic neuropathy, unspecified; E66.01 Morbid (severe) obesity due to excess calories; E11.22 Type 2 diabetes mellitus with diabetic chronic kidney disease; I12.0 Hypertensive chronic kidney disease with stage 5 chronic kidney disease or end stage renal disease; N18.6 End stage renal disease; E11.69 Type 2 diabetes mellitus with other specified complication; M86.8X8 Other osteomyelitis, other site; Z68.33 Body mass index [BMI] 33.0-33.9, adult; Z99.2 Dependence on renal dialysis; Z87.891 Personal history of nicotine dependence; Y83.2 Surgical operation with anastomosis, bypass or graft as the cause of abnormal reaction of the patient, or of later complication, without mention of misadventure at the time of the procedure | CPT/HCPCS: 82962; G0277; 99183 ==

== ENCOUNTER 2017-03-12 08:00 | Outpatient (CLI) | payer MEDICARE | END 2017-03-12 08:01 | disposition home or self-care (01) | LOC: WOUND 08:00 | PROVIDERS: ATTEND Surgery | DX: T86.821 Skin graft (allograft) (autograft) failure (principal); E11.621 Type 2 diabetes mellitus with foot ulcer; L97.521 Non-pressure chronic ulcer of other part of left foot limited to breakdown of skin; E11.52 Type 2 diabetes mellitus with diabetic peripheral angiopathy with gangrene; E11.22 Type 2 diabetes mellitus with diabetic chronic kidney disease; I12.0 Hypertensive chronic kidney disease with stage 5 chronic kidney disease or end stage renal disease; N18.6 End stage renal disease; E11.40 Type 2 diabetes mellitus with diabetic neuropathy, unspecified; E66.01 Morbid (severe) obesity due to excess calories; E11.69 Type 2 diabetes mellitus with other specified complication; M86.8X8 Other osteomyelitis, other site; Z68.33 Body mass index [BMI] 33.0-33.9, adult; Z99.2 Dependence on renal dialysis; Z87.891 Personal history of nicotine dependence; Y83.2 Surgical operation with anastomosis, bypass or graft as the cause of abnormal reaction of the patient, or of later complication, without mention of misadventure at the time of the procedure | CPT/HCPCS: 82962; G0277; 99183 ==

== ENCOUNTER 2017-03-14 08:01 | Outpatient (CLI) | payer MEDICARE | END 2017-03-14 08:02 | disposition home or self-care (01) | LOC: WOUND 08:01 | PROVIDERS: ATTEND Nurse Practitioner | DX: T86.821 Skin graft (allograft) (autograft) failure (principal); E11.621 Type 2 diabetes mellitus with foot ulcer; L97.521 Non-pressure chronic ulcer of other part of left foot limited to breakdown of skin; E11.52 Type 2 diabetes mellitus with diabetic peripheral angiopathy with gangrene; E11.40 Type 2 diabetes mellitus with diabetic neuropathy, unspecified; E66.01 Morbid (severe) obesity due to excess calories; E11.22 Type 2 diabetes mellitus with diabetic chronic kidney disease; I12.0 Hypertensive chronic kidney disease with stage 5 chronic kidney disease or end stage renal disease; N18.6 End stage renal disease; E11.69 Type 2 diabetes mellitus with other specified complication; M86.8X8 Other osteomyelitis, other site; Z99.2 Dependence on renal dialysis; Z68.33 Body mass index [BMI] 33.0-33.9, adult; Z87.891 Personal history of nicotine dependence; Y83.2 Surgical operation with anastomosis, bypass or graft as the cause of abnormal reaction of the patient, or of later complication, without mention of misadventure at the time of the procedure | CPT/HCPCS: 82962; G0277; 99183 ==

== ENCOUNTER 2017-03-15 08:22 | Outpatient (CLI) | payer MEDICARE | END 2017-03-15 08:23 | disposition home or self-care (01) | LOC: WOUND 08:22 | PROVIDERS: ATTEND Podiatrist | DX: T86.821 Skin graft (allograft) (autograft) failure (principal); E11.621 Type 2 diabetes mellitus with foot ulcer; L97.521 Non-pressure chronic ulcer of other part of left foot limited to breakdown of skin; E11.52 Type 2 diabetes mellitus with diabetic peripheral angiopathy with gangrene; E11.40 Type 2 diabetes mellitus with diabetic neuropathy, unspecified; E66.01 Morbid (severe) obesity due to excess calories; E11.22 Type 2 diabetes mellitus with diabetic chronic kidney disease; I12.0 Hypertensive chronic kidney disease with stage 5 chronic kidney disease or end stage renal disease; N18.6 End stage renal disease; Z99.2 Dependence on renal dialysis; Z68.33 Body mass index [BMI] 33.0-33.9, adult; E11.69 Type 2 diabetes mellitus with other specified complication; M86.8X8 Other osteomyelitis, other site; Z87.891 Personal history of nicotine dependence; Y83.2 Surgical operation with anastomosis, bypass or graft as the cause of abnormal reaction of the patient, or of later complication, without mention of misadventure at the time of the procedure | CPT/HCPCS: 82962; G0277; 99183 ==

== ENCOUNTER 2017-03-18 08:40 | Outpatient (CLI) | payer MEDICARE ==
[2017-03-18] MEDS ORDERED: DAKIN'S FULL STRENGTH ONE (11:40)
[2017-03-18] MEDS ORDERED: DAKIN'S HALF STRENGTH TP PRN (16:29)
[2017-03-18] MEDS ORDERED: DAKIN'S FULL STRENGTH IR ONE (17:00)
== END 2017-03-18 08:41 | disposition home or self-care (01) ==
LOC: WOUND 08:40
PROVIDERS: ATTEND Internal Medicine
DX: T86.821 Skin graft (allograft) (autograft) failure (principal); E11.621 Type 2 diabetes mellitus with foot ulcer; L97.521 Non-pressure chronic ulcer of other part of left foot limited to breakdown of skin; E11.52 Type 2 diabetes mellitus with diabetic peripheral angiopathy with gangrene; E11.40 Type 2 diabetes mellitus with diabetic neuropathy, unspecified; E66.01 Morbid (severe) obesity due to excess calories; Z68.33 Body mass index [BMI] 33.0-33.9, adult; E11.22 Type 2 diabetes mellitus with diabetic chronic kidney disease; I12.0 Hypertensive chronic kidney disease with stage 5 chronic kidney disease or end stage renal disease; N18.6 End stage renal disease; Z99.2 Dependence on renal dialysis; E11.69 Type 2 diabetes mellitus with other specified complication; M86.8X8 Other osteomyelitis, other site; E11.39 Type 2 diabetes mellitus with other diabetic ophthalmic complication; H40.89 Other specified glaucoma; Z87.891 Personal history of nicotine dependence; Y83.2 Surgical operation with anastomosis, bypass or graft as the cause of abnormal reaction of the patient, or of later complication, without mention of misadventure at the time of the procedure
CPT/HCPCS: 11043; 11046; 82962; G0277; 99183

== ENCOUNTER 2017-03-19 07:53 | Outpatient (CLI) | payer MEDICARE | END 2017-03-19 07:54 | disposition home or self-care (01) | LOC: WOUND 07:53 | PROVIDERS: ATTEND Surgery | DX: T86.821 Skin graft (allograft) (autograft) failure (principal); E11.621 Type 2 diabetes mellitus with foot ulcer; L97.521 Non-pressure chronic ulcer of other part of left foot limited to breakdown of skin; E11.52 Type 2 diabetes mellitus with diabetic peripheral angiopathy with gangrene; E11.40 Type 2 diabetes mellitus with diabetic neuropathy, unspecified; E66.01 Morbid (severe) obesity due to excess calories; Z68.33 Body mass index [BMI] 33.0-33.9, adult; E11.22 Type 2 diabetes mellitus with diabetic chronic kidney disease; I12.0 Hypertensive chronic kidney disease with stage 5 chronic kidney disease or end stage renal disease; N18.6 End stage renal disease; Z99.2 Dependence on renal dialysis; E11.69 Type 2 diabetes mellitus with other specified complication; M86.8X8 Other osteomyelitis, other site; Z87.891 Personal history of nicotine dependence; Y83.2 Surgical operation with anastomosis, bypass or graft as the cause of abnormal reaction of the patient, or of later complication, without mention of misadventure at the time of the procedure | CPT/HCPCS: 82962; G0277; 99183 ==

== ENCOUNTER 2017-03-21 08:09 | Outpatient (CLI) | payer MEDICARE | END 2017-03-21 08:10 | disposition home or self-care (01) | LOC: WOUND 08:09 | PROVIDERS: ATTEND Nurse Practitioner | DX: T86.821 Skin graft (allograft) (autograft) failure (principal); E11.40 Type 2 diabetes mellitus with diabetic neuropathy, unspecified; E11.52 Type 2 diabetes mellitus with diabetic peripheral angiopathy with gangrene; E11.621 Type 2 diabetes mellitus with foot ulcer; L97.521 Non-pressure chronic ulcer of other part of left foot limited to breakdown of skin; E66.01 Morbid (severe) obesity due to excess calories; E11.22 Type 2 diabetes mellitus with diabetic chronic kidney disease; I12.0 Hypertensive chronic kidney disease with stage 5 chronic kidney disease or end stage renal disease; N18.6 End stage renal disease; Z99.2 Dependence on renal dialysis; E11.69 Type 2 diabetes mellitus with other specified complication; M86.8X8 Other osteomyelitis, other site; Z87.891 Personal history of nicotine dependence; Z68.33 Body mass index [BMI] 33.0-33.9, adult; Y83.2 Surgical operation with anastomosis, bypass or graft as the cause of abnormal reaction of the patient, or of later complication, without mention of misadventure at the time of the procedure | CPT/HCPCS: 82962; G0277; 99183 ==

== ENCOUNTER 2017-03-22 07:54 | Outpatient (CLI) | payer MEDICARE | END 2017-03-22 07:55 | disposition home or self-care (01) | LOC: WOUND 07:54 | PROVIDERS: ATTEND Podiatrist | DX: T86.821 Skin graft (allograft) (autograft) failure (principal); E11.621 Type 2 diabetes mellitus with foot ulcer; L97.521 Non-pressure chronic ulcer of other part of left foot limited to breakdown of skin; E11.52 Type 2 diabetes mellitus with diabetic peripheral angiopathy with gangrene; E11.22 Type 2 diabetes mellitus with diabetic chronic kidney disease; I12.0 Hypertensive chronic kidney disease with stage 5 chronic kidney disease or end stage renal disease; N18.6 End stage renal disease; E11.40 Type 2 diabetes mellitus with diabetic neuropathy, unspecified; E66.01 Morbid (severe) obesity due to excess calories; M86.8X8 Other osteomyelitis, other site; E11.69 Type 2 diabetes mellitus with other specified complication; Z68.33 Body mass index [BMI] 33.0-33.9, adult; Z99.2 Dependence on renal dialysis; Z87.891 Personal history of nicotine dependence; Y83.2 Surgical operation with anastomosis, bypass or graft as the cause of abnormal reaction of the patient, or of later complication, without mention of misadventure at the time of the procedure | CPT/HCPCS: G0277 ×2; 82962; 99183 ==

== ENCOUNTER 2017-03-26 07:53 | Outpatient (CLI) | payer MEDICARE | END 2017-03-26 07:54 | disposition home or self-care (01) | LOC: WOUND 07:53 | PROVIDERS: ATTEND Surgery | DX: T86.821 Skin graft (allograft) (autograft) failure (principal); E11.621 Type 2 diabetes mellitus with foot ulcer; L97.521 Non-pressure chronic ulcer of other part of left foot limited to breakdown of skin; E11.52 Type 2 diabetes mellitus with diabetic peripheral angiopathy with gangrene; E11.40 Type 2 diabetes mellitus with diabetic neuropathy, unspecified; E66.01 Morbid (severe) obesity due to excess calories; Z68.33 Body mass index [BMI] 33.0-33.9, adult; E11.22 Type 2 diabetes mellitus with diabetic chronic kidney disease; I12.0 Hypertensive chronic kidney disease with stage 5 chronic kidney disease or end stage renal disease; N18.6 End stage renal disease; Z99.2 Dependence on renal dialysis; Z87.891 Personal history of nicotine dependence; Y83.2 Surgical operation with anastomosis, bypass or graft as the cause of abnormal reaction of the patient, or of later complication, without mention of misadventure at the time of the procedure | CPT/HCPCS: 82962; G0277; 99183 ==

== ENCOUNTER 2017-03-27 08:05 | Outpatient (CLI) | payer MEDICARE ==
[2017-03-27] MEDS ORDERED: XYLOCAINE TOPICAL 4% TP ONE (11:32)
== END 2017-03-27 08:06 | disposition home or self-care (01) ==
LOC: WOUND 08:05
PROVIDERS: ATTEND Internal Medicine
DX: T86.821 Skin graft (allograft) (autograft) failure (principal); E11.621 Type 2 diabetes mellitus with foot ulcer; L97.521 Non-pressure chronic ulcer of other part of left foot limited to breakdown of skin; E11.52 Type 2 diabetes mellitus with diabetic peripheral angiopathy with gangrene; E11.40 Type 2 diabetes mellitus with diabetic neuropathy, unspecified; E66.01 Morbid (severe) obesity due to excess calories; E11.22 Type 2 diabetes mellitus with diabetic chronic kidney disease; I13.2 Hypertensive heart and chronic kidney disease with heart failure and with stage 5 chronic kidney disease, or end stage renal disease; I50.9 Heart failure, unspecified; N18.6 End stage renal disease; E11.69 Type 2 diabetes mellitus with other specified complication; M86.8X8 Other osteomyelitis, other site; Z99.2 Dependence on renal dialysis; Z68.33 Body mass index [BMI] 33.0-33.9, adult; Z87.891 Personal history of nicotine dependence; Y83.2 Surgical operation with anastomosis, bypass or graft as the cause of abnormal reaction of the patient, or of later complication, without mention of misadventure at the time of the procedure
CPT/HCPCS: 11042; 11045; 82962; G0277; 99183

== ENCOUNTER 2017-03-28 07:55 | Outpatient (CLI) | payer MEDICARE | END 2017-03-28 07:56 | disposition home or self-care (01) | LOC: WOUND 07:55 | PROVIDERS: ATTEND Nurse Practitioner | DX: T86.821 Skin graft (allograft) (autograft) failure (principal); E11.621 Type 2 diabetes mellitus with foot ulcer; L97.521 Non-pressure chronic ulcer of other part of left foot limited to breakdown of skin; E11.52 Type 2 diabetes mellitus with diabetic peripheral angiopathy with gangrene; E11.40 Type 2 diabetes mellitus with diabetic neuropathy, unspecified; E66.01 Morbid (severe) obesity due to excess calories; E11.22 Type 2 diabetes mellitus with diabetic chronic kidney disease; I12.0 Hypertensive chronic kidney disease with stage 5 chronic kidney disease or end stage renal disease; N18.6 End stage renal disease; Z99.2 Dependence on renal dialysis; E11.69 Type 2 diabetes mellitus with other specified complication; M86.8X8 Other osteomyelitis, other site; Z68.33 Body mass index [BMI] 33.0-33.9, adult; Z87.891 Personal history of nicotine dependence; Y83.2 Surgical operation with anastomosis, bypass or graft as the cause of abnormal reaction of the patient, or of later complication, without mention of misadventure at the time of the procedure | CPT/HCPCS: 82962; G0277; 99183 ==

== ENCOUNTER 2017-03-29 07:53 | Outpatient (CLI) | payer MEDICARE | END 2017-03-29 07:54 | disposition home or self-care (01) | LOC: WOUND 07:53 | PROVIDERS: ATTEND Podiatrist | DX: T86.821 Skin graft (allograft) (autograft) failure (principal); E11.621 Type 2 diabetes mellitus with foot ulcer; L97.521 Non-pressure chronic ulcer of other part of left foot limited to breakdown of skin; E11.52 Type 2 diabetes mellitus with diabetic peripheral angiopathy with gangrene; E11.40 Type 2 diabetes mellitus with diabetic neuropathy, unspecified; E66.01 Morbid (severe) obesity due to excess calories; Z68.33 Body mass index [BMI] 33.0-33.9, adult; I10 Essential (primary) hypertension; E11.22 Type 2 diabetes mellitus with diabetic chronic kidney disease; I12.0 Hypertensive chronic kidney disease with stage 5 chronic kidney disease or end stage renal disease; N18.6 End stage renal disease; E11.69 Type 2 diabetes mellitus with other specified complication; M86.8X8 Other osteomyelitis, other site; Z99.2 Dependence on renal dialysis; Z87.891 Personal history of nicotine dependence; Y83.2 Surgical operation with anastomosis, bypass or graft as the cause of abnormal reaction of the patient, or of later complication, without mention of misadventure at the time of the procedure | CPT/HCPCS: 82962; G0277; 99183 ==

== ENCOUNTER 2017-04-02 07:53 | Outpatient (CLI) | payer MEDICARE | END 2017-04-02 07:54 | disposition home or self-care (01) | LOC: WOUND 07:53 | PROVIDERS: ATTEND Surgery | DX: T86.821 Skin graft (allograft) (autograft) failure (principal); E11.621 Type 2 diabetes mellitus with foot ulcer; L97.521 Non-pressure chronic ulcer of other part of left foot limited to breakdown of skin; E11.52 Type 2 diabetes mellitus with diabetic peripheral angiopathy with gangrene; E11.22 Type 2 diabetes mellitus with diabetic chronic kidney disease; I12.0 Hypertensive chronic kidney disease with stage 5 chronic kidney disease or end stage renal disease; N18.6 End stage renal disease; E11.40 Type 2 diabetes mellitus with diabetic neuropathy, unspecified; E66.01 Morbid (severe) obesity due to excess calories; E11.69 Type 2 diabetes mellitus with other specified complication; M86.8X8 Other osteomyelitis, other site; Z99.2 Dependence on renal dialysis; Z87.891 Personal history of nicotine dependence; Z68.33 Body mass index [BMI] 33.0-33.9, adult; Y83.2 Surgical operation with anastomosis, bypass or graft as the cause of abnormal reaction of the patient, or of later complication, without mention of misadventure at the time of the procedure | CPT/HCPCS: 82962; G0277; 99183 ==

== ENCOUNTER 2017-04-03 08:29 | Outpatient (CLI) | payer MEDICARE ==
[2017-04-03] MEDS ORDERED: XYLOCAINE TOPICAL 4% TP ONE (11:03)
[2017-04-03] MEDS ORDERED: SILVER NITRATE TP ONE ×2 (11:40→14:00)
== END 2017-04-03 08:30 | disposition home or self-care (01) ==
LOC: WOUND 08:29
PROVIDERS: ATTEND Surgery
DX: T86.821 Skin graft (allograft) (autograft) failure (principal); E11.621 Type 2 diabetes mellitus with foot ulcer; L97.521 Non-pressure chronic ulcer of other part of left foot limited to breakdown of skin; L97.511 Non-pressure chronic ulcer of other part of right foot limited to breakdown of skin; E11.52 Type 2 diabetes mellitus with diabetic peripheral angiopathy with gangrene; E11.40 Type 2 diabetes mellitus with diabetic neuropathy, unspecified; E11.69 Type 2 diabetes mellitus with other specified complication; M86.8X8 Other osteomyelitis, other site; I10 Essential (primary) hypertension; E66.01 Morbid (severe) obesity due to excess calories; Z99.2 Dependence on renal dialysis; Z68.33 Body mass index [BMI] 33.0-33.9, adult; Z87.891 Personal history of nicotine dependence; Y83.2 Surgical operation with anastomosis, bypass or graft as the cause of abnormal reaction of the patient, or of later complication, without mention of misadventure at the time of the procedure
CPT/HCPCS: 11042; 11045; 82962; G0277; 99183

== ENCOUNTER 2017-04-04 07:55 | Outpatient (CLI) | payer MEDICARE | END 2017-04-04 07:56 | disposition home or self-care (01) | LOC: WOUND 07:55 | PROVIDERS: ATTEND Nurse Practitioner | DX: T86.821 Skin graft (allograft) (autograft) failure (principal); E11.621 Type 2 diabetes mellitus with foot ulcer; L97.521 Non-pressure chronic ulcer of other part of left foot limited to breakdown of skin; E11.52 Type 2 diabetes mellitus with diabetic peripheral angiopathy with gangrene; E11.40 Type 2 diabetes mellitus with diabetic neuropathy, unspecified; E66.01 Morbid (severe) obesity due to excess calories; E11.22 Type 2 diabetes mellitus with diabetic chronic kidney disease; I12.0 Hypertensive chronic kidney disease with stage 5 chronic kidney disease or end stage renal disease; N18.6 End stage renal disease; E11.69 Type 2 diabetes mellitus with other specified complication; M86.8X8 Other osteomyelitis, other site; Z68.33 Body mass index [BMI] 33.0-33.9, adult; Z99.2 Dependence on renal dialysis; Z87.891 Personal history of nicotine dependence; Y83.2 Surgical operation with anastomosis, bypass or graft as the cause of abnormal reaction of the patient, or of later complication, without mention of misadventure at the time of the procedure | CPT/HCPCS: 82962; G0277; 99183 ==

== ENCOUNTER 2017-04-05 07:54 | Outpatient (CLI) | payer MEDICARE ==
[~2017-04-05 07:54] MED LIST changes: +NACL ONE; -XYLOCAINE TOPICAL 4% TP ONE
== END 2017-04-05 07:55 | disposition home or self-care (01) ==
LOC: WOUND 07:54
PROVIDERS: ATTEND Podiatrist
DX: T86.821 Skin graft (allograft) (autograft) failure (principal); E11.621 Type 2 diabetes mellitus with foot ulcer; L97.521 Non-pressure chronic ulcer of other part of left foot limited to breakdown of skin; E11.52 Type 2 diabetes mellitus with diabetic peripheral angiopathy with gangrene; E11.40 Type 2 diabetes mellitus with diabetic neuropathy, unspecified; E66.01 Morbid (severe) obesity due to excess calories; Z68.33 Body mass index [BMI] 33.0-33.9, adult; E11.22 Type 2 diabetes mellitus with diabetic chronic kidney disease; I12.0 Hypertensive chronic kidney disease with stage 5 chronic kidney disease or end stage renal disease; N18.6 End stage renal disease; E11.69 Type 2 diabetes mellitus with other specified complication; M86.8X8 Other osteomyelitis, other site; Z87.891 Personal history of nicotine dependence; Z99.2 Dependence on renal dialysis; Y83.2 Surgical operation with anastomosis, bypass or graft as the cause of abnormal reaction of the patient, or of later complication, without mention of misadventure at the time of the procedure
CPT/HCPCS: 82962; G0277; 99183

== ENCOUNTER 2017-04-08 08:00 | Outpatient (CLI) | payer MEDICARE | END 2017-04-08 08:01 | disposition home or self-care (01) | LOC: WOUND 08:00 | PROVIDERS: ATTEND Internal Medicine | DX: T86.821 Skin graft (allograft) (autograft) failure (principal); E11.621 Type 2 diabetes mellitus with foot ulcer; L97.521 Non-pressure chronic ulcer of other part of left foot limited to breakdown of skin; E11.52 Type 2 diabetes mellitus with diabetic peripheral angiopathy with gangrene; E11.40 Type 2 diabetes mellitus with diabetic neuropathy, unspecified; E66.01 Morbid (severe) obesity due to excess calories; Z68.33 Body mass index [BMI] 33.0-33.9, adult; E11.22 Type 2 diabetes mellitus with diabetic chronic kidney disease; I12.0 Hypertensive chronic kidney disease with stage 5 chronic kidney disease or end stage renal disease; N18.6 End stage renal disease; E11.69 Type 2 diabetes mellitus with other specified complication; M86.8X8 Other osteomyelitis, other site; Z87.891 Personal history of nicotine dependence; Z99.2 Dependence on renal dialysis; Y83.2 Surgical operation with anastomosis, bypass or graft as the cause of abnormal reaction of the patient, or of later complication, without mention of misadventure at the time of the procedure | CPT/HCPCS: 82962; G0277; 99183 ==

== ENCOUNTER 2017-04-09 08:07 | Outpatient (CLI) | payer MEDICARE | END 2017-04-09 08:08 | disposition home or self-care (01) | LOC: WOUND 08:07 | PROVIDERS: ATTEND Surgery | DX: T86.821 Skin graft (allograft) (autograft) failure (principal); E11.52 Type 2 diabetes mellitus with diabetic peripheral angiopathy with gangrene; E11.621 Type 2 diabetes mellitus with foot ulcer; L97.521 Non-pressure chronic ulcer of other part of left foot limited to breakdown of skin; E11.22 Type 2 diabetes mellitus with diabetic chronic kidney disease; I12.0 Hypertensive chronic kidney disease with stage 5 chronic kidney disease or end stage renal disease; N18.6 End stage renal disease; E11.40 Type 2 diabetes mellitus with diabetic neuropathy, unspecified; E66.01 Morbid (severe) obesity due to excess calories; E11.69 Type 2 diabetes mellitus with other specified complication; M86.8X8 Other osteomyelitis, other site; Z99.2 Dependence on renal dialysis; Z87.891 Personal history of nicotine dependence; Z68.33 Body mass index [BMI] 33.0-33.9, adult; Y83.2 Surgical operation with anastomosis, bypass or graft as the cause of abnormal reaction of the patient, or of later complication, without mention of misadventure at the time of the procedure | CPT/HCPCS: 82962; G0277; 99183 ==

== ENCOUNTER 2017-04-10 08:01 | Outpatient (CLI) | payer MEDICARE ==
[2017-04-10] MEDS ORDERED: XYLOCAINE TOPICAL 4% TP ONE (10:44)
[2017-04-10] MEDS ORDERED: SILVER NITRATE TP ONE ×2 (11:09→11:15)
== END 2017-04-10 08:02 | disposition home or self-care (01) ==
LOC: WOUND 08:01
PROVIDERS: ATTEND Surgery
DX: T86.821 Skin graft (allograft) (autograft) failure (principal); E11.621 Type 2 diabetes mellitus with foot ulcer; L97.521 Non-pressure chronic ulcer of other part of left foot limited to breakdown of skin; L97.511 Non-pressure chronic ulcer of other part of right foot limited to breakdown of skin; E11.52 Type 2 diabetes mellitus with diabetic peripheral angiopathy with gangrene; E11.40 Type 2 diabetes mellitus with diabetic neuropathy, unspecified; E66.01 Morbid (severe) obesity due to excess calories; E11.22 Type 2 diabetes mellitus with diabetic chronic kidney disease; I12.0 Hypertensive chronic kidney disease with stage 5 chronic kidney disease or end stage renal disease; N18.6 End stage renal disease; E11.69 Type 2 diabetes mellitus with other specified complication; M86.8X8 Other osteomyelitis, other site; Z68.33 Body mass index [BMI] 33.0-33.9, adult; Z99.2 Dependence on renal dialysis; Z87.891 Personal history of nicotine dependence; Y83.2 Surgical operation with anastomosis, bypass or graft as the cause of abnormal reaction of the patient, or of later complication, without mention of misadventure at the time of the procedure
CPT/HCPCS: 11042; 11045; 82962; G0277; 99183

== ENCOUNTER 2017-04-11 07:53 | Outpatient (CLI) | payer MEDICARE | END 2017-04-11 07:54 | disposition home or self-care (01) | LOC: WOUND 07:53 | PROVIDERS: ATTEND Nurse Practitioner | DX: T86.821 Skin graft (allograft) (autograft) failure (principal); E11.621 Type 2 diabetes mellitus with foot ulcer; L97.521 Non-pressure chronic ulcer of other part of left foot limited to breakdown of skin; E11.52 Type 2 diabetes mellitus with diabetic peripheral angiopathy with gangrene; E11.40 Type 2 diabetes mellitus with diabetic neuropathy, unspecified; E66.01 Morbid (severe) obesity due to excess calories; E11.22 Type 2 diabetes mellitus with diabetic chronic kidney disease; I12.0 Hypertensive chronic kidney disease with stage 5 chronic kidney disease or end stage renal disease; N18.6 End stage renal disease; E11.69 Type 2 diabetes mellitus with other specified complication; M86.8X8 Other osteomyelitis, other site; Z68.33 Body mass index [BMI] 33.0-33.9, adult; Z99.2 Dependence on renal dialysis; Z87.891 Personal history of nicotine dependence; Y83.2 Surgical operation with anastomosis, bypass or graft as the cause of abnormal reaction of the patient, or of later complication, without mention of misadventure at the time of the procedure | CPT/HCPCS: 82962; G0277; 99183 ==

== ENCOUNTER 2017-04-12 08:20 | Outpatient (CLI) | payer MEDICARE | END 2017-04-15 08:21 | disposition home or self-care (01) | LOC: WOUND 08:20 | PROVIDERS: ATTEND Internal Medicine | DX: T86.821 Skin graft (allograft) (autograft) failure (principal); E11.621 Type 2 diabetes mellitus with foot ulcer; L97.521 Non-pressure chronic ulcer of other part of left foot limited to breakdown of skin; E11.52 Type 2 diabetes mellitus with diabetic peripheral angiopathy with gangrene; E11.40 Type 2 diabetes mellitus with diabetic neuropathy, unspecified; E66.01 Morbid (severe) obesity due to excess calories; Z68.33 Body mass index [BMI] 33.0-33.9, adult; E11.22 Type 2 diabetes mellitus with diabetic chronic kidney disease; I12.0 Hypertensive chronic kidney disease with stage 5 chronic kidney disease or end stage renal disease; N18.6 End stage renal disease; M86.8X8 Other osteomyelitis, other site; Z87.891 Personal history of nicotine dependence; Z99.2 Dependence on renal dialysis; Y83.2 Surgical operation with anastomosis, bypass or graft as the cause of abnormal reaction of the patient, or of later complication, without mention of misadventure at the time of the procedure | CPT/HCPCS: 82962; G0277; 99183 ==

== ENCOUNTER 2017-04-14 07:53 | Emergency (ER) | payer MEDICARE ==
[2017-04-14 08:55] LABS: BUN/Creatinine Ratio 4.28; Calcium 8.4 mg/dL (8.4-10.2); Chloride 96.8 mmol/L (98-107); Potassium 4.4 mmol/L (3.6-5.0)
[2017-04-14 09:09] LABS: Hematocrit 39.9 % (35.5-45.6); Hemoglobin 12.8 gm/dl (11.8-15.2); Mean Corpuscular HGB Conc 32 % (32-34); Mean Corpuscular Hemoglobin 27 pg (28-32); Mean Corpuscular Volume 83 fl (84-94); Red Blood Count 4.81 M/mm3 (3.65-5.03); Red Cell Distribution Width 17.1 % (13.2-15.2); White Blood Count 8.9 K/mm3 (4.5-11.0)
[2017-04-14 10:11] LABS: Anisocytosis 1+; Basophils % (Manual) 0 % (0.0-1.8); Blastocytes % (Manual) 0 %; Poikilocytosis 1+
[2017-04-14 10:12] LABS: Diff Status Complete; Hypochromasia 1+; Microcytosis 1+; Platelet Count 149 K/mm3 (140-440); Stomatocytes 1+; Target Cells 1+; Tear Drop Cells 1+
[2017-04-14] MEDS ORDERED: ZOFRAN ODT ONE (12:18)
[2017-04-14] MEDS ORDERED: ZOFRAN ODT PO ONE (12:21)
--- NOTE | 2017-04-14 12:29 | Emergency Department Report ---
ED General Adult HPI - General Chief complaint: Nausea/Vomiting/Diarrhea Stated complaint: NAUSEA/VOMITING Time Seen by Provider: 04/14/17 11:33 Source: patient Mode of arrival: Ambulatory Limitations: No Limitations - History of Present Illness Initial comments: Patient states that he "did well with dialysis yesterday". Last night he developed some diarrhea. He has some nausea. He is not vomiting today. His diarrhea has subsided. He thought he should get this checked out so he came to the emergency department. He denies any fever or chills. He has residual nausea but has not vomited for several hours. He states he has not eaten today. Has been no signs of GI bleeding. He does not complain of abdominal pain. -: hour(s) Improves with: none Worsens with: none Associated Symptoms: denies other symptoms Treatments Prior to Arrival: none - Related Data Home Medications Medication Instructions Recorded Confirmed Last Taken Calcium Acetate 2 tab PO TIDWM 10/30/13 11/26/16 12/14/13 Metoprolol [Lopressor TAB] 50 mg PO BID 10/30/13 11/14/15 12/14/13 Brimonidine Tartrate [Brimonidine 1 drop OU BID 12/12/14 11/14/15 Unknown Tartrate 0.2%] Dorzolamide HCl/Timolol Maleat 10 ml OP BID 12/12/14 11/26/16 Unknown [Dorzolamide-Timolol Eye Drops] Latanoprost 0.005% [Xalatan 0.005%] 1 drop OP QPM 12/12/14 11/26/16 Unknown Previous Rx's Medication Instructions Recorded Last Taken Type Brimonidine Tartrate [Brimonidine 1 drop OU BID 11/17/15 Unknown Rx Tartrate 0.2%] Calcium Acetate [Phoslo] 1,334 mg PO TIDWM capsule 11/17/15 Unknown Rx Dorzolamide/Timolol(Nf) 2-0.5% 1 drops OU BID bottle 11/17/15 Unknown Rx [Cosopt (Nf)] Latanoprost 0.005% [Xalatan 0.005%] 1 drops OU QPM bottle 11/17/15 Unknown Rx Pantoprazole [Protonix TAB] 40 mg PO DAILY tablet 11/17/15 Unknown Rx amLODIPine [Norvasc] 10 mg PO DAILY tablet 11/17/15 Unknown Rx SILVER sulfADIAZINE 50 GRAM 1 applic TP QDAY #1 tube 03/10/16 Unknown Rx [Thermazene 50 Gram] Acetaminophen [Acetaminophen TAB] 500 mg PO Q6HR PRN #25 tablet 11/18/16 Unknown Rx Clopidogrel [Plavix] 75 mg PO QDAY #30 tablet 12/07/16 Unknown Rx Insulin NPH/Regular [NovoLIN 70/30] 18 unit SUB-Q BIDDIAB 30 Days 12/07/16 Unknown Rx Polyethylene Glycol 3350 [Miralax 17 gm PO QDAY PRN 15 Days 12/07/16 Unknown Rx 3350] metroNIDAZOLE [Flagyl] 500 mg PO Q8HR 42 Days 12/07/16 Unknown Rx oxyCODONE /ACETAMINOPHEN [Percocet 2 tab PO Q6H PRN #20 tablet 12/07/16 Unknown Rx 5/325 mg] Ondansetron [Zofran Odt] 4 mg PO Q6H #7 tab.rapdis 04/14/17 Unknown Rx Allergies Allergy/AdvReac Type Severity Reaction Status Date / Time IV CONTRAST DYE AdvReac Nausea Uncoded 03/05/16 12:34 ED Review of Systems ROS: Stated complaint: NAUSEA/VOMITING Other details as noted in HPI Constitutional: denies: chills, fever Eyes: denies: eye pain, eye discharge, vision change ENT: denies: ear pain, throat pain Respiratory: denies: cough, shortness of breath, wheezing Cardiovascular: denies: chest pain, palpitations Endocrine: no symptoms reported Gastrointestinal: nausea, vomiting, diarrhea. denies: abdominal pain Genitourinary: denies: urgency, dysuria Musculoskeletal: denies: back pain, joint swelling, arthralgia Skin: denies: rash, lesions Neurological: denies: headache, weakness, paresthesias Psychiatric: denies: anxiety, depression Hematological/Lymphatic: denies: easy bleeding, easy bruising ED Past Medical Hx - Past Medical History Previous Medical History?: Yes Hx Hypertension: Yes Hx CVA: No Hx Heart Attack/AMI: No Hx Congestive Heart Failure: No Hx Diabetes: Yes Hx Deep Vein Thrombosis: No Hx Pulmonary Embolism: No Hx GERD: No Hx Liver Disease: No Hx Renal Disease: Yes Hx Sickle Cell Disease: No Hx Arthritis: No Hx Headaches / Migraines: No Hx Seizures: No Hx Kidney Stones: No Hx Psychiatric Treatment: No Hx Asthma: No Hx COPD: No Hx Tuberculosis: No Hx Dementia: No Hx HIV: No Additional medical history: diaylsis- tues, thurs, sat. No prior gastrointestinal problems - Surgical History Past Surgical History?: Yes Hx Coronary Stent: No Hx Open Heart Surgery: No Hx Pacemaker: No Hx Internal Defibrillator: No Hx Cholecystectomy: No Hx Appendectomy: No Hx Breast Surgery: No Additional Surgical History: 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. No prior abdominal surgery - Social History Smoking Status: Never Smoker Substance Use Type: None - Medications Home Medications: Home Medications Medication Instructions Recorded Confirmed Last Taken Type Calcium Acetate 2 tab PO TIDWM 10/30/13 11/26/16 12/14/13 History Metoprolol [Lopressor TAB] 50 mg PO BID 10/30/13 11/14/15 12/14/13 History Brimonidine Tartrate [Brimonidine 1 drop OU BID 12/12/14 11/14/15 Unknown History Tartrate 0.2%] Dorzolamide HCl/Timolol Maleat 10 ml OP BID 12/12/14 11/26/16 Unknown History [Dorzolamide-Timolol Eye Drops] Latanoprost 0.005% [Xalatan 0.005%] 1 drop OP QPM 12/12/14 11/26/16 Unknown History Brimonidine Tartrate [Brimonidine 1 drop OU BID 11/17/15 Unknown Rx Tartrate 0.2%] Calcium Acetate [Phoslo] 1,334 mg PO TIDWM capsule 11/17/15 11/26/16 Unknown Rx Dorzolamide/Timolol(Nf) 2-0.5% 1 drops OU BID bottle 11/17/15 Unknown Rx [Cosopt (Nf)] Latanoprost 0.005% [Xalatan 0.005%] 1 drops OU QPM bottle 11/17/15 Unknown Rx Pantoprazole [Protonix TAB] 40 mg PO DAILY tablet 11/17/15 Unknown Rx amLODIPine [Norvasc] 10 mg PO DAILY tablet 11/17/15 11/26/16 Unknown Rx SILVER sulfADIAZINE 50 GRAM 1 applic TP QDAY #1 tube 03/10/16 Unknown Rx [Thermazene 50 Gram] Acetaminophen [Acetaminophen TAB] 500 mg PO Q6HR PRN #25 tablet 11/18/16 Unknown Rx Clopidogrel [Plavix] 75 mg PO QDAY #30 tablet 12/07/16 Unknown Rx Insulin NPH/Regular [NovoLIN 70/30] 18 unit SUB-Q BIDDIAB 30 Days 12/07/16 Unknown Rx Polyethylene Glycol 3350 [Miralax 17 gm PO QDAY PRN 15 Days 12/07/16 Unknown Rx 3350] metroNIDAZOLE [Flagyl] 500 mg PO Q8HR 42 Days 12/07/16 Unknown Rx oxyCODONE /ACETAMINOPHEN [Percocet 2 tab PO Q6H PRN #20 tablet 12/07/16 Unknown Rx 5/325 mg] Ondansetron [Zofran Odt] 4 mg PO Q6H #7 tab.rapdis 04/14/17 Unknown Rx ED Physical Exam - General Limitations: No Limitations General appearance: alert, in no apparent distress - Head Head exam: Present: atraumatic, normocephalic - Eye Eye exam: Present: normal appearance - ENT ENT exam: Present: mucous membranes moist - Neck Neck exam: Present: normal inspection - Respiratory Respiratory exam: Present: normal lung sounds bilaterally. Absent: respiratory distress - Cardiovascular Cardiovascular Exam: Present: regular rate, normal rhythm. Absent: systolic murmur, diastolic murmur, rubs, gallop - GI/Abdominal GI/Abdominal exam: Present: soft, normal bowel sounds. Absent: distended, tenderness, guarding, rebound, rigid - Rectal Rectal exam: Present: deferred - Extremities Exam Extremities exam: Present: normal inspection - Back Exam Back exam: Present: normal inspection - Neurological Exam Neurological exam: Present: alert, oriented X3, CN II-XII intact. Absent: motor sensory deficit - Psychiatric Psychiatric exam: Present: normal affect, normal mood - Skin Skin exam: Present: warm, dry, intact, normal color. Absent: rash ED Course Vital Signs 04/14/17 04/14/17 08:02 11:22 Temperature 98.4 F Pulse Rate 88 89 Respiratory 16 18 Rate Blood Pressure 130/66 Blood Pressure 137/75 [Left] O2 Sat by Pulse 100 100 Oximetry - Reevaluation(s) Reevaluation #1: Patient will be given Zofran and a trial of by mouth. If he is able to take this, he will be discharged. His presentation seems to be benign at this point consistent with a gastroenteritis. Follow-up is certainly recommended. 04/14/17 12:27 ED Medical Decision Making - Lab Data Result diagrams: 04/14/17 08:14 04/14/17 08:14 Laboratory Results - last 24 hr 04/14/17 04/14/17 08:14 08:14 WBC 8.9 RBC 4.81 Hgb 12.8 Hct 39.9 MCV 83 L MCH 27 L MCHC 32 RDW 17.1 H Plt Count 149 Lymph % (Auto) Sharepoint Analyst Miner % (Auto) Sharepoint Analyst Eos % (Auto) Sharepoint Analyst Baso % (Auto) Sharepoint Analyst Lymph # Sharepoint Analyst Miner # Sharepoint Analyst Eos # Sharepoint Analyst Baso # Sharepoint Analyst Add Manual Diff Complete Total Counted 100 Seg Neutrophils % Sharepoint Analyst Seg Neuts % (Manual) 54.0 Band Neutrophils % 0 Lymphocytes % (Manual) 9.0 L Reactive Lymphs % (Man) 0 Monocytes % (Manual) 9.0 H Eosinophils % (Manual) 28.0 H Basophils % (Manual) 0 Metamyelocytes % 0 Myelocytes % 0 Promyelocytes % 0 Blast Cells % 0 Nucleated RBC % Not Reportable Seg Neutrophils # Sharepoint Analyst Seg Neutrophils # Man 4.8 Band Neutrophils # 0.0 Lymphocytes # (Manual) 0.8 L Abs React Lymphs (Man) 0.0 Monocytes # (Manual) 0.8 Eosinophils # (Manual) 2.5 H Basophils # (Manual) 0.0 Metamyelocytes # 0.0 Myelocytes # 0.0 Promyelocytes # 0.0 Blast Cells # 0.0 WBC Morphology Not Reportable Hypersegmented Neuts Not Reportable Hyposegmented Neuts Not Reportable Hypogranular Neuts Not Reportable Smudge Cells Not Reportable Toxic Granulation Not Reportable Toxic Vacuolation Not Reportable Dohle Bodies Not Reportable Pelger-Huet Anomaly Not Reportable Vignesh Rods Not Reportable Platelet Estimate Appears normal Clumped Platelets Not Reportable Plt Clumps, EDTA Not Reportable Large Platelets Not Reportable Giant Platelets Not Reportable Platelet Satelliting Not Reportable Plt Morphology Comment Not Reportable RBC Morphology Not Reportable Dimorphic RBCs Not Reportable Polychromasia Not Reportable Hypochromasia 1+ Poikilocytosis 1+ Anisocytosis 1+ Microcytosis 1+ Macrocytosis Not Reportable Spherocytes Not Reportable Pappenheimer Bodies Not Reportable Sickle Cells Not Reportable Target Cells 1+ Tear Drop Cells 1+ Ovalocytes Not Reportable Stomatocytes 1+ Helmet Cells Not Reportable [place] Bodies Not Reportable [place] Rings Not Reportable [place] Cells Not Reportable Bite Cells Not Reportable Crenated Cell Not Reportable Elliptocytes Not Reportable Acanthocytes (Spur) Not Reportable Rouleaux Not Reportable Hemoglobin C Crystals Not Reportable Schistocytes Not Reportable Malaria parasites Not Reportable Seth Bodies Not Reportable Hem Pathologist Commnt No Sodium 136 L Potassium 4.4 Chloride 96.8 L Carbon Dioxide 24 Anion Gap 20 BUN 30 H Creatinine 7.0 H Estimated GFR 10 BUN/Creatinine Ratio 4.28 Glucose 105 H Calcium 8.4 Critical care attestation.: If time is entered above; I have spent that time in minutes in the direct care of this critically ill patient, excluding procedure time. ED Disposition Clinical Impression: Gastroenteritis, ESRD (end stage renal disease) Disposition: TO HOME OR SELFCARE Is pt being admited?: No Does the pt Need Aspirin: No Condition: Stable Instructions: Gastrointestinal Bleeding (ED) Additional Instructions: Fluids and advance as tolerated. Return any acute change vomiting abdominal pain or fever. Otherwise follow-up with your clerical dentist assistant. Prescriptions: Ondansetron [Zofran Odt] 4 mg PO Q6H #7 tab.rapdis Referrals: PRIMARY CARE, [Primary Care Provider] - 3-5 Days Time of Disposition: 01:00
[2017-04-14 19:15] VITALS: BP 125/85
== END 2017-04-14 13:30 | disposition home or self-care (01) ==
LOC: ED 07:53
DX: K52.9 Noninfective gastroenteritis and colitis, unspecified (principal); E11.22 Type 2 diabetes mellitus with diabetic chronic kidney disease; I12.0 Hypertensive chronic kidney disease with stage 5 chronic kidney disease or end stage renal disease; N18.6 End stage renal disease; Z99.2 Dependence on renal dialysis; Z88.8 Allergy status to other drugs, medicaments and biological substances
CPT/HCPCS: 36415; 80048; 82962; 85007; 85025; 99283; Q0162

== ENCOUNTER 2017-04-15 08:00 | Outpatient (CLI) | payer MEDICARE | END 2017-04-15 08:01 | disposition home or self-care (01) | LOC: WOUND 08:00 | PROVIDERS: ATTEND Internal Medicine | DX: T86.821 Skin graft (allograft) (autograft) failure (principal); E11.621 Type 2 diabetes mellitus with foot ulcer; L97.521 Non-pressure chronic ulcer of other part of left foot limited to breakdown of skin; E11.22 Type 2 diabetes mellitus with diabetic chronic kidney disease; I12.0 Hypertensive chronic kidney disease with stage 5 chronic kidney disease or end stage renal disease; N18.6 End stage renal disease; E11.52 Type 2 diabetes mellitus with diabetic peripheral angiopathy with gangrene; E11.40 Type 2 diabetes mellitus with diabetic neuropathy, unspecified; E66.01 Morbid (severe) obesity due to excess calories; E11.69 Type 2 diabetes mellitus with other specified complication; M86.8X8 Other osteomyelitis, other site; Z68.33 Body mass index [BMI] 33.0-33.9, adult; Z87.891 Personal history of nicotine dependence; Z99.2 Dependence on renal dialysis; Y83.2 Surgical operation with anastomosis, bypass or graft as the cause of abnormal reaction of the patient, or of later complication, without mention of misadventure at the time of the procedure | CPT/HCPCS: G0277 ×2; 99183 ==

== ENCOUNTER 2017-04-17 08:14 | Outpatient (CLI) | payer MEDICARE ==
[2017-04-17] MEDS ORDERED: XYLOCAINE TOPICAL 4% TP ONE ×2 (12:02→12:13)
[2017-04-17] MEDS ORDERED: SILVER NITRATE TP ONE ×2 (12:25→12:31)
== END 2017-04-17 08:15 | disposition home or self-care (01) ==
LOC: WOUND 08:14
PROVIDERS: ATTEND Surgery
DX: T86.821 Skin graft (allograft) (autograft) failure (principal); E11.621 Type 2 diabetes mellitus with foot ulcer; L97.521 Non-pressure chronic ulcer of other part of left foot limited to breakdown of skin; L97.511 Non-pressure chronic ulcer of other part of right foot limited to breakdown of skin; E11.22 Type 2 diabetes mellitus with diabetic chronic kidney disease; I12.0 Hypertensive chronic kidney disease with stage 5 chronic kidney disease or end stage renal disease; N18.6 End stage renal disease; E11.40 Type 2 diabetes mellitus with diabetic neuropathy, unspecified; E11.52 Type 2 diabetes mellitus with diabetic peripheral angiopathy with gangrene; E11.69 Type 2 diabetes mellitus with other specified complication; M86.8X8 Other osteomyelitis, other site; E66.01 Morbid (severe) obesity due to excess calories; Z68.33 Body mass index [BMI] 33.0-33.9, adult; Z99.2 Dependence on renal dialysis; Z87.891 Personal history of nicotine dependence; Y83.2 Surgical operation with anastomosis, bypass or graft as the cause of abnormal reaction of the patient, or of later complication, without mention of misadventure at the time of the procedure
CPT/HCPCS: 11042; 11045; 82962; G0277; 99183

== ENCOUNTER 2017-04-18 08:03 | Outpatient (CLI) | payer MEDICARE | END 2017-04-18 08:04 | disposition home or self-care (01) | LOC: WOUND 08:03 | PROVIDERS: ATTEND Nurse Practitioner | DX: T86.821 Skin graft (allograft) (autograft) failure (principal); E11.621 Type 2 diabetes mellitus with foot ulcer; L97.521 Non-pressure chronic ulcer of other part of left foot limited to breakdown of skin; E11.52 Type 2 diabetes mellitus with diabetic peripheral angiopathy with gangrene; E11.40 Type 2 diabetes mellitus with diabetic neuropathy, unspecified; E11.22 Type 2 diabetes mellitus with diabetic chronic kidney disease; I12.0 Hypertensive chronic kidney disease with stage 5 chronic kidney disease or end stage renal disease; N18.6 End stage renal disease; E66.01 Morbid (severe) obesity due to excess calories; E11.69 Type 2 diabetes mellitus with other specified complication; M86.8X8 Other osteomyelitis, other site; Z99.2 Dependence on renal dialysis; Z68.33 Body mass index [BMI] 33.0-33.9, adult; Z87.891 Personal history of nicotine dependence; Y83.2 Surgical operation with anastomosis, bypass or graft as the cause of abnormal reaction of the patient, or of later complication, without mention of misadventure at the time of the procedure | CPT/HCPCS: 82962; G0277; 99183 ==

== ENCOUNTER 2017-04-19 07:57 | Outpatient (CLI) | payer MEDICARE | END 2017-04-19 07:58 | disposition home or self-care (01) | LOC: WOUND 07:57 | PROVIDERS: ATTEND Podiatrist | DX: T86.821 Skin graft (allograft) (autograft) failure (principal); E11.621 Type 2 diabetes mellitus with foot ulcer; L97.521 Non-pressure chronic ulcer of other part of left foot limited to breakdown of skin; E11.52 Type 2 diabetes mellitus with diabetic peripheral angiopathy with gangrene; E11.40 Type 2 diabetes mellitus with diabetic neuropathy, unspecified; E66.01 Morbid (severe) obesity due to excess calories; E11.22 Type 2 diabetes mellitus with diabetic chronic kidney disease; I12.0 Hypertensive chronic kidney disease with stage 5 chronic kidney disease or end stage renal disease; N18.6 End stage renal disease; E11.69 Type 2 diabetes mellitus with other specified complication; M86.8X8 Other osteomyelitis, other site; Z68.33 Body mass index [BMI] 33.0-33.9, adult; Z99.2 Dependence on renal dialysis; Z87.891 Personal history of nicotine dependence; Y83.2 Surgical operation with anastomosis, bypass or graft as the cause of abnormal reaction of the patient, or of later complication, without mention of misadventure at the time of the procedure | CPT/HCPCS: 82962; G0277; 99183 ==

== ENCOUNTER 2017-04-22 08:11 | Outpatient (CLI) | payer MEDICARE | END 2017-04-22 08:12 | disposition home or self-care (01) | LOC: WOUND 08:11 | PROVIDERS: ATTEND Internal Medicine | DX: T86.821 Skin graft (allograft) (autograft) failure (principal); E11.621 Type 2 diabetes mellitus with foot ulcer; L97.521 Non-pressure chronic ulcer of other part of left foot limited to breakdown of skin; E11.52 Type 2 diabetes mellitus with diabetic peripheral angiopathy with gangrene; E11.40 Type 2 diabetes mellitus with diabetic neuropathy, unspecified; E66.01 Morbid (severe) obesity due to excess calories; E11.22 Type 2 diabetes mellitus with diabetic chronic kidney disease; I12.0 Hypertensive chronic kidney disease with stage 5 chronic kidney disease or end stage renal disease; N18.6 End stage renal disease; E11.69 Type 2 diabetes mellitus with other specified complication; M86.8X8 Other osteomyelitis, other site; Z99.2 Dependence on renal dialysis; Z87.891 Personal history of nicotine dependence; Z68.33 Body mass index [BMI] 33.0-33.9, adult; Y83.2 Surgical operation with anastomosis, bypass or graft as the cause of abnormal reaction of the patient, or of later complication, without mention of misadventure at the time of the procedure | CPT/HCPCS: 82962; G0277; 99183 ==

== ENCOUNTER 2017-04-23 08:00 | Outpatient (CLI) | payer MEDICARE | END 2017-04-23 08:01 | disposition home or self-care (01) | LOC: WOUND 08:00 | PROVIDERS: ATTEND Surgery | DX: T86.821 Skin graft (allograft) (autograft) failure (principal); E11.621 Type 2 diabetes mellitus with foot ulcer; L97.521 Non-pressure chronic ulcer of other part of left foot limited to breakdown of skin; E11.52 Type 2 diabetes mellitus with diabetic peripheral angiopathy with gangrene; E11.22 Type 2 diabetes mellitus with diabetic chronic kidney disease; I12.0 Hypertensive chronic kidney disease with stage 5 chronic kidney disease or end stage renal disease; N18.6 End stage renal disease; E11.69 Type 2 diabetes mellitus with other specified complication; M86.8X8 Other osteomyelitis, other site; E66.9 Obesity, unspecified; Z99.2 Dependence on renal dialysis; Z68.33 Body mass index [BMI] 33.0-33.9, adult; Z87.891 Personal history of nicotine dependence; Y83.2 Surgical operation with anastomosis, bypass or graft as the cause of abnormal reaction of the patient, or of later complication, without mention of misadventure at the time of the procedure | CPT/HCPCS: 82962; G0277; 99183 ==

== ENCOUNTER 2017-04-24 08:13 | Outpatient (CLI) | payer MEDICARE ==
[2017-04-24] MEDS ORDERED: XYLOCAINE TOPICAL 4% TP ONE ×2 (10:47→11:00)
== END 2017-04-24 08:14 | disposition home or self-care (01) ==
LOC: WOUND 08:13
PROVIDERS: ATTEND Surgery
DX: T86.821 Skin graft (allograft) (autograft) failure (principal); E11.621 Type 2 diabetes mellitus with foot ulcer; L97.521 Non-pressure chronic ulcer of other part of left foot limited to breakdown of skin; L97.511 Non-pressure chronic ulcer of other part of right foot limited to breakdown of skin; E11.52 Type 2 diabetes mellitus with diabetic peripheral angiopathy with gangrene; E11.40 Type 2 diabetes mellitus with diabetic neuropathy, unspecified; E66.01 Morbid (severe) obesity due to excess calories; E11.22 Type 2 diabetes mellitus with diabetic chronic kidney disease; I12.0 Hypertensive chronic kidney disease with stage 5 chronic kidney disease or end stage renal disease; N18.6 End stage renal disease; E11.69 Type 2 diabetes mellitus with other specified complication; M86.8X8 Other osteomyelitis, other site; Z68.33 Body mass index [BMI] 33.0-33.9, adult; Z99.2 Dependence on renal dialysis; Z87.891 Personal history of nicotine dependence; Y83.2 Surgical operation with anastomosis, bypass or graft as the cause of abnormal reaction of the patient, or of later complication, without mention of misadventure at the time of the procedure
CPT/HCPCS: 11042; 82962; G0277; 99183

== ENCOUNTER 2017-04-25 08:06 | Outpatient (CLI) | payer MEDICARE | END 2017-04-25 08:07 | disposition home or self-care (01) | LOC: WOUND 08:06 | PROVIDERS: ATTEND Internal Medicine | DX: T86.821 Skin graft (allograft) (autograft) failure (principal); E11.52 Type 2 diabetes mellitus with diabetic peripheral angiopathy with gangrene; L03.116 Cellulitis of left lower limb; I10 Essential (primary) hypertension; E11.40 Type 2 diabetes mellitus with diabetic neuropathy, unspecified; E11.69 Type 2 diabetes mellitus with other specified complication; M86.9 Osteomyelitis, unspecified; E66.01 Morbid (severe) obesity due to excess calories; Z68.1 Body mass index [BMI] 19.9 or less, adult; Z87.891 Personal history of nicotine dependence; Y83.2 Surgical operation with anastomosis, bypass or graft as the cause of abnormal reaction of the patient, or of later complication, without mention of misadventure at the time of the procedure | CPT/HCPCS: 82962; G0277; 99183 ==

== ENCOUNTER 2017-04-26 08:09 | Outpatient (CLI) | payer MEDICARE | END 2017-04-26 08:10 | disposition home or self-care (01) | LOC: WOUND 08:09 | PROVIDERS: ATTEND Podiatrist | DX: T86.821 Skin graft (allograft) (autograft) failure (principal); E11.621 Type 2 diabetes mellitus with foot ulcer; L97.521 Non-pressure chronic ulcer of other part of left foot limited to breakdown of skin; E11.52 Type 2 diabetes mellitus with diabetic peripheral angiopathy with gangrene; E11.40 Type 2 diabetes mellitus with diabetic neuropathy, unspecified; E66.01 Morbid (severe) obesity due to excess calories; E11.22 Type 2 diabetes mellitus with diabetic chronic kidney disease; I12.0 Hypertensive chronic kidney disease with stage 5 chronic kidney disease or end stage renal disease; N18.6 End stage renal disease; E11.69 Type 2 diabetes mellitus with other specified complication; M86.8X8 Other osteomyelitis, other site; Z68.33 Body mass index [BMI] 33.0-33.9, adult; Z99.2 Dependence on renal dialysis; Z87.891 Personal history of nicotine dependence; Y83.8 Other surgical procedures as the cause of abnormal reaction of the patient, or of later complication, without mention of misadventure at the time of the procedure | CPT/HCPCS: 82962; G0277; 99183 ==

== ENCOUNTER 2017-05-06 11:45 | Outpatient (CLI) | payer MEDICARE ==
[2017-05-06] MEDS ORDERED: XYLOCAINE TOPICAL 2% TP ONE ×2 (11:47→11:54)
== END 2017-05-06 11:46 | disposition home or self-care (01) ==
LOC: WOUND 11:45
PROVIDERS: ATTEND Internal Medicine
DX: E11.621 Type 2 diabetes mellitus with foot ulcer (principal); L97.521 Non-pressure chronic ulcer of other part of left foot limited to breakdown of skin; L97.511 Non-pressure chronic ulcer of other part of right foot limited to breakdown of skin; E11.40 Type 2 diabetes mellitus with diabetic neuropathy, unspecified; E11.69 Type 2 diabetes mellitus with other specified complication; M86.8X8 Other osteomyelitis, other site; E11.51 Type 2 diabetes mellitus with diabetic peripheral angiopathy without gangrene; E66.9 Obesity, unspecified; I10 Essential (primary) hypertension; Z99.2 Dependence on renal dialysis; Z87.891 Personal history of nicotine dependence
CPT/HCPCS: 99213; G0463

== ENCOUNTER 2017-05-08 08:12 | Outpatient (CLI) | payer MEDICARE ==
[2017-05-08] MEDS ORDERED: XYLOCAINE TOPICAL 4% TP ONE ×2 (08:25→09:30)
== END 2017-05-08 08:13 | disposition home or self-care (01) ==
LOC: WOUND 08:12
PROVIDERS: ATTEND Surgery
DX: T86.821 Skin graft (allograft) (autograft) failure (principal); E11.621 Type 2 diabetes mellitus with foot ulcer; L97.521 Non-pressure chronic ulcer of other part of left foot limited to breakdown of skin; L97.511 Non-pressure chronic ulcer of other part of right foot limited to breakdown of skin; E11.52 Type 2 diabetes mellitus with diabetic peripheral angiopathy with gangrene; E11.40 Type 2 diabetes mellitus with diabetic neuropathy, unspecified; E11.69 Type 2 diabetes mellitus with other specified complication; M86.8X8 Other osteomyelitis, other site; E66.01 Morbid (severe) obesity due to excess calories; I10 Essential (primary) hypertension; Z68.33 Body mass index [BMI] 33.0-33.9, adult; Z99.2 Dependence on renal dialysis; Z87.891 Personal history of nicotine dependence; Y83.8 Other surgical procedures as the cause of abnormal reaction of the patient, or of later complication, without mention of misadventure at the time of the procedure

== ENCOUNTER 2017-05-15 09:32 | Outpatient (CLI) | payer MEDICARE ==
[2017-05-15] MEDS ORDERED: XYLOCAINE TOPICAL 4% TP ONE ×2 (09:46→09:53)
[2017-05-15] MEDS ORDERED: SILVER NITRATE TP ONE (10:01)
== END 2017-05-15 09:33 | disposition home or self-care (01) ==
LOC: WOUND 09:32
PROVIDERS: ATTEND Surgery
DX: T86.821 Skin graft (allograft) (autograft) failure (principal); E11.621 Type 2 diabetes mellitus with foot ulcer; L97.521 Non-pressure chronic ulcer of other part of left foot limited to breakdown of skin; L97.511 Non-pressure chronic ulcer of other part of right foot limited to breakdown of skin; E11.52 Type 2 diabetes mellitus with diabetic peripheral angiopathy with gangrene; E11.69 Type 2 diabetes mellitus with other specified complication; M86.8X8 Other osteomyelitis, other site; E11.40 Type 2 diabetes mellitus with diabetic neuropathy, unspecified; E66.9 Obesity, unspecified; I10 Essential (primary) hypertension; Z99.2 Dependence on renal dialysis; Z68.33 Body mass index [BMI] 33.0-33.9, adult; Z87.891 Personal history of nicotine dependence; Y83.2 Surgical operation with anastomosis, bypass or graft as the cause of abnormal reaction of the patient, or of later complication, without mention of misadventure at the time of the procedure

== ENCOUNTER 2017-05-22 11:12 | Outpatient (CLI) | payer MEDICARE ==
[~2017-05-22 11:12] MED LIST changes: -NACL ONE; +XYLOCAINE TOPICAL 4% TP ONE
[2017-05-22] MEDS ORDERED: XYLOCAINE TOPICAL 4% TP ONE ×2 (11:15→11:28)
== END 2017-05-22 11:13 | disposition home or self-care (01) ==
LOC: WOUND 11:12
PROVIDERS: ATTEND Surgery
DX: T86.821 Skin graft (allograft) (autograft) failure (principal); E11.621 Type 2 diabetes mellitus with foot ulcer; L97.511 Non-pressure chronic ulcer of other part of right foot limited to breakdown of skin; L97.521 Non-pressure chronic ulcer of other part of left foot limited to breakdown of skin; E11.52 Type 2 diabetes mellitus with diabetic peripheral angiopathy with gangrene; E11.40 Type 2 diabetes mellitus with diabetic neuropathy, unspecified; E11.69 Type 2 diabetes mellitus with other specified complication; M86.8X8 Other osteomyelitis, other site; E66.01 Morbid (severe) obesity due to excess calories; I10 Essential (primary) hypertension; Z99.2 Dependence on renal dialysis; Z68.33 Body mass index [BMI] 33.0-33.9, adult; Z87.891 Personal history of nicotine dependence; Y83.2 Surgical operation with anastomosis, bypass or graft as the cause of abnormal reaction of the patient, or of later complication, without mention of misadventure at the time of the procedure

== ENCOUNTER 2017-05-23 08:01 | Outpatient (CLI) | payer MEDICARE | END 2017-05-23 08:02 | disposition home or self-care (01) | LOC: WOUND 08:01 | PROVIDERS: ATTEND Surgery | DX: T86.821 Skin graft (allograft) (autograft) failure (principal); E11.621 Type 2 diabetes mellitus with foot ulcer; L97.521 Non-pressure chronic ulcer of other part of left foot limited to breakdown of skin; L97.511 Non-pressure chronic ulcer of other part of right foot limited to breakdown of skin; E11.52 Type 2 diabetes mellitus with diabetic peripheral angiopathy with gangrene; E11.40 Type 2 diabetes mellitus with diabetic neuropathy, unspecified; E66.01 Morbid (severe) obesity due to excess calories; E11.22 Type 2 diabetes mellitus with diabetic chronic kidney disease; I12.0 Hypertensive chronic kidney disease with stage 5 chronic kidney disease or end stage renal disease; N18.6 End stage renal disease; E11.69 Type 2 diabetes mellitus with other specified complication; M86.9 Osteomyelitis, unspecified; Z87.891 Personal history of nicotine dependence; Z68.1 Body mass index [BMI] 19.9 or less, adult; Z99.2 Dependence on renal dialysis; Y83.2 Surgical operation with anastomosis, bypass or graft as the cause of abnormal reaction of the patient, or of later complication, without mention of misadventure at the time of the procedure | CPT/HCPCS: 82962; G0277; 99183 ==

== ENCOUNTER 2017-05-24 08:23 | Outpatient (CLI) | payer MEDICARE | END 2017-05-24 08:24 | disposition home or self-care (01) | LOC: WOUND 08:23 | PROVIDERS: ATTEND Podiatrist | DX: T86.821 Skin graft (allograft) (autograft) failure (principal); E11.621 Type 2 diabetes mellitus with foot ulcer; L97.521 Non-pressure chronic ulcer of other part of left foot limited to breakdown of skin; E11.52 Type 2 diabetes mellitus with diabetic peripheral angiopathy with gangrene; E11.22 Type 2 diabetes mellitus with diabetic chronic kidney disease; E11.40 Type 2 diabetes mellitus with diabetic neuropathy, unspecified; N18.6 End stage renal disease; I10 Essential (primary) hypertension; E66.01 Morbid (severe) obesity due to excess calories; E11.69 Type 2 diabetes mellitus with other specified complication; M86.8X8 Other osteomyelitis, other site; Z68.33 Body mass index [BMI] 33.0-33.9, adult; Z99.2 Dependence on renal dialysis; Z87.891 Personal history of nicotine dependence; Y83.2 Surgical operation with anastomosis, bypass or graft as the cause of abnormal reaction of the patient, or of later complication, without mention of misadventure at the time of the procedure | CPT/HCPCS: 82962; G0277; 99183 ==

== ENCOUNTER 2017-05-27 08:04 | Outpatient (CLI) | payer MEDICARE | END 2017-05-27 08:05 | disposition home or self-care (01) | LOC: WOUND 08:04 | PROVIDERS: ATTEND Internal Medicine | DX: T86.821 Skin graft (allograft) (autograft) failure (principal); E11.621 Type 2 diabetes mellitus with foot ulcer; L97.521 Non-pressure chronic ulcer of other part of left foot limited to breakdown of skin; E11.52 Type 2 diabetes mellitus with diabetic peripheral angiopathy with gangrene; E11.40 Type 2 diabetes mellitus with diabetic neuropathy, unspecified; E66.01 Morbid (severe) obesity due to excess calories; E11.69 Type 2 diabetes mellitus with other specified complication; M86.8X8 Other osteomyelitis, other site; I10 Essential (primary) hypertension; Z68.33 Body mass index [BMI] 33.0-33.9, adult; Z99.2 Dependence on renal dialysis; Z87.891 Personal history of nicotine dependence; Y83.2 Surgical operation with anastomosis, bypass or graft as the cause of abnormal reaction of the patient, or of later complication, without mention of misadventure at the time of the procedure | CPT/HCPCS: 82962; G0277; 99183 ==

== ENCOUNTER 2017-05-28 08:08 | Outpatient (CLI) | payer MEDICARE | END 2017-05-28 08:09 | disposition home or self-care (01) | LOC: WOUND 08:08 | PROVIDERS: ATTEND Surgery | DX: T86.821 Skin graft (allograft) (autograft) failure (principal); E11.621 Type 2 diabetes mellitus with foot ulcer; L97.521 Non-pressure chronic ulcer of other part of left foot limited to breakdown of skin; E11.40 Type 2 diabetes mellitus with diabetic neuropathy, unspecified; E11.52 Type 2 diabetes mellitus with diabetic peripheral angiopathy with gangrene; E11.22 Type 2 diabetes mellitus with diabetic chronic kidney disease; I12.0 Hypertensive chronic kidney disease with stage 5 chronic kidney disease or end stage renal disease; N18.6 End stage renal disease; E11.69 Type 2 diabetes mellitus with other specified complication; M86.8X8 Other osteomyelitis, other site; E66.01 Morbid (severe) obesity due to excess calories; Z99.2 Dependence on renal dialysis; Z68.33 Body mass index [BMI] 33.0-33.9, adult; Z87.891 Personal history of nicotine dependence; Y83.2 Surgical operation with anastomosis, bypass or graft as the cause of abnormal reaction of the patient, or of later complication, without mention of misadventure at the time of the procedure | CPT/HCPCS: 82962; G0277; 99183 ==

== ENCOUNTER 2017-05-29 08:04 | Outpatient (CLI) | payer MEDICARE ==
[2017-05-29] MEDS ORDERED: XYLOCAINE TOPICAL 4% TP ONE ×2 (11:32→11:40)
[2017-05-29] MEDS ORDERED: SILVER NITRATE TP ONE ×2 (11:46→16:00)
== END 2017-05-29 08:05 | disposition home or self-care (01) ==
LOC: WOUND 08:04
PROVIDERS: ATTEND Surgery
DX: T86.821 Skin graft (allograft) (autograft) failure (principal); E11.621 Type 2 diabetes mellitus with foot ulcer; L97.521 Non-pressure chronic ulcer of other part of left foot limited to breakdown of skin; E11.40 Type 2 diabetes mellitus with diabetic neuropathy, unspecified; L97.511 Non-pressure chronic ulcer of other part of right foot limited to breakdown of skin; E11.52 Type 2 diabetes mellitus with diabetic peripheral angiopathy with gangrene; E11.22 Type 2 diabetes mellitus with diabetic chronic kidney disease; I12.0 Hypertensive chronic kidney disease with stage 5 chronic kidney disease or end stage renal disease; N18.6 End stage renal disease; E66.01 Morbid (severe) obesity due to excess calories; Z99.2 Dependence on renal dialysis; Z68.33 Body mass index [BMI] 33.0-33.9, adult; Z87.891 Personal history of nicotine dependence; Y83.2 Surgical operation with anastomosis, bypass or graft as the cause of abnormal reaction of the patient, or of later complication, without mention of misadventure at the time of the procedure
CPT/HCPCS: 11042; 82962; G0277; 99183

== ENCOUNTER 2017-06-05 09:52 | Outpatient (CLI) | payer MEDICARE ==
[2017-06-05] MEDS ORDERED: XYLOCAINE TOPICAL 4% TP ONE ×2 (09:57→10:02)
== END 2017-06-05 09:53 | disposition home or self-care (01) ==
LOC: WOUND 09:52
PROVIDERS: ATTEND Surgery
DX: T86.821 Skin graft (allograft) (autograft) failure (principal); E11.621 Type 2 diabetes mellitus with foot ulcer; L97.521 Non-pressure chronic ulcer of other part of left foot limited to breakdown of skin; L97.511 Non-pressure chronic ulcer of other part of right foot limited to breakdown of skin; E11.52 Type 2 diabetes mellitus with diabetic peripheral angiopathy with gangrene; E11.40 Type 2 diabetes mellitus with diabetic neuropathy, unspecified; E66.01 Morbid (severe) obesity due to excess calories; E11.69 Type 2 diabetes mellitus with other specified complication; M86.9 Osteomyelitis, unspecified; I10 Essential (primary) hypertension; Z87.891 Personal history of nicotine dependence; Z68.1 Body mass index [BMI] 19.9 or less, adult; Z99.2 Dependence on renal dialysis; Y83.2 Surgical operation with anastomosis, bypass or graft as the cause of abnormal reaction of the patient, or of later complication, without mention of misadventure at the time of the procedure

== ENCOUNTER 2017-07-02 09:03 | Outpatient (CLI) | payer MEDICARE ==
[2017-07-02] MEDS ORDERED: XYLOCAINE TOPICAL 4% TP ONE ×2 (09:49→10:16)
[2017-07-02] MEDS ORDERED: SILVER NITRATE TP ONE ×2 (10:40→16:37)
== END 2017-07-02 09:04 | disposition home or self-care (01) ==
LOC: WOUND 09:03
PROVIDERS: ATTEND Surgery
DX: T86.821 Skin graft (allograft) (autograft) failure (principal); E11.51 Type 2 diabetes mellitus with diabetic peripheral angiopathy without gangrene; E11.621 Type 2 diabetes mellitus with foot ulcer; L97.521 Non-pressure chronic ulcer of other part of left foot limited to breakdown of skin; L97.511 Non-pressure chronic ulcer of other part of right foot limited to breakdown of skin; E66.9 Obesity, unspecified; I10 Essential (primary) hypertension; Z99.2 Dependence on renal dialysis; Z68.30 Body mass index [BMI] 30.0-30.9, adult; Z87.891 Personal history of nicotine dependence; Y83.2 Surgical operation with anastomosis, bypass or graft as the cause of abnormal reaction of the patient, or of later complication, without mention of misadventure at the time of the procedure

== ENCOUNTER 2017-07-09 09:15 | Outpatient (CLI) | payer MEDICARE ==
[2017-07-09] MEDS ORDERED: XYLOCAINE TOPICAL 4% TP ONE ×2 (09:34→14:32)
[2017-07-09] MEDS ORDERED: SILVER NITRATE TP ONE (09:53)
== END 2017-07-09 09:16 | disposition home or self-care (01) ==
LOC: WOUND 09:15
PROVIDERS: ATTEND Surgery
DX: T86.821 Skin graft (allograft) (autograft) failure (principal); E11.621 Type 2 diabetes mellitus with foot ulcer; L97.521 Non-pressure chronic ulcer of other part of left foot limited to breakdown of skin; L97.511 Non-pressure chronic ulcer of other part of right foot limited to breakdown of skin; E11.52 Type 2 diabetes mellitus with diabetic peripheral angiopathy with gangrene; E11.40 Type 2 diabetes mellitus with diabetic neuropathy, unspecified; E11.69 Type 2 diabetes mellitus with other specified complication; I10 Essential (primary) hypertension; M86.8X8 Other osteomyelitis, other site; E66.01 Morbid (severe) obesity due to excess calories; Z99.2 Dependence on renal dialysis; Z87.891 Personal history of nicotine dependence; Z68.30 Body mass index [BMI] 30.0-30.9, adult; Y83.2 Surgical operation with anastomosis, bypass or graft as the cause of abnormal reaction of the patient, or of later complication, without mention of misadventure at the time of the procedure

== ENCOUNTER 2017-07-16 08:40 | Outpatient (CLI) | payer MEDICARE ==
[2017-07-16] MEDS ORDERED: XYLOCAINE TOPICAL 4% TP ONE (08:59)
[2017-07-16] MEDS ORDERED: SILVER NITRATE TP ONE ×2 (09:50→14:47)
== END 2017-07-16 08:41 | disposition home or self-care (01) ==
LOC: WOUND 08:40
PROVIDERS: ATTEND Surgery
DX: E11.621 Type 2 diabetes mellitus with foot ulcer (principal); L97.521 Non-pressure chronic ulcer of other part of left foot limited to breakdown of skin; L97.511 Non-pressure chronic ulcer of other part of right foot limited to breakdown of skin; E11.69 Type 2 diabetes mellitus with other specified complication; M86.9 Osteomyelitis, unspecified; E11.51 Type 2 diabetes mellitus with diabetic peripheral angiopathy without gangrene; E66.01 Morbid (severe) obesity due to excess calories; E11.40 Type 2 diabetes mellitus with diabetic neuropathy, unspecified; I10 Essential (primary) hypertension; Z99.2 Dependence on renal dialysis; Z68.1 Body mass index [BMI] 19.9 or less, adult; Z87.891 Personal history of nicotine dependence

== ENCOUNTER 2017-07-23 08:37 | Outpatient (CLI) | payer MEDICARE ==
[2017-07-23] MEDS ORDERED: XYLOCAINE TOPICAL 4% TP ONE (08:42)
[2017-07-23] MEDS ORDERED: DAKIN'S FULL STRENGTH ONE (08:53)
[2017-07-24] MEDS ORDERED: DAKIN'S HALF STRENGTH TP SCH (22:00)
== END 2017-07-23 08:38 | disposition home or self-care (01) ==
LOC: WOUND 08:37
PROVIDERS: ATTEND Surgery
DX: T86.821 Skin graft (allograft) (autograft) failure (principal); E11.621 Type 2 diabetes mellitus with foot ulcer; L97.521 Non-pressure chronic ulcer of other part of left foot limited to breakdown of skin; E11.40 Type 2 diabetes mellitus with diabetic neuropathy, unspecified; E11.69 Type 2 diabetes mellitus with other specified complication; M86.8X8 Other osteomyelitis, other site; E11.51 Type 2 diabetes mellitus with diabetic peripheral angiopathy without gangrene; E66.01 Morbid (severe) obesity due to excess calories; I10 Essential (primary) hypertension; Z68.30 Body mass index [BMI] 30.0-30.9, adult; Z99.2 Dependence on renal dialysis; Z87.891 Personal history of nicotine dependence; Y83.2 Surgical operation with anastomosis, bypass or graft as the cause of abnormal reaction of the patient, or of later complication, without mention of misadventure at the time of the procedure

== ENCOUNTER 2017-07-30 08:46 | Outpatient (CLI) | payer MEDICARE ==
[2017-07-30] MEDS ORDERED: XYLOCAINE TOPICAL 4% TP ONE (08:58)
[2017-07-30] MEDS ORDERED: DAKIN'S FULL STRENGTH ONE (09:02)
[2017-07-30] MEDS ORDERED: SILVER NITRATE TP ONE ×2 (09:44→15:00)
[2017-07-30] MEDS ORDERED: DAKIN'S FULL STRENGTH TP ONE (15:28)
== END 2017-07-30 08:47 | disposition home or self-care (01) ==
LOC: WOUND 08:46
PROVIDERS: ATTEND Surgery
DX: T86.821 Skin graft (allograft) (autograft) failure (principal); E11.621 Type 2 diabetes mellitus with foot ulcer; L97.821 Non-pressure chronic ulcer of other part of left lower leg limited to breakdown of skin; E11.52 Type 2 diabetes mellitus with diabetic peripheral angiopathy with gangrene; E11.69 Type 2 diabetes mellitus with other specified complication; M86.68 Other chronic osteomyelitis, other site; E66.01 Morbid (severe) obesity due to excess calories; I10 Essential (primary) hypertension; Z87.891 Personal history of nicotine dependence; Y83.2 Surgical operation with anastomosis, bypass or graft as the cause of abnormal reaction of the patient, or of later complication, without mention of misadventure at the time of the procedure

== ENCOUNTER 2017-08-06 09:01 | Outpatient (CLI) | payer MEDICARE ==
[2017-08-06] MEDS ORDERED: XYLOCAINE TOPICAL 4% TP ONE (09:19)
== END 2017-08-06 09:02 | disposition home or self-care (01) ==
LOC: WOUND 09:01
PROVIDERS: ATTEND Surgery
DX: T86.821 Skin graft (allograft) (autograft) failure (principal); E11.52 Type 2 diabetes mellitus with diabetic peripheral angiopathy with gangrene; E11.621 Type 2 diabetes mellitus with foot ulcer; L97.521 Non-pressure chronic ulcer of other part of left foot limited to breakdown of skin; E11.40 Type 2 diabetes mellitus with diabetic neuropathy, unspecified; E11.69 Type 2 diabetes mellitus with other specified complication; M86.8X8 Other osteomyelitis, other site; I10 Essential (primary) hypertension; E66.01 Morbid (severe) obesity due to excess calories; Z87.891 Personal history of nicotine dependence; Z68.30 Body mass index [BMI] 30.0-30.9, adult; Z99.2 Dependence on renal dialysis; Y83.2 Surgical operation with anastomosis, bypass or graft as the cause of abnormal reaction of the patient, or of later complication, without mention of misadventure at the time of the procedure

== ENCOUNTER 2017-08-13 08:29 | Outpatient (CLI) | payer MEDICARE ==
[2017-08-13] MEDS ORDERED: DAKIN'S FULL STRENGTH TP ONE (08:42)
[2017-08-13] MEDS ORDERED: XYLOCAINE TOPICAL 4% TP ONE (09:00)
== END 2017-08-13 08:30 | disposition home or self-care (01) ==
LOC: WOUND 08:29
PROVIDERS: ATTEND Surgery
DX: T86.821 Skin graft (allograft) (autograft) failure (principal); E11.621 Type 2 diabetes mellitus with foot ulcer; L97.521 Non-pressure chronic ulcer of other part of left foot limited to breakdown of skin; E11.52 Type 2 diabetes mellitus with diabetic peripheral angiopathy with gangrene; E11.40 Type 2 diabetes mellitus with diabetic neuropathy, unspecified; E11.69 Type 2 diabetes mellitus with other specified complication; M86.8X8 Other osteomyelitis, other site; E66.01 Morbid (severe) obesity due to excess calories; Z99.2 Dependence on renal dialysis; Z87.891 Personal history of nicotine dependence; Z68.30 Body mass index [BMI] 30.0-30.9, adult; Y83.2 Surgical operation with anastomosis, bypass or graft as the cause of abnormal reaction of the patient, or of later complication, without mention of misadventure at the time of the procedure

== ENCOUNTER 2017-08-27 08:08 | Outpatient (CLI) | payer MEDICARE ==
[2017-08-27] MEDS ORDERED: XYLOCAINE TOPICAL 4% TP ONE (10:07)
[2017-08-27] MEDS ORDERED: SILVER NITRATE TP ONE (10:38)
[2017-08-28] MEDS ORDERED: SILVER NITRATE TP ONE (08:33)
== END 2017-08-27 08:09 | disposition home or self-care (01) ==
LOC: WOUND 08:08
PROVIDERS: ATTEND Surgery
DX: T86.821 Skin graft (allograft) (autograft) failure (principal); E11.621 Type 2 diabetes mellitus with foot ulcer; L97.521 Non-pressure chronic ulcer of other part of left foot limited to breakdown of skin; E11.52 Type 2 diabetes mellitus with diabetic peripheral angiopathy with gangrene; E11.40 Type 2 diabetes mellitus with diabetic neuropathy, unspecified; E11.69 Type 2 diabetes mellitus with other specified complication; M86.8X8 Other osteomyelitis, other site; E66.01 Morbid (severe) obesity due to excess calories; I10 Essential (primary) hypertension; Z68.30 Body mass index [BMI] 30.0-30.9, adult; Z87.891 Personal history of nicotine dependence; Z99.2 Dependence on renal dialysis; Y83.2 Surgical operation with anastomosis, bypass or graft as the cause of abnormal reaction of the patient, or of later complication, without mention of misadventure at the time of the procedure

== ENCOUNTER 2017-09-10 08:33 | Outpatient (CLI) | payer MEDICARE ==
[2017-09-10] MEDS ORDERED: XYLOCAINE TOPICAL 4% TP ONE ×2 (09:20→15:50)
== END 2017-09-10 08:34 | disposition home or self-care (01) ==
LOC: WOUND 08:33
PROVIDERS: ATTEND Surgery
DX: T86.821 Skin graft (allograft) (autograft) failure (principal); E11.621 Type 2 diabetes mellitus with foot ulcer; L97.521 Non-pressure chronic ulcer of other part of left foot limited to breakdown of skin; E11.52 Type 2 diabetes mellitus with diabetic peripheral angiopathy with gangrene; E11.40 Type 2 diabetes mellitus with diabetic neuropathy, unspecified; E11.69 Type 2 diabetes mellitus with other specified complication; M86.8X8 Other osteomyelitis, other site; E66.01 Morbid (severe) obesity due to excess calories; I10 Essential (primary) hypertension; Z68.30 Body mass index [BMI] 30.0-30.9, adult; Z99.2 Dependence on renal dialysis; Z87.891 Personal history of nicotine dependence

== ENCOUNTER 2017-09-17 08:49 | Outpatient (CLI) | payer MEDICARE ==
[2017-09-17] MEDS ORDERED: DAKIN'S FULL STRENGTH TP ONE (09:11)
[2017-09-17] MEDS ORDERED: XYLOCAINE TOPICAL 4% TP ONE (09:11)
[2017-09-17] MEDS ORDERED: SILVER NITRATE TP ONE ×2 (09:15→09:16)
== END 2017-09-17 08:50 | disposition home or self-care (01) ==
LOC: WOUND 08:49
PROVIDERS: ATTEND Surgery
DX: T81.31XD Disruption of external operation (surgical) wound, not elsewhere classified, subsequent encounter (principal); E11.621 Type 2 diabetes mellitus with foot ulcer; L97.526 Non-pressure chronic ulcer of other part of left foot with bone involvement without evidence of necrosis; E11.52 Type 2 diabetes mellitus with diabetic peripheral angiopathy with gangrene; E11.69 Type 2 diabetes mellitus with other specified complication; M86.9 Osteomyelitis, unspecified; T86.821 Skin graft (allograft) (autograft) failure; L03.116 Cellulitis of left lower limb; E66.01 Morbid (severe) obesity due to excess calories; E11.40 Type 2 diabetes mellitus with diabetic neuropathy, unspecified; I10 Essential (primary) hypertension; Z68.30 Body mass index [BMI] 30.0-30.9, adult; Z99.2 Dependence on renal dialysis; Z87.891 Personal history of nicotine dependence; Y83.8 Other surgical procedures as the cause of abnormal reaction of the patient, or of later complication, without mention of misadventure at the time of the procedure

== ENCOUNTER 2017-09-24 08:46 | Outpatient (CLI) | payer MEDICARE ==
[2017-09-24] MEDS ORDERED: XYLOCAINE TOPICAL 4% TP ONE (09:32)
[2017-09-24] MEDS ORDERED: SILVER NITRATE TP ONE ×2 (09:41→10:14)
== END 2017-09-24 08:47 | disposition home or self-care (01) ==
LOC: WOUND 08:46
PROVIDERS: ATTEND Surgery
DX: T86.821 Skin graft (allograft) (autograft) failure (principal); E11.52 Type 2 diabetes mellitus with diabetic peripheral angiopathy with gangrene; E11.621 Type 2 diabetes mellitus with foot ulcer; L97.521 Non-pressure chronic ulcer of other part of left foot limited to breakdown of skin; E11.40 Type 2 diabetes mellitus with diabetic neuropathy, unspecified; M86.8X8 Other osteomyelitis, other site; E66.01 Morbid (severe) obesity due to excess calories; I10 Essential (primary) hypertension; Z68.30 Body mass index [BMI] 30.0-30.9, adult; Z99.2 Dependence on renal dialysis; Z87.891 Personal history of nicotine dependence; Y83.2 Surgical operation with anastomosis, bypass or graft as the cause of abnormal reaction of the patient, or of later complication, without mention of misadventure at the time of the procedure

== ENCOUNTER 2017-10-08 09:15 | Outpatient (CLI) | payer MEDICARE ==
[2017-10-08] MEDS ORDERED: XYLOCAINE TOPICAL 4% TP ONE ×2 (10:10→10:15)
[2017-10-08] MEDS ORDERED: SILVER NITRATE TP ONE ×2 (10:27)
== END 2017-10-08 09:16 | disposition home or self-care (01) ==
LOC: WOUND 09:15
PROVIDERS: ATTEND Surgery
DX: T86.821 Skin graft (allograft) (autograft) failure (principal); E11.621 Type 2 diabetes mellitus with foot ulcer; L97.521 Non-pressure chronic ulcer of other part of left foot limited to breakdown of skin; E11.52 Type 2 diabetes mellitus with diabetic peripheral angiopathy with gangrene; E11.40 Type 2 diabetes mellitus with diabetic neuropathy, unspecified; I10 Essential (primary) hypertension; E11.69 Type 2 diabetes mellitus with other specified complication; M86.8X8 Other osteomyelitis, other site; E66.01 Morbid (severe) obesity due to excess calories; Z68.30 Body mass index [BMI] 30.0-30.9, adult; Z87.891 Personal history of nicotine dependence; Y83.2 Surgical operation with anastomosis, bypass or graft as the cause of abnormal reaction of the patient, or of later complication, without mention of misadventure at the time of the procedure

== ENCOUNTER 2017-10-15 08:35 | Outpatient (CLI) | payer MEDICARE ==
[2017-10-15] MEDS ORDERED: XYLOCAINE TOPICAL 4% TP ONE ×2 (08:53→08:58)
[2017-10-15] MEDS ORDERED: SILVER NITRATE TP ONE ×4 (09:12→11:45)
[2017-10-15] MEDS ORDERED: DAKIN'S FULL STRENGTH ONE (09:22)
[2017-10-15] MEDS ORDERED: DAKIN'S HALF STRENGTH TP SCH (10:00)
== END 2017-10-15 08:36 | disposition home or self-care (01) ==
LOC: WOUND 08:35
PROVIDERS: ATTEND Surgery
DX: T86.821 Skin graft (allograft) (autograft) failure (principal); E11.621 Type 2 diabetes mellitus with foot ulcer; L97.521 Non-pressure chronic ulcer of other part of left foot limited to breakdown of skin; L97.511 Non-pressure chronic ulcer of other part of right foot limited to breakdown of skin; E11.40 Type 2 diabetes mellitus with diabetic neuropathy, unspecified; E11.52 Type 2 diabetes mellitus with diabetic peripheral angiopathy with gangrene; E11.69 Type 2 diabetes mellitus with other specified complication; M86.8X8 Other osteomyelitis, other site; E66.01 Morbid (severe) obesity due to excess calories; I10 Essential (primary) hypertension; Z99.2 Dependence on renal dialysis; Z87.891 Personal history of nicotine dependence; Z68.30 Body mass index [BMI] 30.0-30.9, adult; Y83.2 Surgical operation with anastomosis, bypass or graft as the cause of abnormal reaction of the patient, or of later complication, without mention of misadventure at the time of the procedure
CPT/HCPCS: 11042; 11044; 11047; 87075; 87076; 87116; 87186; 88305; 88311; A6260; 88304

== ENCOUNTER 2017-10-16 13:04 | Emergency (ER) | payer MEDICARE ==
[2017-10-16 15:04] VITALS: BP 141/59
== END 2017-10-16 20:26 | disposition left against medical advice (07) ==
LOC: ED 13:04
DX: M79.89 Other specified soft tissue disorders (principal); Z53.21 Procedure and treatment not carried out due to patient leaving prior to being seen by health care provider

== ENCOUNTER 2017-10-22 09:05 | Outpatient (CLI) | payer MEDICARE ==
[2017-10-22] MEDS ORDERED: XYLOCAINE TOPICAL 4% TP ONE (09:36)
== END 2017-10-22 09:06 | disposition home or self-care (01) ==
LOC: WOUND 09:05
PROVIDERS: ATTEND Surgery
DX: T86.821 Skin graft (allograft) (autograft) failure (principal); E11.621 Type 2 diabetes mellitus with foot ulcer; L97.521 Non-pressure chronic ulcer of other part of left foot limited to breakdown of skin; L97.511 Non-pressure chronic ulcer of other part of right foot limited to breakdown of skin; E11.52 Type 2 diabetes mellitus with diabetic peripheral angiopathy with gangrene; E11.69 Type 2 diabetes mellitus with other specified complication; M86.8X7 Other osteomyelitis, ankle and foot; E11.40 Type 2 diabetes mellitus with diabetic neuropathy, unspecified; I10 Essential (primary) hypertension; E66.01 Morbid (severe) obesity due to excess calories; Z68.30 Body mass index [BMI] 30.0-30.9, adult; Z99.2 Dependence on renal dialysis; Z87.891 Personal history of nicotine dependence; Y83.2 Surgical operation with anastomosis, bypass or graft as the cause of abnormal reaction of the patient, or of later complication, without mention of misadventure at the time of the procedure

== ENCOUNTER 2017-10-29 09:13 | Outpatient (CLI) | payer MEDICARE ==
[2017-10-29] MEDS ORDERED: XYLOCAINE TOPICAL 4% TP ONE (09:23)
[2017-10-29] MEDS ORDERED: SILVER NITRATE TP ONE ×2 (10:02→12:02)
== END 2017-10-29 09:14 | disposition home or self-care (01) ==
LOC: WOUND 09:13
PROVIDERS: ATTEND Surgery
DX: T81.31XD Disruption of external operation (surgical) wound, not elsewhere classified, subsequent encounter (principal); E11.621 Type 2 diabetes mellitus with foot ulcer; L97.511 Non-pressure chronic ulcer of other part of right foot limited to breakdown of skin; L97.521 Non-pressure chronic ulcer of other part of left foot limited to breakdown of skin; E11.52 Type 2 diabetes mellitus with diabetic peripheral angiopathy with gangrene; E11.69 Type 2 diabetes mellitus with other specified complication; M86.68 Other chronic osteomyelitis, other site; E11.51 Type 2 diabetes mellitus with diabetic peripheral angiopathy without gangrene; E66.01 Morbid (severe) obesity due to excess calories; Z68.30 Body mass index [BMI] 30.0-30.9, adult; Z87.891 Personal history of nicotine dependence; Y83.8 Other surgical procedures as the cause of abnormal reaction of the patient, or of later complication, without mention of misadventure at the time of the procedure

== ENCOUNTER 2017-11-20 08:12 | Outpatient (CLI) | payer MEDICARE | END 2017-11-20 08:13 | disposition home or self-care (01) | LOC: WOUND 08:12 | PROVIDERS: ATTEND Surgery | DX: T81.31XD Disruption of external operation (surgical) wound, not elsewhere classified, subsequent encounter (principal); E11.621 Type 2 diabetes mellitus with foot ulcer; L97.514 Non-pressure chronic ulcer of other part of right foot with necrosis of bone; E11.40 Type 2 diabetes mellitus with diabetic neuropathy, unspecified; E11.52 Type 2 diabetes mellitus with diabetic peripheral angiopathy with gangrene; I96 Gangrene, not elsewhere classified; E11.69 Type 2 diabetes mellitus with other specified complication; M86.68 Other chronic osteomyelitis, other site; E11.22 Type 2 diabetes mellitus with diabetic chronic kidney disease; I12.0 Hypertensive chronic kidney disease with stage 5 chronic kidney disease or end stage renal disease; N18.6 End stage renal disease; E66.01 Morbid (severe) obesity due to excess calories; Z68.30 Body mass index [BMI] 30.0-30.9, adult; Z87.891 Personal history of nicotine dependence; Z99.2 Dependence on renal dialysis; Y83.8 Other surgical procedures as the cause of abnormal reaction of the patient, or of later complication, without mention of misadventure at the time of the procedure | CPT/HCPCS: 82962; G0277; 99183 ==

== ENCOUNTER 2017-11-21 08:08 | Outpatient (CLI) | payer MEDICARE | END 2017-11-21 08:09 | disposition home or self-care (01) | LOC: WOUND 08:08 | PROVIDERS: ATTEND Nurse Practitioner | DX: T86.821 Skin graft (allograft) (autograft) failure (principal); E11.621 Type 2 diabetes mellitus with foot ulcer; L97.514 Non-pressure chronic ulcer of other part of right foot with necrosis of bone; L97.521 Non-pressure chronic ulcer of other part of left foot limited to breakdown of skin; E11.40 Type 2 diabetes mellitus with diabetic neuropathy, unspecified; E11.52 Type 2 diabetes mellitus with diabetic peripheral angiopathy with gangrene; E66.01 Morbid (severe) obesity due to excess calories; E11.22 Type 2 diabetes mellitus with diabetic chronic kidney disease; I12.0 Hypertensive chronic kidney disease with stage 5 chronic kidney disease or end stage renal disease; N18.6 End stage renal disease; E11.69 Type 2 diabetes mellitus with other specified complication; M86.8X8 Other osteomyelitis, other site; Z68.30 Body mass index [BMI] 30.0-30.9, adult; Z99.2 Dependence on renal dialysis; Y83.2 Surgical operation with anastomosis, bypass or graft as the cause of abnormal reaction of the patient, or of later complication, without mention of misadventure at the time of the procedure | CPT/HCPCS: 82962; G0277; 99183 ==

== ENCOUNTER 2017-11-22 08:35 | Outpatient (CLI) | payer MEDICARE | END 2017-11-22 08:36 | disposition home or self-care (01) | LOC: WOUND 08:35 | PROVIDERS: ATTEND Podiatrist | DX: T86.821 Skin graft (allograft) (autograft) failure (principal); E11.22 Type 2 diabetes mellitus with diabetic chronic kidney disease; E11.52 Type 2 diabetes mellitus with diabetic peripheral angiopathy with gangrene; E11.40 Type 2 diabetes mellitus with diabetic neuropathy, unspecified; E66.01 Morbid (severe) obesity due to excess calories; I10 Essential (primary) hypertension; I12.0 Hypertensive chronic kidney disease with stage 5 chronic kidney disease or end stage renal disease; N18.6 End stage renal disease; E11.69 Type 2 diabetes mellitus with other specified complication; M86.8X8 Other osteomyelitis, other site; Z99.2 Dependence on renal dialysis; Z68.30 Body mass index [BMI] 30.0-30.9, adult; Z87.891 Personal history of nicotine dependence; Y83.2 Surgical operation with anastomosis, bypass or graft as the cause of abnormal reaction of the patient, or of later complication, without mention of misadventure at the time of the procedure | CPT/HCPCS: 82962; G0277; 99183 ==

== ENCOUNTER 2017-11-25 08:15 | Outpatient (CLI) | payer MEDICARE | END 2017-11-25 08:16 | disposition home or self-care (01) | LOC: WOUND 08:15 | PROVIDERS: ATTEND Internal Medicine | DX: T86.821 Skin graft (allograft) (autograft) failure (principal); E11.621 Type 2 diabetes mellitus with foot ulcer; L97.521 Non-pressure chronic ulcer of other part of left foot limited to breakdown of skin; E11.52 Type 2 diabetes mellitus with diabetic peripheral angiopathy with gangrene; E11.40 Type 2 diabetes mellitus with diabetic neuropathy, unspecified; E11.22 Type 2 diabetes mellitus with diabetic chronic kidney disease; I12.0 Hypertensive chronic kidney disease with stage 5 chronic kidney disease or end stage renal disease; N18.6 End stage renal disease; Z99.2 Dependence on renal dialysis; E11.69 Type 2 diabetes mellitus with other specified complication; M86.8X8 Other osteomyelitis, other site; E66.01 Morbid (severe) obesity due to excess calories; Z68.30 Body mass index [BMI] 30.0-30.9, adult; Z87.891 Personal history of nicotine dependence; Y83.2 Surgical operation with anastomosis, bypass or graft as the cause of abnormal reaction of the patient, or of later complication, without mention of misadventure at the time of the procedure | CPT/HCPCS: 82962; G0277; 99183 ==

== ENCOUNTER 2017-11-26 07:59 | Outpatient (CLI) | payer MEDICARE | END 2017-11-26 08:00 | disposition home or self-care (01) | LOC: WOUND 07:59 | PROVIDERS: ATTEND Surgery | DX: T86.821 Skin graft (allograft) (autograft) failure (principal); E11.52 Type 2 diabetes mellitus with diabetic peripheral angiopathy with gangrene; E11.22 Type 2 diabetes mellitus with diabetic chronic kidney disease; I12.0 Hypertensive chronic kidney disease with stage 5 chronic kidney disease or end stage renal disease; N18.6 End stage renal disease; E66.01 Morbid (severe) obesity due to excess calories; E11.40 Type 2 diabetes mellitus with diabetic neuropathy, unspecified; E11.69 Type 2 diabetes mellitus with other specified complication; M86.8X9 Other osteomyelitis, unspecified sites; Z99.2 Dependence on renal dialysis; Z87.891 Personal history of nicotine dependence; Y83.2 Surgical operation with anastomosis, bypass or graft as the cause of abnormal reaction of the patient, or of later complication, without mention of misadventure at the time of the procedure | CPT/HCPCS: 82962; G0277; 99183 ==

== ENCOUNTER 2017-11-27 08:06 | Outpatient (CLI) | payer MEDICARE ==
[2017-11-27] MEDS ORDERED: XYLOCAINE TOPICAL 4% TP ONE ×2 (11:08→11:12)
== END 2017-11-27 08:07 | disposition home or self-care (01) ==
LOC: WOUND 08:06
PROVIDERS: ATTEND Surgery
DX: T86.821 Skin graft (allograft) (autograft) failure (principal); E11.621 Type 2 diabetes mellitus with foot ulcer; L97.521 Non-pressure chronic ulcer of other part of left foot limited to breakdown of skin; L97.511 Non-pressure chronic ulcer of other part of right foot limited to breakdown of skin; E11.22 Type 2 diabetes mellitus with diabetic chronic kidney disease; I12.0 Hypertensive chronic kidney disease with stage 5 chronic kidney disease or end stage renal disease; N18.6 End stage renal disease; E11.40 Type 2 diabetes mellitus with diabetic neuropathy, unspecified; E66.01 Morbid (severe) obesity due to excess calories; E11.52 Type 2 diabetes mellitus with diabetic peripheral angiopathy with gangrene; E11.69 Type 2 diabetes mellitus with other specified complication; M86.8X8 Other osteomyelitis, other site; Z68.30 Body mass index [BMI] 30.0-30.9, adult; Z99.2 Dependence on renal dialysis; Z87.891 Personal history of nicotine dependence; Y83.2 Surgical operation with anastomosis, bypass or graft as the cause of abnormal reaction of the patient, or of later complication, without mention of misadventure at the time of the procedure
CPT/HCPCS: 11042; 82962; G0277; 99183

== ENCOUNTER 2017-11-28 08:15 | Outpatient (CLI) | payer MEDICARE | END 2017-11-28 08:16 | disposition home or self-care (01) | LOC: WOUND 08:15 | PROVIDERS: ATTEND Nurse Practitioner | DX: T86.821 Skin graft (allograft) (autograft) failure (principal); E11.52 Type 2 diabetes mellitus with diabetic peripheral angiopathy with gangrene; E11.22 Type 2 diabetes mellitus with diabetic chronic kidney disease; I12.0 Hypertensive chronic kidney disease with stage 5 chronic kidney disease or end stage renal disease; N18.6 End stage renal disease; E11.40 Type 2 diabetes mellitus with diabetic neuropathy, unspecified; E11.69 Type 2 diabetes mellitus with other specified complication; M86.8X8 Other osteomyelitis, other site; E66.01 Morbid (severe) obesity due to excess calories; Z99.2 Dependence on renal dialysis; Z68.30 Body mass index [BMI] 30.0-30.9, adult; Z87.891 Personal history of nicotine dependence; Y83.8 Other surgical procedures as the cause of abnormal reaction of the patient, or of later complication, without mention of misadventure at the time of the procedure | CPT/HCPCS: 82962; G0277; 99183 ==

== ENCOUNTER 2017-11-29 08:29 | Outpatient (CLI) | payer MEDICARE | END 2017-11-29 08:30 | disposition home or self-care (01) | LOC: WOUND 08:29 | PROVIDERS: ATTEND Podiatrist | DX: T86.821 Skin graft (allograft) (autograft) failure (principal); E11.52 Type 2 diabetes mellitus with diabetic peripheral angiopathy with gangrene; E11.40 Type 2 diabetes mellitus with diabetic neuropathy, unspecified; E11.22 Type 2 diabetes mellitus with diabetic chronic kidney disease; I12.0 Hypertensive chronic kidney disease with stage 5 chronic kidney disease or end stage renal disease; N18.6 End stage renal disease; E11.69 Type 2 diabetes mellitus with other specified complication; M86.8X8 Other osteomyelitis, other site; E66.01 Morbid (severe) obesity due to excess calories; Z99.2 Dependence on renal dialysis; Z68.30 Body mass index [BMI] 30.0-30.9, adult; Y83.2 Surgical operation with anastomosis, bypass or graft as the cause of abnormal reaction of the patient, or of later complication, without mention of misadventure at the time of the procedure | CPT/HCPCS: 82962; G0277; 99183 ==

== ENCOUNTER 2017-12-02 08:14 | Outpatient (CLI) | payer MEDICARE ==
[2017-12-02] MEDS ORDERED: XYLOCAINE 1% 20 mL ONE (13:48)
== END 2017-12-02 08:15 | disposition home or self-care (01) ==
LOC: WOUND 08:14
PROVIDERS: ATTEND Internal Medicine
DX: T86.821 Skin graft (allograft) (autograft) failure (principal); E11.621 Type 2 diabetes mellitus with foot ulcer; L97.521 Non-pressure chronic ulcer of other part of left foot limited to breakdown of skin; E11.52 Type 2 diabetes mellitus with diabetic peripheral angiopathy with gangrene; E11.40 Type 2 diabetes mellitus with diabetic neuropathy, unspecified; E11.22 Type 2 diabetes mellitus with diabetic chronic kidney disease; I12.0 Hypertensive chronic kidney disease with stage 5 chronic kidney disease or end stage renal disease; N18.6 End stage renal disease; E66.01 Morbid (severe) obesity due to excess calories; E11.69 Type 2 diabetes mellitus with other specified complication; M86.8X8 Other osteomyelitis, other site; Z87.891 Personal history of nicotine dependence; Z68.30 Body mass index [BMI] 30.0-30.9, adult; Z99.2 Dependence on renal dialysis; Y83.2 Surgical operation with anastomosis, bypass or graft as the cause of abnormal reaction of the patient, or of later complication, without mention of misadventure at the time of the procedure
CPT/HCPCS: 82962; G0277; 99183

== ENCOUNTER 2017-12-03 08:07 | Outpatient (CLI) | payer MEDICARE | END 2017-12-03 08:08 | disposition home or self-care (01) | LOC: WOUND 08:07 | PROVIDERS: ATTEND Surgery | DX: T86.821 Skin graft (allograft) (autograft) failure (principal); E11.621 Type 2 diabetes mellitus with foot ulcer; L97.521 Non-pressure chronic ulcer of other part of left foot limited to breakdown of skin; E11.52 Type 2 diabetes mellitus with diabetic peripheral angiopathy with gangrene; E11.40 Type 2 diabetes mellitus with diabetic neuropathy, unspecified; E66.01 Morbid (severe) obesity due to excess calories; E11.22 Type 2 diabetes mellitus with diabetic chronic kidney disease; I12.0 Hypertensive chronic kidney disease with stage 5 chronic kidney disease or end stage renal disease; N18.6 End stage renal disease; E11.69 Type 2 diabetes mellitus with other specified complication; M86.8X8 Other osteomyelitis, other site; Z99.2 Dependence on renal dialysis; Z68.30 Body mass index [BMI] 30.0-30.9, adult; Z87.891 Personal history of nicotine dependence; Y83.2 Surgical operation with anastomosis, bypass or graft as the cause of abnormal reaction of the patient, or of later complication, without mention of misadventure at the time of the procedure | CPT/HCPCS: 82962; G0277; 99183 ==

== ENCOUNTER 2017-12-04 08:10 | Outpatient (CLI) | payer MEDICARE ==
[2017-12-04] MEDS ORDERED: XYLOCAINE TOPICAL 4% TP ONE ×2 (10:38→11:32)
[2017-12-04] MEDS ORDERED: SILVER NITRATE TP ONE (11:39)
== END 2017-12-04 08:11 | disposition home or self-care (01) ==
LOC: WOUND 08:10
PROVIDERS: ATTEND Surgery
DX: T86.821 Skin graft (allograft) (autograft) failure (principal); E11.621 Type 2 diabetes mellitus with foot ulcer; L97.521 Non-pressure chronic ulcer of other part of left foot limited to breakdown of skin; L97.511 Non-pressure chronic ulcer of other part of right foot limited to breakdown of skin; E11.52 Type 2 diabetes mellitus with diabetic peripheral angiopathy with gangrene; E11.40 Type 2 diabetes mellitus with diabetic neuropathy, unspecified; E11.69 Type 2 diabetes mellitus with other specified complication; M86.8X8 Other osteomyelitis, other site; E66.9 Obesity, unspecified; I10 Essential (primary) hypertension; Z99.2 Dependence on renal dialysis; Z87.891 Personal history of nicotine dependence; Y83.2 Surgical operation with anastomosis, bypass or graft as the cause of abnormal reaction of the patient, or of later complication, without mention of misadventure at the time of the procedure
CPT/HCPCS: 11042; 11043; 82962; G0277; 99183

== ENCOUNTER 2017-12-05 08:15 | Outpatient (CLI) | payer MEDICARE ==
[~2017-12-05 08:15] MED LIST changes: +SILVER NITRATE TP ONE; -XYLOCAINE TOPICAL 4% TP ONE
[2017-12-06] MEDS ORDERED: SILVER NITRATE TP ONE (14:07)
== END 2017-12-05 08:16 | disposition home or self-care (01) ==
LOC: WOUND 08:15
PROVIDERS: ATTEND Nurse Practitioner
DX: T86.821 Skin graft (allograft) (autograft) failure (principal); E11.52 Type 2 diabetes mellitus with diabetic peripheral angiopathy with gangrene; E11.40 Type 2 diabetes mellitus with diabetic neuropathy, unspecified; E66.01 Morbid (severe) obesity due to excess calories; E11.22 Type 2 diabetes mellitus with diabetic chronic kidney disease; I12.0 Hypertensive chronic kidney disease with stage 5 chronic kidney disease or end stage renal disease; N18.6 End stage renal disease; E11.69 Type 2 diabetes mellitus with other specified complication; M86.8X8 Other osteomyelitis, other site; Z99.2 Dependence on renal dialysis; Z68.30 Body mass index [BMI] 30.0-30.9, adult; Z87.891 Personal history of nicotine dependence; Y83.2 Surgical operation with anastomosis, bypass or graft as the cause of abnormal reaction of the patient, or of later complication, without mention of misadventure at the time of the procedure
CPT/HCPCS: 82962; G0277; 99183

== ENCOUNTER 2017-12-06 07:51 | Outpatient (CLI) | payer MEDICARE | END 2017-12-06 07:52 | disposition home or self-care (01) | LOC: WOUND 07:51 | PROVIDERS: ATTEND Podiatrist | DX: T86.821 Skin graft (allograft) (autograft) failure (principal); E11.621 Type 2 diabetes mellitus with foot ulcer; L97.521 Non-pressure chronic ulcer of other part of left foot limited to breakdown of skin; E11.52 Type 2 diabetes mellitus with diabetic peripheral angiopathy with gangrene; E11.40 Type 2 diabetes mellitus with diabetic neuropathy, unspecified; E66.01 Morbid (severe) obesity due to excess calories; E11.22 Type 2 diabetes mellitus with diabetic chronic kidney disease; I12.0 Hypertensive chronic kidney disease with stage 5 chronic kidney disease or end stage renal disease; N18.6 End stage renal disease; E11.69 Type 2 diabetes mellitus with other specified complication; M86.8X8 Other osteomyelitis, other site; Z87.891 Personal history of nicotine dependence; Z99.2 Dependence on renal dialysis; Z68.30 Body mass index [BMI] 30.0-30.9, adult; Y83.2 Surgical operation with anastomosis, bypass or graft as the cause of abnormal reaction of the patient, or of later complication, without mention of misadventure at the time of the procedure | CPT/HCPCS: 82962; G0277; 99183 ==

== ENCOUNTER 2017-12-09 08:21 | Outpatient (CLI) | payer MEDICARE | END 2017-12-09 08:22 | disposition home or self-care (01) | LOC: WOUND 08:21 | PROVIDERS: ATTEND Internal Medicine | DX: T86.821 Skin graft (allograft) (autograft) failure (principal); E11.52 Type 2 diabetes mellitus with diabetic peripheral angiopathy with gangrene; I96 Gangrene, not elsewhere classified; E11.40 Type 2 diabetes mellitus with diabetic neuropathy, unspecified; E66.01 Morbid (severe) obesity due to excess calories; E11.22 Type 2 diabetes mellitus with diabetic chronic kidney disease; I12.0 Hypertensive chronic kidney disease with stage 5 chronic kidney disease or end stage renal disease; N18.6 End stage renal disease; E11.69 Type 2 diabetes mellitus with other specified complication; M86.8X8 Other osteomyelitis, other site; Z99.2 Dependence on renal dialysis; Z68.30 Body mass index [BMI] 30.0-30.9, adult; Z87.891 Personal history of nicotine dependence; Y83.2 Surgical operation with anastomosis, bypass or graft as the cause of abnormal reaction of the patient, or of later complication, without mention of misadventure at the time of the procedure | CPT/HCPCS: 82962; G0277; 99183 ==

== ENCOUNTER 2017-12-10 08:07 | Outpatient (CLI) | payer MEDICARE | END 2017-12-10 08:08 | disposition home or self-care (01) | LOC: WOUND 08:07 | PROVIDERS: ATTEND Surgery | DX: T86.821 Skin graft (allograft) (autograft) failure (principal); E11.52 Type 2 diabetes mellitus with diabetic peripheral angiopathy with gangrene; I96 Gangrene, not elsewhere classified; E11.40 Type 2 diabetes mellitus with diabetic neuropathy, unspecified; E66.01 Morbid (severe) obesity due to excess calories; E11.22 Type 2 diabetes mellitus with diabetic chronic kidney disease; I12.0 Hypertensive chronic kidney disease with stage 5 chronic kidney disease or end stage renal disease; N18.6 End stage renal disease; E11.69 Type 2 diabetes mellitus with other specified complication; M86.8X8 Other osteomyelitis, other site; Z99.2 Dependence on renal dialysis; Z68.30 Body mass index [BMI] 30.0-30.9, adult; Z87.891 Personal history of nicotine dependence; Y83.2 Surgical operation with anastomosis, bypass or graft as the cause of abnormal reaction of the patient, or of later complication, without mention of misadventure at the time of the procedure | CPT/HCPCS: 82962; G0277; 99183 ==

== ENCOUNTER 2017-12-11 08:08 | Outpatient (CLI) | payer MEDICARE ==
[2017-12-11] MEDS ORDERED: XYLOCAINE TOPICAL 4% TP ONE (11:07)
== END 2017-12-11 08:09 | disposition home or self-care (01) ==
LOC: WOUND 08:08
PROVIDERS: ATTEND Surgery
DX: T86.821 Skin graft (allograft) (autograft) failure (principal); E11.52 Type 2 diabetes mellitus with diabetic peripheral angiopathy with gangrene; I96 Gangrene, not elsewhere classified; E11.40 Type 2 diabetes mellitus with diabetic neuropathy, unspecified; E66.01 Morbid (severe) obesity due to excess calories; E11.22 Type 2 diabetes mellitus with diabetic chronic kidney disease; I12.0 Hypertensive chronic kidney disease with stage 5 chronic kidney disease or end stage renal disease; N18.6 End stage renal disease; E11.69 Type 2 diabetes mellitus with other specified complication; M86.8X8 Other osteomyelitis, other site; Z99.2 Dependence on renal dialysis; Z68.30 Body mass index [BMI] 30.0-30.9, adult; Z87.891 Personal history of nicotine dependence; Y83.2 Surgical operation with anastomosis, bypass or graft as the cause of abnormal reaction of the patient, or of later complication, without mention of misadventure at the time of the procedure
CPT/HCPCS: 11042; 82962; G0277; 99183

== ENCOUNTER 2017-12-12 08:06 | Outpatient (CLI) | payer MEDICARE | END 2017-12-12 08:07 | disposition home or self-care (01) | LOC: WOUND 08:06 | PROVIDERS: ATTEND Nurse Practitioner | DX: T86.821 Skin graft (allograft) (autograft) failure (principal); E11.52 Type 2 diabetes mellitus with diabetic peripheral angiopathy with gangrene; I96 Gangrene, not elsewhere classified; E11.40 Type 2 diabetes mellitus with diabetic neuropathy, unspecified; E66.01 Morbid (severe) obesity due to excess calories; E11.22 Type 2 diabetes mellitus with diabetic chronic kidney disease; I12.0 Hypertensive chronic kidney disease with stage 5 chronic kidney disease or end stage renal disease; N18.6 End stage renal disease; E11.69 Type 2 diabetes mellitus with other specified complication; M86.8X8 Other osteomyelitis, other site; Z99.2 Dependence on renal dialysis; Z68.30 Body mass index [BMI] 30.0-30.9, adult; Z87.891 Personal history of nicotine dependence; Y83.2 Surgical operation with anastomosis, bypass or graft as the cause of abnormal reaction of the patient, or of later complication, without mention of misadventure at the time of the procedure | CPT/HCPCS: 82962; G0277; 99183 ==

== ENCOUNTER 2017-12-13 08:14 | Outpatient (CLI) | payer MEDICARE | END 2017-12-13 08:15 | disposition home or self-care (01) | LOC: WOUND 08:14 | PROVIDERS: ATTEND Podiatrist | DX: T86.821 Skin graft (allograft) (autograft) failure (principal); E11.621 Type 2 diabetes mellitus with foot ulcer; L97.521 Non-pressure chronic ulcer of other part of left foot limited to breakdown of skin; E11.40 Type 2 diabetes mellitus with diabetic neuropathy, unspecified; E11.52 Type 2 diabetes mellitus with diabetic peripheral angiopathy with gangrene; E11.22 Type 2 diabetes mellitus with diabetic chronic kidney disease; I12.0 Hypertensive chronic kidney disease with stage 5 chronic kidney disease or end stage renal disease; N18.6 End stage renal disease; Z99.2 Dependence on renal dialysis; E66.01 Morbid (severe) obesity due to excess calories; Z68.30 Body mass index [BMI] 30.0-30.9, adult; E11.69 Type 2 diabetes mellitus with other specified complication; M86.8X7 Other osteomyelitis, ankle and foot; Z87.891 Personal history of nicotine dependence; Y83.2 Surgical operation with anastomosis, bypass or graft as the cause of abnormal reaction of the patient, or of later complication, without mention of misadventure at the time of the procedure | CPT/HCPCS: 82962; G0277; 99183 ==

== ENCOUNTER 2017-12-16 08:17 | Outpatient (CLI) | payer MEDICARE | END 2017-12-16 08:18 | disposition home or self-care (01) | LOC: WOUND 08:17 | PROVIDERS: ATTEND Internal Medicine | DX: T86.821 Skin graft (allograft) (autograft) failure (principal); E11.52 Type 2 diabetes mellitus with diabetic peripheral angiopathy with gangrene; E11.621 Type 2 diabetes mellitus with foot ulcer; L97.521 Non-pressure chronic ulcer of other part of left foot limited to breakdown of skin; E11.40 Type 2 diabetes mellitus with diabetic neuropathy, unspecified; E66.01 Morbid (severe) obesity due to excess calories; E11.22 Type 2 diabetes mellitus with diabetic chronic kidney disease; I12.0 Hypertensive chronic kidney disease with stage 5 chronic kidney disease or end stage renal disease; N18.6 End stage renal disease; E11.69 Type 2 diabetes mellitus with other specified complication; M86.8X8 Other osteomyelitis, other site; Z87.891 Personal history of nicotine dependence; Z68.30 Body mass index [BMI] 30.0-30.9, adult; Z99.2 Dependence on renal dialysis; Y83.2 Surgical operation with anastomosis, bypass or graft as the cause of abnormal reaction of the patient, or of later complication, without mention of misadventure at the time of the procedure | CPT/HCPCS: 82962; G0277; 99183 ==

== ENCOUNTER 2017-12-17 08:05 | Outpatient (CLI) | payer MEDICARE | END 2017-12-17 08:06 | disposition home or self-care (01) | LOC: WOUND 08:05 | PROVIDERS: ATTEND Surgery | DX: T86.821 Skin graft (allograft) (autograft) failure (principal); E11.621 Type 2 diabetes mellitus with foot ulcer; L97.521 Non-pressure chronic ulcer of other part of left foot limited to breakdown of skin; E11.52 Type 2 diabetes mellitus with diabetic peripheral angiopathy with gangrene; E11.40 Type 2 diabetes mellitus with diabetic neuropathy, unspecified; E66.01 Morbid (severe) obesity due to excess calories; E11.22 Type 2 diabetes mellitus with diabetic chronic kidney disease; I12.0 Hypertensive chronic kidney disease with stage 5 chronic kidney disease or end stage renal disease; N18.6 End stage renal disease; E11.69 Type 2 diabetes mellitus with other specified complication; M86.8X8 Other osteomyelitis, other site; Z99.2 Dependence on renal dialysis; Z68.30 Body mass index [BMI] 30.0-30.9, adult; Z87.891 Personal history of nicotine dependence; Y83.2 Surgical operation with anastomosis, bypass or graft as the cause of abnormal reaction of the patient, or of later complication, without mention of misadventure at the time of the procedure | CPT/HCPCS: 82962; G0277; 99183 ==

== ENCOUNTER 2017-12-18 08:15 | Outpatient (CLI) | payer MEDICARE ==
[2017-12-18] MEDS ORDERED: ePHEDrine SULFATE ONE (10:26)
[2017-12-18] MEDS ORDERED: XYLOCAINE TOPICAL 4% TP ONE ×2 (11:34→17:30)
== END 2017-12-18 08:16 | disposition home or self-care (01) ==
LOC: WOUND 08:15
PROVIDERS: ATTEND Surgery
DX: T86.821 Skin graft (allograft) (autograft) failure (principal); E11.621 Type 2 diabetes mellitus with foot ulcer; L97.521 Non-pressure chronic ulcer of other part of left foot limited to breakdown of skin; E11.52 Type 2 diabetes mellitus with diabetic peripheral angiopathy with gangrene; E11.40 Type 2 diabetes mellitus with diabetic neuropathy, unspecified; E11.22 Type 2 diabetes mellitus with diabetic chronic kidney disease; I12.0 Hypertensive chronic kidney disease with stage 5 chronic kidney disease or end stage renal disease; N18.6 End stage renal disease; E11.69 Type 2 diabetes mellitus with other specified complication; M86.8X8 Other osteomyelitis, other site; E66.9 Obesity, unspecified; Z87.891 Personal history of nicotine dependence; Z99.2 Dependence on renal dialysis; Y83.2 Surgical operation with anastomosis, bypass or graft as the cause of abnormal reaction of the patient, or of later complication, without mention of misadventure at the time of the procedure
CPT/HCPCS: 11042; 11043; 82962; G0277; 99183

== ENCOUNTER 2017-12-19 08:11 | Outpatient (CLI) | payer MEDICARE | END 2017-12-19 08:12 | disposition home or self-care (01) | LOC: WOUND 08:11 | PROVIDERS: ATTEND Nurse Practitioner | DX: T86.821 Skin graft (allograft) (autograft) failure (principal); E11.621 Type 2 diabetes mellitus with foot ulcer; L97.521 Non-pressure chronic ulcer of other part of left foot limited to breakdown of skin; E11.52 Type 2 diabetes mellitus with diabetic peripheral angiopathy with gangrene; E11.22 Type 2 diabetes mellitus with diabetic chronic kidney disease; I12.0 Hypertensive chronic kidney disease with stage 5 chronic kidney disease or end stage renal disease; N18.6 End stage renal disease; E11.40 Type 2 diabetes mellitus with diabetic neuropathy, unspecified; E66.01 Morbid (severe) obesity due to excess calories; E11.69 Type 2 diabetes mellitus with other specified complication; M86.8X8 Other osteomyelitis, other site; Z99.2 Dependence on renal dialysis; Z68.30 Body mass index [BMI] 30.0-30.9, adult; Z87.891 Personal history of nicotine dependence; Y83.2 Surgical operation with anastomosis, bypass or graft as the cause of abnormal reaction of the patient, or of later complication, without mention of misadventure at the time of the procedure | CPT/HCPCS: 82962; G0277; 99183 ==

== ENCOUNTER 2017-12-20 08:08 | Outpatient (CLI) | payer MEDICARE | END 2017-12-20 08:09 | disposition home or self-care (01) | LOC: WOUND 08:08 | PROVIDERS: ATTEND Podiatrist | DX: T86.821 Skin graft (allograft) (autograft) failure (principal); E11.621 Type 2 diabetes mellitus with foot ulcer; L97.521 Non-pressure chronic ulcer of other part of left foot limited to breakdown of skin; E11.52 Type 2 diabetes mellitus with diabetic peripheral angiopathy with gangrene; E11.22 Type 2 diabetes mellitus with diabetic chronic kidney disease; I12.0 Hypertensive chronic kidney disease with stage 5 chronic kidney disease or end stage renal disease; N18.6 End stage renal disease; E11.40 Type 2 diabetes mellitus with diabetic neuropathy, unspecified; E66.01 Morbid (severe) obesity due to excess calories; Z68.30 Body mass index [BMI] 30.0-30.9, adult; Z99.2 Dependence on renal dialysis; Z87.891 Personal history of nicotine dependence; Y83.2 Surgical operation with anastomosis, bypass or graft as the cause of abnormal reaction of the patient, or of later complication, without mention of misadventure at the time of the procedure | CPT/HCPCS: 82962; G0277; 99183 ==

== ENCOUNTER 2017-12-23 08:19 | Outpatient (CLI) | payer MEDICARE | END 2017-12-23 08:20 | disposition home or self-care (01) | LOC: WOUND 08:19 | PROVIDERS: ATTEND Internal Medicine | DX: T86.821 Skin graft (allograft) (autograft) failure (principal); E11.621 Type 2 diabetes mellitus with foot ulcer; L97.521 Non-pressure chronic ulcer of other part of left foot limited to breakdown of skin; E11.52 Type 2 diabetes mellitus with diabetic peripheral angiopathy with gangrene; E11.40 Type 2 diabetes mellitus with diabetic neuropathy, unspecified; E11.22 Type 2 diabetes mellitus with diabetic chronic kidney disease; I12.0 Hypertensive chronic kidney disease with stage 5 chronic kidney disease or end stage renal disease; N18.6 End stage renal disease; E11.69 Type 2 diabetes mellitus with other specified complication; M86.9 Osteomyelitis, unspecified; E66.9 Obesity, unspecified; Z99.2 Dependence on renal dialysis; Z87.891 Personal history of nicotine dependence; Y83.2 Surgical operation with anastomosis, bypass or graft as the cause of abnormal reaction of the patient, or of later complication, without mention of misadventure at the time of the procedure | CPT/HCPCS: 82962; G0277; 99183 ==

== ENCOUNTER 2017-12-24 08:06 | Outpatient (CLI) | payer MEDICARE | END 2017-12-24 08:07 | disposition home or self-care (01) | LOC: WOUND 08:06 | PROVIDERS: ATTEND Surgery | DX: T86.821 Skin graft (allograft) (autograft) failure (principal); E11.621 Type 2 diabetes mellitus with foot ulcer; L97.521 Non-pressure chronic ulcer of other part of left foot limited to breakdown of skin; E11.40 Type 2 diabetes mellitus with diabetic neuropathy, unspecified; E11.52 Type 2 diabetes mellitus with diabetic peripheral angiopathy with gangrene; E11.22 Type 2 diabetes mellitus with diabetic chronic kidney disease; I12.0 Hypertensive chronic kidney disease with stage 5 chronic kidney disease or end stage renal disease; N18.6 End stage renal disease; E11.69 Type 2 diabetes mellitus with other specified complication; M86.8X8 Other osteomyelitis, other site; E66.9 Obesity, unspecified; Z68.30 Body mass index [BMI] 30.0-30.9, adult; Z87.891 Personal history of nicotine dependence; Z99.2 Dependence on renal dialysis; Y83.2 Surgical operation with anastomosis, bypass or graft as the cause of abnormal reaction of the patient, or of later complication, without mention of misadventure at the time of the procedure | CPT/HCPCS: 82962; G0277; 99183 ==

== ENCOUNTER 2017-12-25 07:58 | Outpatient (CLI) | payer MEDICARE | END 2017-12-25 07:59 | disposition home or self-care (01) | LOC: WOUND 07:58 | PROVIDERS: ATTEND Surgery | DX: T86.821 Skin graft (allograft) (autograft) failure (principal); E11.621 Type 2 diabetes mellitus with foot ulcer; L97.521 Non-pressure chronic ulcer of other part of left foot limited to breakdown of skin; E11.52 Type 2 diabetes mellitus with diabetic peripheral angiopathy with gangrene; E11.40 Type 2 diabetes mellitus with diabetic neuropathy, unspecified; E66.01 Morbid (severe) obesity due to excess calories; E11.22 Type 2 diabetes mellitus with diabetic chronic kidney disease; I12.0 Hypertensive chronic kidney disease with stage 5 chronic kidney disease or end stage renal disease; N18.6 End stage renal disease; E11.69 Type 2 diabetes mellitus with other specified complication; M86.8X8 Other osteomyelitis, other site; Z99.2 Dependence on renal dialysis; Z87.891 Personal history of nicotine dependence; Z68.30 Body mass index [BMI] 30.0-30.9, adult; Y83.2 Surgical operation with anastomosis, bypass or graft as the cause of abnormal reaction of the patient, or of later complication, without mention of misadventure at the time of the procedure | CPT/HCPCS: 82962; G0277; 99183 ==

== ENCOUNTER 2017-12-26 07:55 | Outpatient (CLI) | payer MEDICARE | END 2017-12-26 07:56 | disposition home or self-care (01) | LOC: WOUND 07:55 | PROVIDERS: ATTEND Nurse Practitioner | DX: T86.821 Skin graft (allograft) (autograft) failure (principal); E11.621 Type 2 diabetes mellitus with foot ulcer; L97.521 Non-pressure chronic ulcer of other part of left foot limited to breakdown of skin; E11.40 Type 2 diabetes mellitus with diabetic neuropathy, unspecified; E11.52 Type 2 diabetes mellitus with diabetic peripheral angiopathy with gangrene; E11.22 Type 2 diabetes mellitus with diabetic chronic kidney disease; E66.01 Morbid (severe) obesity due to excess calories; I12.0 Hypertensive chronic kidney disease with stage 5 chronic kidney disease or end stage renal disease; N18.6 End stage renal disease; M86.8X8 Other osteomyelitis, other site; Z99.2 Dependence on renal dialysis; Z87.891 Personal history of nicotine dependence; Y83.2 Surgical operation with anastomosis, bypass or graft as the cause of abnormal reaction of the patient, or of later complication, without mention of misadventure at the time of the procedure | CPT/HCPCS: 82962; G0277; 99183 ==

== ENCOUNTER 2017-12-27 08:05 | Outpatient (CLI) | payer MEDICARE | END 2017-12-27 08:06 | disposition home or self-care (01) | LOC: WOUND 08:05 | PROVIDERS: ATTEND Podiatrist | DX: T86.821 Skin graft (allograft) (autograft) failure (principal); E11.621 Type 2 diabetes mellitus with foot ulcer; L97.521 Non-pressure chronic ulcer of other part of left foot limited to breakdown of skin; E11.52 Type 2 diabetes mellitus with diabetic peripheral angiopathy with gangrene; E11.40 Type 2 diabetes mellitus with diabetic neuropathy, unspecified; E66.01 Morbid (severe) obesity due to excess calories; E11.22 Type 2 diabetes mellitus with diabetic chronic kidney disease; I12.0 Hypertensive chronic kidney disease with stage 5 chronic kidney disease or end stage renal disease; N18.6 End stage renal disease; E11.69 Type 2 diabetes mellitus with other specified complication; M86.8X8 Other osteomyelitis, other site; Z68.30 Body mass index [BMI] 30.0-30.9, adult; Z99.2 Dependence on renal dialysis; Z87.891 Personal history of nicotine dependence; Y83.2 Surgical operation with anastomosis, bypass or graft as the cause of abnormal reaction of the patient, or of later complication, without mention of misadventure at the time of the procedure | CPT/HCPCS: 82962; G0277; 99183 ==

== ENCOUNTER 2017-12-30 08:04 | Outpatient (CLI) | payer MEDICARE | END 2017-12-30 08:05 | disposition home or self-care (01) | LOC: WOUND 08:04 | PROVIDERS: ATTEND Internal Medicine | DX: T86.821 Skin graft (allograft) (autograft) failure (principal); T81.31XD Disruption of external operation (surgical) wound, not elsewhere classified, subsequent encounter; E11.52 Type 2 diabetes mellitus with diabetic peripheral angiopathy with gangrene; E11.40 Type 2 diabetes mellitus with diabetic neuropathy, unspecified; E66.01 Morbid (severe) obesity due to excess calories; E11.22 Type 2 diabetes mellitus with diabetic chronic kidney disease; I12.0 Hypertensive chronic kidney disease with stage 5 chronic kidney disease or end stage renal disease; N18.6 End stage renal disease; E11.69 Type 2 diabetes mellitus with other specified complication; M86.8X8 Other osteomyelitis, other site; Z87.891 Personal history of nicotine dependence; Y83.8 Other surgical procedures as the cause of abnormal reaction of the patient, or of later complication, without mention of misadventure at the time of the procedure; Y83.2 Surgical operation with anastomosis, bypass or graft as the cause of abnormal reaction of the patient, or of later complication, without mention of misadventure at the time of the procedure | CPT/HCPCS: 82962; G0277; 99183 ==

== ENCOUNTER 2017-12-31 08:04 | Outpatient (CLI) | payer MEDICARE | END 2017-12-31 08:05 | disposition home or self-care (01) | LOC: WOUND 08:04 | PROVIDERS: ATTEND Surgery | DX: T86.821 Skin graft (allograft) (autograft) failure (principal); T81.31XD Disruption of external operation (surgical) wound, not elsewhere classified, subsequent encounter; E11.621 Type 2 diabetes mellitus with foot ulcer; L97.521 Non-pressure chronic ulcer of other part of left foot limited to breakdown of skin; E11.40 Type 2 diabetes mellitus with diabetic neuropathy, unspecified; E11.52 Type 2 diabetes mellitus with diabetic peripheral angiopathy with gangrene; E11.22 Type 2 diabetes mellitus with diabetic chronic kidney disease; I12.0 Hypertensive chronic kidney disease with stage 5 chronic kidney disease or end stage renal disease; N18.6 End stage renal disease; E11.69 Type 2 diabetes mellitus with other specified complication; M86.8X8 Other osteomyelitis, other site; E66.01 Morbid (severe) obesity due to excess calories; Z99.2 Dependence on renal dialysis; Z68.30 Body mass index [BMI] 30.0-30.9, adult; Z87.891 Personal history of nicotine dependence; Y83.2 Surgical operation with anastomosis, bypass or graft as the cause of abnormal reaction of the patient, or of later complication, without mention of misadventure at the time of the procedure; Y83.8 Other surgical procedures as the cause of abnormal reaction of the patient, or of later complication, without mention of misadventure at the time of the procedure | CPT/HCPCS: 82962; G0277; 99183 ==

== ENCOUNTER 2018-01-01 08:21 | Outpatient (CLI) | payer MEDICARE ==
[2018-01-01] MEDS ORDERED: XYLOCAINE TOPICAL 2% 30ML TP ONE ×2 (10:55→11:02)
== END 2018-01-01 08:22 | disposition home or self-care (01) ==
LOC: WOUND 08:21
PROVIDERS: ATTEND Surgery
DX: T86.821 Skin graft (allograft) (autograft) failure (principal); T81.31XD Disruption of external operation (surgical) wound, not elsewhere classified, subsequent encounter; E11.621 Type 2 diabetes mellitus with foot ulcer; L97.521 Non-pressure chronic ulcer of other part of left foot limited to breakdown of skin; L97.511 Non-pressure chronic ulcer of other part of right foot limited to breakdown of skin; E11.52 Type 2 diabetes mellitus with diabetic peripheral angiopathy with gangrene; E11.40 Type 2 diabetes mellitus with diabetic neuropathy, unspecified; E66.01 Morbid (severe) obesity due to excess calories; E11.22 Type 2 diabetes mellitus with diabetic chronic kidney disease; I12.0 Hypertensive chronic kidney disease with stage 5 chronic kidney disease or end stage renal disease; N18.6 End stage renal disease; E11.69 Type 2 diabetes mellitus with other specified complication; M86.8X8 Other osteomyelitis, other site; Z87.891 Personal history of nicotine dependence; Z68.30 Body mass index [BMI] 30.0-30.9, adult; Z99.2 Dependence on renal dialysis; Y83.8 Other surgical procedures as the cause of abnormal reaction of the patient, or of later complication, without mention of misadventure at the time of the procedure; Y83.2 Surgical operation with anastomosis, bypass or graft as the cause of abnormal reaction of the patient, or of later complication, without mention of misadventure at the time of the procedure
CPT/HCPCS: 11042; 82962; G0277; 99183

== ENCOUNTER 2018-01-02 08:02 | Outpatient (CLI) | payer MEDICARE | END 2018-01-02 08:03 | disposition home or self-care (01) | LOC: WOUND 08:02 | PROVIDERS: ATTEND Nurse Practitioner | DX: T86.821 Skin graft (allograft) (autograft) failure (principal); T81.31XD Disruption of external operation (surgical) wound, not elsewhere classified, subsequent encounter; E11.621 Type 2 diabetes mellitus with foot ulcer; L97.521 Non-pressure chronic ulcer of other part of left foot limited to breakdown of skin; E11.40 Type 2 diabetes mellitus with diabetic neuropathy, unspecified; E66.01 Morbid (severe) obesity due to excess calories; E11.52 Type 2 diabetes mellitus with diabetic peripheral angiopathy with gangrene; E11.22 Type 2 diabetes mellitus with diabetic chronic kidney disease; I12.0 Hypertensive chronic kidney disease with stage 5 chronic kidney disease or end stage renal disease; N18.6 End stage renal disease; E11.69 Type 2 diabetes mellitus with other specified complication; M86.8X8 Other osteomyelitis, other site; Z99.2 Dependence on renal dialysis; Z87.891 Personal history of nicotine dependence; Z68.30 Body mass index [BMI] 30.0-30.9, adult; Y83.2 Surgical operation with anastomosis, bypass or graft as the cause of abnormal reaction of the patient, or of later complication, without mention of misadventure at the time of the procedure; Y83.8 Other surgical procedures as the cause of abnormal reaction of the patient, or of later complication, without mention of misadventure at the time of the procedure | CPT/HCPCS: 82962; G0277; 99183 ==

== ENCOUNTER 2018-01-03 08:15 | Outpatient (CLI) | payer MEDICARE | END 2018-01-03 08:16 | disposition home or self-care (01) | LOC: WOUND 08:15 | PROVIDERS: ATTEND Podiatrist | DX: T86.821 Skin graft (allograft) (autograft) failure (principal); T81.31XD Disruption of external operation (surgical) wound, not elsewhere classified, subsequent encounter; E11.621 Type 2 diabetes mellitus with foot ulcer; L97.521 Non-pressure chronic ulcer of other part of left foot limited to breakdown of skin; E11.52 Type 2 diabetes mellitus with diabetic peripheral angiopathy with gangrene; E11.40 Type 2 diabetes mellitus with diabetic neuropathy, unspecified; E66.01 Morbid (severe) obesity due to excess calories; E11.22 Type 2 diabetes mellitus with diabetic chronic kidney disease; I12.0 Hypertensive chronic kidney disease with stage 5 chronic kidney disease or end stage renal disease; N18.6 End stage renal disease; E11.69 Type 2 diabetes mellitus with other specified complication; M86.8X8 Other osteomyelitis, other site; Z99.2 Dependence on renal dialysis; Z87.891 Personal history of nicotine dependence; Z68.30 Body mass index [BMI] 30.0-30.9, adult; Y83.2 Surgical operation with anastomosis, bypass or graft as the cause of abnormal reaction of the patient, or of later complication, without mention of misadventure at the time of the procedure; Y83.8 Other surgical procedures as the cause of abnormal reaction of the patient, or of later complication, without mention of misadventure at the time of the procedure | CPT/HCPCS: 82962; G0277; 99183 ==

== ENCOUNTER 2018-01-06 08:15 | Outpatient (CLI) | payer MEDICARE | END 2018-01-06 08:16 | disposition home or self-care (01) | LOC: WOUND 08:15 | PROVIDERS: ATTEND Internal Medicine | DX: T86.821 Skin graft (allograft) (autograft) failure (principal); E11.621 Type 2 diabetes mellitus with foot ulcer; L97.521 Non-pressure chronic ulcer of other part of left foot limited to breakdown of skin; E11.52 Type 2 diabetes mellitus with diabetic peripheral angiopathy with gangrene; E11.40 Type 2 diabetes mellitus with diabetic neuropathy, unspecified; E66.01 Morbid (severe) obesity due to excess calories; E11.22 Type 2 diabetes mellitus with diabetic chronic kidney disease; I12.0 Hypertensive chronic kidney disease with stage 5 chronic kidney disease or end stage renal disease; N18.6 End stage renal disease; E11.69 Type 2 diabetes mellitus with other specified complication; M86.8X8 Other osteomyelitis, other site; Z99.2 Dependence on renal dialysis; Z87.891 Personal history of nicotine dependence; Z68.30 Body mass index [BMI] 30.0-30.9, adult; Y83.2 Surgical operation with anastomosis, bypass or graft as the cause of abnormal reaction of the patient, or of later complication, without mention of misadventure at the time of the procedure | CPT/HCPCS: 82962; G0277; 99183 ==

== ENCOUNTER 2018-01-07 08:02 | Outpatient (CLI) | payer MEDICARE | END 2018-01-07 08:03 | disposition home or self-care (01) | LOC: WOUND 08:02 | PROVIDERS: ATTEND Surgery | DX: T86.821 Skin graft (allograft) (autograft) failure (principal); T81.31XD Disruption of external operation (surgical) wound, not elsewhere classified, subsequent encounter; E11.621 Type 2 diabetes mellitus with foot ulcer; L97.521 Non-pressure chronic ulcer of other part of left foot limited to breakdown of skin; E11.52 Type 2 diabetes mellitus with diabetic peripheral angiopathy with gangrene; E11.40 Type 2 diabetes mellitus with diabetic neuropathy, unspecified; E11.22 Type 2 diabetes mellitus with diabetic chronic kidney disease; I12.0 Hypertensive chronic kidney disease with stage 5 chronic kidney disease or end stage renal disease; N18.6 End stage renal disease; E66.01 Morbid (severe) obesity due to excess calories; E11.69 Type 2 diabetes mellitus with other specified complication; M86.8X8 Other osteomyelitis, other site; Z99.2 Dependence on renal dialysis; Z68.30 Body mass index [BMI] 30.0-30.9, adult; Z87.891 Personal history of nicotine dependence; Y83.8 Other surgical procedures as the cause of abnormal reaction of the patient, or of later complication, without mention of misadventure at the time of the procedure; Y83.2 Surgical operation with anastomosis, bypass or graft as the cause of abnormal reaction of the patient, or of later complication, without mention of misadventure at the time of the procedure | CPT/HCPCS: 82962; G0277; 99183 ==

== ENCOUNTER 2018-01-08 08:03 | Outpatient (CLI) | payer MEDICARE | END 2018-01-08 08:04 | disposition home or self-care (01) | LOC: WOUND 08:03 | PROVIDERS: ATTEND Surgery | DX: T86.821 Skin graft (allograft) (autograft) failure (principal); T81.31XD Disruption of external operation (surgical) wound, not elsewhere classified, subsequent encounter; E11.52 Type 2 diabetes mellitus with diabetic peripheral angiopathy with gangrene; E11.40 Type 2 diabetes mellitus with diabetic neuropathy, unspecified; E66.01 Morbid (severe) obesity due to excess calories; E11.22 Type 2 diabetes mellitus with diabetic chronic kidney disease; I12.0 Hypertensive chronic kidney disease with stage 5 chronic kidney disease or end stage renal disease; N18.6 End stage renal disease; E11.69 Type 2 diabetes mellitus with other specified complication; M86.8X8 Other osteomyelitis, other site; Z68.30 Body mass index [BMI] 30.0-30.9, adult; Z99.2 Dependence on renal dialysis; Z87.891 Personal history of nicotine dependence; Y83.8 Other surgical procedures as the cause of abnormal reaction of the patient, or of later complication, without mention of misadventure at the time of the procedure; Y83.2 Surgical operation with anastomosis, bypass or graft as the cause of abnormal reaction of the patient, or of later complication, without mention of misadventure at the time of the procedure | CPT/HCPCS: 82962; G0277; G0463; 99183; 99213 ==

== ENCOUNTER 2018-01-09 08:06 | Outpatient (CLI) | payer MEDICARE | END 2018-01-09 08:07 | disposition home or self-care (01) | LOC: WOUND 08:06 | PROVIDERS: ATTEND Nurse Practitioner | DX: T86.821 Skin graft (allograft) (autograft) failure (principal); T81.31XD Disruption of external operation (surgical) wound, not elsewhere classified, subsequent encounter; E11.40 Type 2 diabetes mellitus with diabetic neuropathy, unspecified; E66.01 Morbid (severe) obesity due to excess calories; E11.22 Type 2 diabetes mellitus with diabetic chronic kidney disease; I12.0 Hypertensive chronic kidney disease with stage 5 chronic kidney disease or end stage renal disease; N18.6 End stage renal disease; E11.52 Type 2 diabetes mellitus with diabetic peripheral angiopathy with gangrene; E11.69 Type 2 diabetes mellitus with other specified complication; M86.8X8 Other osteomyelitis, other site; Z99.2 Dependence on renal dialysis; Z68.30 Body mass index [BMI] 30.0-30.9, adult; Z87.891 Personal history of nicotine dependence; Y83.2 Surgical operation with anastomosis, bypass or graft as the cause of abnormal reaction of the patient, or of later complication, without mention of misadventure at the time of the procedure | CPT/HCPCS: 82962; G0277; 99183 ==

== ENCOUNTER 2018-01-10 08:09 | Outpatient (CLI) | payer MEDICARE | END 2018-01-10 08:10 | disposition home or self-care (01) | LOC: WOUND 08:09 | PROVIDERS: ATTEND Podiatrist | DX: T86.821 Skin graft (allograft) (autograft) failure (principal); T81.31XD Disruption of external operation (surgical) wound, not elsewhere classified, subsequent encounter; E11.621 Type 2 diabetes mellitus with foot ulcer; L97.521 Non-pressure chronic ulcer of other part of left foot limited to breakdown of skin; E11.52 Type 2 diabetes mellitus with diabetic peripheral angiopathy with gangrene; E11.40 Type 2 diabetes mellitus with diabetic neuropathy, unspecified; E66.01 Morbid (severe) obesity due to excess calories; E11.22 Type 2 diabetes mellitus with diabetic chronic kidney disease; I12.0 Hypertensive chronic kidney disease with stage 5 chronic kidney disease or end stage renal disease; N18.6 End stage renal disease; E11.69 Type 2 diabetes mellitus with other specified complication; M86.8X8 Other osteomyelitis, other site; Z99.2 Dependence on renal dialysis; Z68.30 Body mass index [BMI] 30.0-30.9, adult; Z87.891 Personal history of nicotine dependence; Y83.2 Surgical operation with anastomosis, bypass or graft as the cause of abnormal reaction of the patient, or of later complication, without mention of misadventure at the time of the procedure; Y83.8 Other surgical procedures as the cause of abnormal reaction of the patient, or of later complication, without mention of misadventure at the time of the procedure | CPT/HCPCS: 82962; G0277; 99183 ==

== ENCOUNTER 2018-01-13 08:23 | Outpatient (CLI) | payer MEDICARE | END 2018-01-13 08:24 | disposition home or self-care (01) | LOC: WOUND 08:23 | PROVIDERS: ATTEND Internal Medicine | DX: T86.821 Skin graft (allograft) (autograft) failure (principal); T81.31XD Disruption of external operation (surgical) wound, not elsewhere classified, subsequent encounter; E11.621 Type 2 diabetes mellitus with foot ulcer; L97.521 Non-pressure chronic ulcer of other part of left foot limited to breakdown of skin; E11.52 Type 2 diabetes mellitus with diabetic peripheral angiopathy with gangrene; E11.40 Type 2 diabetes mellitus with diabetic neuropathy, unspecified; E66.01 Morbid (severe) obesity due to excess calories; E11.22 Type 2 diabetes mellitus with diabetic chronic kidney disease; I12.0 Hypertensive chronic kidney disease with stage 5 chronic kidney disease or end stage renal disease; N18.6 End stage renal disease; E11.69 Type 2 diabetes mellitus with other specified complication; M86.8X8 Other osteomyelitis, other site; Z87.891 Personal history of nicotine dependence; Z99.2 Dependence on renal dialysis; Z68.30 Body mass index [BMI] 30.0-30.9, adult; Y83.2 Surgical operation with anastomosis, bypass or graft as the cause of abnormal reaction of the patient, or of later complication, without mention of misadventure at the time of the procedure; Y83.8 Other surgical procedures as the cause of abnormal reaction of the patient, or of later complication, without mention of misadventure at the time of the procedure | CPT/HCPCS: 82962; G0277; 99183 ==

== ENCOUNTER 2018-01-14 08:01 | Outpatient (CLI) | payer MEDICARE | END 2018-01-14 08:02 | disposition home or self-care (01) | LOC: WOUND 08:01 | PROVIDERS: ATTEND Surgery | DX: T86.821 Skin graft (allograft) (autograft) failure (principal); T81.31XD Disruption of external operation (surgical) wound, not elsewhere classified, subsequent encounter; E11.621 Type 2 diabetes mellitus with foot ulcer; L97.521 Non-pressure chronic ulcer of other part of left foot limited to breakdown of skin; E11.52 Type 2 diabetes mellitus with diabetic peripheral angiopathy with gangrene; E11.40 Type 2 diabetes mellitus with diabetic neuropathy, unspecified; E11.22 Type 2 diabetes mellitus with diabetic chronic kidney disease; I12.0 Hypertensive chronic kidney disease with stage 5 chronic kidney disease or end stage renal disease; N18.6 End stage renal disease; E66.01 Morbid (severe) obesity due to excess calories; E11.69 Type 2 diabetes mellitus with other specified complication; M86.8X8 Other osteomyelitis, other site; Z87.891 Personal history of nicotine dependence; Z99.2 Dependence on renal dialysis; Z68.30 Body mass index [BMI] 30.0-30.9, adult; Y83.2 Surgical operation with anastomosis, bypass or graft as the cause of abnormal reaction of the patient, or of later complication, without mention of misadventure at the time of the procedure; Y83.8 Other surgical procedures as the cause of abnormal reaction of the patient, or of later complication, without mention of misadventure at the time of the procedure | CPT/HCPCS: 82962; G0277; 99183 ==

== ENCOUNTER 2018-01-15 08:10 | Outpatient (CLI) | payer MEDICARE ==
[2018-01-15] MEDS ORDERED: XYLOCAINE TOPICAL 4% TP ONE (10:48)
== END 2018-01-15 08:11 | disposition home or self-care (01) ==
LOC: WOUND 08:10
PROVIDERS: ATTEND Nurse Practitioner
DX: T86.821 Skin graft (allograft) (autograft) failure (principal); T81.31XD Disruption of external operation (surgical) wound, not elsewhere classified, subsequent encounter; E11.621 Type 2 diabetes mellitus with foot ulcer; L97.521 Non-pressure chronic ulcer of other part of left foot limited to breakdown of skin; L97.511 Non-pressure chronic ulcer of other part of right foot limited to breakdown of skin; E11.52 Type 2 diabetes mellitus with diabetic peripheral angiopathy with gangrene; E11.40 Type 2 diabetes mellitus with diabetic neuropathy, unspecified; E11.22 Type 2 diabetes mellitus with diabetic chronic kidney disease; I12.0 Hypertensive chronic kidney disease with stage 5 chronic kidney disease or end stage renal disease; N18.6 End stage renal disease; E66.01 Morbid (severe) obesity due to excess calories; E11.69 Type 2 diabetes mellitus with other specified complication; M86.8X8 Other osteomyelitis, other site; Z99.2 Dependence on renal dialysis; Z87.891 Personal history of nicotine dependence; Z68.30 Body mass index [BMI] 30.0-30.9, adult; Y83.2 Surgical operation with anastomosis, bypass or graft as the cause of abnormal reaction of the patient, or of later complication, without mention of misadventure at the time of the procedure; Y83.8 Other surgical procedures as the cause of abnormal reaction of the patient, or of later complication, without mention of misadventure at the time of the procedure
CPT/HCPCS: 11042; 82962; G0277; 99183

== ENCOUNTER 2018-01-16 08:21 | Outpatient (CLI) | payer MEDICARE | END 2018-01-16 08:22 | disposition home or self-care (01) | LOC: WOUND 08:21 | PROVIDERS: ATTEND Nurse Practitioner | DX: T86.821 Skin graft (allograft) (autograft) failure (principal); E11.621 Type 2 diabetes mellitus with foot ulcer; L97.521 Non-pressure chronic ulcer of other part of left foot limited to breakdown of skin; L97.511 Non-pressure chronic ulcer of other part of right foot limited to breakdown of skin; E11.52 Type 2 diabetes mellitus with diabetic peripheral angiopathy with gangrene; E11.40 Type 2 diabetes mellitus with diabetic neuropathy, unspecified; E11.22 Type 2 diabetes mellitus with diabetic chronic kidney disease; I12.0 Hypertensive chronic kidney disease with stage 5 chronic kidney disease or end stage renal disease; N18.6 End stage renal disease; E66.01 Morbid (severe) obesity due to excess calories; E11.69 Type 2 diabetes mellitus with other specified complication; M86.8X8 Other osteomyelitis, other site; Z99.2 Dependence on renal dialysis; Z87.891 Personal history of nicotine dependence; Z68.30 Body mass index [BMI] 30.0-30.9, adult; Y83.2 Surgical operation with anastomosis, bypass or graft as the cause of abnormal reaction of the patient, or of later complication, without mention of misadventure at the time of the procedure | CPT/HCPCS: 82962; G0277; 99183 ==

== ENCOUNTER 2018-01-17 08:15 | Outpatient (CLI) | payer MEDICARE | END 2018-01-17 08:16 | disposition home or self-care (01) | LOC: WOUND 08:15 | PROVIDERS: ATTEND Podiatrist | DX: T86.821 Skin graft (allograft) (autograft) failure (principal); E11.621 Type 2 diabetes mellitus with foot ulcer; L97.521 Non-pressure chronic ulcer of other part of left foot limited to breakdown of skin; L97.511 Non-pressure chronic ulcer of other part of right foot limited to breakdown of skin; E11.52 Type 2 diabetes mellitus with diabetic peripheral angiopathy with gangrene; E11.40 Type 2 diabetes mellitus with diabetic neuropathy, unspecified; E11.22 Type 2 diabetes mellitus with diabetic chronic kidney disease; I12.0 Hypertensive chronic kidney disease with stage 5 chronic kidney disease or end stage renal disease; N18.6 End stage renal disease; E66.01 Morbid (severe) obesity due to excess calories; E11.69 Type 2 diabetes mellitus with other specified complication; M86.8X8 Other osteomyelitis, other site; Z99.2 Dependence on renal dialysis; Z87.891 Personal history of nicotine dependence; Z68.30 Body mass index [BMI] 30.0-30.9, adult; Y83.2 Surgical operation with anastomosis, bypass or graft as the cause of abnormal reaction of the patient, or of later complication, without mention of misadventure at the time of the procedure | CPT/HCPCS: 82962; G0277; G0463; 99183 ==

== ENCOUNTER 2018-01-20 08:13 | Outpatient (CLI) | payer MEDICARE | END 2018-01-20 08:14 | disposition home or self-care (01) | LOC: WOUND 08:13 | PROVIDERS: ATTEND Internal Medicine | DX: T86.821 Skin graft (allograft) (autograft) failure (principal); T81.31XD Disruption of external operation (surgical) wound, not elsewhere classified, subsequent encounter; E11.621 Type 2 diabetes mellitus with foot ulcer; L97.521 Non-pressure chronic ulcer of other part of left foot limited to breakdown of skin; E11.52 Type 2 diabetes mellitus with diabetic peripheral angiopathy with gangrene; E11.40 Type 2 diabetes mellitus with diabetic neuropathy, unspecified; E66.01 Morbid (severe) obesity due to excess calories; E11.22 Type 2 diabetes mellitus with diabetic chronic kidney disease; I12.0 Hypertensive chronic kidney disease with stage 5 chronic kidney disease or end stage renal disease; N18.6 End stage renal disease; E11.69 Type 2 diabetes mellitus with other specified complication; M86.8X8 Other osteomyelitis, other site; Z68.30 Body mass index [BMI] 30.0-30.9, adult; Z87.891 Personal history of nicotine dependence; Z99.2 Dependence on renal dialysis; Y83.2 Surgical operation with anastomosis, bypass or graft as the cause of abnormal reaction of the patient, or of later complication, without mention of misadventure at the time of the procedure; Y83.8 Other surgical procedures as the cause of abnormal reaction of the patient, or of later complication, without mention of misadventure at the time of the procedure | CPT/HCPCS: 82962; G0277; 99183 ==

== ENCOUNTER 2018-01-21 08:08 | Outpatient (CLI) | payer MEDICARE | END 2018-01-21 08:09 | disposition home or self-care (01) | LOC: WOUND 08:08 | PROVIDERS: ATTEND Surgery | DX: T86.821 Skin graft (allograft) (autograft) failure (principal); T81.31XD Disruption of external operation (surgical) wound, not elsewhere classified, subsequent encounter; E11.621 Type 2 diabetes mellitus with foot ulcer; L97.521 Non-pressure chronic ulcer of other part of left foot limited to breakdown of skin; E11.40 Type 2 diabetes mellitus with diabetic neuropathy, unspecified; E11.52 Type 2 diabetes mellitus with diabetic peripheral angiopathy with gangrene; E11.22 Type 2 diabetes mellitus with diabetic chronic kidney disease; I12.0 Hypertensive chronic kidney disease with stage 5 chronic kidney disease or end stage renal disease; N18.6 End stage renal disease; E11.69 Type 2 diabetes mellitus with other specified complication; M86.8X8 Other osteomyelitis, other site; Z68.30 Body mass index [BMI] 30.0-30.9, adult; Z99.2 Dependence on renal dialysis; Z87.891 Personal history of nicotine dependence; Y83.2 Surgical operation with anastomosis, bypass or graft as the cause of abnormal reaction of the patient, or of later complication, without mention of misadventure at the time of the procedure; Y83.8 Other surgical procedures as the cause of abnormal reaction of the patient, or of later complication, without mention of misadventure at the time of the procedure | CPT/HCPCS: 82962; G0277; 99183 ==

== ENCOUNTER 2018-01-23 08:10 | Outpatient (CLI) | payer MEDICARE | END 2018-01-23 08:11 | disposition home or self-care (01) | LOC: WOUND 08:10 | PROVIDERS: ATTEND Nurse Practitioner | DX: T86.828 Other complications of skin graft (allograft) (autograft) (principal); E11.621 Type 2 diabetes mellitus with foot ulcer; L97.521 Non-pressure chronic ulcer of other part of left foot limited to breakdown of skin; E11.52 Type 2 diabetes mellitus with diabetic peripheral angiopathy with gangrene; E11.40 Type 2 diabetes mellitus with diabetic neuropathy, unspecified; E66.01 Morbid (severe) obesity due to excess calories; Z68.30 Body mass index [BMI] 30.0-30.9, adult; E11.22 Type 2 diabetes mellitus with diabetic chronic kidney disease; I12.0 Hypertensive chronic kidney disease with stage 5 chronic kidney disease or end stage renal disease; N18.6 End stage renal disease; Z99.2 Dependence on renal dialysis; E11.69 Type 2 diabetes mellitus with other specified complication; M86.68 Other chronic osteomyelitis, other site; Z87.891 Personal history of nicotine dependence; Y83.2 Surgical operation with anastomosis, bypass or graft as the cause of abnormal reaction of the patient, or of later complication, without mention of misadventure at the time of the procedure | CPT/HCPCS: 82962; G0277; 99183 ==

== ENCOUNTER 2018-01-24 08:00 | Outpatient (CLI) | payer MEDICARE | END 2018-01-24 08:01 | disposition home or self-care (01) | LOC: WOUND 08:00 | PROVIDERS: ATTEND Podiatrist | DX: T86.828 Other complications of skin graft (allograft) (autograft) (principal); E11.621 Type 2 diabetes mellitus with foot ulcer; L97.521 Non-pressure chronic ulcer of other part of left foot limited to breakdown of skin; E11.52 Type 2 diabetes mellitus with diabetic peripheral angiopathy with gangrene; E11.40 Type 2 diabetes mellitus with diabetic neuropathy, unspecified; E11.69 Type 2 diabetes mellitus with other specified complication; M86.68 Other chronic osteomyelitis, other site; E66.01 Morbid (severe) obesity due to excess calories; E11.22 Type 2 diabetes mellitus with diabetic chronic kidney disease; I12.0 Hypertensive chronic kidney disease with stage 5 chronic kidney disease or end stage renal disease; N18.6 End stage renal disease; Z99.2 Dependence on renal dialysis; Z87.891 Personal history of nicotine dependence; Z68.30 Body mass index [BMI] 30.0-30.9, adult; Y83.2 Surgical operation with anastomosis, bypass or graft as the cause of abnormal reaction of the patient, or of later complication, without mention of misadventure at the time of the procedure | CPT/HCPCS: 82962; G0277; 99183 ==

== ENCOUNTER 2021-03-02 01:03 | Emergency (ER) | payer MEDICARE ==
[2021-03-02 03:33] LABS: Hematocrit 31.9 % (35.5-45.6); Hemoglobin 10.7 gm/dl (11.8-15.2); Mean Corpuscular HGB Conc 34 % (32-34); Mean Corpuscular Volume 85 fl (84-94); Platelet Count 205 K/mm3 (140-440); Red Blood Count 3.78 M/mm3 (3.65-5.03); Red Cell Distribution Width 15.4 % (13.2-15.2)
[2021-03-02 03:55] LABS: Albumin 4.4 g/dL (3.9-5); Calcium 9.5 mg/dL (8.4-10.2)
[2021-03-02 04:43] LABS: Total Cells Counted 100
[2021-03-02 04:44] LABS: Anisocytosis 1+; Hypochromasia 1+; Platelet Estimate Consistent w Auto
[2021-03-02 12:06] VITALS: BP 138/67
--- NOTE | 2021-03-02 12:10 | Emergency Department Report ---
ED General Adult HPI - General Chief complaint: Abdominal Pain Stated complaint: EMESIS/NAUSEA/ABD PAIN AFTER Time Seen by Provider: 03/02/21 12:08 Source: patient Mode of arrival: Ambulatory Limitations: No Limitations - History of Present Illness Initial comments: This is a 56-year-old male that complains of a vague lower abdominal pain of gradual onset since yesterday evening. He states he got the Covid vaccine in the afternoon. He is wondering about the correlation. He does not report documented fever. He did go to dialysis on Saturday without complication. He does not complain of shortness of breath nor chills. The pain does not radiate. It is poorly characterized that he does not seem to be able to describe it. He states that it is persistent with some nausea. He reported some diarrhea. He did not report any signs of GI bleeding. -: Gradual, hour(s) Location: abdomen Radiation: non-radiation Consistency: intermittent Improves with: none Worsens with: none Associated Symptoms: other (Diarrhea) Treatments Prior to Arrival: none - Related Data Previous Rx's Medication Instructions Recorded Last Taken Type Clopidogrel [Plavix] 75 mg PO QDAY #30 tablet 12/07/16 Unknown Rx polyethylene glycoL 3350 [Miralax 17 gm PO QDAY PRN 15 Days 12/07/16 Unknown Rx 3350] [email or web address] Acetaminophen [Acetaminophen TAB] 650 mg PO Q4H PRN #30 tablet 11/06/17 Unknown Rx Calcium Acetate [Phoslo] 1,334 mg PO TIDWM #30 day 11/06/17 Unknown Rx Pantoprazole [Protonix TAB] 40 mg PO DAILY #30 tablet 11/06/17 Unknown Rx Sodium Hypochlorite [Dakin's Half 1 applic TP BID #1 bottle 11/06/17 Unknown Rx Strength] oxyCODONE /ACETAMINOPHEN [Percocet 1 tab PO Q6H PRN #20 tablet 11/06/17 Unknown Rx 5/325 mg] Hydrocodone/Chlorphen Polis(Nf 5 ml PO BID 7 Days #70 ml 09/28/18 Unknown Rx [Tussionex (Nf)] Insulin NPH/Regular [NovoLIN 70/30] 10 unit SUB-Q BIDDIAB 30 Days 01/29/20 Unk nown Rx units amLODIPine 5 mg PO QDAY tablet 01/29/20 Unknown Rx Sulfamethoxazole/Trimethoprim 1 each PO BID #14 tablet 03/02/21 Unknown Rx [Bactrim DS TAB] Allergies Allergy/AdvReac Type Severity Reaction Status Date / Time IV CONTRAST DYE AdvReac Nausea Uncoded 10/29/17 11:52 ED Review of Systems ROS: Stated complaint: EMESIS/NAUSEA/ABD PAIN AFTER Other details as noted in HPI Constitutional: denies: chills, fever Eyes: denies: eye pain, vision change ENT: denies: ear pain, throat pain Respiratory: denies: cough, shortness of breath Cardiovascular: denies: chest pain, palpitations Endocrine: no symptoms reported Gastrointestinal: abdominal pain, nausea, diarrhea Genitourinary: as per HPI (Almost anuric). denies: urgency, dysuria Musculoskeletal: denies: back pain, myalgia Skin: other (States no problems with foot and under the care of a prep room supervisor.) Neurological: denies: headache, weakness, paresthesias Psychiatric: denies: anxiety, depression Hematological/Lymphatic: denies: easy bleeding, easy bruising ED Past Medical Hx - Past Medical History Hx Hypertension: Yes Hx CVA: No Hx Heart Attack/AMI: No Hx Congestive Heart Failure: No Hx Diabetes: Yes Hx Deep Vein Thrombosis: No Hx Pulmonary Embolism: No Hx GERD: No Hx Liver Disease: No Hx Renal Disease: Yes Hx Sickle Cell Disease: No Hx Arthritis: No Hx Headaches / Migraines: No Hx Seizures: No Hx Kidney Stones: No Hx Psychiatric Treatment: No Hx Asthma: No Hx COPD: No Hx Tuberculosis: No Hx Dementia: No Hx HIV: No Additional medical history: diaylsis- tues, thurs, sat. 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 No prior abdominal surgery - Social History Smoking Status: Never Smoker - Medications Home Medications: Home Medications Medication Instructions Recorded Confirmed Last Taken Type Clopidogrel [Plavix] 75 mg PO QDAY #30 tablet 12/07/16 01/26/20 Unknown Rx polyethylene glycoL 3350 [Miralax 17 gm PO QDAY PRN 15 Days 12/07/16 01/26/20 Unknown Rx 3350] [email or web address] Acetaminophen [Acetaminophen TAB] 650 mg PO Q4H PRN #30 tablet 11/06/17 01/26/20 Unknown Rx Calcium Acetate [Phoslo] 1,334 mg PO TIDWM #30 day 11/06/17 01/26/20 Unknown Rx Pantoprazole [Protonix TAB] 40 mg PO DAILY #30 tablet 11/06/17 01/26/20 Unknown Rx Sodium Hypochlorite [Dakin's Half 1 applic TP BID #1 bottle 11/06/17 01/26/20 Unknown Rx Strength] oxyCODONE /ACETAMINOPHEN [Percocet 1 tab PO Q6H PRN #20 tablet 11/06/17 01/26/20 Unknown Rx 5/325 mg] Hydrocodone/Chlorphen Polis(Nf 5 ml PO BID 7 Days #70 ml 09/28/18 01/26/20 Unknown Rx [Tussionex (Nf)] Insulin NPH/Regular [NovoLIN 70/30] 10 unit SUB-Q BIDDIAB 30 Days 01/29/20 01/26/20 Unknown Rx units amLODIPine 5 mg PO QDAY tablet 01/29/20 Unknown Rx Sulfamethoxazole/Trimethoprim 1 each PO BID #14 tablet 03/02/21 Unknown Rx [Bactrim DS TAB] ED Physical Exam - General Limitations: Physical Limitation General appearance: alert, in no apparent distress - Head Head exam: Present: atraumatic, normocephalic - Eye Eye exam: Present: normal appearance. Absent: scleral icterus - ENT ENT exam: Present: mucous membranes moist - Neck Neck exam: Present: normal inspection. Absent: tenderness, meningismus - Respiratory Respiratory exam: Present: normal lung sounds bilaterally. Absent: respiratory distress - Cardiovascular Cardiovascular Exam: Present: regular rate, normal rhythm. Absent: systolic murmur, diastolic murmur, rubs, gallop - GI/Abdominal GI/Abdominal exam: Present: soft, normal bowel sounds. Absent: distended, tenderness, guarding, rebound, rigid - Rectal Rectal exam: Present: deferred - Extremities Exam Extremities exam: Present: other (The patient's cast boot was removed. He has a partial-thickness plantar ulcer which does not look superinfected. There is some erythema of the stump and lower leg. There is no lymphangitis. There is no signs of vascular compromise. The toes have been amputated appears to be a Symes.) - Back Exam Back exam: Present: normal inspection - Neurological Exam Neurological exam: Present: alert, oriented X3 - Psychiatric Psychiatric exam: Present: normal affect, normal mood - Skin Skin exam: Present: warm, dry, intact, normal color. Absent: rash ED Course Vital Signs 03/02/21 03/02/21 03/02/21 03:07 10:34 10:36 Temperature 99.7 F H Pulse Rate 98 H 102 H Respiratory 20 18 18 Rate Blood Pressure 150/79 Blood Pressure 156/85 [Left] O2 Sat by Pulse 97 97 Oximetry 03/02/21 12:05 Temperature Pulse Rate 99 H Respiratory 16 Rate Blood Pressure Blood Pressure 138/67 [Left] O2 Sat by Pulse 93 Oximetry - Reevaluation(s) Reevaluation #1: Patient had no ongoing abdominal pain, nausea or diarrhea in the emergency department. Does appear to have some mild cellulitis of his lower extremity perhaps. I am going to place him on Bactrim. I think this can be followed up by his director microbiology/prep room supervisor which she states has been caring for this problem. 03/02/21 14:56 ED Medical Decision Making - Lab Data Result diagrams: 03/02/21 03:11 03/02/21 03:11 Laboratory Results - last 24 hr 03/02/21 03/02/21 03:11 03:11 WBC 8.7 RBC 3.78 Hgb 10.7 L Hct 31.9 L MCV 85 MCH 28 MCHC 34 RDW 15.4 H Plt Count 205 Add Manual Diff Complete Total Counted 100 Seg Neuts % (Manual) 77.0 H Lymphocytes % (Manual) 12.0 L Monocytes % (Manual) 3.0 Eosinophils % (Manual) 8.0 H Nucleated RBC % Not Reportable Seg Neutrophils # Man 6.7 Band Neutrophils # 0.0 Lymphocytes # (Manual) 1.0 L Abs React Lymphs (Man) 0.0 Monocytes # (Manual) 0.3 Eosinophils # (Manual) 0.7 H Basophils # (Manual) 0.0 Metamyelocytes # 0.0 Myelocytes # 0.0 Promyelocytes # 0.0 Blast Cells # 0.0 WBC Morphology Not Reportable Hypersegmented Neuts Not Reportable Hyposegmented Neuts Not Reportable Hypogranular Neuts Not Reportable Smudge Cells Not Reportable Toxic Granulation Not Reportable Toxic Vacuolation Not Reportable Dohle Bodies Not Reportable Pelger-Huet Anomaly Not Reportable Vignesh Rods Not Reportable Platelet Estimate Consistent w auto Clumped Platelets Not Reportable Plt Clumps, EDTA Not Reportable Large Platelets Not Reportable Giant Platelets Not Reportable Platelet Satelliting Not Reportable Plt Morphology Comment Not Reportable RBC Morphology Not Reportable Dimorphic RBCs Not Reportable Polychromasia Not Reportable Hypochromasia 1+ Poikilocytosis Not Reportable Anisocytosis 1+ Microcytosis Not Reportable Macrocytosis Not Reportable Spherocytes Not Reportable Pappenheimer Bodies Not Reportable Sickle Cells Not Reportable Target Cells Not Reportable Tear Drop Cells Not Reportable Ovalocytes Not Reportable Helmet Cells Not Reportable [place] Bodies Not Reportable [place] Rings Not Reportable Daisha Cells Not Reportable Bite Cells Not Reportable Crenated Cell Not Reportable Elliptocytes Not Reportable Acanthocytes (Spur) Not Reportable Rouleaux Not Reportable Hemoglobin C Crystals Not Reportable Schistocytes Not Reportable Malaria parasites Not Reportable Seth Bodies Not Reportable Hem Pathologist Commnt No Sodium 139 Potassium 4.3 Chloride 95.6 L Carbon Dioxide 28 Anion Gap 20 BUN 43 H Creatinine 9.9 H Estimated GFR 6 BUN/Creatinine Ratio 4 Glucose 167 H Calcium 9.5 Total Bilirubin 0.70 AST 17 ALT 10 Alkaline Phosphatase 68 Total Protein 8.3 H Albumin 4.4 Albumin/Globulin Ratio 1.1 Laboratory Results - last 24 hr 03/02/21 03/02/21 03:11 03:11 WBC 8.7 RBC 3.78 Hgb 10.7 L Hct 31.9 L MCV 85 MCH 28 MCHC 34 RDW 15.4 H Plt Count 205 Add Manual Diff Complete Total Counted 100 Seg Neuts % (Manual) 77.0 H Lymphocytes % (Manual) 12.0 L Monocytes % (Manual) 3.0 Eosinophils % (Manual) 8.0 H Nucleated RBC % Not Reportable Seg Neutrophils # Man 6.7 Band Neutrophils # 0.0 Lymphocytes # (Manual) 1.0 L Abs React Lymphs (Man) 0.0 Monocytes # (Manual) 0.3 Eosinophils # (Manual) 0.7 H Basophils # (Manual) 0.0 Metamyelocytes # 0.0 Myelocytes # 0.0 Promyelocytes # 0.0 Blast Cells # 0.0 WBC Morphology Not Reportable Hypersegmented Neuts Not Reportable Hyposegmented Neuts Not Reportable Hypogranular Neuts Not Reportable Smudge Cells Not Reportable Toxic Granulation Not Reportable Toxic Vacuolation Not Reportable Dohle Bodies Not Reportable Pelger-Huet Anomaly Not Reportable Vignesh Rods Not Reportable Platelet Estimate Consistent w auto Clumped Platelets Not Reportable Plt Clumps, EDTA Not Reportable Large Platelets Not Reportable Giant Platelets Not Reportable Platelet Satelliting Not Reportable Plt Morphology Comment Not Reportable RBC Morphology Not Reportable Dimorphic RBCs Not Reportable Polychromasia Not Reportable Hypochromasia 1+ Poikilocytosis Not Reportable Anisocytosis 1+ Microcytosis Not Reportable Macrocytosis Not Reportable Spherocytes Not Reportable Pappenheimer Bodies Not Reportable Sickle Cells Not Reportable Target Cells Not Reportable Tear Drop Cells Not Reportable Ovalocytes Not Reportable Helmet Cells Not Reportable [place] Bodies Not Reportable [place] Rings Not Reportable [place] Cells Not Reportable Bite Cells Not Reportable Crenated Cell Not Reportable Elliptocytes Not Reportable Acanthocytes (Spur) Not Reportable Rouleaux Not Reportable Hemoglobin C Crystals Not Reportable Schistocytes Not Reportable Malaria parasites Not Reportable Seth Bodies Not Reportable Hem Pathologist Commnt No Sodium 139 Potassium 4.3 Chloride 95.6 L Carbon Dioxide 28 Anion Gap 20 BUN 43 H Creatinine 9.9 H Estimated GFR 6 BUN/Creatinine Ratio 4 Glucose 167 H Calcium 9.5 Total Bilirubin 0.70 AST 17 ALT 10 Alkaline Phosphatase 68 Total Protein 8.3 H Albumin 4.4 Albumin/Globulin Ratio 1.1 Laboratory Results - last 24 hr 03/02/21 03/02/21 03/02/21 03:11 03:11 12:43 WBC 8.7 RBC 3.78 Hgb 10.7 L Hct 31.9 L MCV 85 MCH 28 MCHC 34 RDW 15.4 H Plt Count 205 Add Manual Diff Complete Total Counted 100 Seg Neuts % (Manual) 77.0 H Lymphocytes % (Manual) 12.0 L Monocytes % (Manual) 3.0 Eosinophils % (Manual) 8.0 H Nucleated RBC % Not Reportable Seg Neutrophils # Man 6.7 Band Neutrophils # 0.0 Lymphocytes # (Manual) 1.0 L Abs React Lymphs (Man) 0.0 Monocytes # (Manual) 0.3 Eosinophils # (Manual) 0.7 H Basophils # (Manual) 0.0 Metamyelocytes # 0.0 Myelocytes # 0.0 Promyelocytes # 0.0 Blast Cells # 0.0 WBC Morphology Not Reportable Hypersegmented Neuts Not Reportable Hyposegmented Neuts Not Reportable Hypogranular Neuts Not Reportable Smudge Cells Not Reportable Toxic Granulation Not Reportable Toxic Vacuolation Not Reportable Dohle Bodies Not Reportable Pelger-Huet Anomaly Not Reportable Vignesh Rods Not Reportable Platelet Estimate Consistent w auto Clumped Platelets Not Reportable Plt Clumps, EDTA Not Reportable Large Platelets Not Reportable Giant Platelets Not Reportable Platelet Satelliting Not Reportable Plt Morphology Comment Not Reportable RBC Morphology Not Reportable Dimorphic RBCs Not Reportable Polychromasia Not Reportable Hypochromasia 1+ Poikilocytosis Not Reportable Anisocytosis 1+ Microcytosis Not Reportable Macrocytosis Not Reportable Spherocytes Not Reportable Pappenheimer Bodies Not Reportable Sickle Cells Not Reportable Target Cells Not Reportable Tear Drop Cells Not Reportable Ovalocytes Not Reportable Helmet Cells Not Reportable [place] Bodies Not Reportable [place] Rings Not Reportable Daisha Cells Not Reportable Bite Cells Not Reportable Crenated Cell Not Reportable Elliptocytes Not Reportable Acanthocytes (Spur) Not Reportable Rouleaux Not Reportable Hemoglobin C Crystals Not Reportable Schistocytes Not Reportable Malaria parasites Not Reportable Seth Bodies Not Reportable Hem Pathologist Commnt No PT INR APTT Sodium 139 Potassium 4.3 Chloride 95.6 L Carbon Dioxide 28 Anion Gap 20 BUN 43 H Creatinine 9.9 H Estimated GFR 6 BUN/Creatinine Ratio 4 Glucose 167 H Lactic Acid 2.10 H* Calcium 9.5 Total Bilirubin 0.70 AST 17 ALT 10 Alkaline Phosphatase 68 Total Protein 8.3 H Albumin 4.4 Albumin/Globulin Ratio 1.1 03/02/21 12:43 WBC RBC Hgb Hct MCV MCH MCHC RDW Plt Count Add Manual Diff Total Counted Seg Neuts % (Manual) Lymphocytes % (Manual) Monocytes % (Manual) Eosinophils % (Manual) Nucleated RBC % Seg Neutrophils # Man Band Neutrophils # Lymphocytes # (Manual) Abs React Lymphs (Man) Monocytes # (Manual) Eosinophils # (Manual) Basophils # (Manual) Metamyelocytes # Myelocytes # Promyelocytes # Blast Cells # WBC Morphology Hypersegmented Neuts Hyposegmented Neuts Hypogranular Neuts Smudge Cells Toxic Granulation Toxic Vacuolation Dohle Bodies Pelger-Huet Anomaly Vignesh Rods Platelet Estimate Clumped Platelets Plt Clumps, EDTA Large Platelets Giant Platelets Platelet Satelliting Plt Morphology Comment RBC Morphology Dimorphic RBCs Polychromasia Hypochromasia Poikilocytosis Anisocytosis Microcytosis Macrocytosis Spherocytes Pappenheimer Bodies Sickle Cells Target Cells Tear Drop Cells Ovalocytes Helmet Cells [place] Bodies [place] Rings Daisha Cells Bite Cells Crenated Cell Elliptocytes Acanthocytes (Spur) Rouleaux Hemoglobin C Crystals Schistocytes Malaria parasites Seth Bodies Hem Pathologist Commnt PT 15.5 H INR 1.25 H APTT 34.2 Sodium Potassium Chloride Carbon Dioxide Anion Gap BUN Creatinine Estimated GFR BUN/Creatinine Ratio Glucose Lactic Acid Calcium Total Bilirubin AST ALT Alkaline Phosphatase Total Protein Albumin Albumin/Globulin Ratio Critical care attestation.: If time is entered above; I have spent that time in minutes in the direct care of this critically ill patient, excluding procedure time. ED Disposition Clinical Impression: End stage renal disease on dialysis Abdominal pain Qualifiers: Abdominal location: lower abdomen, unspecified Qualified Code(s): R10.30 - Lower abdominal pain, unspecified Foot ulcer, left Qualifiers: Non-pressure ulcer stage: limited to breakdown of skin Qualified Code(s): L97.521 - Non-pressure chronic ulcer of other part of left foot limited to breakdown of skin Disposition: DC-01 TO HOME OR SELFCARE Is pt being admited?: No Does the pt Need Aspirin: No Condition: Stable Instructions: Diabetes Mellitus and Foot Care, Abdominal Pain, Adult, [id number] Additional Instructions: Return any fever or chills. Follow-up with your director microbiology tomorrow. Return to the emergency department any fever or chills, vomiting or increased discomfort. Prescriptions: Sulfamethoxazole/Trimethoprim [Bactrim DS TAB] 1 each PO BID #14 tablet Referrals: PRIMARY CARE, [Primary Care Provider] - 3-5 Days Usual, director microbiology [Other] - 24 Hours Time of Disposition: 14:59
[2021-03-02] MEDS ORDERED: ONDANSETRON 4 MG/2 ML INJ IV ONE (12:18)
[2021-03-02] MEDS ORDERED: MORPHINE 2 MG/1 ML INJ IV ONE (12:18)
[2021-03-02] MEDS ORDERED: PIPERACILLIN/TAZOBACTAM 3.375 3.375 GM/50 ML BAG IV ONE (12:19)
--- NOTE | 2021-03-02 12:56 | Cat Scan Report ---
CT ABDOMEN AND PELVIS WITHOUT CONTRAST INDICATION / CLINICAL INFORMATION: lower abd pain, ESRD. Right lower quadrant pain at [facility] poin t TECHNIQUE: Axial CT images were obtained through the abdomen and pelvis without IV contrast. Sagittal and langford l reformatted images. All CT scans at this location are performed using CT dose reduction for ALARA b y means of automated exposure control. COMPARISON: 03/05/2016 FINDINGS: LOWER CHEST: No significant abnormality. LIVER: No significant abnormality. GALLBLADDER: No significant abnormality. BILE DUCTS: No significant abnormality. PANCREAS: No significant abnormality. SPLEEN: No significant abnormality. ADRENALS: No significant abnormality. RIGHT KIDNEY and URETER: There is mild right renal atrophy. Scattered tiny right renal cysts and a fe w tiny calyceal stones are identified. No ureteral stones or hydronephrosis. LEFT KIDNEY and URETER: There is mild left renal atrophy. Scattered tiny left renal cysts and a few t iny calyceal stones are identified. No ureteral stones or hydronephrosis. STOMACH and SMALL BOWEL: No significant abnormality. COLON: No significant abnormality. APPENDIX: No significant abnormality. PERITONEUM: No free fluid. No free air. No fluid collection. LYMPH NODES: No significant adenopathy. AORTA and ARTERIES: No significant abnormality. IVC and VEINS: There are multiple abdominal wall varicosities which are unchanged. URINARY BLADDER: The bladder is mostly empty but unremarkable. REPRODUCTIVE ORGANS: No significant abnormality. ADDITIONAL FINDINGS: None. SKELETAL SYSTEM: No significant abnormality. IMPRESSION: No acute inflammatory process is appreciated. Mild bilateral renal atrophy, scattered simple appearing cysts and scattered renal calyceal stones. N o hydronephrosis. Signer Name: Neno Beckham Jr, MD Signed: 03/02/2021 12:52 PM Workstation Name: [id number]
[2021-03-02 14:00] LABS: INR 1.25 (0.87-1.13)
[2021-03-02 14:01] LABS: Partial Thromboplastin Time 34.2 Sec. (24.2-36.6)
[2021-03-02] MEDS ORDERED: SULFAMETHOXAZOLE/TRIMETHOPRIM 800/160MG DS TAB PO ONE (14:58)
== END 2021-03-02 16:00 | disposition home or self-care (01) ==
LOC: ED 01:03
DX: E11.22 Type 2 diabetes mellitus with diabetic chronic kidney disease (principal); I12.0 Hypertensive chronic kidney disease with stage 5 chronic kidney disease or end stage renal disease; N18.6 End stage renal disease; E11.621 Type 2 diabetes mellitus with foot ulcer; L97.529 Non-pressure chronic ulcer of other part of left foot with unspecified severity; R10.30 Lower abdominal pain, unspecified; Z98.890 Other specified postprocedural states; Z99.2 Dependence on renal dialysis; Z79.4 Long term (current) use of insulin; Z79.899 Other long term (current) drug therapy; Z88.8 Allergy status to other drugs, medicaments and biological substances
CPT/HCPCS: 36415; 74176; 80053; 82140; 85007; 85025; 85610; 85730; 87040; 96365; 96375; 99284; J2270; J2405; J2543

== ENCOUNTER 2021-11-06 10:19 | Outpatient (CLI) | payer MEDICARE ==
[2021-11-06] MEDS ORDERED: LIDOCAINE (4%) 40 MG/ML TOPICAL SOLN 50 ML BOTTLE TP ONE (12:08)
[2021-11-06] MEDS ORDERED: SILVER NITRATE APPLICATOR 1 EA TP ONE (12:09)
== END 2021-11-06 10:20 | disposition home or self-care (01) ==
LOC: WOUND 10:19
PROVIDERS: ATTEND Surgery
DX: E11.621 Type 2 diabetes mellitus with foot ulcer (principal); I70.245 Atherosclerosis of native arteries of left leg with ulceration of other part of foot; L97.522 Non-pressure chronic ulcer of other part of left foot with fat layer exposed; E11.40 Type 2 diabetes mellitus with diabetic neuropathy, unspecified; I70.211 Atherosclerosis of native arteries of extremities with intermittent claudication, right leg; E11.22 Type 2 diabetes mellitus with diabetic chronic kidney disease; I12.0 Hypertensive chronic kidney disease with stage 5 chronic kidney disease or end stage renal disease; N18.6 End stage renal disease; E11.69 Type 2 diabetes mellitus with other specified complication; M86.8X8 Other osteomyelitis, other site; E11.51 Type 2 diabetes mellitus with diabetic peripheral angiopathy without gangrene; K21.9 Gastro-esophageal reflux disease without esophagitis; L84 Corns and callosities; E66.09 Other obesity due to excess calories; Z68.31 Body mass index [BMI] 31.0-31.9, adult; Z87.891 Personal history of nicotine dependence; Z89.432 Acquired absence of left foot; Z79.82 Long term (current) use of aspirin

== ENCOUNTER 2022-01-01 09:59 | Outpatient (CLI) | payer MEDICARE ==
[2022-01-01] MEDS ORDERED: LIDOCAINE (4%) 40 MG/ML TOPICAL SOLN 50 ML BOTTLE TP ONE ×2 (11:00→18:37)
== END 2022-01-01 10:00 | disposition home or self-care (01) ==
LOC: WOUND 09:59
PROVIDERS: ATTEND Surgery
DX: T87.89 Other complications of amputation stump (principal); E11.621 Type 2 diabetes mellitus with foot ulcer; I70.245 Atherosclerosis of native arteries of left leg with ulceration of other part of foot; L97.522 Non-pressure chronic ulcer of other part of left foot with fat layer exposed; L84 Corns and callosities; I70.211 Atherosclerosis of native arteries of extremities with intermittent claudication, right leg; E11.51 Type 2 diabetes mellitus with diabetic peripheral angiopathy without gangrene; E11.40 Type 2 diabetes mellitus with diabetic neuropathy, unspecified; E11.22 Type 2 diabetes mellitus with diabetic chronic kidney disease; I12.0 Hypertensive chronic kidney disease with stage 5 chronic kidney disease or end stage renal disease; N18.6 End stage renal disease; E11.69 Type 2 diabetes mellitus with other specified complication; M86.8X8 Other osteomyelitis, other site; E66.01 Morbid (severe) obesity due to excess calories; Z68.30 Body mass index [BMI] 30.0-30.9, adult; Z99.2 Dependence on renal dialysis; Z87.891 Personal history of nicotine dependence; Z98.890 Other specified postprocedural states; Z79.82 Long term (current) use of aspirin; Z79.899 Other long term (current) drug therapy; Y83.5 Amputation of limb(s) as the cause of abnormal reaction of the patient, or of later complication, without mention of misadventure at the time of the procedure

== ENCOUNTER 2022-01-29 11:09 | Outpatient (CLI) | payer MEDICARE ==
[2022-01-29] MEDS ORDERED: LIDOCAINE (4%) 40 MG/ML TOPICAL SOLN 50 ML BOTTLE TP SCH (11:15)
== END 2022-01-29 11:10 | disposition home or self-care (01) ==
LOC: WOUND 11:09
PROVIDERS: ATTEND Surgery
DX: T87.89 Other complications of amputation stump (principal); E11.621 Type 2 diabetes mellitus with foot ulcer; I70.245 Atherosclerosis of native arteries of left leg with ulceration of other part of foot; L97.522 Non-pressure chronic ulcer of other part of left foot with fat layer exposed; L84 Corns and callosities; I70.211 Atherosclerosis of native arteries of extremities with intermittent claudication, right leg; E11.51 Type 2 diabetes mellitus with diabetic peripheral angiopathy without gangrene; E11.40 Type 2 diabetes mellitus with diabetic neuropathy, unspecified; E11.22 Type 2 diabetes mellitus with diabetic chronic kidney disease; I12.0 Hypertensive chronic kidney disease with stage 5 chronic kidney disease or end stage renal disease; N18.6 End stage renal disease; E11.69 Type 2 diabetes mellitus with other specified complication; M86.8X8 Other osteomyelitis, other site; E66.01 Morbid (severe) obesity due to excess calories; Z68.30 Body mass index [BMI] 30.0-30.9, adult; Z99.2 Dependence on renal dialysis; Z87.891 Personal history of nicotine dependence; Z98.890 Other specified postprocedural states; Z79.82 Long term (current) use of aspirin; Z79.899 Other long term (current) drug therapy; Y83.5 Amputation of limb(s) as the cause of abnormal reaction of the patient, or of later complication, without mention of misadventure at the time of the procedure

== ENCOUNTER 2022-02-12 13:51 | Outpatient (CLI) | payer MEDICARE ==
[2022-02-12] MEDS ORDERED: LIDOCAINE (4%) 40 MG/ML TOPICAL SOLN 50 ML BOTTLE TP ONE (15:46)
== END 2022-02-12 13:52 | disposition home or self-care (01) ==
LOC: WOUND 13:51
PROVIDERS: ATTEND Surgery
DX: E11.621 Type 2 diabetes mellitus with foot ulcer (principal); I70.245 Atherosclerosis of native arteries of left leg with ulceration of other part of foot; L97.522 Non-pressure chronic ulcer of other part of left foot with fat layer exposed; L84 Corns and callosities; I70.211 Atherosclerosis of native arteries of extremities with intermittent claudication, right leg; E11.51 Type 2 diabetes mellitus with diabetic peripheral angiopathy without gangrene; E11.40 Type 2 diabetes mellitus with diabetic neuropathy, unspecified; E11.22 Type 2 diabetes mellitus with diabetic chronic kidney disease; I12.0 Hypertensive chronic kidney disease with stage 5 chronic kidney disease or end stage renal disease; N18.6 End stage renal disease; E11.69 Type 2 diabetes mellitus with other specified complication; M86.8X8 Other osteomyelitis, other site; E66.01 Morbid (severe) obesity due to excess calories; Z68.30 Body mass index [BMI] 30.0-30.9, adult; Z87.891 Personal history of nicotine dependence; Z99.2 Dependence on renal dialysis; Z89.422 Acquired absence of other left toe(s); Z98.890 Other specified postprocedural states; Z79.82 Long term (current) use of aspirin; Z79.899 Other long term (current) drug therapy

== ENCOUNTER 2022-02-26 12:16 | Outpatient (CLI) | payer MEDICARE ==
[2022-02-26] MEDS ORDERED: SILVER NITRATE APPLICATOR 1 EA TP ONE (15:31)
== END 2022-02-26 12:17 | disposition home or self-care (01) ==
LOC: WOUND 12:16
PROVIDERS: ATTEND Surgery
DX: E11.621 Type 2 diabetes mellitus with foot ulcer (principal); I70.245 Atherosclerosis of native arteries of left leg with ulceration of other part of foot; L97.522 Non-pressure chronic ulcer of other part of left foot with fat layer exposed; L84 Corns and callosities; I70.211 Atherosclerosis of native arteries of extremities with intermittent claudication, right leg; E11.51 Type 2 diabetes mellitus with diabetic peripheral angiopathy without gangrene; E11.40 Type 2 diabetes mellitus with diabetic neuropathy, unspecified; E11.22 Type 2 diabetes mellitus with diabetic chronic kidney disease; I12.0 Hypertensive chronic kidney disease with stage 5 chronic kidney disease or end stage renal disease; N18.6 End stage renal disease; E11.69 Type 2 diabetes mellitus with other specified complication; M86.8X8 Other osteomyelitis, other site; E66.01 Morbid (severe) obesity due to excess calories; Z68.30 Body mass index [BMI] 30.0-30.9, adult; Z87.891 Personal history of nicotine dependence; Z99.2 Dependence on renal dialysis; Z89.422 Acquired absence of other left toe(s); Z98.890 Other specified postprocedural states; Z79.82 Long term (current) use of aspirin; Z79.899 Other long term (current) drug therapy

== ENCOUNTER 2022-03-19 13:46 | Outpatient (CLI) | payer MEDICARE ==
[2022-03-19] MEDS ORDERED: SILVER NITRATE APPLICATOR 1 EA TP ONE (16:55)
== END 2022-03-19 13:47 | disposition home or self-care (01) ==
LOC: WOUND 13:46
PROVIDERS: ATTEND Surgery
DX: E11.621 Type 2 diabetes mellitus with foot ulcer (principal); I70.245 Atherosclerosis of native arteries of left leg with ulceration of other part of foot; L97.522 Non-pressure chronic ulcer of other part of left foot with fat layer exposed; L84 Corns and callosities; I70.211 Atherosclerosis of native arteries of extremities with intermittent claudication, right leg; E11.51 Type 2 diabetes mellitus with diabetic peripheral angiopathy without gangrene; E11.40 Type 2 diabetes mellitus with diabetic neuropathy, unspecified; E11.22 Type 2 diabetes mellitus with diabetic chronic kidney disease; I12.0 Hypertensive chronic kidney disease with stage 5 chronic kidney disease or end stage renal disease; N18.6 End stage renal disease; E11.69 Type 2 diabetes mellitus with other specified complication; M86.8X8 Other osteomyelitis, other site; E66.01 Morbid (severe) obesity due to excess calories; Z68.30 Body mass index [BMI] 30.0-30.9, adult; Z87.891 Personal history of nicotine dependence; Z99.2 Dependence on renal dialysis
CPT/HCPCS: 10060

== ENCOUNTER 2022-04-09 11:56 | Outpatient (CLI) | payer MEDICARE ==
[2022-04-09] MEDS ORDERED: SILVER NITRATE APPLICATOR 1 EA TP ONE (11:58)
[2022-04-09] MEDS ORDERED: LIDOCAINE (4%) 40 MG/ML TOPICAL SOLN 50 ML BOTTLE TP ONE (12:04)
== END 2022-04-09 11:57 | disposition home or self-care (01) ==
LOC: WOUND 11:56
PROVIDERS: ATTEND Surgery
DX: E11.621 Type 2 diabetes mellitus with foot ulcer (principal); I70.245 Atherosclerosis of native arteries of left leg with ulceration of other part of foot; L97.522 Non-pressure chronic ulcer of other part of left foot with fat layer exposed; L84 Corns and callosities; I70.211 Atherosclerosis of native arteries of extremities with intermittent claudication, right leg; E11.51 Type 2 diabetes mellitus with diabetic peripheral angiopathy without gangrene; E11.40 Type 2 diabetes mellitus with diabetic neuropathy, unspecified; E11.22 Type 2 diabetes mellitus with diabetic chronic kidney disease; I12.0 Hypertensive chronic kidney disease with stage 5 chronic kidney disease or end stage renal disease; N18.6 End stage renal disease; E11.69 Type 2 diabetes mellitus with other specified complication; M86.8X8 Other osteomyelitis, other site; E66.01 Morbid (severe) obesity due to excess calories; Z68.30 Body mass index [BMI] 30.0-30.9, adult; Z87.891 Personal history of nicotine dependence; Z99.2 Dependence on renal dialysis

== ENCOUNTER 2022-04-23 13:39 | Outpatient (CLI) | payer MEDICARE ==
[2022-04-23] MEDS ORDERED: LIDOCAINE (4%) 40 MG/ML TOPICAL SOLN 50 ML BOTTLE TP SCH (14:19)
[2022-04-23] MEDS ORDERED: SILVER NITRATE APPLICATOR 1 EA TP SCH (14:26)
== END 2022-04-23 13:40 | disposition home or self-care (01) ==
LOC: WOUND 13:39
PROVIDERS: ATTEND Surgery
DX: T87.89 Other complications of amputation stump (principal); E11.621 Type 2 diabetes mellitus with foot ulcer; I70.245 Atherosclerosis of native arteries of left leg with ulceration of other part of foot; L97.522 Non-pressure chronic ulcer of other part of left foot with fat layer exposed; I70.211 Atherosclerosis of native arteries of extremities with intermittent claudication, right leg; E11.51 Type 2 diabetes mellitus with diabetic peripheral angiopathy without gangrene; E11.40 Type 2 diabetes mellitus with diabetic neuropathy, unspecified; E11.22 Type 2 diabetes mellitus with diabetic chronic kidney disease; I12.0 Hypertensive chronic kidney disease with stage 5 chronic kidney disease or end stage renal disease; N18.6 End stage renal disease; E11.69 Type 2 diabetes mellitus with other specified complication; M86.8X8 Other osteomyelitis, other site; E66.01 Morbid (severe) obesity due to excess calories; Z68.30 Body mass index [BMI] 30.0-30.9, adult; Z87.891 Personal history of nicotine dependence; Z99.2 Dependence on renal dialysis; Y83.5 Amputation of limb(s) as the cause of abnormal reaction of the patient, or of later complication, without mention of misadventure at the time of the procedure

== ENCOUNTER 2022-04-30 13:30 | Outpatient (CLI) | payer MEDICARE ==
[2022-04-30] MEDS ORDERED: LIDOCAINE (4%) 40 MG/ML TOPICAL SOLN 50 ML BOTTLE TP ONE (13:41)
[2022-04-30] MEDS ORDERED: SILVER NITRATE APPLICATOR 1 EA TP ONE (14:20)
== END 2022-04-30 13:31 | disposition home or self-care (01) ==
LOC: WOUND 13:30
PROVIDERS: ATTEND Surgery
DX: T87.89 Other complications of amputation stump (principal); E11.621 Type 2 diabetes mellitus with foot ulcer; I70.245 Atherosclerosis of native arteries of left leg with ulceration of other part of foot; L97.522 Non-pressure chronic ulcer of other part of left foot with fat layer exposed; I70.211 Atherosclerosis of native arteries of extremities with intermittent claudication, right leg; E11.51 Type 2 diabetes mellitus with diabetic peripheral angiopathy without gangrene; E11.40 Type 2 diabetes mellitus with diabetic neuropathy, unspecified; E11.22 Type 2 diabetes mellitus with diabetic chronic kidney disease; I12.0 Hypertensive chronic kidney disease with stage 5 chronic kidney disease or end stage renal disease; N18.6 End stage renal disease; E11.69 Type 2 diabetes mellitus with other specified complication; M86.8X8 Other osteomyelitis, other site; E66.01 Morbid (severe) obesity due to excess calories; Z68.30 Body mass index [BMI] 30.0-30.9, adult; Z87.891 Personal history of nicotine dependence; Z99.2 Dependence on renal dialysis; Y83.5 Amputation of limb(s) as the cause of abnormal reaction of the patient, or of later complication, without mention of misadventure at the time of the procedure

== ENCOUNTER 2022-05-14 13:02 | Outpatient (CLI) | payer MEDICARE ==
[2022-05-14] MEDS ORDERED: LIDOCAINE (4%) 40 MG/ML TOPICAL SOLN 50 ML BOTTLE TP ONE (13:24)
[2022-05-14] MEDS ORDERED: SILVER NITRATE APPLICATOR 1 EA TP ONE (13:24)
== END 2022-05-14 13:03 | disposition home or self-care (01) ==
LOC: WOUND 13:02
PROVIDERS: ATTEND Surgery
DX: E11.621 Type 2 diabetes mellitus with foot ulcer (principal); I70.245 Atherosclerosis of native arteries of left leg with ulceration of other part of foot; L97.522 Non-pressure chronic ulcer of other part of left foot with fat layer exposed; I70.211 Atherosclerosis of native arteries of extremities with intermittent claudication, right leg; E11.51 Type 2 diabetes mellitus with diabetic peripheral angiopathy without gangrene; E11.40 Type 2 diabetes mellitus with diabetic neuropathy, unspecified; E11.22 Type 2 diabetes mellitus with diabetic chronic kidney disease; I12.0 Hypertensive chronic kidney disease with stage 5 chronic kidney disease or end stage renal disease; N18.6 End stage renal disease; E11.69 Type 2 diabetes mellitus with other specified complication; M86.8X8 Other osteomyelitis, other site; E66.01 Morbid (severe) obesity due to excess calories; Z68.30 Body mass index [BMI] 30.0-30.9, adult; Z87.891 Personal history of nicotine dependence; Z89.412 Acquired absence of left great toe; Z89.422 Acquired absence of other left toe(s); Z99.2 Dependence on renal dialysis

== ENCOUNTER 2022-05-18 11:20 | Outpatient (CLI) | payer MEDICARE | END 2022-05-18 11:21 | disposition home or self-care (01) | LOC: WOUND 11:20 | PROVIDERS: ATTEND Surgery | DX: E11.621 Type 2 diabetes mellitus with foot ulcer (principal); I70.245 Atherosclerosis of native arteries of left leg with ulceration of other part of foot; L97.521 Non-pressure chronic ulcer of other part of left foot limited to breakdown of skin; I70.211 Atherosclerosis of native arteries of extremities with intermittent claudication, right leg; E11.51 Type 2 diabetes mellitus with diabetic peripheral angiopathy without gangrene; E11.40 Type 2 diabetes mellitus with diabetic neuropathy, unspecified; E11.22 Type 2 diabetes mellitus with diabetic chronic kidney disease; I12.0 Hypertensive chronic kidney disease with stage 5 chronic kidney disease or end stage renal disease; N18.6 End stage renal disease; E11.69 Type 2 diabetes mellitus with other specified complication; M86.8X8 Other osteomyelitis, other site; E66.01 Morbid (severe) obesity due to excess calories; Z68.30 Body mass index [BMI] 30.0-30.9, adult; Z87.891 Personal history of nicotine dependence; Z99.2 Dependence on renal dialysis | CPT/HCPCS: 29581 ==

== ENCOUNTER 2022-05-21 13:48 | Outpatient (CLI) | payer MEDICARE ==
[2022-05-21] MEDS ORDERED: SODIUM HYPOCHLORITE, DAKIN'S FULL STRENGTH (0.5%) 473 ML TOPICAL SOLN TP ONE (14:30)
== END 2022-05-21 13:49 | disposition home or self-care (01) ==
LOC: WOUND 13:48
PROVIDERS: ATTEND Surgery
DX: E11.621 Type 2 diabetes mellitus with foot ulcer (principal); I70.245 Atherosclerosis of native arteries of left leg with ulceration of other part of foot; L97.522 Non-pressure chronic ulcer of other part of left foot with fat layer exposed; I70.211 Atherosclerosis of native arteries of extremities with intermittent claudication, right leg; E11.51 Type 2 diabetes mellitus with diabetic peripheral angiopathy without gangrene; E11.40 Type 2 diabetes mellitus with diabetic neuropathy, unspecified; E11.22 Type 2 diabetes mellitus with diabetic chronic kidney disease; I12.0 Hypertensive chronic kidney disease with stage 5 chronic kidney disease or end stage renal disease; N18.6 End stage renal disease; E11.69 Type 2 diabetes mellitus with other specified complication; M86.8X8 Other osteomyelitis, other site; E66.01 Morbid (severe) obesity due to excess calories; Z68.30 Body mass index [BMI] 30.0-30.9, adult; Z87.891 Personal history of nicotine dependence; Z89.412 Acquired absence of left great toe; Z89.422 Acquired absence of other left toe(s); Z99.2 Dependence on renal dialysis

== ENCOUNTER 2022-05-28 13:20 | Outpatient (CLI) | payer MEDICARE ==
[2022-05-28] MEDS ORDERED: SODIUM HYPOCHLORITE, DAKIN'S FULL STRENGTH (0.5%) 473 ML TOPICAL SOLN TP ONE (13:44)
== END 2022-05-28 13:21 | disposition home or self-care (01) ==
LOC: WOUND 13:20
PROVIDERS: ATTEND Surgery
DX: E11.621 Type 2 diabetes mellitus with foot ulcer (principal); I70.245 Atherosclerosis of native arteries of left leg with ulceration of other part of foot; L97.522 Non-pressure chronic ulcer of other part of left foot with fat layer exposed; I70.211 Atherosclerosis of native arteries of extremities with intermittent claudication, right leg; E11.51 Type 2 diabetes mellitus with diabetic peripheral angiopathy without gangrene; E11.40 Type 2 diabetes mellitus with diabetic neuropathy, unspecified; E11.22 Type 2 diabetes mellitus with diabetic chronic kidney disease; I12.0 Hypertensive chronic kidney disease with stage 5 chronic kidney disease or end stage renal disease; N18.6 End stage renal disease; E11.69 Type 2 diabetes mellitus with other specified complication; M86.8X8 Other osteomyelitis, other site; E66.01 Morbid (severe) obesity due to excess calories; Z68.30 Body mass index [BMI] 30.0-30.9, adult; Z87.891 Personal history of nicotine dependence; Z89.412 Acquired absence of left great toe; Z89.422 Acquired absence of other left toe(s); Z99.2 Dependence on renal dialysis
CPT/HCPCS: 87076; 87116; 87186

== ENCOUNTER 2022-06-11 09:37 | Outpatient (CLI) | payer MEDICARE ==
[2022-06-11] MEDS ORDERED: LIDOCAINE (4%) 40 MG/ML TOPICAL SOLN 50 ML BOTTLE TP ONE (10:39)
[2022-06-11] MEDS ORDERED: SILVER NITRATE APPLICATOR 1 EA TP ONE (10:40)
== END 2022-06-11 09:38 | disposition home or self-care (01) ==
LOC: WOUND 09:37
PROVIDERS: ATTEND Surgery
DX: E11.621 Type 2 diabetes mellitus with foot ulcer (principal); I70.245 Atherosclerosis of native arteries of left leg with ulceration of other part of foot; L97.522 Non-pressure chronic ulcer of other part of left foot with fat layer exposed; I70.211 Atherosclerosis of native arteries of extremities with intermittent claudication, right leg; E11.51 Type 2 diabetes mellitus with diabetic peripheral angiopathy without gangrene; E11.40 Type 2 diabetes mellitus with diabetic neuropathy, unspecified; E11.22 Type 2 diabetes mellitus with diabetic chronic kidney disease; I12.0 Hypertensive chronic kidney disease with stage 5 chronic kidney disease or end stage renal disease; N18.6 End stage renal disease; E11.69 Type 2 diabetes mellitus with other specified complication; M86.8X8 Other osteomyelitis, other site; E66.01 Morbid (severe) obesity due to excess calories; Z68.30 Body mass index [BMI] 30.0-30.9, adult; Z87.891 Personal history of nicotine dependence; Z89.412 Acquired absence of left great toe; Z89.422 Acquired absence of other left toe(s); Z99.2 Dependence on renal dialysis

== ENCOUNTER 2022-06-25 13:38 | Outpatient (CLI) | payer MEDICARE ==
[2022-06-25] MEDS ORDERED: LIDOCAINE (4%) 40 MG/ML TOPICAL SOLN 50 ML BOTTLE TP ONE (14:05)
== END 2022-06-25 13:39 | disposition home or self-care (01) ==
LOC: WOUND 13:38
PROVIDERS: ATTEND Surgery
DX: E11.621 Type 2 diabetes mellitus with foot ulcer (principal); I70.245 Atherosclerosis of native arteries of left leg with ulceration of other part of foot; L97.522 Non-pressure chronic ulcer of other part of left foot with fat layer exposed; I70.211 Atherosclerosis of native arteries of extremities with intermittent claudication, right leg; E11.51 Type 2 diabetes mellitus with diabetic peripheral angiopathy without gangrene; E11.40 Type 2 diabetes mellitus with diabetic neuropathy, unspecified; E11.22 Type 2 diabetes mellitus with diabetic chronic kidney disease; I12.0 Hypertensive chronic kidney disease with stage 5 chronic kidney disease or end stage renal disease; N18.6 End stage renal disease; E11.69 Type 2 diabetes mellitus with other specified complication; M86.8X8 Other osteomyelitis, other site; E66.01 Morbid (severe) obesity due to excess calories; Z68.30 Body mass index [BMI] 30.0-30.9, adult; Z87.891 Personal history of nicotine dependence; Z89.412 Acquired absence of left great toe; Z89.422 Acquired absence of other left toe(s); Z99.2 Dependence on renal dialysis

== ENCOUNTER 2022-07-09 13:21 | Outpatient (CLI) | payer MEDICARE ==
[2022-07-09] MEDS ORDERED: LIDOCAINE (4%) 40 MG/ML TOPICAL SOLN 50 ML BOTTLE TP ONE (13:45)
== END 2022-07-09 13:22 | disposition home or self-care (01) ==
LOC: WOUND 13:21
PROVIDERS: ATTEND Surgery
DX: E11.621 Type 2 diabetes mellitus with foot ulcer (principal); I70.245 Atherosclerosis of native arteries of left leg with ulceration of other part of foot; L97.522 Non-pressure chronic ulcer of other part of left foot with fat layer exposed; I70.211 Atherosclerosis of native arteries of extremities with intermittent claudication, right leg; E11.51 Type 2 diabetes mellitus with diabetic peripheral angiopathy without gangrene; E11.40 Type 2 diabetes mellitus with diabetic neuropathy, unspecified; E11.22 Type 2 diabetes mellitus with diabetic chronic kidney disease; I12.0 Hypertensive chronic kidney disease with stage 5 chronic kidney disease or end stage renal disease; N18.6 End stage renal disease; E11.69 Type 2 diabetes mellitus with other specified complication; M86.8X8 Other osteomyelitis, other site; E66.01 Morbid (severe) obesity due to excess calories; Z68.30 Body mass index [BMI] 30.0-30.9, adult; Z87.891 Personal history of nicotine dependence; Z89.412 Acquired absence of left great toe; Z89.422 Acquired absence of other left toe(s); Z99.2 Dependence on renal dialysis